=== PATIENT | male | born 1950 | race Caucasian/White ===

== ENCOUNTER 2024-02-21 18:11 | Inpatient (IN) | payer MEDICARE, SELFPAY ==
[2024-02-21] VITALS (49 sets, daily range): BP systolic 92–186; BP diastolic 52–105
--- NOTE | 2024-02-21 14:48 | EDRN ---
1449 20mg etomidate given
1449 100mg succ given after etomidate
23 @ teeth, 8 0 tube
Good color change
Portable chest xray at bedside for post intubation xray
[2024-02-21] MEDS: SUBLIMAZE 60 MCG IV ×2 (14:53→15:07)
[2024-02-21 14:55] LABS: Glucose - Point of Care 130 mg/dl (70-99)
--- NOTE | 2024-02-21 14:58 | ED.GENMED ---
History of Present Illness
<Topher Gary DO - Last Filed: 02/21/24 14:58>
General
Chief Complaint: Unresponsive
Time Seen by Provider: 02/21/24 14:35
<Roger Ramsey PA-C - Last Filed: 02/21/24 18:13>
History of Present Illness
History of Present Illness:
74-year-old male presents to the emergency department via EMS for evaluation of altered mental status. Reportedly was agitated overnight last night and did not go to bed until approximately 6 AM today, did not wake up and thus was evaluated by
nursing facility staff and noted to be unresponsive. On arrival patient is a GCS of 5 with only minimal flexion response to tactile stimuli
Review of Systems
<Roger Ramsey PA-C - Last Filed: 02/21/24 18:13>
Review of Systems
Allergies reviewed?: Yes
Unable to obtain full review of systems at this time due to: intubated
Phy Exam
<Roger Ramsey PA-C - Last Filed: 02/21/24 18:13>
Physical Exam
Physical Exam:
GEN: Frail and malnourished, obtunded
HEENT: Pupils 3 mm and minimally reactive bilaterally ,oral mucosa dry, no scleral icterus
Cardiac: Regular rate and rhythm
Lung: Tachypneic with upper airway secretions, diminished bibasilar breath sounds
Abdomen: Flat, no rigidity
MSK: No gross deformity or injuries
Skin: Good color, no pallor or jaundice, no rashes
Neuro: Obtunded, GCS 5 (E1 V1 M3)
Course
<Topher Gary DO - Last Filed: 02/21/24 14:58>
Orders/Labs/Results
Orders:
Orders
02/21/24 14:29
Etomidate [Amidate] 40 mg .ROUTE .STK-MED ONE
Succinylcholine Chloride [Anectine] 200 mg .ROUTE .STK-MED ONE
02/21/24 14:32
Electrocardiogram (*1) Urgent
Reason for Study: Other
Other Reason for Exam: unresponsive
02/21/24 14:33
EKG- Treatment ONCE
02/21/24 14:39
Propofol 1,000,000 Mcg/100 ml [Diprivan] 1,000,000 mcg in 100 ml .ROUTE .STK-MED
02/21/24 14:45
Fentanyl Citrate/Pf [Sublimaze] 100 mcg .ROUTE .STK-MED ONE
02/21/24 14:46
CT Head W/o Iv Contrast Urgent
Comment:
Reason For Exam: unresponsive
CR Chest Portable - 1 View Urgent
Comment:
Reason For Exam: unresponsive intubation
Reason Study Needs to be Portable: Patient Unstable
02/21/24 14:51
Ammonia Urgent
Complete Blood Count/With Diff Urgent
Comprehensive Metabolic Panel Urgent
PTT Urgent
Prothrombin Time Urgent
Triglycerides Urgent
Comment: ADD ON
Fentanyl Citrate/Pf [Sublimaze] 60 mcg IV NOW STA
02/21/24 14:54
Etomidate [Amidate 20 mg] 20 mg IV NOW STA
Succinylcholine Chloride [Anectine] 100 mg IV NOW STA
02/21/24 15:04
Fentanyl Citrate/Pf [Sublimaze] 100 mcg .ROUTE .STK-MED ONE
Fentanyl Citrate/Pf [Sublimaze] 60 mcg IV NOW STA
02/21/24 15:09
Propofol [Diprivan] 20 ml .ROUTE .STK-MED
02/21/24 15:15
Propofol 1,000,000 Mcg/100 ml [Diprivan] 1,000,000 mcg in 100 ml IV PER PROTOCOL
Indication:: Light Sedation
Begin Infusion:: Now
Goal:: RASS 0 to -2
Maximum dose in mcg/kg/min:: 50
Initial Dose in mcg/kg/min:: 10
Titration Instructions:: Titrate by 5-10 mcg/kg/min every 5 minutes until RASS 0 to -2 achieved.
Taper Instructions:: If RASS is at or below goal for 4 consecutive hours decrease infusion by
Taper Instructions:: 5-10 mcg/kg/min every 2 hours to off.
Over-sedation Instructions:: If CPOT 0-2 (at goal) AND RASS -3 to -5 (below goal) decrease sedative by
Over-sedation Instructions:: 50% first. If pain score remains at goal and RASS remains below goal in
Over-sedation Instructions:: 1 hour, decrease opioid infusion by 50%.
Notify provider:: immediately if patient exhibits signs/symptoms of propofol-related
Notify provider:: infusion syndrome.
Additional Instructions:: Patient MUST be mechanically ventilated and MUST recieve analgesia
Propofol [Diprivan] 50 mg IV NOW STA
02/21/24 15:16
ASA Classification Routine
02/21/24 15:21
Lactulose [Duphalac/Chronulac] 20 grams TUBE NOW STA
02/21/24 15:24
0.9% Sodium Chloride 1000 ml [Nss] 1,000 ml IV BOLUS
02/21/24 16:44
Arterial Blood Gas Urgent
02/21/24 16:56
Lactulose Enema 300 ml RECTAL NOW STA
02/21/24 17:18
Admit/Transfer Patient As Directed
Co-Sign Provider:
Level of Care: Inpatient admission
Assign to:: ICU
Physician / Group: Hospitalist
Diagnosis: Hepatic Encephelopathy
Reason for Hospitalization: Hepatic Encephelopathy
Expected length of stay greater than two midnights?: Yes
ELOS- Estimated Length of Stay in days: 3
I certify the patient meets the requirements for IP care: Yes
02/21/24 17:19
PRN Pain Medication Management As Directed
May give lesser potent ordered pain med per pt: Yes
preference::
Protocol:: Medication orders for pain may be administered in a
manner that supports deferring to patient preference
when the pt is:
- Requesting an ordered lesser potent pain medication.
Least to most potent pain medications are defined
as: acetaminophen < NSAID < tramadol < opioids
(morphine, oxycodone, hydromorphone).
- Requesting a lesser dose of the same medication IF
ORDERED.
- Requesting a less intrusive route of administration
if both routes are prescribed by the provider (PO <
IV).
02/21/24 17:57
Code Status As Directed
Resuscitation Status: Full Code
02/24/24 06:00
Triglycerides Q3D
Comment: every 72 hours while patient is on propofol
02/27/24 06:00
Triglycerides Q3D
Comment: every 72 hours while patient is on propofol
03/01/24 06:00
Triglycerides Q3D
Comment: every 72 hours while patient is on propofol
Abnormal Lab Results
02/21/24 02/21/24 02/21/24
14:51 14:54 16:44
WBC 4.6 L 10^3/uL
(4.8-10.8)
RBC 3.39 L 10^6/uL
(4.70-6.10)
Hgb 11.8 L g/dL
(13.0-18.0)
Hct 33.3 L %
(39.0-52.0)
MCV 98.2 H fL
(80.0-94.0)
MCH 34.8 H pg
(27.0-31.0)
RDW 19.3 H %
(11.5-14.5)
Plt Count 106 L 10^3/uL
(130-400)
Absolute Lymphs (auto) 0.5 L 10^3/uL
(1.2-3.4)
Neutrophils % 80.7 H %
(42.2-75.2)
Lymphocytes % 10.3 L %
(20.5-51.1)
PT 17.9 H Sec
(11.4-14.6)
pO2 187 H mmHg
(83-108)
ABG O2 Sat (Measured) 99.6 H %
(94-98)
Glucose 123 H mg/dl
(70-99)
Total Bilirubin 3.3 H mg/dl
(0.2-1.3)
Ammonia 128 H umol/L
(9-30)
Albumin 3.1 L g/dl
(3.5-5.0)
POC Glucose 130 H mg/dl
(70-99)
02/21/24 14:51
02/21/24 14:51
Vital Signs
Initial and Last Documented VS:
Initial Vital Signs
Temp Pulse Resp BP Pulse Ox
97.6 F 58 14 143/70 100
02/21/24 14:34 02/21/24 14:34 02/21/24 14:34 02/21/24 14:34 02/21/24 14:34
Last Documented Vital Signs
Temp Pulse Resp BP Pulse Ox
97.5 F 56 15 123/61 100
02/21/24 17:22 02/21/24 17:30 02/21/24 17:30 02/21/24 17:30 02/21/24 17:22
<Roger Ramsey PA-C - Last Filed: 02/21/24 18:13>
Orders/Labs/Results
Orders:
Orders
02/21/24 14:29
Etomidate [Amidate] 40 mg .ROUTE .STK-MED ONE
Succinylcholine Chloride [Anectine] 200 mg .ROUTE .STK-MED ONE
02/21/24 14:32
Electrocardiogram (*1) Urgent
Reason for Study: Other
Other Reason for Exam: unresponsive
02/21/24 14:33
EKG- Treatment ONCE
02/21/24 14:39
Propofol 1,000,000 Mcg/100 ml [Diprivan] 1,000,000 mcg in 100 ml .ROUTE .STK-MED
02/21/24 14:45
Fentanyl Citrate/Pf [Sublimaze] 100 mcg .ROUTE .STK-MED ONE
02/21/24 14:46
CT Head W/o Iv Contrast Urgent
Comment:
Reason For Exam: unresponsive
CR Chest Portable - 1 View Urgent
Comment:
Reason For Exam: unresponsive intubation
Reason Study Needs to be Portable: Patient Unstable
02/21/24 14:51
Ammonia Urgent
Complete Blood Count/With Diff Urgent
Comprehensive Metabolic Panel Urgent
PTT Urgent
Prothrombin Time Urgent
Triglycerides Urgent
Comment: ADD ON
Fentanyl Citrate/Pf [Sublimaze] 60 mcg IV NOW STA
02/21/24 14:54
Etomidate [Amidate 20 mg] 20 mg IV NOW STA
Succinylcholine Chloride [Anectine] 100 mg IV NOW STA
02/21/24 15:04
Fentanyl Citrate/Pf [Sublimaze] 100 mcg .ROUTE .STK-MED ONE
Fentanyl Citrate/Pf [Sublimaze] 60 mcg IV NOW STA
02/21/24 15:09
Propofol [Diprivan] 20 ml .ROUTE .STK-MED
02/21/24 15:15
Propofol 1,000,000 Mcg/100 ml [Diprivan] 1,000,000 mcg in 100 ml IV PER PROTOCOL
Indication:: Light Sedation
Begin Infusion:: Now
Goal:: RASS 0 to -2
Maximum dose in mcg/kg/min:: 50
Initial Dose in mcg/kg/min:: 10
Titration Instructions:: Titrate by 5-10 mcg/kg/min every 5 minutes until RASS 0 to -2 achieved.
Taper Instructions:: If RASS is at or below goal for 4 consecutive hours decrease infusion by
Taper Instructions:: 5-10 mcg/kg/min every 2 hours to off.
Over-sedation Instructions:: If CPOT 0-2 (at goal) AND RASS -3 to -5 (below goal) decrease sedative by
Over-sedation Instructions:: 50% first. If pain score remains at goal and RASS remains below goal in
Over-sedation Instructions:: 1 hour, decrease opioid infusion by 50%.
Notify provider:: immediately if patient exhibits signs/symptoms of propofol-related
Notify provider:: infusion syndrome.
Additional Instructions:: Patient MUST be mechanically ventilated and MUST recieve analgesia
Propofol [Diprivan] 50 mg IV NOW STA
02/21/24 15:16
ASA Classification Routine
02/21/24 15:21
Lactulose [Duphalac/Chronulac] 20 grams TUBE NOW STA
02/21/24 15:24
0.9% Sodium Chloride 1000 ml [Nss] 1,000 ml IV BOLUS
02/21/24 16:44
Arterial Blood Gas Urgent
02/21/24 16:56
Lactulose Enema 300 ml RECTAL NOW STA
02/21/24 17:18
Admit/Transfer Patient As Directed
Co-Sign Provider:
Level of Care: Inpatient admission
Assign to:: ICU
Physician / Group: Hospitalist
Diagnosis: Hepatic Encephelopathy
Reason for Hospitalization: Hepatic Encephelopathy
Expected length of stay greater than two midnights?: Yes
ELOS- Estimated Length of Stay in days: 3
I certify the patient meets the requirements for IP care: Yes
02/21/24 17:19
PRN Pain Medication Management As Directed
May give lesser potent ordered pain med per pt: Yes
preference::
Protocol:: Medication orders for pain may be administered in a
manner that supports deferring to patient preference
when the pt is:
- Requesting an ordered lesser potent pain medication.
Least to most potent pain medications are defined
as: acetaminophen < NSAID < tramadol < opioids
(morphine, oxycodone, hydromorphone).
- Requesting a lesser dose of the same medication IF
ORDERED.
- Requesting a less intrusive route of administration
if both routes are prescribed by the provider (PO <
IV).
02/21/24 17:57
Code Status As Directed
Resuscitation Status: Full Code
02/24/24 06:00
Triglycerides Q3D
Comment: every 72 hours while patient is on propofol
02/27/24 06:00
Triglycerides Q3D
Comment: every 72 hours while patient is on propofol
03/01/24 06:00
Triglycerides Q3D
Comment: every 72 hours while patient is on propofol
Abnormal Lab Results
02/21/24 02/21/24 02/21/24
14:51 14:54 16:44
WBC 4.6 L 10^3/uL
(4.8-10.8)
RBC 3.39 L 10^6/uL
(4.70-6.10)
Hgb 11.8 L g/dL
(13.0-18.0)
Hct 33.3 L %
(39.0-52.0)
MCV 98.2 H fL
(80.0-94.0)
MCH 34.8 H pg
(27.0-31.0)
RDW 19.3 H %
(11.5-14.5)
Plt Count 106 L 10^3/uL
(130-400)
Absolute Lymphs (auto) 0.5 L 10^3/uL
(1.2-3.4)
Neutrophils % 80.7 H %
(42.2-75.2)
Lymphocytes % 10.3 L %
(20.5-51.1)
PT 17.9 H Sec
(11.4-14.6)
pO2 187 H mmHg
(83-108)
ABG O2 Sat (Measured) 99.6 H %
(94-98)
Glucose 123 H mg/dl
(70-99)
Total Bilirubin 3.3 H mg/dl
(0.2-1.3)
Ammonia 128 H umol/L
(9-30)
Albumin 3.1 L g/dl
(3.5-5.0)
POC Glucose 130 H mg/dl
(70-99)
02/21/24 14:51
02/21/24 14:51
Vital Signs
Initial and Last Documented VS:
Initial Vital Signs
Temp Pulse Resp BP Pulse Ox
97.6 F 58 14 143/70 100
02/21/24 14:34 02/21/24 14:34 02/21/24 14:34 02/21/24 14:34 02/21/24 14:34
Last Documented Vital Signs
Temp Pulse Resp BP Pulse Ox
97.5 F 56 15 123/61 100
02/21/24 17:22 02/21/24 17:30 02/21/24 17:30 02/21/24 17:30 02/21/24 17:22
Procedures
<Roger Ramsey PA-C - Last Filed: 02/21/24 18:13>
Intubations
Procedure completed by: Roger Ramsey PA-C
Method of Intubation: glidescope
Tube size (cm): 8.0
Placement confirmed by: auscutation, CXR and capnography
Breath sounds after intubation: equal
Intubation complications: no complications
<Roger Ramsey PA-C - Last Filed: 02/21/24 18:13>
MDM/Problems Addressed
MDM/Problems Addressed:
On arrival the patient was noted to be obtunded with a GCS of 5 and was intubated promptly, given etomidate and succinylcholine for RSI and intubated on first pass with no difficulty. After securing the tube he was sent urgently for head CT due to
the acute altered mental status, did require sedation after intubation including fentanyl boluses and propofol drip. CT of the head was unremarkable. Workup reveals marked hyperammonemia which is the source of his altered mental status.
Unfortunately we were unsuccessful multiple attempts to pass an orogastric tube thus lactulose was administered rectally. Will be admitted to the ICU for further management
<Roger Ramsey PA-C - Last Filed: 02/21/24 18:13>
Comment
Comment:
EKG independently interpreted by me shows sinus bradycardia at a rate of 58 with significant motion artifact
*Critical Care Note
Total Time (30-74mins, 75-104mins- exclusive of procedures): 55 minutes
comment:
Critical care time: 55-minute
Critical care time was exclusive of: Separately billable procedures, treating other patients, and teaching time
Critical care was necessary to treat or prevent imminent or life-threatening deterioration of the following conditions: Acute encephalopathy/respiratory insufficiency
Critical care time spent personally by me on the following activities:
[x] Review of old charts
[x] Obtaining history from patient or surrogate
[x] Ordering and review of the laboratory studies
[x] Ordering and review of radiographic studies
[x] Ordering and performing treatments and interventions
[x] Patient patient's response to treatment
[x] Development of treatment plan with patient or surrogate
ED Attending Note
<Topher Gary DO - Last Filed: 02/21/24 14:58>
ED Attending Note
Patient seen and examined by attending physician: Yes
I performed the substantive portion of visit, reviewed & personally made and approve the management plan that is documented in note by myself or TIFFANY.: Yes
ED Attending Note:
I evaluated patient at bedside. I was present for the intubation. The patient arrived minimally responsive and does not follow any commands.
-
Portions of this chart may have been created with voice recognition software.� Occasional wrong word or��sound alike� substitutions may have occurred due to the inherent limitations of voice recognition software.
Discharge Plan
Departure
Patient Disposition: Admit
Date of Disposition: 02/21/24
Time of Disposition: 15:34
Admit to: ICU
Presentation/result/management discussed w/ accepting MD/DO: Hospitalist
Discharge Problem:
Acute hepatic encephalopathy
Prescriptions:
No Action
acetaminophen [Tylenol] 325 mg Tablet
650 mg PO Q6HPRN PRN (Reason: mild pain)
cyanocobalamin (vitamin B-12) 100 mcg Tablet
100 mcg PO HS
lidocaine 4 % Adhesive Patch,Medicated
1 patch TOPICAL DAILY
thiamine HCl (vitamin B1) 100 mg Tablet
100 mg PO DAILY
Theragen Tablet
1 tab PO DAILY
guaifenesin 200 mg Tablet
600 mg PO [id number] PRN (Reason: cough)
propranolol 10 mg Tablet
10 mg PO HS
magnesium hydroxide [Milk of Magnesia] 400 mg/5 mL Suspension
2,400 mg PO DAILYPRN PRN (Reason: if no bm by 3rd day)
ascorbic acid (vitamin C) [Vitamin C] 250 mg Tablet
250 mg PO DAILY
bisacodyl [Dulcolax (bisacodyl)] 10 mg Suppository
10 mg TN DAILYPRN PRN (Reason: if no bm aftr mom)
pantoprazole [Protonix] 40 mg Tablet,Delayed Release (Dr/Ec)
40 mg PO HS
Fleet Enema 19-7 gram/118 mL Enema
118 ml TN DAILYPRN PRN (Reason: if no bm aftr dulolcax)
furosemide [Lasix] 20 mg Tablet
20 mg PO DAILY
propranolol 20 mg Tablet
20 mg PO DAILY
lactulose 10 gram/15 mL Solution
20 g PO TID
menthol-zinc oxide [Moisture Barrier Ointment] 0.44-20.6 % Ointment
1 applic TOPICAL TIDPRN PRN (Reason: palak areas)
zinc oxide 13 % Cream
1 applic TOPICAL TID
Trelegy Ellipta 100-62.5-25 mcg Blister With Device
1 inh INHALATION R DAILY
Referrals:
Carlos Castro MD [Family Provider] -
Discharge Date and Time
Print Language: LUX[place]
[2024-02-21 15:01] LABS: % Basophils 0.7 % (0-2); % Eosinophils 3.7 % (0-6); % Immature Granulocytes 0.2 % (0-0.5); % Lymphocytes 10.3 % (20.5-51.1); % Monocytes 4.4 % (1.7-9.3); % Neutrophils 80.7 % (42.2-75.2); Absolute Eosinophils 0.2 10^3/uL (0-0.7); Absolute Lymphocytes 0.5 10^3/uL (1.2-3.4); Absolute Monocytes 0.2 10^3/uL (0.1-0.6); Absolute Neutrophils 3.7 10^3/uL (1.4-6.5); Hematocrit 33.3 % (39.0-52.0); Hemoglobin 11.8 g/dL (13.0-18.0); Mean Corp Hgb Conc. 35.4 g/dL (33.0-37.0); Mean Corpuscular Hgb 34.8 pg (27.0-31.0); Mean Corpuscular Volume 98.2 fL (80.0-94.0); Mean Platelet Volume 9.4 fL (7.4-10.4); Nucleated Red Blood Cells % 0 % (-); Platelet Count 106 10^3/uL (130-400); Red Blood Cell Count 3.39 10^6/uL (4.70-6.10); Red Cell Dist. Width 19.3 % (11.5-14.5); White Blood Cell Count 4.6 10^3/uL (4.8-10.8)
[2024-02-21] MEDS: NSS 1000 IV ×2 (15:05→20:21)
[2024-02-21] MEDS: DIPRIVAN 100 IV (15:07)
[2024-02-21 15:13] LABS: INR 1.42; PT 17.9 Sec (11.4-14.6)
--- NOTE | 2024-02-21 15:13 | EDRN ---
50mg propofol given by Quintin Ramsey PA-C.
[2024-02-21 15:16] LABS: Ammonia 128 umol/L (9-30)
[2024-02-21 15:17] LABS: ALT (SGPT) 38 U/L (0-50); AST (SGOT) 48 U/L (17-59); Albumin 3.1 g/dl (3.5-5.0); Alkaline Phosphatase 106 U/L (38-126); Blood Urea Nitrogen 20 mg/dl (9-20); Calcium 8.6 mg/dl (8.4-10.2); Carbon Dioxide 29 mmol/L (22-30); Chloride 104 mmol/L (98-107); Glucose 123 mg/dl (70-99); Potassium 4.9 mmol/L (3.5-5.1); Sodium 138 mmol/L (135-145); Total Bilirubin 3.3 mg/dl (0.2-1.3); Total Protein 6.8 g/dl (6.3-8.2); eGFR > 60.00
--- NOTE | 2024-02-21 15:17 | EDRN ---
Vent Settings: TV-500, Rate-14, FiO2-40%, PEEP-5
--- NOTE | 2024-02-21 15:54 | EDRN ---
this CROWN ATTACHER attempted to place NG or OG tube to administer ordered meds to be given via tube. Unsuccessful x3 attempts, NG tube was repeatedly curling and coming back out of the pts mouth. this CROWN ATTACHER obtained assistance from ER DELMAR Masters During NG or
OG tube placement attempts pt was moving his extremities and coughing. ER DELMAR Forman administered 50mg Propofol IVP at this time (1530) for additional sedation. ER DELMAR Masters then attempted to place NG or OG tube while using glidescope assistance but
was unsuccessful x3 attempts. An additional CROWN ATTACHER also called to the beside and attempted to place ordered NG or OG tube but was also unsuccessful x3 attempts.
HERBERT Masters was notified of above
--- NOTE | 2024-02-21 16:42 | EDRN ---
this HOT HEAD MACHINE OPERATOR called [facility] staff development coordinator inquiring about the Isolation precaution wristband the pt arrived wearing. The [place] staff development coordinator stated that the pt came to [facility] with that wristband on 'from the other hospital.' [facility]
[place] staff development coordinator stated they did NOT have the pt on ANY isolation precautions at their facility.
Due to multiple ER staff members failed attempts to place either an NG or OG tube in this pt, ER DELMAR Masters informed this HOT HEAD MACHINE OPERATOR that the medication will be changed to rectal administration route.
[2024-02-21 16:51] LABS: Triglycerides 45 mg/dl (10-149)
[2024-02-21 16:59] LABS: B.E. 2.2 mmol/L; HCO3 26.5 mmol/L (21-28); O2 Saturation % 99.6 % (94-98); PCO2 39 mmHg (35-48); PO2 187 mmHg (83-108); pH 7.44 (7.35-7.45)
[2024-02-21] MEDS: LACTULOSE ENEMA 300 ML RECTAL ×2 (17:48→22:30)
[2024-02-21 18:33] LABS: Amphetamines Negative (Negative); Barbiturates Negative (Negative); Benzodiazepines Negative (Negative); Buprenorphine Negative (Negative); Cocaine Negative (Negative); Marijuana Negative (Negative); Methadone Negative (Negative); Methamphetamines Negative (Negative); Opiates Negative (Negative); Phencyclidine Negative (Negative); Tricyclic Antidepressants Negative (Negative)
--- NOTE | 2024-02-21 18:46 | HPS.HSE ---
Addendum entered and electronically signed by Rocío Pagan MD 02/21/24 19:41:
I personally performed a history and physical exam of the patient and discussed management with the resident. I reviewed the resident's note and agree with the documented findings and plan of care HPI/CC.
GENERAL: cachectic, chronically ill appearing male, in no apparent distress
HEENT: NC/AT--intubated, sunken temples and muscle wasting
HEART: regular rate and rhythm, +S1, +S2
LUNGS : rhonchi RLL
ABDOM: soft, nontender, nondistended, + bowel sounds--scaphoid abdomen, no ascites
EXT: no cyanosis, clubbing, or edema
NEUROLOGIC: obtunded
: uncircumcised penis--Tamayo catheter being placed
change in mental status/obtunded--likely hepatic encephalopathy given cirrhosis and ammonia of 128-- no signs of hypoxia, hypercapnia, acidosis or sepsis, head CT neg for infarct--admit to ICU--consult driver manager--could not get NGT in in
ED--consult GI--for now, lactulose enemas--trend ammonia--cont rocephin for SBP coverage--check TSH--tamayo for critical care I/Os
VDRF--likely intubated due to mental status and inability to protect airway--vent setting per pulm--wean as able
pancytopenia--likely due to cirrhosis--follow--unknown baseline but likely chronic--on thiamine and B12 supplements
cirrhosis--no ascites--unknown cause--on propranolol and lasix--could have varices--no signs of active bleeding--change oral to IV meds as able
Possible pneumonia--could be due to aspiration--ok for rocephin/doxy for now---CXR cannot rule out left basilar pneumonia.
Essential hypertension--Lopressor with parameters
COPD--Hold Trelegy Ellipta, start DuoNebs through vent--apprec pulm/driver manager
code status--Full Code
DVT proph --SCDs
Total Critical Care Time 60 minutes. I was immediately available to the patient and staff. I personally examined, reviewed labs, diagnostic images/reports, interpretations, treatment plans, discussed patient care with other providers and family
or caregivers (if patient is unable to make decisions), entered orders as appropriate and documented the medical record.
Original Note:
Family Physician
-
Family Physician: Carlos Castro
Chief Complaint
-
Altered mental status
History of Present Illness
History is limited secondary to patient obtundation. Patient arrived from [facility]. Reportedly the patient was agitated overnight last night and did not go to bed until approximately 6 AM this morning. The patient was
allowed to sleep, did not receive his morning medications, or morning meals, and was thus evaluated by nursing staff in the early afternoon. The patient was noted to be unresponsive. Upon arrival to the emergency department, the patient's [place]
Coma Scale was 5 with only minimal flexion response to tactile stimuli. Laboratory studies in the emergency department revealed pancytopenia, elevated PT, total bilirubin of 3.3, mild transaminitis, and a ammonia level of 128.
Medical History
Past Medical History
Past Medical History: Reports Other
Additional Past Medical History:
Cirrhosis, portal hypertension, esophageal varices, GI hemorrhage, metabolic encephalopathy, aphasia, chronic thrombocytopenia, essential hypertension, COPD, chronic anemia, idiopathic pulmonary fibrosis, pulmonary hypertension
Past Surgical History: Reports Other
Additional Past Surgical History:
Unable to obtain secondary to patient intubation.
Social History
Unable to obtain full social history at this time due to: Patient Intubation
Family History
Family History: Unable to Obtain
Allergies / Home Medications
Allergies reflects when Allergies were last updated in [employer].
Home Medications with original date entered in [employer] [facility]
Allergy/Medication List:
Medication allergies obtained from snf list include: Ciprofloxacin, penicillin, Zofran, coconut oil.
Review of Systems
-
Unable to obtain full review of systems at this time due to: Patient Intubation
Physical Exam
Vital Signs
Vital Signs
Temp Pulse Resp BP Pulse Ox
97.5 F 60 13 143/96 100
02/21/24 17:22 02/21/24 18:00 02/21/24 17:45 02/21/24 18:00 02/21/24 17:45
Physical Exam
General: Other (Obtunded, intubated.)
HEENT: NormoCephalic, Anicteric and Other (Fresh blood in the naris.)
Respiratory: Other (Patient on intubation; mild rhonchi in the right lower lobe, otherwise clear to auscultation bilaterally.)
Cardiac: S1/S2 and Regular Rhythm
GI: Other (Scaphoid abdomen; otherwise soft, nondistended)
Musculoskeletal: No Clubbing, No Cyanosis and No Edema
Skin: Dry
Laboratory Results
-
02/21/24 14:51
02/21/24 14:51
Laboratory Results
PT 17.9 Sec (11.4-14.6) H 02/21/24 14:51
INR 1.42 02/21/24 14:51
APTT 34.0 Sec (23.4-35.0) 02/21/24 14:51
pH 7.44 (7.35-7.45) 02/21/24 16:44
pCO2 39 mmHg (35-48) 02/21/24 16:44
pO2 187 mmHg (83-108) H 02/21/24 16:44
HCO3 26.5 mmol/L (21-28) 02/21/24 16:44
Total Bilirubin 3.3 mg/dl (0.2-1.3) H 02/21/24 14:51
AST 48 U/L (17-59) 02/21/24 14:51
ALT 38 U/L (0-50) 02/21/24 14:51
Alkaline Phosphatase 106 U/L (38-126) 02/21/24 14:51
Data Reviewed
-
CT Scan: Report Reviewed by me
Lab Data: Labs Reviewed by me
Old Records: Reviewed (assisted records.)
Impression/Plan
-
IMPRESSION:
Metabolic encephalopathy, pancytopenia, possible pneumonia
PLAN:
1. Metabolic encephalopathy
-Ammonia level 128, GCS 5 on arrival.
-Trend ammonia level
-ABG normal
-Patient admitted to the intensive care unit.
-Rectal lactulose, IV Lasix
-CT Head; no acute abnormality
-OGT Tube Placement failed; Dobbhoff tube to be placed tomorrow.
2. Pancytopenia
-WBC 4.6, hemoglobin 11.8, platelets 106.
-Likely chronic. Trend CBC.
3. Possible pneumonia
-CXR cannot rule out left basilar pneumonia.
-Mild rhonchi in the right lower lobe on clinical exam.
-Start Vanco, Flagyl, Azactam
4. Essential hypertension
-Lopressor
5. COPD
-Hold Trelegy Ellipta, start DuoNebs through vent
Full Code/SCDs
--- NOTE | 2024-02-21 19:00 | PTCARENOTE ---
Rec'd patient from ED around 1830. Patient intubated and sedated. Propofol @ 15. Pupils pinpoint. +Corneal and gag reflexes. NSR with first degree avb on tele, rate in the 60's. RT at bedside. #8 ETT @ 25 cm. A/C 500/14/5/40%. Air leak present. TV
averaging 300's. VP [employer] and anesthesia notified.
[2024-02-21] MEDS: SUBLIMAZE 50 MCG IV ×2 (19:05→20:57)
--- NOTE | 2024-02-21 19:07 | PTCARENOTE ---
Rn Flow- Called to Emmy who is patient's SO for admission questions.
[2024-02-21] MEDS: DUONEB 3 ML INH (19:15)
--- NOTE | 2024-02-21 20:00 | PTCARENOTE ---
assumed care pt intubated with cuff leak CATALYST PLANT SUPERVISOR RT @ bedside BOARD RUNNER made aware, not following commands +cough weak gag, B/L wrist restraints, prop, sinus with first degree, +pulses B/L scds, AC 14/500/5/40 coarse rhonchi, blood tinged from subglottic port
thick white orally, SpO2 100%, BSx4 malave loose DHT placed after multiple attempts at placing [place] sump 65cm L nare, 16 temp sensing tamayo elvira output, wounds per worklist prophylactic foams on heel and elbows, 20 LAC, 20 LFA, fent NS, otherwise
refer to documentation .
[2024-02-21] MEDS: ROCEPHIN 1000 MG IV (20:34)
[2024-02-21] MEDS: STERILE WATER FOR INJECTION 10 ML IV (20:34)
[2024-02-21] MEDS: VIBRAMYCIN 260 MG IV (20:36)
[2024-02-21] MEDS: VERSED 2 MG IV (21:11)
--- NOTE | 2024-02-21 21:13 | RESPNOTE ---
pt reintubated due to air leak with an 8.0 ETT at 24 at the lip
--- NOTE | 2024-02-21 21:17 | W.PN.ANESINT ---
Anesthesia Intubation Note
- Intubation Note
Intubation Note:
Diagnosis: Resp Failure, cough leak, primary team requested ETT exchange
Blade: 4
Tube Size: 8.0 HILO
Depth: 24CM
Side Taped: MID
Drugs Used: 25 mg Rocuronium, Fentanyl, versed (see MAR for dosing)
Grade View: 1
EtCO2 Present: yes
Atraumatic: yes
Attempts: 1
Insertion Start and Stop Time: 20:50 to 21:06
SaO2 Pre: 100
SaO2 Post: 100
Glidescope Used: yes
Other Airway Adjustments:
Pre-Oxygenated: yes
Portable Chest X-Ray: per team
RSI:
Suctioned:
Bilateral Breath Sounds Confirmed:
Vent Settings:
Settings per ___Attending Physician
--- NOTE | 2024-02-21 22:00 | PTCARENOTE ---
pt reintubated, levo started, prop fent gtts titrated per worklist, pt getting better volumes on vent
[2024-02-21 22:16] LABS: B.E. 0.8 mmol/L; HCO3 25.3 mmol/L (21-28); PCO2 39 mmHg (35-48); PO2 185 mmHg (83-108); pH 7.42 (7.35-7.45)
--- NOTE | 2024-02-21 22:44 | W.PN.UPDATE ---
Update Note
Progress Note Update
02/21/24
2100 Concern for ETT leaking vs balloon integrity, patient not receiving full tidal volumes and air/cough can be heard by the tube. Position was checked by chest xray, appeared tube was situated at the orifice of the right mainstem bronchus, tube
needed repositioning. ETT/airway was exchanged by anesthesiologist Dr. Kasper. Sedation administered by RN, versed 2mg and fentanyl bolus 50mcg, propofol gtt increased, levophed gtt added for hypotension. Procedure tolerated, no complications, and
ETT exchanged.
[2024-02-21 23:27] LABS: TSH Reflex To Free T4 1.45 uIU/ml (0.47-4.68)
[2024-02-22] VITALS (70 sets, daily range): BP systolic 62–132; BP diastolic 47–80; BMI 18.8
--- NOTE | 2024-02-22 00:27 | PTCARENOTE ---
systems reviewed, lactulose enema dc'd now down DHT, RT notified for air leak cuff inflated leak resolved, otherwise refer to documentation
[2024-02-22] MEDS: DIPRIVAN 100 IV (00:59)
[2024-02-22 04:09] LABS: B.E. 0 mmol/L; HCO3 23.6 mmol/L (21-28); O2 Saturation % 99.5 % (94-98); PCO2 34 mmHg (35-48); PO2 134 mmHg (83-108); pH 7.45 (7.35-7.45)
[2024-02-22 04:12] LABS: O2 Therapy VENT
[2024-02-22] MEDS: TYLENOL 650 MG TUBE (04:53)
[2024-02-22 05:30] LABS: % Basophils 0.7 % (0-2); % Eosinophils 1.3 % (0-6); % Immature Granulocytes 0.5 % (0-0.5); % Lymphocytes 9.5 % (20.5-51.1); % Monocytes 6.3 % (1.7-9.3); % Neutrophils 81.7 % (42.2-75.2); Absolute Eosinophils 0.1 10^3/uL (0-0.7); Absolute Lymphocytes 0.5 10^3/uL (1.2-3.4); Absolute Monocytes 0.4 10^3/uL (0.1-0.6); Absolute Neutrophils 4.6 10^3/uL (1.4-6.5); Hematocrit 33.3 % (39.0-52.0); Hemoglobin 11.5 g/dL (13.0-18.0); Mean Corp Hgb Conc. 34.5 g/dL (33.0-37.0); Mean Corpuscular Hgb 34.8 pg (27.0-31.0); Mean Corpuscular Volume 100.9 fL (80.0-94.0); Mean Platelet Volume 9.9 fL (7.4-10.4); Nucleated Red Blood Cells % 0 % (-); Platelet Count 72 10^3/uL (130-400); Red Cell Dist. Width 19.6 % (11.5-14.5); White Blood Cell Count 5.6 10^3/uL (4.8-10.8)
[2024-02-22 05:32] LABS: Ammonia 117 umol/L (9-30)
[2024-02-22] MEDS: NSS 1000 IV ×3 (05:55→23:09)
--- NOTE | 2024-02-22 05:58 | PTCARENOTE ---
systems reviewed, pt temp 101 tylenol given, labs and ABG sent, gtts titrated per worklist, BP in 60's, OPERATOR PREFINISH made aware levo started and 1000ml bolus NS, otherwise refer to documentation
[2024-02-22] MEDS: SUBLIMAZE 100 IV (06:59)
[2024-02-22] MEDS: DUONEB 3 ML INH ×4 (07:16→19:22)
--- NOTE | 2024-02-22 07:39 | CON.GI ---
Addendum entered and electronically signed by Osmar Cortez DO 02/22/24 14:55:
I saw and examined the patient.
The TRAVEL CLERK's note was reviewed and I agree with the note.
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
to HE given history of cirrhosis and elevated ammonia level of 128. In previous discussions with family, apparently over the past few months have noticed worsening confusion and change in mental status where he was reportedly admitted to [facility] (no records of this) and again was previously residing at facility. Otherwise, no reported changes in medications or obvious GI bleeding or other fevers/chills prior to his arrival at his [place]. He has reportedly maintained abstinence
from EtOH. In the ED, he was found to be febrile with T Max 100.7 and labs notable for hbg 11.8, platelet 106 with drop to 72,000, INR 1.42, albumin 2.1, bili 2.3, AST 45, ALT 32, alk phos 84, and ammonia 117. Currently he remains intubated with
DHT in place receiving lactulose q 6 hours. Unclear etiology of profound HE, however infectious etiology remains highest on differential given his fever and possible PNA seen on CXR. Agree with empiric IV antibiotics along with a full infectious
work-up. No other offending medications as a possible culprit. No appreciable ascites on most recent US and unable to perform Dopplers to assess vasculature and/or rule out shunting given his previously reported HE. CT CAP grossly limited as without
IV or oral contrast but without any acute intra-abdominal process or significant ascites. Unable to assess vasculature, however doubt PVT and would not be responsible for his profound HE. Ultimately, should have dedicated repeat imaging with CT with
IV contrast versus MRI once patient is able to tolerate this to r/o other possible shunting and/or PVT once clinically stable. Otherwise, no other concern for GI bleed and yellow-brown stools via FMS. Favor holding diuretics for now pending
infectious w/u especially while on pressors along with holding his previous NSBB (propranolol) as not to precipitate HRS. Would continue to trend daily MELD 3.0 labs while inpatient and close monitoring of renal function q 12 hrs. Rest of care as
outlined below.
GI team will continue to follow while inpatient. Please call with any questions or concerns.
Original Note:
Consultation
-
Date/Time Consultation Requested: 02/21/24 1820
Date/Time Consultation Performed: 02/22/24 0730
Requesting Provider: Michael Snyder DO
Performing Provider: YANCY Anthony, Osmar Cortez DO
Reason for Consultation: hepatic encephalopathy
Medical History
Chief Complaint / HPI
Chief Complaint: change in mental status
History of Present Illness:
Pt is a 74yo with hx COPD cirrhosis-- Etiology ? ETOH per family but quit in 2011. He was diagnosed around the time he quit ETOH in 2011 and has had several variceal GI bleeds with banding in past. Per significant other pt was not compliant with
follow up over the years. Over last 6 months he has had fatigue and some change in mental status then was admitted with fever and hepatic encephalopathy about a month ago to [facility] then transferred to [facility]. He
did have another hospital admission and recently admitted to [facility] about 1 week ago. He now presents to for change in mental status with ammonia of 128 with low grade fever 100.7 with possible PNA and hypotension
requiring BP support. He was intubated after admission. On admission pt with hbg 11.8, platelet 106 with drop to 72,000, INR 1.42, albumin 2.1, bili 2.3, AST 45, ALT 32, alk phos 84, and ammonia 117.
At this time pt sedated unable to give history. Per significant other some recent dysphagia and hx GERD. Per family he may have had recent swallowing evaluation. No nausea/vomiting, abdominal pain, distention with no prior hx ascites or
paracentesis in past. No diarrhea, constipation that they were aware of. Last GI bleed several years ago with EGD. Unsure about colonoscopy. No prior hepatology evaluation.
Past Medical History
Past Medical History: COPD, HTN and Other (cirrhosis with prior EV bleeding with prior banding, aphasia, thrombocytopenia, anemia, pulm fibrosis, pulm HTN )
Social History
Tobacco: Former Smoker (quit 1 year ago)
Alcohol: Former (quit 2011 )
Drug: None
Personal: Partner
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
Family History
Family History: Other (per significant other-- pt was from [place] unsure any liver disease in family )
Allergies / Home Medications
Allergy/AdvReac Type Severity Reaction Status Date / Time
coconut oil Allergy Unknown Verified 02/21/24 14:32
ondansetron [From Zofran] Allergy Unknown Verified 02/21/24 14:32
Penicillins Allergy Unknown Verified 02/21/24 19:34
�Medication �Instructions �Recorded
acetaminophen 325 mg tablet 650 mg PO Q6HPRN PRN mild pain 02/21/24
(Tylenol)
ascorbic acid (vitamin C) 250 mg 250 mg PO DAILY 02/21/24
tablet (Vitamin C)
bisacodyl 10 mg rectal suppository 10 mg [place] DAILYPRN PRN if no bm 02/21/24
(Dulcolax (bisacodyl)) aftr mom
cyanocobalamin (vitamin B-12) 100 100 mcg PO HS 02/21/24
mcg tablet
fluticasone fur. 100 mcg-umeclid 1 inh inhalation R DAILY 02/21/24
62.5 mcg-vilant 25 mcg
inhalat.powder (Trelegy Ellipta)
furosemide 20 mg tablet (Lasix) 20 mg PO DAILY 02/21/24
guaifenesin 200 mg tablet 600 mg PO [id number] PRN cough 02/21/24
lactulose 10 gram/15 mL oral 20 g PO TID 02/21/24
solution
lidocaine 4 % topical patch 1 patch topical DAILY right 02/21/24
shoulder
magnesium hydroxide 400 mg/5 mL 2,400 mg PO DAILYPRN PRN if no bm 02/21/24
oral suspension (Milk of Magnesia) by 3rd day
menthol 0.44 %-zinc oxide 20.6 % 1 applic topical TIDPRN PRN palak 02/21/24
topical ointment (Moisture Barrier areas
Ointment)
pantoprazole 40 mg tablet,delayed 40 mg PO HS 02/21/24
release (Protonix)
propranolol 10 mg tablet 10 mg PO HS 02/21/24
propranolol 20 mg tablet 20 mg PO DAILY 02/21/24
sodium phosphates 19 gram-7 118 ml [place] DAILYPRN PRN if no bm 02/21/24
gram/118 mL enema (Fleet Enema) aftr dulolcax
therapeutic multivitamin 1 tab PO DAILY 02/21/24
thiamine HCl (vitamin B1) 100 mg 100 mg PO DAILY 02/21/24
tablet
zinc oxide 13 % topical cream 1 applic topical TID sacrum 02/21/24
Review of Systems
-
Unable to obtain full review of systems at this time due to: Patient Intubation and Patient Non Verbal
History Source: Family and Other (staff)
Constitutional: Reports Fever (low grade ) and Fatigue
EENT: Reports No Symptoms
Respiratory: Reports Trouble Breathing (hx COPD)
Cardiac: Reports No Symptoms
Abdomen/GI: Reports Other (hx GI bleed in past no recent bleeding per family )
: Reports No Symptoms
Musculoskeletal: Reports No Symptoms
Skin: Reports No Symptoms
Neurological: Reports Weakness and Other (change in mental status on admission)
Endocrine: Reports No Symptoms
Hematologic/Lymphatic: Reports No Symptoms
Vital Signs
Temp Pulse Resp BP Pulse Ox
100.7 F H 65 14 96/67 100
02/22/24 03:30 02/22/24 07:18 02/22/24 07:18 02/22/24 06:15 02/22/24 07:18
Physical Exam
Exam
General: Other (ill appearing currently intubated and sedated )
HEENT: Normocephalic and Other (minimal jaundice )
Respiratory: Rhonchi
Cardiac: Regular Rhythm
GI: Soft, Non Tender and Non Distended
Rectal: Other (brown stool in rectal tube )
Musculoskeletal: No Clubbing and No Cyanosis
Skin: Warm and Dry
Neuro: Sedated
Psych: Calm
Results
WBC 5.6 10^3/uL (4.8-10.8) 02/22/24 05:08
Hgb 11.5 g/dL (13.0-18.0) L 02/22/24 05:08
Hct 33.3 % (39.0-52.0) L 02/22/24 05:08
MCV 100.9 fL (80.0-94.0) H 02/22/24 05:08
Plt Count 72 10^3/uL (130-400) L D 02/22/24 05:08
Absolute Neuts (auto) 4.6 10^3/uL (1.4-6.5) 02/22/24 05:08
PT 17.9 Sec (11.4-14.6) H 02/21/24 14:51
INR 1.42 02/21/24 14:51
APTT 34.0 Sec (23.4-35.0) 02/21/24 14:51
Sodium Cancelled 02/22/24 05:08
Potassium Cancelled 02/22/24 05:08
Chloride Cancelled 02/22/24 05:08
Carbon Dioxide Cancelled 02/22/24 05:08
BUN Cancelled 02/22/24 05:08
Creatinine Cancelled 02/22/24 05:08
Calcium Cancelled 02/22/24 05:08
Total Bilirubin Cancelled 02/22/24 05:08
AST Cancelled 02/22/24 05:08
ALT Cancelled 02/22/24 05:08
Alkaline Phosphatase Cancelled 02/22/24 05:08
Diagnostic Image Results:
02/20 CXR Suspect chronic interstitial lung disease. Cannot rule out superimposed left basilar pneumonia
02/20 HCT No acute intracranial abnormality noted.
Prior GI Procedures:
EGD: with prior GI bleeding
Colonoscopy: ? in past
Assessment / Plan
-
Pt is a 74yo with hx COPD cirrhosis-- Etiology ? ETOH per family but quit in 2011. He was diagnosed around the time he quit ETOH in 2011 and has had several variceal GI bleeds with banding in past. Per significant other pt was not compliant with
follow up over the years. Over last 6 months he has had fatigue and some change in mental status then was admitted with fever and hepatic encephalopathy about a month ago to [facility] then transferred to [facility]. He
did have another hospital admission and recently admitted to [facility] about 1 week ago. He now presents to for change in mental status with ammonia of 128 with low grade fever 100.7 with possible PNA and hypotension
requiring BP support. He was intubated after admission. On admission pt with hbg 11.8, platelet 106 with drop to 72,000, INR 1.42, albumin 2.1, bili 2.3, AST 45, ALT 32, alk phos 84, and ammonia 117.
-change in mental status with concern for hepatic encephalopathy with elevated ammonia level-- first admit to but recent admit to [facility] with similar symptoms
-low grade fever
-resp insufficiency s/p intubation
-hypotension requiring pressors on admission
-possible PNA
-hx dysphagia with recent speech eval per family
-cirrhosis - ? ETOH related but quit in 2011 with decompensation
-hx EV with bleeding several years ago with banding
-thrombocytopenia
-anemia
-hypoalbuminemia
-COPD/pulm HTN
PLAN:
Etiology of mental status change likely related to hepatic encephalopathy with hx cirrhosis
Etiology of HE -- related to infection (? PNA, will add blood cx and urine cx), no signs of aggressive GI bleeding stools brown hbg stable, electrolytes stable with normal creat, ? medication compliance has only been at current [facility] less than 1 week
vs other
check US abdomen with doppler to confirm if any ascites and ability to tap, eval for mass, PVT
t/c eventual cross section imaging if not completed at [facility] when stable
cont antibiotics
change lactulose to Q 6 h via DHT and enema stopped
remains on Lasix 20mg daily
add Pepcid daily
cont Propranolol with Hx EV
eventual repeat EGD can be Outpatient unless signs of GI bleeding or drop in hbg
add AFP
MELD 3.0 16
trend labs
will need eventual formal liver serology work up but will obtain prior records from [facility] to see what has been completed
I update significant other
t/c eventual hepatology eval pending course
speech consult when extubated
will follow
-
-
Thank you for consultation and allowing me to participate in the patient's care. Please call the brand sales consultant GI physician during the after hours with any questions or concerns.
[2024-02-22] MEDS: DUPHALAC/CHRONULAC 20 GRAMS TUBE (07:41)
[2024-02-22] MEDS: LIDOCAINE 4% PATCH 1 PATCH TOPICAL (07:43)
[2024-02-22] MEDS: VIBRAMYCIN 260 MG IV (07:43)
[2024-02-22 08:09] LABS: ALT (SGPT) 32 U/L (0-50); AST (SGOT) 45 U/L (17-59); Albumin 2.1 g/dl (3.5-5.0); Alkaline Phosphatase 84 U/L (38-126); Blood Urea Nitrogen 25 mg/dl (9-20); Calcium 7.6 mg/dl (8.4-10.2); Carbon Dioxide 25 mmol/L (22-30); Chloride 110 mmol/L (98-107); Estimated Creatinine Clearance 45 ml/min; Glucose 97 mg/dl (70-99); Magnesium 1.6 mg/dl (1.6-2.3); Phosphorus 3.4 mg/dl (2.5-4.5); Potassium 4.2 mmol/L (3.5-5.1); Sodium 139 mmol/L (135-145); Total Bilirubin 2.3 mg/dl (0.2-1.3); Total Protein 5.1 g/dl (6.3-8.2); Triglycerides 61 mg/dl (10-149); eGFR > 60.00
[2024-02-22 09:12] LABS: Urine Albumin Trace (Neg - Trace); Urine Bilirubin 1+ (Negative); Urine Character Clear (Clear); Urine Color Yellow; Urine Glucose Negative (Negative); Urine Ketone Trace (Negative); Urine Leukocyte 1+ (Negative); Urine Nitrite Positive (Negative); Urine Occult Blood 3+ (Negative); Urine Urobilinogen 2+ (Neg - 1+)
[2024-02-22 09:24] LABS: APTT 40.5 Sec (23.4-35.0); Fibrinogen 234 MG/DL (199-459); Lactic Acid 2.6 mmol/L (0.7-2.0)
--- NOTE | 2024-02-22 09:30 | PTCARENOTE ---
Rec'd care of patient at 0700. Patient unresponsive on ventilator. Fentanyl and Propofol drips on for sedation. Propofol drip turned off and Fentanyl titrated down to 25 mcg/hr for SAT. +Gag/corneal reflexes. Pupils unequal. Left pupil sluggish,
+2mm. Right pupil fixed and pinpoint. Hospitalist at bedside. Head CT ordered. Chest/abdomen/pelvis CT added by Queen Producer. NSR with first degree avb on tele monitor. Levophed infusing through peripheral INT for MAP >65. Patient weeping
serosanguineous drainage from lab draw and iv sites. Order for PICC obtained. Intubated with #8 ett @ 25 cm. A/C 599/14/5/30%. Pulse ox 100%. Lung sounds diminished throughout. +BS. DHT in left nare. Lactulose dose increased by GI. Incontinent of
liquid stool- FMS in place. Enrique in place for critical I/O. Output 10-15 cc/hr. Blood cultures, lactic and UA sent.
--- NOTE | 2024-02-22 10:25 | PTCARENOTE ---
US tech at bedside to perform abdominal ultrasound.
--- NOTE | 2024-02-22 10:34 | PTCARENOTE ---
Chest CT results indicating endotracheal tube is at the level of the slime directed toward the right mainstem bronchus- Cloth Winding Supervisor and RT notified.
--- NOTE | 2024-02-22 10:53 | CON.INTV ---
Consultation
Consultation Request
Date/Time Consultation Requested: 02/21/2024 4:00 PM
Date/Time Consultation Performed: 8:00 Am 02/22/2024
Requesting Provider: Dr. Roger Ramsey
Performing Provider: Dr. Farhad Fraire
Reason for Consultation: Altered Mental Status
Medical History
-
Chief Complaint: Altered Mental Status
History of Present Illness:
Patient is a 74 year old male, full code, who is presenting from [facility]. he presented to the emergency room because he was noted to be unresponsive yesterday and brought to the emergency room. [place] coma scale is a 5 on
admission. he had a chest xray which showed a possible pneumonia and interstitial lung disease. Head CT scan on admission showed no acute intracranial abnormality. On admission, labs showed pancytopenia, elevated PT, total bilirubin 3.3, mild
transaminitis, ammonia level 128, ABG normal.
Today patient is intubated. He is currently on ventilator, IV fluids, norepinephrine drip. he has a Dobbhoff tube, Enrique catheter, and fecal management system.
Past Medical History
Past Medical History: COPD, HTN and Other (Cirrhosis, portal hypertension, esophageal varices, pulmonary fibrosis, pulmonary hypertension, chronic anemia)
Past Surgical History: None
Social History
Tobacco: Other (unable to obtain due to intubation)
Alcohol: Other (unable to obtain due to intubation)
Drug: Other (unable to obtain due to intubation)
Personal: Other (unable to obtain due to intubation)
Living: Other (unable to obtain due to intubation)
Employment: Other (unable to obtain due to intubation)
Family History
Family History: Unable to Obtain
Allergies / Home Medications
Allergies
Allergy/AdvReac Type Severity Reaction Status Date / Time
coconut oil Allergy Unknown Verified 02/21/24 14:32
ondansetron [From Zofran] Allergy Unknown Verified 02/21/24 14:32
Penicillins Allergy Unknown Verified 02/21/24 19:34
Home Medications
�Medication �Instructions �Recorded �Confirmed �Last Taken �Type
acetaminophen 325 mg tablet 650 mg PO Q6HPRN PRN mild pain 02/21/24 02/21/24 Unknown History
(Tylenol)
ascorbic acid (vitamin C) 250 mg 250 mg PO DAILY Supplement 02/21/24 02/21/24 02/20/24 History
tablet (Vitamin C)
bisacodyl 10 mg rectal suppository 10 mg [place] DAILYPRN PRN if no bm 02/21/24 02/21/24 Unknown History
(Dulcolax (bisacodyl)) aftr mom
cyanocobalamin (vitamin B-12) 100 100 mcg PO HS Supplement 02/21/24 02/21/24 02/20/24 History
mcg tablet
fluticasone fur. 100 mcg-umeclid 1 inh inhalation R DAILY 02/21/24 02/21/24 02/20/24 History
62.5 mcg-vilant 25 mcg Lung/Breathing Issues
inhalat.powder (Trelegy Ellipta)
furosemide 20 mg tablet (Lasix) 20 mg PO DAILY Fluid 02/21/24 02/21/24 02/20/24 History
Retention/Swelling
guaifenesin 200 mg tablet 600 mg PO [id number] PRN cough 02/21/24 02/21/24 Unknown History
lactulose 10 gram/15 mL oral 20 g PO TID Liver Issues 02/21/24 02/21/24 02/20/24 History
solution
lidocaine 4 % topical patch 1 patch topical DAILY right 02/21/24 02/21/24 02/20/24 History
shoulder
magnesium hydroxide 400 mg/5 mL 2,400 mg PO DAILYPRN PRN if no bm 02/21/24 02/21/24 Unknown History
oral suspension (Milk of Magnesia) by 3rd day
menthol 0.44 %-zinc oxide 20.6 % 1 applic topical TIDPRN PRN palak 02/21/24 02/21/24 Unknown History
topical ointment (Moisture Barrier areas
Ointment)
pantoprazole 40 mg tablet,delayed 40 mg PO HS Gastrointestinal Issue 02/21/24 02/21/24 02/20/24 History
release (Protonix)
propranolol 10 mg tablet 10 mg PO HS Liver Issues 02/21/24 02/21/24 02/20/24 History
propranolol 20 mg tablet 20 mg PO DAILY Liver Issues 02/21/24 02/21/24 02/20/24 History
sodium phosphates 19 gram-7 118 ml [place] DAILYPRN PRN if no bm 02/21/24 02/21/24 Unknown History
gram/118 mL enema (Fleet Enema) aftr dulolcax
therapeutic multivitamin 1 tab PO DAILY Supplement 02/21/24 02/21/24 02/20/24 History
thiamine HCl (vitamin B1) 100 mg 100 mg PO DAILY Supplement 02/21/24 02/21/24 02/20/24 History
tablet
zinc oxide 13 % topical cream 1 applic topical TID sacrum 02/21/24 02/21/24 02/20/24 History
Review of Systems
-
Unable to Obtain full review of systems at this time due to: Patient Intubation
Vitals / Labs / Diagnostic Testing
Vital Signs
Temp Pulse Resp BP Pulse Ox
99.2 F 60 14 115/65 100
02/22/24 07:48 02/22/24 10:00 02/22/24 10:00 02/22/24 10:00 02/22/24 10:00
Lab Data
02/22/24 05:08
02/22/24 07:37
Laboratory Results
02/21/24 02/21/24 02/21/24
14:51 16:25 16:44
PT 17.9 H
INR 1.42
APTT 34.0
pH Cancelled 7.44
pCO2 Cancelled 39
pO2 Cancelled 187 H
HCO3 Cancelled 26.5
O2 Delivery Level Cancelled
02/21/24 02/22/2424
22:01 03:56 08:59
PT
INR
APTT 40.5 H
pH 7.42 7.45
pCO2 39 34 L
pO2 185 H 134 H
HCO3 25.3 23.6
O2 Delivery Level Vent
Diagnostic Testing:
Physical Exam
-
Cardiovascular: Murmur (over the left upper sternal border )
Respiratory: Other (decreased breath sounds bilaterally )
GI: Soft
Assessment
-
Acute metabolic encephalopathy:
- Repeat CT scan of the head today shows no intracranial abnormalities
- Continue to trend ammonia level
- continue lactulose
- Start on rifaximin
Possible right sided pneumonia
Interstitial lung disease:
- CT scan of the chest shows possible right pneumonia? interstitial lung disease / pulmonary fibrosis
- Continue on antibiotics
- Sputum culture
- Blood culture
- monitor O2 sat
- Monitor temperature
COPD:
- Murmur heard over the left upper sternal border
- Decreased breath sounds heard bilaterally
- 0.5 mg budesonide bid
- Maintain oxygen level between 88-92%
- Trelegy held
Acute Hypoxemic respiratory failure due to acute metabolic encephalopathy:
- attempt to wean off ventilator pending patients condition
- spontaneous breathing/ reawaking trials every morning
Distributive shock secondary to medication use?:
- Wean off pressors
- stress ulcer prophylaxis
- Lactic acidosis is 2.6
- Blood pressure is 98/50
DVT:
- Currently on SCD's
- heparin subq
Data Reviewed
-
Medical Tests (Nuc Med, Echo etc): Image personally visualized and interpreted and Discussed with Physician
Labs: Labs reviewed by me and Discussed with Physician
[2024-02-22 10:55] LABS: Urine Mucus Moderate; Urine Urothelial Cell 0-2 /LPF (FEW)
[2024-02-22 10:57] LABS: Urine Bacteria Moderate (Negative); Urine Red Blood Cell 26-30 /HPF (0-2); Urine White Cell 16-20 /HPF (0-5)
--- NOTE | 2024-02-22 11:13 | W.PN.HOSP.TC ---
Addendum entered and electronically signed by Rocío Pagan MD 02/22/24 12:48:
I saw and evaluated the patient independently. I reviewed the resident�s note and agree with findings and plan as documented by Dr. Snyder.
GENERAL: cachectic, chronically ill appearing male, in no apparent distress
HEENT: NC/AT--intubated, sunken temples and muscle wasting--right pupil pinpoint (different size than left)
HEART: regular rate and rhythm, +S1, +S2
LUNGS : rhonchi RLL resolved
ABDOM: soft, nontender, nondistended, + bowel sounds--scaphoid abdomen, no ascites
EXT: no cyanosis, clubbing, or edema
NEUROLOGIC: obtunded
: uncircumcised penis--Tamayo catheter
bleeding from IV sites, lungs (through ET suction tube)
change in mental status/obtunded--likely hepatic encephalopathy given cirrhosis and ammonia of 128-- no signs of hypoxia, hypercapnia, acidosis or sepsis, head CT neg for infarct x 2 (did 2nd one for change in pupil size and neg for bleed)--dobhoff
finally placed--apprec GI/policy services representative---trend ammonia, lactulose now via tube rather than enema--cont rocephin for SBP coverage-- TSH OK--tamayo for critical care I/Os--spoke with policy services representative, neuro consult, possible need for EEG
shock--unclear if septic or other--cannot rule out DIC (coags elevated, D-dimer elevated, fibrinogen WNL)--on rocephin and pressors, wean as able--consult ID if need to broaden abx with fever--also did CT chest/ab/pelvis without signs of infection
although studies limited
VDRF--likely intubated due to mental status and inability to protect airway--vent setting per pulm--wean as able
pancytopenia--likely due to cirrhosis--follow--unknown baseline but likely chronic, although WBC improved today--on thiamine and B12 supplements
cirrhosis--no ascites--unknown cause--on propranolol and lasix, hold both--could have varices---change oral to IV meds as able
Possible pneumonia--could be due to aspiration--ok for rocephin/doxy for now---CXR cannot rule out left basilar pneumonia.
Essential hypertension--Lopressor with parameters
COPD--Hold Trelegy Ellipta, start DuoNebs through vent--apprec pulm/policy services representative
code status--Full Code
DVT proph --SCDs
Total Critical Care Time 38 minutes. I was immediately available to the patient and staff. I personally examined, reviewed labs, diagnostic images/reports, interpretations, treatment plans, discussed patient care with other providers and family
or caregivers (if patient is unable to make decisions), entered orders as appropriate and documented the medical record.
Original Note:
Today's Communication/Plan
-
1. Metabolic encephalopathy
-Ammonia level 128 on admission 117 now.
- Trending down, although we expect greater drop in ammonia level now that Lactulose administration has transition from rectal enema to p.o.
- Trend daily ammonia level
-GCS 5 on arrival. No improvement in responsiveness today.
-ABG normal in ED.
-Concerning the patient has been hypotensive requiring pressors, scaphoid abdomen, Lasix held.
-Dobbhoff tube in place.
-Continue prophylactic Rocephin for spontaneous bacterial peritonitis coverage
-Tamayo catheter in place; critical care I/O's
2. Ventilator dependent respiratory failure
-ETT in place; confirmed via chest x-ray
-Vent setting per pulmonary recs; wean as tolerated
3. Pancytopenia
-WBC 4.6, hemoglobin 11.8, platelets 106 on admission.
Assessment / Plan
Assessment / Plan
1. Metabolic encephalopathy
-Ammonia level 128 on arrival; 117 this morning. Downtrending, however, expect a greater drop in ammonia level now that rectal enema administration of lactulose has been transitioned to p.o.\\
-Continue to trend ammonia levels daily
-GCS 5 on arrival; no improvement in responsiveness this morning.
-ABG normal in ED
-Given the patient has been hypotensive, requiring pressors, scaphoid abdomen on examination, hold Lasix.
-CT Head (ED); no acute abnormality. Repeat CT head this morning due to abnormal pupillary exam and evidence of bleeding: No acute intracranial abnormality.
-Dobbhoff tube in place.
-Continue Rocephin for spontaneous bacterial peritonitis.
-Tamayo in place; critical care I/Os
2. Ventilator dependent respiratory failure
-Vent settings per pulmonary recs; Wean as tolerated
3. Pancytopenia
-WBC 4.6, hemoglobin 11.8, platelets 106 on arrival; likely chronic secondary to cirrhosis.
-WBC up to 5.6 this morning, in the setting of the patient's chronic pancytopenia and temperature of 100.7 this morning, consider infectious process.
-Platelets dropped to 72 this morning. Physical exam indicative of bleeding from IV sites, ecchymoses diffusely. Ordered fibrinogen, D-dimer, PT, PTT, INR.
-PT elevated 20.4, PTT elevated 40.5, D-dimer elevated 1.9. Fibrinogen normal 234 INR normal 1.69.
-1 dose of vitamin K given.
-Patient on thiamine and B12 supplementation at home.
-PICC line ordered
4. Cirrhosis
-No evidence of ascites on examination; currently on propranolol, Lasix held temporarily.
-Possible varices, no signs of active bleeding. Patient being followed by GI
5. Possible pneumonia
-Rocephin/doxycycline started yesterday.
-CXR yesterday could not rule out left basilar pneumonia.
-Pulmonary examination this morning did not reveal any wheezing rales or rhonchi
6. Essential hypertension
-Lopressor with holding parameters
7. COPD
-DuoNebs through vent
Full code/SCDs
Anticipated Discharge: > 48 hours
Subjective/Interval History
-
Date of Service: February 22, 2024
Patient seen and examined in ICU bed. No change in responsiveness overnight. ETT and Dobbhoff tube placed last night. Per nursing, patient bleeds from all IV sites and now has bruising on various locations of his skin. Patient has continued to
require pressors in the interim. In addition nursing notes that the patient's urine output has been meager, approximately 10 to 15 mL/h. Patient has also had temperature of 100.7 this morning, 100.3 last night.
Objective Data
-
Labs:
Laboratory Results
02/22/24 02/22/24 02/22/24
03:56 05:08 07:37
WBC 5.6
Hgb 11.5 L
Hct 33.3 L
Plt Count 72 L D
APTT
HCO3 23.6
Sodium Cancelled 139
Potassium Cancelled 4.2
Chloride Cancelled 110 H
Carbon Dioxide Cancelled 25
BUN Cancelled 25 H
Creatinine Cancelled 1.1
Glucose Cancelled 97
Calcium Cancelled 7.6 L
Total Bilirubin Cancelled 2.3 H
AST Cancelled 45
ALT Cancelled 32
Alkaline Phosphatase Cancelled 84
02/22/24
08:59
WBC
Hgb
Hct
Plt Count
APTT 40.5 H
HCO3
Sodium
Potassium
Chloride
Carbon Dioxide
BUN
Creatinine
Glucose
Calcium
Total Bilirubin
AST
ALT
Alkaline Phosphatase
Vital Signs:
Vital Signs
Temp Pulse Resp BP Pulse Ox
99.2 F 60 14 115/65 100
02/22/24 07:48 02/22/24 10:00 02/22/24 10:00 02/22/24 10:00 02/22/24 10:00
I&O
02/21/24 02/22/24 02/23/24
06:59 06:59 06:59
Intake Total 1205.1 / 1308.4 674.1 / 674.1
Output Total 340 / 350 75 / 75
Balance 865.1 / 958.4 599.1 / 599.1
Review of Systems
-
Unable to obtain full review of systems at this time due to: Patient Intubation
Physical Exam
-
General: Intubated
HEENT: Other (mildly worsened scleral icterus, pinpoint pupils bilaterally; left larger than right)
Respiratory: Other (no wheezing, rales, rhonchi)
Cardiac: Regular Rhythm
GI: Soft and Other (scaphoid abdomen, nondistended)
Musculoskeletal: No Edema and Other (all four extremities are cool to touch)
Skin: Other (various ecchymoses diffusely; bleeding at IV sites )
Neuro: Other (GCS 3-5)
Data Reviewed
-
CT Scan: Report Reviewed by me
Labs: Labs Reviewed by me
[2024-02-22] MEDS: FLOVENT 110 MCG INHALER 2 PUFF INH ×2 (11:20→19:22)
--- NOTE | 2024-02-22 11:28 | CM ---
CM following re: discharger planning.
Discussed in rounds, reviewed, pt's chart, met with pt, spoke to pt's friend Emmy and daughter Danna.
Pt is a 74 year old male admitted with primary dx of change in mental status/obtunded--likely hepatic encephalopathy. per Rounds meeting, pt intubated yesterday due to mental status and inability to protect airway, continue supportive care.
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 Per friend Emmy, pt lived alone in an apartment, described him being confused, has
4 children, 2 of them are involved in pt's care and pt's friend stated that pt's daughter should be a primary contact:
- Daughter Danna Hernandez [phone]; lives in [place]
- Daughter Denice Meléndez [phone]; lives in [place]
CM called admissions department and contact information updated.
CM spoke to pt's daughter Danna and she stated she prefers to be a primary contact and p's another daughter Denice as a secondary. Per Danna two of her other siblings are not involved in pt's life. Per daughter Danna a plan will be for the
pt to return back to [facility] for a short term and a custodial care.
CM spoke to [facility] liaison [place] and she stated that pt is confused, has Dementia, requires mod to max assistance of 2 people with transferring. Per [place], pt is not a custodial care, was at [facility] just a few days, no bed hold and pt will be accepted
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
D/C plan: return back to [facility] for a short term and transition to a LTC.
CM will follow with discharge plan updates as hospitalization progresses
[2024-02-22 11:34] LABS: INR 1.69; PT 20.4 Sec (11.4-14.6)
[2024-02-22] MEDS: MAGNESIUM SULFATE 100 IV (11:58)
--- NOTE | 2024-02-22 12:09 | CON.NEURO ---
Consultation
Order
Date of Consultation: 02/22/24
Requesting Provider: Farhad Fraire MD
Reason for Consult: Unresponsive off sedation, cirrhosis with possible HE,? EEG
Neurology Consultation Note.
HPI: This is a 74-year-old man who presented to [facility] on 02-21-2024 with
ER VS: 143/70-186/85, 58�42, 36.4�38.2 C, 100%
PDMP:none
Labs: Platelets�72, normal WBCs, lactic acid�2.6, normal sodium, creatinine�1.1, ammonia 128�117, hemoglobin�normal TSH, magnesium�1.6, UA tox�negative, UA�positive for urine nitrates, leukocyte esterase, WBCs, RBCs, bacteria.
CT head wo contrast(02/22/2024) no acute infarcts, mild to moderate focal soft tissue density in the left anterior ethmoid sinuses, compatible with inflammatory sinus disease.
MAR: Midazolam 2 mg given at 21: 11 on 02/21/2024, fentanyl 50 mcg given at 20: 57 on 02/21/2024, diprivan given at 00:57 on 02-22-2024
PMH: Hepatic cirrhosis, COPD, hypertension, history of GI bleed, chronic anemia, medullary nephrocalcinosis
PSH:unknown
SH:resident at [facility]
FH:unknown
All: Zofran, penicillin
ROS:unable due to encephalopathy
General:RR>vent , intubated
Cardio: Regular rate and rhythm. Extremities are without cyanosis or edema.
Neuro:
Mental Status: comatose
Cranial Nerves: Orthophoric primary gaze, pupils are 2.5 mm, nonreactive. Positive corneals, neg oculocephalics. No nystagmus. V
Motor: increased muscle tone in LEs
Reflexes: neg clonus BL
Sensory: unable to assess
Coordination: No dysmetria or tremor.
Gait: deferred
Assessment and Plan:
I. Multifactorial encephalopathy (metabolic (hyperammonemia, toxic, infectious)
II. Interstitial pulmonary fibrosis.
III. Pancytopenia.
-Aspiration precautions.
-Avoid cerebral hypoperfusion, MOLDING FITTER suppressants and anticholinergic medications.
-Please check TFTs, CK
-Start thiamine
-Avoid medications, known to lower seizure threshold.
-Brain MRI wo tali if no clinical improvement;
-Will contact patient's family to obtain functional and cognitive baseline
-DVT prophylaxis.
I personally reviewed all radiology and labs along with past medical records pertinent to current medical problems. Total time spent in patient care is 60 minutes.
Thank you for allowing us to participate in the care of this patient. We will continue to follow. Please do not hesitate to contact us with any questions or concerns.
Subjective/Objective
Subjective Data
Date of Service: February 22, 2024
Objective Data
Vital Signs
Temp Pulse Resp BP Pulse Ox
37.3 C 60 14 115/65 100
02/22/24 07:48 02/22/24 10:00 02/22/24 10:00 02/22/24 10:00 02/22/24 10:00
Lab Results
02/22/24 05:08
02/22/24 07:37
PT 20.4 Sec (11.4-14.6) H 02/22/24 08:59
INR 1.69 02/22/24 08:59
APTT 40.5 Sec (23.4-35.0) H 02/22/24 08:59
Sodium 139 mmol/L (135-145) 02/22/24 07:37
Potassium 4.2 mmol/L (3.5-5.1) 02/22/24 07:37
BUN 25 mg/dl (9-20) H 02/22/24 07:37
Glucose 97 mg/dl (70-99) 02/22/24 07:37
Calcium 7.6 mg/dl (8.4-10.2) L 02/22/24 07:37
Phosphorus 3.4 mg/dl (2.5-4.5) 02/22/24 07:37
Ur Buprenorphine Negative (Negative) 02/21/24 18:14
Patient Allergies
coconut oil Allergy (Verified 02/21/24 14:32)
Unknown
ondansetron [From Zofran] Allergy (Verified 02/21/24 14:32)
Unknown
Penicillins Allergy (Verified 02/21/24 19:34)
Unknown
Medications
-
Active Medications
Generic Name Dose Route Start Last Admin
Trade Name Freq PRN Reason Stop Dose Admin
Acetaminophen 650 mg 02/22/24 03:28 02/22/24 04:53
Acetaminophen 325 Mg Tablet TUBE 03/21/24 03:27 650 mg
Q4HPRN PRN Administration
fever>100.3
Albuterol/Ipratropium 3 ml 02/21/24 20:00 02/22/24 11:12
Ipratropium 0.5/Albuterol 3 Mg (3 Ml Ampul) INH 3 ml
R QID WALLY Administration
Protocol
Bisacodyl 10 mg 02/21/24 18:22
Bisacodyl 10 Mg Rectal Suppository RECTAL 03/20/24 18:21
[id number] PRN
constipation
Ceftriaxone Sodium 1,000 mg 02/21/24 20:00 02/21/24 20:34
Ceftriaxone 1000 Mg / 10 Ml Vial IV 1,000 mg
Q24H WALLY Administration
Famotidine 20 mg 02/22/24 20:00
Famotidine 20 Mg Tablet TUBE 03/21/24 19:59
BID WALLY
Fentanyl Citrate 50 mcg 02/21/24 19:04 02/21/24 20:57
Fentanyl (50 Mcg/Ml) 100 Mcg/2 Ml Ampul IV 03/06/24 19:03 50 mcg
[id number] PRN Administration
see protocol
Protocol
Fluticasone Propionate 2 puff 02/22/24 12:00 02/22/24 11:20
Fluticasone 110mcg Inhaler INH 03/21/24 11:59 2 puff
R BID WALLY Administration
Furosemide 20 mg 02/22/24 08:00 02/22/24 10:08
Furosemide 20 Mg (10 Mg/Ml) 2 Ml Vial IV 03/21/24 07:59 Not Given
DAILY WALLY
Heparin Sodium 5,000 units 02/22/24 16:00
Heparin 5,000 Units/Ml 1 Ml Vial SC 03/21/24 15:59
Q8 WALLY
Sodium Chloride 1,000 mls @ 70 mls/hr 02/21/24 18:22 02/22/24 07:00
Nss IV 1,000 mls
.[id number] WALLY Administration
Fentanyl Citrate 1,000 mcg in 100 mls @ 0 mls/hr 02/21/24 19:15 02/22/24 06:59
Sublimaze IV 100 mls
PER PROTOCOL WALLY Administration
Protocol
Per Protocol
Propofol 1,000,000 mcg in 100 mls @ 0 mls/hr 02/21/24 19:15 02/22/24 00:59
Diprivan IV 100 mls
PER PROTOCOL WALLY Administration
Protocol
Per Protocol
Norepinephrine Bitartrate 4 mg in 250 mls @ 0 mls/hr 02/21/24 21:00
Levophed IV
PER PROTOCOL WALLY
Protocol
Per Protocol
Lactulose 10 grams 02/22/24 14:00
Lactulose Solution (20 Grams/30 Ml) 30 Ml Cup TUBE 03/21/24 13:59
Q6H WALLY
Lidocaine 1 patch 02/22/24 08:00 02/22/24 07:43
Lidocaine 4% Topical Patch TOPICAL 03/21/24 07:59 1 patch
DAILY WALLY Administration
Protocol
Metoprolol Tartrate 5 mg 02/21/24 20:27
Metoprolol 5 Mg/5 Ml Vial IV 03/20/24 20:23
Q4HPRN PRN
HR>110 and/or SBP>140
Midazolam HCl 2 mg 02/21/24 20:49 02/21/24 21:11
Midazolam (Preservative Free) 1 Mg/Ml 2 Ml Vial IV 03/20/24 20:48 2 mg
Q2HPRN PRN Administration
vent synchrony/anxiety
Pantoprazole Sodium 40 mg 02/23/24 08:00
Pantoprazole Sodium 40 Mg/10 Ml Vial IV 03/22/24 07:59
DAILY WALLY
Patch Removal 0 patch 02/22/24 20:00
Remove Lidocaine Patch REMOVE 03/21/24 19:59
DAILY@2000 WALLY
Rifaximin 550 mg 02/22/24 20:00
Rifaximin 550 Mg Tablet TUBE
BID WALLY
Sodium Chloride 0 flush 02/21/24 19:00
Sodium Chloride 0.9% (Flush) Syringe IV 03/20/24 18:59
PER PROTOCOL WALLY
Sodium Chloride 10 ml 02/23/24 08:00
Sodium Chloride 0.9% (Preservative Free) 10 Ml Vial IV 03/22/24 07:59
DAILY WALLY
Sterile Water 10 ml 02/21/24 20:00 02/21/24 20:34
Sterile Water For Injection 10 Ml Vial IV 03/20/24 19:59 10 ml
Q24H WALLY Administration
Zinc Oxide 0 applic 02/21/24 19:37
Zinc Oxide 20% (Ointment) 30 Gram Tube TOPICAL 03/20/24 19:36
TIDPRN PRN
moisture barrier to palak areas
Home Medications
�Medication �Instructions �Recorded
acetaminophen 325 mg tablet 650 mg PO Q6HPRN PRN mild pain 02/21/24
(Tylenol)
ascorbic acid (vitamin C) 250 mg 250 mg PO DAILY Supplement 02/21/24
tablet (Vitamin C)
bisacodyl 10 mg rectal suppository 10 mg [place] DAILYPRN PRN if no bm 02/21/24
(Dulcolax (bisacodyl)) aftr mom
cyanocobalamin (vitamin B-12) 100 100 mcg PO HS Supplement 02/21/24
mcg tablet
fluticasone fur. 100 mcg-umeclid 1 inh inhalation R DAILY 02/21/24
62.5 mcg-vilant 25 mcg Lung/Breathing Issues
inhalat.powder (Trelegy Ellipta)
furosemide 20 mg tablet (Lasix) 20 mg PO DAILY Fluid 02/21/24
Retention/Swelling
guaifenesin 200 mg tablet 600 mg PO [id number] PRN cough 02/21/24
lactulose 10 gram/15 mL oral 20 g PO TID Liver Issues 02/21/24
solution
lidocaine 4 % topical patch 1 patch topical DAILY right 02/21/24
shoulder
magnesium hydroxide 400 mg/5 mL 2,400 mg PO DAILYPRN PRN if no bm 02/21/24
oral suspension (Milk of Magnesia) by 3rd day
menthol 0.44 %-zinc oxide 20.6 % 1 applic topical TIDPRN PRN palak 02/21/24
topical ointment (Moisture Barrier areas
Ointment)
pantoprazole 40 mg tablet,delayed 40 mg PO HS Gastrointestinal Issue 02/21/24
release (Protonix)
propranolol 10 mg tablet 10 mg PO HS Liver Issues 02/21/24
propranolol 20 mg tablet 20 mg PO DAILY Liver Issues 02/21/24
sodium phosphates 19 gram-7 118 ml [place] DAILYPRN PRN if no bm 02/21/24
gram/118 mL enema (Fleet Enema) aftr dulolcax
therapeutic multivitamin 1 tab PO DAILY Supplement 02/21/24
thiamine HCl (vitamin B1) 100 mg 100 mg PO DAILY Supplement 02/21/24
tablet
zinc oxide 13 % topical cream 1 applic topical TID sacrum 02/21/24
Vital Signs and Labs
-
Vital Signs and Labs:
Vital Signs
Temp Pulse Resp BP Pulse Ox
36.4 C 62 14 111/61 100
02/22/24 12:48 02/22/24 13:30 02/22/24 13:30 02/22/24 13:30 02/22/24 13:30
Lab Results
02/22/24 05:08
02/22/24 07:37
PT 20.4 Sec (11.4-14.6) H 02/22/24 08:59
INR 1.69 02/22/24 08:59
APTT 40.5 Sec (23.4-35.0) H 02/22/24 08:59
Sodium 139 mmol/L (135-145) 02/22/24 07:37
Potassium 4.2 mmol/L (3.5-5.1) 02/22/24 07:37
BUN 25 mg/dl (9-20) H 02/22/24 07:37
Glucose 97 mg/dl (70-99) 02/22/24 07:37
Calcium 7.6 mg/dl (8.4-10.2) L 02/22/24 07:37
Phosphorus 3.4 mg/dl (2.5-4.5) 02/22/24 07:37
Ur Buprenorphine Negative (Negative) 02/21/24 18:14
Medications
-
Medications:
Generic Name Dose Route Start Last Admin
Trade Name Freq PRN Reason Stop Dose Admin
Acetaminophen 650 mg 02/22/24 03:28 02/22/24 04:53
Acetaminophen 325 Mg Tablet TUBE 03/21/24 03:27 650 mg
Q4HPRN PRN Administration
fever>100.3
Albuterol/Ipratropium 3 ml 02/21/24 20:00 02/22/24 11:12
Ipratropium 0.5/Albuterol 3 Mg (3 Ml Ampul) INH 3 ml
R QID WALLY Administration
Protocol
Bisacodyl 10 mg 02/21/24 18:22
Bisacodyl 10 Mg Rectal Suppository RECTAL 03/20/24 18:21
[id number] PRN
constipation
Ceftriaxone Sodium 1,000 mg 02/21/24 20:00 02/21/24 20:34
Ceftriaxone 1000 Mg / 10 Ml Vial IV 1,000 mg
Q24H WALLY Administration
Famotidine 20 mg 02/22/24 20:00
Famotidine 20 Mg Tablet TUBE 03/21/24 19:59
BID WALLY
Fentanyl Citrate 50 mcg 02/21/24 19:04 02/21/24 20:57
Fentanyl (50 Mcg/Ml) 100 Mcg/2 Ml Ampul IV 03/06/24 19:03 50 mcg
[id number] PRN Administration
see protocol
Protocol
Fluticasone Propionate 2 puff 02/22/24 12:00 02/22/24 11:20
Fluticasone 110mcg Inhaler INH 03/21/24 11:59 2 puff
R BID WALLY Administration
Furosemide 20 mg 02/22/24 08:00 02/22/24 10:08
Furosemide 20 Mg (10 Mg/Ml) 2 Ml Vial IV 03/21/24 07:59 Not Given
DAILY WALLY
Heparin Sodium 5,000 units 02/22/24 16:00
Heparin 5,000 Units/Ml 1 Ml Vial SC 03/21/24 15:59
Q8 WALLY
Sodium Chloride 1,000 mls @ 70 mls/hr 02/21/24 18:22 02/22/24 07:00
Nss IV 1,000 mls
[id number] WALLY Administration
Fentanyl Citrate 1,000 mcg in 100 mls @ 0 mls/hr 02/21/24 19:15 02/22/24 06:59
Sublimaze IV 100 mls
PER PROTOCOL WALLY Administration
Protocol
Per Protocol
Propofol 1,000,000 mcg in 100 mls @ 0 mls/hr 02/21/24 19:15 02/22/24 00:59
Diprivan IV 100 mls
PER PROTOCOL WALLY Administration
Protocol
Per Protocol
Norepinephrine Bitartrate 4 mg in 250 mls @ 0 mls/hr 02/21/24 21:00
Levophed IV
PER PROTOCOL WALLY
Protocol
Per Protocol
Lactulose 10 grams 02/22/24 14:00 02/22/24 13:31
Lactulose Solution (20 Grams/30 Ml) 30 Ml Cup TUBE 03/21/24 13:59 10 grams
Q6H WALLY Administration
Lidocaine 1 patch 02/22/24 08:00 02/22/24 07:43
Lidocaine 4% Topical Patch TOPICAL 03/21/24 07:59 1 patch
DAILY WALLY Administration
Protocol
Metoprolol Tartrate 5 mg 02/21/24 20:27
Metoprolol 5 Mg/5 Ml Vial IV 03/20/24 20:23
Q4HPRN PRN
HR>110 and/or SBP>140
Midazolam HCl 2 mg 02/21/24 20:49 02/21/24 21:11
Midazolam (Preservative Free) 1 Mg/Ml 2 Ml Vial IV 03/20/24 20:48 2 mg
Q2HPRN PRN Administration
vent synchrony/anxiety
Pantoprazole Sodium 40 mg 02/23/24 08:00
Pantoprazole Sodium 40 Mg/10 Ml Vial IV 03/22/24 07:59
DAILY WALLY
Patch Removal 0 patch 02/22/24 20:00
Remove Lidocaine Patch REMOVE 03/21/24 19:59
DAILY@2000 WALLY
Rifaximin 550 mg 02/22/24 20:00
Rifaximin 550 Mg Tablet TUBE
BID WALLY
Sodium Chloride 0 flush 02/21/24 19:00
Sodium Chloride 0.9% (Flush) Syringe IV 03/20/24 18:59
PER PROTOCOL WALLY
Sodium Chloride 10 ml 02/23/24 08:00
Sodium Chloride 0.9% (Preservative Free) 10 Ml Vial IV 03/22/24 07:59
DAILY WALLY
Sterile Water 10 ml 02/21/24 20:00 02/21/24 20:34
Sterile Water For Injection 10 Ml Vial IV 03/20/24 19:59 10 ml
Q24H WALLY Administration
Zinc Oxide 0 applic 02/21/24 19:37
Zinc Oxide 20% (Ointment) 30 Gram Tube TOPICAL 03/20/24 19:36
TIDPRN PRN
moisture barrier to palak areas
Home Medications
-
Home Medications
acetaminophen 325 mg tablet (Tylenol) 650 mg PO Q6HPRN PRN mild pain 02/21/24
ascorbic acid (vitamin C) 250 mg tablet (Vitamin C) 250 mg PO DAILY Supplement 02/21/24
bisacodyl 10 mg rectal suppository (Dulcolax (bisacodyl)) 10 mg [place] DAILYPRN PRN if no bm aftr mom 02/21/24
cyanocobalamin (vitamin B-12) 100 mcg tablet 100 mcg PO HS Supplement 02/21/24
fluticasone fur. 100 mcg-umeclid 62.5 mcg-vilant 25 mcg inhalat.powder (Trelegy Ellipta) 1 inh inhalation R DAILY Lung/Breathing Issues 02/21/24
furosemide 20 mg tablet (Lasix) 20 mg PO DAILY Fluid Retention/Swelling 02/21/24
guaifenesin 200 mg tablet 600 mg PO [id number] PRN cough 02/21/24
lactulose 10 gram/15 mL oral solution 20 g PO TID Liver Issues 02/21/24
lidocaine 4 % topical patch 1 patch topical DAILY right shoulder 02/21/24
magnesium hydroxide 400 mg/5 mL oral suspension (Milk of Magnesia) 2,400 mg PO DAILYPRN PRN if no bm by 3rd day 02/21/24
menthol 0.44 %-zinc oxide 20.6 % topical ointment (Moisture Barrier Ointment) 1 applic topical TIDPRN PRN palak areas 02/21/24
pantoprazole 40 mg tablet,delayed release (Protonix) 40 mg PO HS Gastrointestinal Issue 02/21/24
propranolol 10 mg tablet 10 mg PO HS Liver Issues 02/21/24
propranolol 20 mg tablet 20 mg PO DAILY Liver Issues 02/21/24
sodium phosphates 19 gram-7 gram/118 mL enema (Fleet Enema) 118 ml [place] DAILYPRN PRN if no bm aftr dulolcax 02/21/24
therapeutic multivitamin 1 tab PO DAILY Supplement 02/21/24
thiamine HCl (vitamin B1) 100 mg tablet 100 mg PO DAILY Supplement 02/21/24
zinc oxide 13 % topical cream 1 applic topical TID sacrum 02/21/24
--- NOTE | 2024-02-22 12:35 | PTCARENOTE ---
Addendum entered by Eileen Gong RN 02/22/24 13:13:
VAT confirmed PICC line is good to use.
Original Note:
PICC placed. Awaiting CXR confirmation.
--- NOTE | 2024-02-22 12:45 | PTCARENOTE ---
Minor changes in assessment. Patient remains unresponsive. Pupils unchanged. Does not withdrawal to pain. +Corneal reflexes. Weak gag. NSR with first degree avb on tele. +1 anasarca. Weeping from b/l UE. ETT pulled back to 23 cm @ the teeth by RT.
Vent settings unchanged. Lung sounds diminished throughout. Enrique draining 15-20 cc's/hr. Fentanyl and Levophed drips off. Afebrile. Vitals stable.
--- NOTE | 2024-02-22 13:19 | PTCARENOTE ---
Neurologist at bedside.
[2024-02-22] MEDS: DUPHALAC/CHRONULAC 10 GRAMS TUBE ×2 (13:31→19:28)
[2024-02-22 14:03] LABS: Lactic Acid 1.8 mmol/L (0.7-2.0)
--- NOTE | 2024-02-22 15:40 | CON.ID ---
Consultation
-
Date/Time Consultation Requested: 02/22/2024 1254
Date/Time Consultation Performed: 02/22/2024 1528
Requesting Provider: Lillian
Performing Provider: Kuldip
Reason for Consultation: Encephalopathy
Chief Complaint / Past History
History of Present Illness
Ravin Hernandez is a 74-year-old man with a significant past medical history of cirrhosis, COPD and hypertension being evaluated regarding acute encephalopathy. History is obtained from chart review alone as the patient is currently sedated and
intubated. The patient presents to [facility] on 02/20 from [facility]. According to reviewed notes the patient had been agitated the night before and did not go to bed until early in the morning. When the patient
was allowed to sleep through the morning he was noted to be unresponsive around lunchtime/early afternoon, responding only to tactile stimuli. EMS was called and the patient was transported emergently to [facility].
Here, workup revealed an elevated bilirubin, mild transaminitis and a markedly elevated ammonia level. Hospital course thus far is significant for intubation for respiratory protection. Infectious Diseases is asked to comment upon potential
further workup of etiology encephalopathy.
The patient was found to have episodes of fever overnight to 100.7 degrees, but is now afebrile. He has been noted to have a normal white count, but does have a significant left shift. Cultures are currently pending.
Little additional history is available at this time. Patient remains intubated.
Past History
Additional Past Medical History:
Cirrhosis
Portal hypertension
Esophageal varices
Hx GI bleed
Encephalopathy
Chronic thrombocytopenia
HTN
COPD
Chronic anemia
IPF
Pulmonary hypertension
Additional Past Surgical History:
Unknown
Allergy History:
coconut oil Allergy (Verified 02/21/24 14:32)
Unknown
ondansetron [From Zofran] Allergy (Verified 02/21/24 14:32)
Unknown
Penicillins Allergy (Verified 02/21/24 19:34)
Unknown
Medications Reviewed: Yes
Current Antibiotics:
Ceftriaxone 1 g IV every 24 hours
Rifaximin
Social History
Tobacco: Other (Unknown)
Alcohol: Former
Drug: Other (Unknown)
Personal: Other
Living: Senior Care
Employment: Not Employed
Family History
Family History: Unable to Obtain
Review of Systems
Vital Signs
Temp Pulse Resp BP Pulse Ox
97.6 F 89 18 120/61 97
02/22/24 12:48 02/22/24 15:40 02/22/24 15:40 02/22/24 15:00 02/22/24 15:40
Physical Exam
Physical Exam
Constitutional: Acutely Ill, Chronically Ill and Non-toxic
Eyes: No Conjunctival Hemorrhage and Sclera Anicteric
Pharynx: Other (ET tube in place.)
Cardiovascular: Regular Rate and S1/S2; Negative S3/S4
Pulmonary: Clear; Negative Wheezes or Rales
Gastrointestinal: Soft, Non Distended, Normal Bowel Sounds, No Rebound and No Guarding
Genito-Urinary: Enrique and Clear Urine; Negative Turbid Urine or Hematuria
Extremities: Edema; Negative Cyanosis or Erythema
Skin: Warm and Dry; Negative Rash or Jaundice
Neurological: Other (Unresponsive on vent.)
.
Lab / Diagnostic Study Results
02/22/24 05:08
02/22/24 07:37
Abs Immat Gran (auto) 0.0 10^3/uL (0-0.05) 02/22/24 05:08
Absolute Neuts (auto) 4.6 10^3/uL (1.4-6.5) 02/22/24 05:08
Absolute Lymphs (auto) 0.5 10^3/uL (1.2-3.4) L 02/22/24 05:08
Absolute Monos (auto) 0.4 10^3/uL (0.1-0.6) 02/22/24 05:08
Absolute Basos (auto) 0.0 10^3/uL (0-0.2) 02/22/24 05:08
Immature Gran % 0.5 % (0-0.5) 02/22/24 05:08
Neutrophils % 81.7 % (42.2-75.2) H 02/22/24 05:08
Lymphocytes % 9.5 % (20.5-51.1) L 02/22/24 05:08
Monocytes % 6.3 % (1.7-9.3) 02/22/24 05:08
Eosinophils % 1.3 % (0-6) 02/22/24 05:08
Basophils % 0.7 % (0-2) 02/22/24 05:08
PT 20.4 Sec (11.4-14.6) H 02/22/24 08:59
INR 1.69 02/22/24 08:59
Lactic Acid 1.8 mmol/L (0.7-2.0) 02/22/24 13:43
Ur Squamous Epith Cells 3-5 /LPF (Few) 02/22/24 09:00
Microbiology Results
Micro:
02/22/24 09:00 Urine Culture - Pending
Urine
02/22/24 08:59 Blood Culture - Pending
Blood/Venous
Imaging:
02/22/2024 CT chest/abdomen/pelvis without contrast: ET tube at the level of the slime. Changes of moderate to severe interstitial fibrosis with basilar significant honeycombing. No significant pleural fluid noted. Liver is cirrhotic. There is
diffuse subcutaneous edema/anasarca. Small to moderate amount of free fluid within the pelvis. No evidence of free intraperitoneal air. Please see full dictation for additional detail.
Assessment / Plan
Obtundation/encephalopathy
VDRF
Normal white count with left shift
Elevated bilirubin
Elevated ammonia level
Bacteriuria;? UTI
Cirrhosis
Portal hypertension
Esophageal varices
Hx GI bleed
Encephalopathy
Chronic thrombocytopenia
HTN
COPD
Chronic anemia
IPF
Pulmonary hypertension
Recommendations:
Continue with empiric ceftriaxone for the present.
Continue with rifaximin
Await pending cultures (blood)
Monitor white count and temperature curve.
Follow ammonia level. Trend bilirubin
[2024-02-22] MEDS: SUBLIMAZE 50 MCG IV (15:41)
[2024-02-22] MEDS: HEPARIN 5000 UNITS SC (15:54)
[2024-02-22] MEDS: VERSED 2 MG IV ×2 (16:33→19:17)
--- NOTE | 2024-02-22 17:00 | PTCARENOTE ---
Patient dyssynchronous, stacking breaths on vent. Fentanyl bolus administered at 1541. At 1600- HR 100's (ST), BP 70-80's/50's. Patient continuing to stack breaths. HR fluctuating between 70-100. BP labile. Discussed with Plate Printer. 2mg Versed
administered at 1633. Patient synchronous with ventilator following administration. Vitals stable.
[2024-02-22 17:33] LABS: AFP Male/Tumor Marker 0.952 ng/ml
[2024-02-22] MEDS: NOVOLOG FLEXPEN-MODERATE RESISTANCE SC (18:23)
[2024-02-22 18:32] LABS: Glucose - Point of Care 80 mg/dl (70-99)
[2024-02-22] MEDS: STERILE WATER FOR INJECTION 10 ML IV (19:28)
[2024-02-22] MEDS: PEPCID 20 MG TUBE (19:28)
[2024-02-22] MEDS: ROCEPHIN 1000 MG IV (19:28)
[2024-02-22] MEDS: XIFAXAN 550 MG TUBE (19:28)
[2024-02-22] MEDS: TYLENOL ORAL SOLUTION 650 MG PO (19:29)
--- NOTE | 2024-02-22 20:00 | PTCARENOTE ---
Pt received start of shift, HR SR on telemetry. Bedside handoff with previous shift RN. Vent settings AC as follows: TV 500, RR 14, PEEP 5, 30% FiO2. L Pupil +1 with sluggish response, R pupil pinpoint non reactive. Corneal reflexes present b/l.
RASS -5. GCS 3. NSS infusing at 70mL/hr into R PICC. Breath sounds clear and present b/l, diminished L side. In-line suction produced scant malave/light pink sputum. ET tube @ 23cm at center of mouth. Dobhoff in R nare @ 65cm. Enrique catheter draining
clear, elvira urine. Pt with trace to +1 generalized edema - weeping. FMS in place, draining yellowish liquid stool. Pt noted to be occasionally asynchronous with vent - PRN versed administered (see MAR). Pt temp 100.6, tylenol oral solution
administered through NG tube - see MAR.
[2024-02-23] VITALS (34 sets, daily range): BP systolic 89–136; BP diastolic 59–93; BMI 19.9
--- NOTE | 2024-02-23 00:15 | PTCARENOTE ---
Pt pupils b/l +1, sluggish. Normothermic. No further changed in assessment. RASS -5. GCS 3. Pt continuing to tolerate vent settings, SpO2 100%.
[2024-02-23] MEDS: NOVOLOG FLEXPEN-MODERATE RESISTANCE SC ×4 (01:17→17:38)
[2024-02-23] MEDS: DUPHALAC/CHRONULAC 10 GRAMS TUBE ×3 (01:19→13:49)
[2024-02-23] MEDS: HEPARIN 5000 UNITS SC (01:22)
[2024-02-23 01:27] LABS: Glucose - Point of Care 87 mg/dl (70-99)
[2024-02-23 04:03] LABS: B.E. -1.9 mmol/L; HCO3 21.7 mmol/L (21-28); O2 Saturation % 99.2 % (94-98); PCO2 32 mmHg (35-48); PO2 139 mmHg (83-108); pH 7.44 (7.35-7.45)
[2024-02-23 04:29] LABS: Hematocrit 27.9 % (39.0-52.0); Hemoglobin 9.8 g/dL (13.0-18.0); Mean Corp Hgb Conc. 35.1 g/dL (33.0-37.0); Mean Corpuscular Hgb 34.3 pg (27.0-31.0); Mean Corpuscular Volume 97.6 fL (80.0-94.0); Mean Platelet Volume 10.4 fL (7.4-10.4); Platelet Count 53 10^3/uL (130-400); Red Blood Cell Count 2.86 10^6/uL (4.70-6.10); Red Cell Dist. Width 19.3 % (11.5-14.5); White Blood Cell Count 3.7 10^3/uL (4.8-10.8)
[2024-02-23 04:37] LABS: INR 1.94; PT 22.6 Sec (11.4-14.6)
[2024-02-23 04:41] LABS: Ammonia 88 umol/L (9-30)
[2024-02-23 04:48] LABS: ALT (SGPT) 50 U/L (0-50); AST (SGOT) 97 U/L (17-59); Albumin 2.1 g/dl (3.5-5.0); Alkaline Phosphatase 97 U/L (38-126); Blood Urea Nitrogen 25 mg/dl (9-20); Calcium 7.7 mg/dl (8.4-10.2); Carbon Dioxide 24 mmol/L (22-30); Chloride 111 mmol/L (98-107); Direct Bilirubin 0.9 mg/dl (0.0-0.4); Estimated Creatinine Clearance 56 ml/min; GGTP 29 U/L (15-73); Glucose 95 mg/dl (70-99); LDH 388 U/L (120-246); Magnesium 1.9 mg/dl (1.6-2.3); Phosphorus 3.1 mg/dl (2.5-4.5); Potassium 3.9 mmol/L (3.5-5.1); Sodium 139 mmol/L (135-145); Total Bilirubin 2.2 mg/dl (0.2-1.3); Total Protein 5.2 g/dl (6.3-8.2); eGFR > 60.00
[2024-02-23] MEDS: VERSED 2 MG IV ×2 (05:29→19:54)
[2024-02-23] MEDS: TYLENOL ORAL SOLUTION 650 MG PO ×2 (06:02→16:17)
[2024-02-23 06:12] LABS: Glucose - Point of Care 98 mg/dl (70-99)
--- NOTE | 2024-02-23 07:44 | W.PN.HOSP.TC ---
Today's Communication/Plan
-
.
Assessment / Plan
Assessment / Plan
1. Metabolic encephalopathy
-Ammonia level 128 on arrival; 88 this morning. Continues to downtrend.
-Rifaximin added to Lactulose by tube yesterday.
-Continue to trend ammonia levels daily
-GCS 5 on arrival; no improvement in responsiveness this morning.
-Given the patient has been hypotensive, requiring pressors, scaphoid abdomen on examination, hold Lasix.
-CT Head (ED); no acute abnormality.
-Repeat CT head (02/21)due to abnormal pupillary exam and evidence of bleeding: No acute intracranial abnormality.
-Dobbhoff tube in place.
-Continue Rocephin for spontaneous bacterial peritonitis ppx.
-Enrique in place; critical care I/Os
- Appreciate Neuro
-Brain MRI w/o gadolinium if no clinical improvement
-Plan for CT w/ IV contrast as patient becomes responsive
-Consider hepatology evaluation pending course
2. Ventilator dependent respiratory failure
-Vent settings per pulmonary recs; Wean as tolerated
-Speech and Swallow when extubated
3. Pancytopenia
-WBC 4.6, hemoglobin 11.8, platelets 106 on arrival; likely chronic secondary to cirrhosis.
-WBC up to 5.6 this morning, in the setting of the patient's chronic pancytopenia and temperature of 100.7 this morning, consider infectious process.
-Appreciate ID; continue Rocephin, Rifaximin, await blood cultures
-Platelets dropped to 72 this morning. Physical exam indicative of bleeding from IV sites, ecchymoses diffusely. Ordered fibrinogen, D-dimer, PT, PTT, INR.
-PT elevated 20.4, PTT elevated 40.5, D-dimer elevated 1.9. Fibrinogen normal 234 INR normal 1.69.
-1 dose of vitamin K given.
-Patient on thiamine and B12 supplementation at home.
-PICC line
-Hemocult
4. Cirrhosis
-No evidence of ascites on examination; currently on propranolol, Lasix held temporarily.
-Possible varices, no signs of active bleeding. Patient being followed by GI
5. Possible pneumonia
-Rocephin/doxycycline started yesterday.
-CXR yesterday could not rule out left basilar pneumonia.
-Pulmonary examination this morning did not reveal any wheezing rales or rhonchi
6. Essential hypertension
-Lopressor with holding parameters
7. COPD
-DuoNebs through vent
Full code/SCDs
Anticipated Discharge: > 48 hours
Subjective/Interval History
-
Date of Service: February 23, 2024
Patient seen and examined while in ICU bed. Patient remains and is unresponsive. Patient has been off of IV sedation. However he remains intubated. Per nursing, IV sites to lose, however bleeding issues improved since yesterday. Per nursing,
patient has not required pressors. Per nursing, Enrique output continues to be around 20 mL/h, draining clear orange. Patient now on tube feeds. Patient now on tube feeds.
Objective Data
-
Labs:
Laboratory Results
02/23/24 02/23/24
03:57 04:16
WBC 3.7 L
Hgb 9.8 L
Hct 27.9 L
Plt Count 53 L D
PT 22.6 H
INR 1.94
HCO3 21.7
Sodium 139
Potassium 3.9
Chloride 111 H
Carbon Dioxide 24
BUN 25 H
Creatinine 0.9
Glucose 95
Calcium 7.7 L
Total Bilirubin 2.2 H
AST 97 H
ALT 50
Alkaline Phosphatase 97
Vital Signs:
Vital Signs
Temp Pulse Resp BP Pulse Ox
100.9 F H 95 14 117/75 100
02/23/24 07:39 02/23/24 06:30 02/23/24 06:30 02/23/24 06:30 02/23/24 06:30
I&O
02/22/24 02/23/24 02/24/24
06:59 06:59 06:59
Intake Total 1205.1 / 1308.4 2003.
Output Total 340 / 350 548 / 548
Balance 865.1 / 958.4 1456.1 / 1456.1
Review of Systems
-
Unable to obtain full review of systems at this time due to: Patient Intubation
Physical Exam
-
HEENT: Normocephalic, Atraumatic and Other (mild scleral icterus)
Respiratory: Clear to Auscultation and Other (on vent; chronically hyperinflated lungs)
Cardiac: Regular Rhythm
GI: Soft, Nondistended and Other (scaphoid abdomen)
Musculoskeletal: No Clubbing, No Cyanosis and No Edema
Skin: Dry
Neuro: Other (intubated, remains obtunded)
Psych: Calm
Data Reviewed
-
Diagnostic Radiology: Report Reviewed by me
CT Scan: Report Reviewed by me
Labs: Labs Reviewed by me
[2024-02-23] MEDS: DUONEB 3 ML INH ×4 (07:48→20:05)
[2024-02-23] MEDS: FLOVENT 110 MCG INHALER 2 PUFF INH (07:48)
[2024-02-23] MEDS: LIDOCAINE 4% PATCH 1 PATCH TOPICAL (08:20)
[2024-02-23] MEDS: NSS (PRESERVATIVE FREE) 10 ML IV (08:21)
[2024-02-23] MEDS: PEPCID 20 MG TUBE ×2 (08:21→20:35)
[2024-02-23] MEDS: XIFAXAN 550 MG TUBE ×2 (08:21→20:35)
[2024-02-23] MEDS: PROTONIX IV 40 MG IV (08:21)
[2024-02-23 08:55] LABS: APTT 54.5 Sec (23.4-35.0); Fibrinogen 260 MG/DL (199-459)
--- NOTE | 2024-02-23 08:58 | PTCARENOTE ---
report received, assessments per work list. +gag, cough and corneal. slight withdraw to noxious stimuli.. ett to vent lungs with diminished coarse breath sounds. ett suctions for scant amount malave sputum. monitor nsr-sinus tach with pvc's. dobhoff
placement verified. abdomen soft. tamayo draining orange elvira urine. fecal management system irrigated, draining brown yellow stool. ID at bedside. updated.
[2024-02-23] MEDS: HEPARIN SC (09:30)
--- NOTE | 2024-02-23 09:41 | W.PN.NEURO.1 ---
Today's Communication / Plan
-
.
Subjective/Objective
Subjective Data
Date of Service: February 23, 2024
Neurology Follow up Note.
24-hour events: Febrile up to 38.3, transiently hypotensive down to 87/60.
Labs: Pl 53, ammonia-88.
MAR: Midazolam 2 mg administered at 5:29 AM today and 19:17 yesterday.
PMH: Hepatic cirrhosis, COPD, hypertension, history of GI bleed, chronic anemia, medullary nephrocalcinosis
PSH:unknown
SH:resident at [facility]
FH:unknown
All: Zofran, penicillin
ROS:unable due to encephalopathy
General:RR>vent , intubated
Cardio: Regular rate and rhythm. Extremities are without cyanosis or edema.
Neuro:
Mental Status: comatose
Cranial Nerves: Orthophoric primary gaze, pupils are 2.5 mm, nonreactive. Positive corneals, neg oculocephalics. No nystagmus. V
Motor: increased muscle tone in LEs
Reflexes: neg clonus BL
Sensory: unable to assess
Coordination: No dysmetria or tremor.
Gait: deferred
Assessment and Plan:
I. Multifactorial encephalopathy (metabolic (hyperammonemia, toxic, infectious), stable.
II. Interstitial pulmonary fibrosis.
III. Pancytopenia.
-Aspiration precautions.
-Avoid cerebral hypoperfusion, [employer] REVIEWER suppressants and anticholinergic medications.
-Start thiamine
-Left a message for Amy Mary Hydeie with request to return my call
-Brain MRI wo tali if no clinical improvement
-DVT prophylaxis.
I personally reviewed all radiology and labs along with past medical records pertinent to current medical problems. Total time spent in patient care is 35 minutes.
Thank you for allowing us to participate in the care of this patient. We will continue to follow. Please do not hesitate to contact us with any questions or concerns.
Objective Data
Vital Signs
Temp Pulse Resp BP Pulse Ox
38.3 C H 93 15 117/75 100
02/23/24 07:39 02/23/24 07:54 02/23/24 07:54 02/23/24 06:30 02/23/24 07:55
Lab Results
02/23/24 04:16
02/23/24 04:16
PT 22.6 Sec (11.4-14.6) H 02/23/24 04:16
INR 1.94 02/23/24 04:16
APTT 54.5 Sec (23.4-35.0) H 02/23/24 04:16
Sodium 139 mmol/L (135-145) 02/23/24 04:16
Potassium 3.9 mmol/L (3.5-5.1) 02/23/24 04:16
BUN 25 mg/dl (9-20) H 02/23/24 04:16
Glucose 95 mg/dl (70-99) 02/23/24 04:16
Calcium 7.7 mg/dl (8.4-10.2) L 02/23/24 04:16
Phosphorus 3.1 mg/dl (2.5-4.5) 02/23/24 04:16
Ur Buprenorphine Negative (Negative) 02/21/24 18:14
Patient Allergies
coconut oil Allergy (Verified 02/21/24 14:32)
Unknown
ondansetron [From Zofran] Allergy (Verified 02/21/24 14:32)
Unknown
Penicillins Allergy (Verified 02/21/24 19:34)
Unknown
Vital Signs and Labs
-
Vital Signs and Labs:
Vital Signs
Temp Pulse Resp BP Pulse Ox
38.3 C H 93 15 117/75 100
02/23/24 07:39 02/23/24 07:54 02/23/24 07:54 02/23/24 06:30 02/23/24 07:55
Lab Results
02/23/24 04:16
02/23/24 04:16
PT 22.6 Sec (11.4-14.6) H 02/23/24 04:16
INR 1.94 02/23/24 04:16
APTT 54.5 Sec (23.4-35.0) H 02/23/24 04:16
Sodium 139 mmol/L (135-145) 02/23/24 04:16
Potassium 3.9 mmol/L (3.5-5.1) 02/23/24 04:16
BUN 25 mg/dl (9-20) H 02/23/24 04:16
Glucose 95 mg/dl (70-99) 02/23/24 04:16
Calcium 7.7 mg/dl (8.4-10.2) L 02/23/24 04:16
Phosphorus 3.1 mg/dl (2.5-4.5) 02/23/24 04:16
Ur Buprenorphine Negative (Negative) 02/21/24 18:14
Medications
-
Medications:
Generic Name Dose Route Start Last Admin
Trade Name Freq PRN Reason Stop Dose Admin
Acetaminophen 650 mg 02/22/24 19:16 02/23/24 06:02
Acetaminophen (Oral Solution) 650 Mg/20.3 Ml Cup PO 03/21/24 19:15 650 mg
Q4HPRN PRN Administration
temp > 100.4 or mild pain
Albuterol/Ipratropium 3 ml 02/21/24 20:00 02/23/24 07:48
Ipratropium 0.5/Albuterol 3 Mg (3 Ml Ampul) INH 3 ml
R QID WALLY Administration
Protocol
Bisacodyl 10 mg 02/21/24 18:22
Bisacodyl 10 Mg Rectal Suppository RECTAL 03/20/24 18:21
[id number] PRN
constipation
Ceftriaxone Sodium 1,000 mg 02/21/24 20:00 02/22/24 19:28
Ceftriaxone 1000 Mg / 10 Ml Vial IV 1,000 mg
Q24H WALLY Administration
Dextrose 12.5 grams 02/22/24 15:00
Dextrose 50% (0.5 Grams/Ml) 50 Ml Syringe IV 03/21/24 14:59
[id number] PRN
hypoglycemia
Protocol
Famotidine 20 mg 02/22/24 20:00 02/23/24 08:21
Famotidine 20 Mg Tablet TUBE 03/21/24 19:59 20 mg
BID WALLY Administration
Fentanyl Citrate 50 mcg 02/21/24 19:04 02/22/24 15:41
Fentanyl (50 Mcg/Ml) 100 Mcg/2 Ml Ampul IV 03/06/24 19:03 50 mcg
[id number] PRN Administration
see protocol
Protocol
Fluticasone Propionate 2 puff 02/22/24 12:00 02/23/24 07:48
Fluticasone 110mcg Inhaler INH 03/21/24 11:59 2 puff
R BID WALLY Administration
Furosemide 20 mg 02/22/24 08:00 02/22/24 10:08
Furosemide 20 Mg (10 Mg/Ml) 2 Ml Vial IV 03/21/24 07:59 Not Given
DAILY WALLY
Glucagon 1 mg 02/22/24 15:00
Glucagon 1 Mg Vial IM 03/21/24 14:59
PRN PRN
hypoglycemia - no IV access
Protocol
Heparin Sodium 5,000 units 02/22/24 16:00 02/23/24 09:30
Heparin 5,000 Units/Ml 1 Ml Vial SC 03/21/24 15:59 Not Given
Q8 WALLY
Sodium Chloride 1,000 mls @ 70 mls/hr 02/22/24 23:00 02/22/24 23:09
Nss IV 1,000 mls
.[id number] WALLY Administration
Insulin Aspart 0 units 02/22/24 18:00 02/23/24 06:41
Insulin Aspart Moderate Resistance 300 Units/3 Ml Pen.Injctr SC 03/21/24 17:59 Not Given
Q6 WALLY
Protocol
Lactulose 10 grams 02/22/24 14:00 02/23/24 08:21
Lactulose Solution (20 Grams/30 Ml) 30 Ml Cup TUBE 03/21/24 13:59 10 grams
Q6H WALLY Administration
Lidocaine 1 patch 02/22/24 08:00 02/23/24 08:20
Lidocaine 4% Topical Patch TOPICAL 03/21/24 07:59 1 patch
DAILY WALLY Administration
Protocol
Metoprolol Tartrate 5 mg 02/21/24 20:27
Metoprolol 5 Mg/5 Ml Vial IV 03/20/24 20:23
Q4HPRN PRN
HR>110 and/or SBP>140
Midazolam HCl 2 mg 02/21/24 20:49 02/23/24 05:29
Midazolam (Preservative Free) 1 Mg/Ml 2 Ml Vial IV 03/20/24 20:48 2 mg
Q2HPRN PRN Administration
vent synchrony/anxiety
Pantoprazole Sodium 40 mg 02/23/24 08:00 02/23/24 08:21
Pantoprazole Sodium 40 Mg/10 Ml Vial IV 03/22/24 07:59 40 mg
DAILY WALLY Administration
Patch Removal 0 patch 02/22/24 20:00 02/22/24 21:19
Remove Lidocaine Patch REMOVE 03/21/24 19:59 1 patch
DAILY@2000 WALLY Administration
Rifaximin 550 mg 02/22/24 20:00 02/23/24 08:21
Rifaximin 550 Mg Tablet TUBE 550 mg
BID WALLY Administration
Sodium Chloride 0 flush 02/21/24 19:00
Sodium Chloride 0.9% (Flush) Syringe IV 03/20/24 18:59
PER PROTOCOL WALLY
Sodium Chloride 10 ml 02/23/24 08:00 02/23/24 08:21
Sodium Chloride 0.9% (Preservative Free) 10 Ml Vial IV 03/22/24 07:59 10 ml
DAILY WALLY Administration
Sterile Water 10 ml 02/21/24 20:00 02/22/24 19:28
Sterile Water For Injection 10 Ml Vial IV 03/20/24 19:59 10 ml
Q24H WALLY Administration
Zinc Oxide 0 applic 02/21/24 19:37
Zinc Oxide 20% (Ointment) 30 Gram Tube TOPICAL 03/20/24 19:36
TIDPRN PRN
moisture barrier to palak areas
Home Medications
-
Home Medications
acetaminophen 325 mg tablet (Tylenol) 650 mg PO Q6HPRN PRN mild pain 02/21/24
ascorbic acid (vitamin C) 250 mg tablet (Vitamin C) 250 mg PO DAILY Supplement 02/21/24
bisacodyl 10 mg rectal suppository (Dulcolax (bisacodyl)) 10 mg ME DAILYPRN PRN if no bm aftr mom 02/21/24
cyanocobalamin (vitamin B-12) 100 mcg tablet 100 mcg PO HS Supplement 02/21/24
fluticasone fur. 100 mcg-umeclid 62.5 mcg-vilant 25 mcg inhalat.powder (Trelegy Ellipta) 1 inh inhalation R DAILY Lung/Breathing Issues 02/21/24
furosemide 20 mg tablet (Lasix) 20 mg PO DAILY Fluid Retention/Swelling 02/21/24
guaifenesin 200 mg tablet 600 mg PO [id number] PRN cough 02/21/24
lactulose 10 gram/15 mL oral solution 20 g PO TID Liver Issues 02/21/24
lidocaine 4 % topical patch 1 patch topical DAILY right shoulder 02/21/24
magnesium hydroxide 400 mg/5 mL oral suspension (Milk of Magnesia) 2,400 mg PO DAILYPRN PRN if no bm by 3rd day 02/21/24
menthol 0.44 %-zinc oxide 20.6 % topical ointment (Moisture Barrier Ointment) 1 applic topical TIDPRN PRN palak areas 02/21/24
pantoprazole 40 mg tablet,delayed release (Protonix) 40 mg PO HS Gastrointestinal Issue 02/21/24
propranolol 10 mg tablet 10 mg PO HS Liver Issues 02/21/24
propranolol 20 mg tablet 20 mg PO DAILY Liver Issues 02/21/24
sodium phosphates 19 gram-7 gram/118 mL enema (Fleet Enema) 118 ml ME DAILYPRN PRN if no bm aftr dulolcax 02/21/24
therapeutic multivitamin 1 tab PO DAILY Supplement 02/21/24
thiamine HCl (vitamin B1) 100 mg tablet 100 mg PO DAILY Supplement 02/21/24
zinc oxide 13 % topical cream 1 applic topical TID sacrum 02/21/24
[2024-02-23 10:02] LABS: Glycohemoglobin (HgbA1c) 3.9 % (4.0-5.6)
--- NOTE | 2024-02-23 10:37 | W.PN.ID1 ---
Date of Service
Date of Service: February 23, 2024
Today's Communication
Continue ceftriaxone for today. Follow pending cultures.
Assessment / Plan
Obtundation/encephalopathy
VDRF
Fever
Normal white count with left shift
Elevated bilirubin
Elevated ammonia level
Bacteriuria;? UTI
Cirrhosis
Portal hypertension
Esophageal varices
Hx GI bleed
Encephalopathy
Chronic thrombocytopenia
HTN
COPD
Chronic anemia
IPF
Pulmonary hypertension
Recommendations:
Continue with empiric ceftriaxone for the present.
Continue with rifaximin
Await pending cultures (blood /urine)
Monitor white count and temperature curve.
Follow ammonia level. Trend bilirubin
����������������������������������������������������������
Chief Complaint
-: Other (Encephalopathy; fever)
Subjective / Review of Systems
Patient seen and examined. Remains on vent at this time. Fevers noted overnight although different sites (oral, core) were recorded making trends somewhat more difficult to interpret..
Vital Signs / Physical Exam
Vital Signs
Vital Signs
Temp Pulse Resp BP Pulse Ox
100.9 F H 90 15 122/73 100
02/23/24 07:39 02/23/24 09:30 02/23/24 09:30 02/23/24 09:30 02/23/24 09:30
Physical Exam
Constitutional: Acutely Ill, Chronically Ill and Non-toxic
Eyes: No Conjunctival Hemorrhage and Sclera Anicteric
Cardiovascular: S1/S2; Negative S3/S4
Pulmonary: Other (ET tube to vent.)
Gastrointestinal: Soft, Non Distended, Normal Bowel Sounds, No Rebound, No Guarding and Other (FMS in place with liquid stool (patient receiving lactulose enemas))
Genito-Urinary: Enrique and Clear Urine
Skin: Warm and Dry
Neurological: Other (Sedated)
Objective Data
Lab Data
Lab Results
02/23/24 04:16
PT 22.6 Sec (11.4-14.6) H 02/23/24 04:16
INR 1.94 02/23/24 04:16
APTT 54.5 Sec (23.4-35.0) H 02/23/24 04:16
Estimated Creat Clear 56 ml/min 02/23/24 04:16
Lactic Acid 1.8 mmol/L (0.7-2.0) 02/22/24 13:43
Total Bilirubin 2.2 mg/dl (0.2-1.3) H 02/23/24 04:16
GGT 29 U/L (15-73) 02/23/24 04:16
AST 97 U/L (17-59) H 02/23/24 04:16
ALT 50 U/L (0-50) 02/23/24 04:16
Alkaline Phosphatase 97 U/L (38-126) 02/23/24 04:16
Most recent labs reviewed.
Micro Results:
02/22/24 08:59 Blood Culture - Preliminary
Blood/Venous No Growth in 24 hours- Final report to follow
02/23/24 08:52 MRSA Screen - Pending
Nose
02/23/24 08:52 Respiratory Culture - Pending
Endotracheal Gram Stain - Pending
02/22/24 09:00 Urine Culture - Pending
Urine
Imaging:
02/22/2024 CT chest/abdomen/pelvis without contrast: ET tube at the level of the slime. Changes of moderate to severe interstitial fibrosis with basilar significant honeycombing. No significant pleural fluid noted. Liver is cirrhotic. There is
diffuse subcutaneous edema/anasarca. Small to moderate amount of free fluid within the pelvis. No evidence of free intraperitoneal air. Please see full dictation for additional detail.
Care Review
Plan reviewed with: Physician (Critical Care)
--- NOTE | 2024-02-23 10:49 | W.PN.INTV ---
Today's Communication / Plan
Recommendations
- continue to trend cbc, cmp, lactate
- follow up on urine culture results
- Monitor patients BP/ temp/ 02 status ventilator settings
Assessment
-
Acute Hypoxemic respiratory failure on mechanical ventilation:
- attempt to wean off ventilator pending patients condition
- Patient is currently off sedation
- Maintain sp02 between 88-95%
- Aspiration precautions
- Continue Duonebs and flovent
- spontaneous breathing/ reawaking trials every morning
Distributive shock due to UTI related sepsis:
- Positive urinalysis on admission
- Maintain MAP >65
- Patient is weaned off Levophed as blood pressure is stable today at 122/73
- Continue empiric ceftriaxone
- monitor blood pressure and if stable, start metoprolol tonight
- Pending urine cultures
- stress ulcer prophylaxes with pepcid and ppi
- Lactate levels normal at 1.8
- Blood cultures negative
- Infectious Disease following
Acute metabolic encephalopathy due to possible chronic alcohol use
Decompensated cirrhosis:
- Continue to trend ammonia level, today elevated at 88
- continue lactulose
- continue on rifaximin
- GGT- normal, ALT- normal, ALP- normal, AST- 97
Thrombocytopenia:
- 53 today
- consider restarting Heparin after rechecking platelets, hemoglobin in afternoon
Acute on chronic macrocytic anemia:
- Hemoglobin is 9.8
- MCV is 97.6
- most likely due to alcohol use
- Continue to trend and if <7 then transfuse
COPD
Pulmonary fibrosis:
- Murmur heard over the left upper sternal border
- Decreased breath sounds heard bilaterally
- 0.5 mg budesonide bid discontinued
- Maintain oxygen level between 88-92%
- Trelegy held
Hyperbilirubinemia:
- total is 2.2
- Consult outpatient GI
Monitor blood glucose levels on tube feeds
DVT:
- Currently on SCD's
- heparin subq pending blood results
Subjective Dataa
Subjective Data
Date of Service:
Date of Service: February 23, 2024
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
Subjective:
Patient is intubated and not responsive so could not get a history from patient.
Overnight, patient had few episodes of low grade fever averaging around 100.5. Infectious disease was consulted.
Ventilator setting are rate- 14, Tidal volume- 500, PEEP- 5, 30%- FiO2.
Patient is on Jevity 20 ml/hour.
Currently on Normal saline drip, and Levophed on standby, heparin d/c'd due to decreased platelet count.
Review of Systems
General: Unobtainable - Pat Unresp
Objective Data
Data Reviewed
Vital Signs / I&O / Oxygen:
Vital Signs
Temp Pulse Resp BP Pulse Ox
100.9 F H 86 14 105/68 100
02/23/24 07:39 02/23/24 10:30 02/23/24 10:30 02/23/24 10:00 02/23/24 10:30
Intake and Output
02/22/24 02/23/24 02/24/24
06:59 06:59 06:59
Intake Total 1205.1 / 1308.4 2003. / 2073.1 475 / 475
Output Total 340 / 350 548 / 548 55 / 55
Balance 865.1 / 958.4 1456.1 / 1526.1 420 / 420
SaO2 [A/C] 98
SaO2 100
Physical Exam
General: Fever (low grade fever)
Cardiovascular: Murmur (over the right upper sternal border )
Respiratory: Other (Decreased breath sounds bilaterally lower lobes)
GI: Soft
Neurology: Unresponsive
Labs/Micro/Reports
Lab Data
02/23/24 04:16
Laboratory Results
02/22/24 02/23/24 02/23/24
08:59 03:57 04:16
PT 20.4 H 22.6 H
INR 1.69 1.94
APTT 54.5 H
pH 7.44
pCO2 32 L
pO2 139 H
HCO3 21.7
O2 Delivery Level 30%, peep: 5
Microbiology
02/22/24 08:59 Blood/Venous Blood Culture - Preliminary
No Growth in 24 hours- Final report to follow
--- NOTE | 2024-02-23 11:48 | CM ---
CM spoke with liaison at facility and requested additional medical information at physician request. Information to be faxed to CM and will place on chart. Patient was Short term at facility but they will agree to accept when medically appropriate
if bed available. CM will continue to follow for discharge planning needs.
Plan; return to SNF when medically appropriate.
--- NOTE | 2024-02-23 12:05 | PTCARENOTE ---
patient reassessed. ETT retracted to 22 cm by RT per orders. cxr pending. patient opens eyes to stimulation. does not move extremities. as morning progressed, increased bloody secretions with clots orally suctioned. annealing furnace operator aware. orders noted.
decreased urine output, tamayo continues.
[2024-02-23 12:13] LABS: Glucose - Point of Care 113 mg/dl (70-99)
--- NOTE | 2024-02-23 12:51 | W.PN.GI.CBS2 ---
Addendum entered and electronically signed by Enoc Zaman MD 02/23/24 14:56:
I saw and examined the patient.
The CARDIAC CARE UNIT NURSE or PA's note was reviewed and I agree with the note.
Comment: Some movement to stimuli per nursing. Remains intubated
ABD soft
REC:
Increase lactulose from 15ml to 30ml q6 hrs since mental status minimally improving
Cont Xifaxan BID
Cont rx infection per ID
Await records from [facility]
Original Note:
Today's Communication / Plan
-
Etiology of mental status change likely related to hepatic encephalopathy with hx cirrhosis
Etiology of HE -- related to infection as still persistent low grade fever work up pending- ID following , no signs of aggressive GI bleeding stools brown hbg stable, electrolytes stable with normal creat, ? medication compliance has only been at
current SNF less than 1 week vs other
limited US and CT as noted
t/c eventual cross section imaging if not completed at [facility] when stable
cont antibiotics per ID
cont Xifaxan BID and lactulose to Q 6 h via DHT for another day as minimal output and ammonia remains elevated
awaiting records
remains on Lasix 20mg daily t.c eventually adding Aldactone
cont Pepcid daily
cont Propranolol with Hx EV
eventual repeat EGD can be Outpatient unless signs of GI bleeding or drop in hbg
add AFP
MELD 3.0 16 02/21 repeat today 18
trend labs
will need eventual formal liver serology work up but will obtain prior records from [facility] to see what has been completed
I update significant other 02/21
t/c eventual hepatology eval pending course
speech consult when extubated
will follow
Assessment / Plan
-
Pt is a 74yo with hx COPD cirrhosis-- Etiology ? ETOH per family but quit in 2011. He was diagnosed around the time he quit ETOH in 2011 and has had several variceal GI bleeds with banding in past. Per significant other pt was not compliant with
follow up over the years. Over last 6 months he has had fatigue and some change in mental status then was admitted with fever and hepatic encephalopathy about a month ago to [facility] then transferred to [facility]. He
did have another hospital admission and recently admitted to [facility] about 1 week ago. He now presents to for change in mental status with ammonia of 128 with low grade fever 100.7 with possible PNA and hypotension
requiring BP support. He was intubated after admission. On admission pt with hbg 11.8, platelet 106 with drop to 72,000, INR 1.42, albumin 2.1, bili 2.3, AST 45, ALT 32, alk phos 84, and ammonia 117.
02/22/24 Limited US abdomen Examination is technically difficult with very poor acoustic windows. Limited examination.
Sludge throughout most of the gallbladder. The gallbladder is distended. The bladder wall appears mildly thickened, nonspecific.
Common bile duct is unable to be visualized. The liver is not adequately visualized.
Splenomegaly. Tortuous dilated veins adjacent to the splenic hilum.
The pancreas is unable to be visualized. The right kidney is unable to be visualized.
Simple cyst in the central upper to mid left kidney.
Of note, the patient does have an estimated GFR of greater than 60. If the patient can cooperate for CT examination, a contrast-enhanced CT of the abdomen and pelvis could be considered to assess for portal vein thrombosis.
02/22/24 CT Chest/abd/pel Wo Iv Cont
IMPRESSION: Endotracheal tube tip is low, at the level the slime, directed toward the right mainstem bronchus.
Changes of moderate to severe interstitial fibrosis with basilar significant honeycombing. No significant pleural fluid bilaterally.
Cirrhotic liver.
Diffuse subcutaneous edema/anasarca. Small to moderate amount of free fluid within the pelvis.
No evidence of free intraperitoneal air.
Mild compression deformities of the T8 and T11 vertebral bodies, age uncertain.
Evaluation of the abdomen and pelvis somewhat limited by lack of GI luminal contrast and the lack of IV contrast.
-change in mental status with concern for hepatic encephalopathy with elevated ammonia level-- first admit to but recent admit to [facility] with similar symptoms
-low grade fever- persistent
-resp insufficiency s/p intubation
-hypotension requiring pressors on admission
-possible PNA
-hx dysphagia with recent speech eval per family
-cirrhosis - ? ETOH related but quit in 2011 with decompensation
-hx EV with bleeding several years ago with banding
-thrombocytopenia
-anemia
-hypoalbuminemia
-COPD/pulm HTN
PLAN:
Etiology of mental status change likely related to hepatic encephalopathy with hx cirrhosis
Etiology of HE -- related to infection as still persistent low grade fever work up pending- ID following , no signs of aggressive GI bleeding stools brown hbg stable, electrolytes stable with normal creat, ? medication compliance has only been at
current SNF less than 1 week vs other
limited US and CT as noted
t/c eventual cross section imaging if not completed at [facility] when stable
cont antibiotics per ID
cont Xifaxan BID and lactulose to Q 6 h via DHT for another day as minimal output and ammonia remains elevated
awaiting records
remains on Lasix 20mg daily t.c eventually adding Aldactone
cont Pepcid daily
cont Propranolol with Hx EV
eventual repeat EGD can be Outpatient unless signs of GI bleeding or drop in hbg
add AFP
MELD 3.0 16 02/21 repeat today 18
trend labs
will need eventual formal liver serology work up but will obtain prior records from [facility] to see what has been completed
I update significant other 02/21
t/c eventual hepatology eval pending course
speech consult when extubated
will follow
Subjective
Subjective
Date of Service: February 23, 2024
diarrhea in rectal tube only 60ml recorded for stool overnight, on tube feeds still with fever
Objective
Data Reviewed
Laboratory Data:
Laboratory Results
02/23/24 04:16
Laboratory Results
PT 22.6 Sec (11.4-14.6) H 02/23/24 04:16
INR 1.94 02/23/24 04:16
APTT 54.5 Sec (23.4-35.0) H 02/23/24 04:16
Phosphorus 3.1 mg/dl (2.5-4.5) 02/23/24 04:16
Magnesium 1.9 mg/dl (1.6-2.3) 02/23/24 04:16
Total Bilirubin 2.2 mg/dl (0.2-1.3) H 02/23/24 04:16
AST 97 U/L (17-59) H 02/23/24 04:16
ALT 50 U/L (0-50) 02/23/24 04:16
Alkaline Phosphatase 97 U/L (38-126) 02/23/24 04:16
Vital Signs and I&O:
Vital Signs
Temp Pulse Resp BP Pulse Ox
99.5 F 92 13 124/73 100
02/23/24 12:00 02/23/24 12:00 02/23/24 12:00 02/23/24 12:00 02/23/24 12:00
I&O
02/22/24 02/23/24 02/24/24
06:59 06:59 06:59
Intake Total 1205.1 / 1308.4 2003. / 2073.1 695 / 695
Output Total 340 / 350 548 / 548 80 / 80
Balance 865.1 / 958.4 1456.1 / 1526.1 615 / 615
Physical Exam
Physical Exam
HEENT: Anicteric
Cardiology: Normal Sinus Rhythm
Pulmonary: Clear and Other (remains vented )
GI: Soft, Non Distended and Non Tender
Neuro: Other (intubated remains obtunded )
[2024-02-23 14:14] LABS: Hematocrit 28.3 % (39.0-52.0); Hemoglobin 9.9 g/dL (13.0-18.0); Mean Corpuscular Hgb 34.6 pg (27.0-31.0); Mean Platelet Volume 11.3 fL (7.4-10.4); Platelet Count 59 10^3/uL (130-400); Red Blood Cell Count 2.86 10^6/uL (4.70-6.10); Red Cell Dist. Width 19.3 % (11.5-14.5); White Blood Cell Count 4.8 10^3/uL (4.8-10.8)
--- NOTE | 2024-02-23 16:00 | PTCARENOTE ---
Addendum entered by Hawa Vargas RN 02/23/24 16:24:
tolerated cpap/ps wean for thirty minutes. heart rate up to 130's. more restless on wean. placed back on AC. tylenol given for temp 101. moves arms and legs, does not make eye contact of follow commands
Original Note:
patient reassessed, localizing to discomfort, arms and legs no longer flaccid. all are rigid. opens eyes to stimulation. placed on SBT
[2024-02-23] MEDS: SUBLIMAZE 50 MCG IV ×2 (17:39→22:58)
--- NOTE | 2024-02-23 17:43 | PTCARENOTE ---
patient increasingly more restless.does not follow commands or make eye contact. increased nonverbal pain cues. medicated with fentanyl per prn order.
[2024-02-23 17:46] LABS: Glucose - Point of Care 143 mg/dl (70-99)
--- NOTE | 2024-02-23 18:08 | W.PN.UPDATE ---
Update Note
Progress Note Update
Seen and examined by me independently in collaboration with the medical accounting clerk.
Lab data and imaging data reviewed.
Addendum as below :
Patient remains unresponsive. Came off IV sedation. Remains intubated. Currently working diagnosis hepatic encephalopathy of unclear etiology. Continue with lactulose and rifaximin.GI following- dose of lactulose increased. If no improvement in
mental status will consider further imaging of brain. Neurology following as well.
Ongoing fevers with ? UTI -cw Ceftriaxone- ID following.
Wean vent per pulmonary.
DW ID
Await old records from [facility].
Total time spent on today's encounter was 52 minutes which included time spent in counseling the patient/family regarding diagnosis and treatment plan as listed above, goals of care, and symptom management. Case was discussed with nursing staff,
specialists, and care coordinators/case management. All labs and imaging personally reviewed by me. Remainder the time spent in detailed review of previous records, lab data, imaging, and other medical provider documentation.
--- NOTE | 2024-02-23 20:00 | PTCARENOTE ---
Pt received start of shift, HR SR w/ PACs and PVCs on telemetry. Bedside handoff with previous shift RN. Vent settings AC as follows: TV 500, RR 14, PEEP 5, 30% FiO2. L Pupil +2 with sluggish response, R pupil +1 non reactive. Corneal reflexes
present b/l. GCS 7. In-line suction produced small to moderate blood-tinged sputum. ET tube @ 22cm at L of mouth. Dobhoff in L nare @ 65cm. Enrique catheter draining clear, elvira urine. Pt with +2 upper extremity edema, +1 lower extremity edema. FMS
in place. Pt noted to be occasionally asynchronous with vent, kicking legs in the bed and shifting body position frequently - PRN versed administered (see MAR).
[2024-02-23] MEDS: FLOVENT 110 MCG INHALER 4 PUFF INH (20:05)
[2024-02-23] MEDS: STERILE WATER FOR INJECTION 10 ML IV (20:35)
[2024-02-23] MEDS: DUPHALAC/CHRONULAC 20 GRAMS TUBE (20:36)
[2024-02-23] MEDS: ROCEPHIN 1000 MG IV (20:36)
[2024-02-23] MEDS: INDERAL 10 MG PO (21:32)
[2024-02-24] VITALS (28 sets, daily range): BP systolic 85–142; BP diastolic 49–75; BMI 20.1
[2024-02-24] MEDS: SUBLIMAZE 50 MCG IV ×6 (00:32→21:34)
--- NOTE | 2024-02-24 00:40 | PTCARENOTE ---
Pt moving head side to side frequently attempting to remove tube. PRN fentanyl bolus administered - see MAR.
[2024-02-24 00:57] LABS: Glucose - Point of Care 154 mg/dl (70-99)
[2024-02-24] MEDS: NOVOLOG FLEXPEN-MODERATE RESISTANCE 1 UNITS SC (01:01)
[2024-02-24] MEDS: DUPHALAC/CHRONULAC 20 GRAMS TUBE ×4 (01:05→20:29)
[2024-02-24] MEDS: VERSED 2 MG IV ×6 (02:22→23:56)
--- NOTE | 2024-02-24 02:30 | PTCARENOTE ---
Pt restless in bed, moving torso and head mostly. Sllight movement from arms and legs. Asynchronous with vent - PRN Versed administered
[2024-02-24 04:32] LABS: INR 1.83; PT 21.3 Sec (11.4-14.6)
[2024-02-24 04:35] LABS: Ammonia 75 umol/L (9-30)
[2024-02-24 04:39] LABS: ALT (SGPT) 57 U/L (0-50); AST (SGOT) 87 U/L (17-59); Albumin 1.9 g/dl (3.5-5.0); Alkaline Phosphatase 116 U/L (38-126); Blood Urea Nitrogen 22 mg/dl (9-20); Calcium 7.6 mg/dl (8.4-10.2); Carbon Dioxide 24 mmol/L (22-30); Chloride 110 mmol/L (98-107); Estimated Creatinine Clearance 75 ml/min; Glucose 137 mg/dl (70-99); Potassium 3.6 mmol/L (3.5-5.1); Sodium 136 mmol/L (135-145); Total Bilirubin 1.8 mg/dl (0.2-1.3); Triglycerides 38 mg/dl (10-149); eGFR > 60.00
[2024-02-24] MEDS: KCL ELIXIR 20 MEQ TUBE (06:07)
[2024-02-24] MEDS: NOVOLOG FLEXPEN-MODERATE RESISTANCE SC ×4 (06:49→23:58)
[2024-02-24 06:51] LABS: Glucose - Point of Care 128 mg/dl (70-99)
[2024-02-24] MEDS: LIDOCAINE 4% PATCH 1 PATCH TOPICAL (07:29)
[2024-02-24] MEDS: PEPCID 20 MG TUBE ×2 (07:30→20:29)
[2024-02-24] MEDS: INDERAL 20 MG PO (07:30)
[2024-02-24] MEDS: XIFAXAN 550 MG TUBE ×2 (07:30→20:29)
[2024-02-24] MEDS: PROTONIX IV 40 MG IV (07:31)
[2024-02-24] MEDS: NSS (PRESERVATIVE FREE) 10 ML IV (07:31)
[2024-02-24] MEDS: DUONEB 3 ML INH ×4 (07:58→19:59)
--- NOTE | 2024-02-24 07:58 | W.PN.GI.CBS2 ---
Today's Communication / Plan
-
Please see assessment and plan for details.
Assessment / Plan
-
1. Cirrhosis: Possibly secondary to previous alcohol, decompensated in the past with variceal bleeding status post banding, now hepatic encephalopathy likely worsened with underlying infection/fever/pneumonia. Ultrasound without ascites to tap,
doubt SBP. His mental status and activity have improved overall, ammonia level has decreased. At this point we will continue supportive care, increased lactulose dose, rifaximin, diuretics on hold.
Subjective
Subjective
Date of Service: February 24, 2024
No new events, still with fevers yesterday afternoon, more movement on the vent, not as flaccid as yesterday per nursing. Still with multiple bowel movements.
Objective
Data Reviewed
Laboratory Data:
Laboratory Results
02/23/24 13:44
02/24/24 04:10
Laboratory Results
PT 21.3 Sec (11.4-14.6) H 02/24/24 04:10
INR 1.83 02/24/24 04:10
APTT 54.5 Sec (23.4-35.0) H 02/23/24 04:16
Phosphorus 3.1 mg/dl (2.5-4.5) 02/23/24 04:16
Magnesium 2.0 mg/dl (1.6-2.3) 02/24/24 04:10
Total Bilirubin 1.8 mg/dl (0.2-1.3) H 02/24/24 04:10
AST 87 U/L (17-59) H 02/24/24 04:10
ALT 57 U/L (0-50) H 02/24/24 04:10
Alkaline Phosphatase 116 U/L (38-126) 02/24/24 04:10
Vital Signs and I&O:
Vital Signs
Temp Pulse Resp BP Pulse Ox
99.1 F 87 14 142/72 99
02/24/24 03:22 02/24/24 07:30 02/24/24 04:30 02/24/24 07:30 02/24/24 04:30
I&O
02/23/24 02/24/24 02/25/24
06:59 06:59 06:59
Intake Total 2003. / 2073.1 1885 / 1885
Output Total 548 / 548 1464 / 1464
Balance 1456.1 / 1526.1 421 / 421
Physical Exam
Physical Exam
General: NAD, some spontaneous movement though does not respond to stimulus
Abdomen: normal bowel sounds, soft, no obvious tenderness, no masses or bruits, no obvious ascites
[2024-02-24] MEDS: FLOVENT 110 MCG INHALER 4 PUFF INH ×2 (07:59→20:00)
--- NOTE | 2024-02-24 08:10 | PTCARENOTE ---
Addendum entered by Hawa Vargas RN 02/24/24 10:53:
more agitated, flailing arms near face. mitts applied for safety. increased secretions from ETT, thick malave sputum. blood culture sent. ID updated re:secretions
Original Note:
report received, assessments per work list. patient moving arms and legs. jerking head side to side. does not follow any commands. dh placement verified, monitor nsr. ett suctions for large amount malave sputum. brown oral secretions. abdomen soft,
hyperactive bowel sounds. fecal management system in place, slight leakage. irrigated, balloon checked. stool thick pale malave liquid. tamayo draining orange urine. sclera jaundiced. hospitalist at bedside. updated
--- NOTE | 2024-02-24 08:12 | W.PN.INTV ---
Today's Communication / Plan
Recommendations
Continue mechanical ventilation
Repeat CT abdomen/pelvis today and follow-up results
Continue lactulose and trend ammonia level
MRI brain when feasible
Neurology recs appreciated
Continues to be having low-grade fevers - may need to broaden antibiotics further
ID consulted and recs appreciated
Avoid INSULATOR CUTTER AND FORMER depressing medications; use prn fentanyl +/- Versed as needed
Start thiamine
Goal BG 140�180
Guarded prognosis
Continue ICU level care for this critically ill patient
Assessment
-
74-year-old male with a past medical history of cirrhosis with esophageal varices, pulmonary fibrosis, anemia and reported history of COPD who presented from altered mental status. Intubated in the ER for airway protection. Labs concerning for
transaminitis with elevated ammonia level. He was admitted to the ICU for further care where he continues to be managed. Intensive services following for additional management/recommendations.
Impression:
Acute respiratory failure with hypoxia on mechanical ventilation
Shock: Distributive likely septic in the setting of UTI - shock state now resolved
Complicated UTI with UA positive for nitrites, +1 leukocyte esterase and 16�20 urine WBC
Decompensated cirrhosis with hepatic encephalopathy (?Alcoholic cirrhosis etiology)
History of alcohol abuse (per family, quit in 2011)
Former tobacco use (quit 1 year ago)
Reported history of COPD
Pulmonary fibrosis/UIP
Anemia
Thrombocytopenia
Lactic acidosis - resolved
Transaminitis with hyperbilirubinemia
Hyperammonemia � improving
Hypoalbuminemia
Anasarca
Plan:
- Continue with mechanical ventilation keep off sedation if possible; use prn fentanyl +/- versed only if needed for ventilator asynchrony or agitation
- Goal RASS 0 to -2
- Titrate FiO2 + PEEP to maintain SpO2 >90-94%
- Maintain plateau pressure <30
- Aspiration precautions
- Adjust vent settings as needed based on blood gas
- Suctioning as needed from oropharynx as well as subglottic
- Follow-up sputum Cx (collected 02/23/2024) --> growing GNR + Mica albicans
- Sputum CX repeated today -->follow up results
- Currently on ceftriaxone s/p doxycycline x 2 doses (02/20 + 02/21); CT chest from 02/22/2024 did not show any evidence of pneumonia, hence doxgee was DC'd
- Follow-up blood culture + urine culture (collected 02/21)
- ID now consulted - recs appreciated
- he continues be febrile --> repeating CT abd/pelvis today --> follow up results --> may need to broaden ABx further
- He takes Trelegy at home, hence continue with DuoNebs QID + flovent BID while intubated
- Not currently wheezing and on minimal oxygen requirements hence no need for systemic steroids at this time
- Maintain MAP>65
- Now that he is on tube feeds and tolerating, IVF stopped
- Now that he is off pressors, resume propanolol with holding parameters
- Neurology consulted on 02/21 as he remains unresponsive despite improving ammonia level and being weaned off sedation; would favor checking EEG +/- MRI brain
- Continue thiamine
- MRI brain when feasible
- CT head on morning of 02/22/2024 did not show any acute intracranial abnormalities
- Continue neurochecks
- Continue with lactulose and continue trending serum ammonia level
-Titrate lactulose to 3�4 loose/formed bowel movements per day
- Trend LFTs and check/trend D. bili, GGT and LDH
- Continue rifaximin 550mg BID
- Continue to monitor CBC and transfuse as needed to keep Hb >7, platelets >20k
- PT/INR elevated but this is expected in cirrhotics --> no need to Tx with Vitamin K at this point as he is not bleeding, Hb is stable and unclear evidence of Vitamin K in cirrhotics anyway
- Continue tube feeds and raise towards goal as tolerated; A1C: 3.9; maintain euglycemia with goal BG 140-180mg/dL
- Stress ulcer ppx: Pepcid and PPI (home med)
- DVT ppx: Resume chemical ppx with LMWH
- Guarded prognosis
Patient is critically ill and requires ICU level of care given his shock state and respiratory failure requiring mechanical ventilation.
Critical care statement: A total of 41 minutes of critical care time was provided for this patient today. This includes management of unstable vital signs, evaluation of the patient at bedside, reviewing the patient's pertinent medical records
including radiographs, microbiology, laboratory evaluations, and discussion with primary team, consultants, pharmacy, nutrition, physical therapy, case management, charge nurse, critical care nursing, and respiratory therapy.
Subjective Dataa
Subjective Data
Date of Service:
Date of Service: February 24, 2024
Chief Complaint: Tamper Operator Follow Up
Subjective:
Patient seen and evaluated today at bedside. He is moving much more today but still not following commands. Heart rate 74, BP 93/55, SpO2 99% on AC/CMV at 14/500/30%/5, with PIP: 32 cmH2O, VTe 497 mL and breathing at 25 breaths/min. End-tidal
CO2: 22.
Review of Systems
General: Unobtainable - Pat Unresp
Objective Data
Data Reviewed
Vital Signs / I&O / Oxygen:
Vital Signs
Temp Pulse Resp BP Pulse Ox
100.5 F H 83 22 131/64 98
02/24/24 08:06 02/24/24 08:00 02/24/24 08:00 02/24/24 08:00 02/24/24 08:06
Intake and Output
02/23/24 02/24/24 02/25/24
06:59 06:59 06:59
Intake Total 2003. / 2073.1 1885 / 1885
Output Total 548 / 548 1464 / 1464
Balance 1456.1 / 1526.1 421 / 421
SaO2 [CPAP/PSV] 100
SaO2 [A/C] 100
SaO2 98
Physical Exam
General: Respiratory Distress (negative), Fever (low grade fever), Chills (negative) and Sweats (negative)
HEENT: Normocephalic, Other (Scleral icterus bilateral) and Other (ETT in place)
Cardiovascular: S1-S2, Murmur (negative) and Peripheral Edema (negative)
Respiratory: Wheeze (negative), Crackles (bibasilar), Rhonchi (negative), Stridor (negative) and ET Tube (Mechanical breath sounds heard bilaterally)
GI: Soft, Non Distended, Non Tender and Normal Bowel Sounds
Neurology: Tremors (negative), Unresponsive and Other (Pupils 1 mm on the right eye, 2 mm on the left eye - brisk; intact corneal reflex, intact gag)
Skin: Warm and Dry
Labs/Micro/Reports
Lab Data
02/23/24 13:44
02/24/24 04:10
Laboratory Results
02/24/24
04:10
PT 21.3 H
INR 1.83
Microbiology
02/22/24 08:59 Blood/Venous Blood Culture - Preliminary
No Growth in 48 hours- Final report to follow
02/24/24 08:34 Nasal Swab Influenza Types A & B (MARY) - Final
Negative for Influenza A & B, NAAT
Negative results must be combined with clinical observations
and patient history.
Nucleic Acid Amplification test (NAAT)performed on the
[employer], a [employer] platform.
02/23/24 08:52 Endotracheal Gram Stain - Preliminary
02/22/24 09:00 Urine Urine Culture - Final
NO GROWTH
--- NOTE | 2024-02-24 08:22 | W.PN.HOSP.TC ---
Today's Communication/Plan
-
Check COVID and influenza swab
CT of the abdomen pelvis with p.o. and IV contrast
Assessment / Plan
Assessment / Plan
1. Acute metabolic encephalopathy
-Suspected hepatic encephalopathy. Improving ammonia but still high. Continue with lactulose and rifaximin.
-Neurology input noted. Continue with hepatic encephalopathy treatment and if no improvement. Consider MRI of the brain.
-Ongoing evaluation for toxic encephalopathy-evaluating ongoing fevers for source of infection.
2. Ventilator dependent respiratory failure
-Vent settings per pulmonary recs; Wean as tolerated
-Speech and Swallow when extubated
3. Pancytopenia
-WBC 4.6, hemoglobin 11.8, platelets 106 on arrival; likely chronic secondary to cirrhosis.
-WBC up to 5.6 this morning, in the setting of the patient's chronic pancytopenia and temperature of 100.7 this morning, consider infectious process.
-Appreciate ID; continue Rocephin, Rifaximin, await blood cultures
-Platelets dropped to 72 this morning. Physical exam indicative of bleeding from IV sites, ecchymoses diffusely. Ordered fibrinogen, D-dimer, PT, PTT, INR.
-PT elevated 20.4, PTT elevated 40.5, D-dimer elevated 1.9. Fibrinogen normal 234 INR normal 1.69.
-1 dose of vitamin K given.
-Patient on thiamine and B12 supplementation at home.
-PICC line
-Hemocult
4. Cirrhosis
-No evidence of ascites on examination; currently on propranolol, Lasix held temporarily.
-Possible varices, no signs of active bleeding. Patient being followed by GI
5. Febrile illness-unclear source
-Bacteriuria? UTI but urine culture with growth is negative
-Currently on Rocephin for coverage. ID following.
-Chest imaging including chest x-ray and CT chest shows interstitial lung disease but no obvious focal consolidation to suggest pneumonia.
-In view of ongoing fevers we will check a CT of the abdomen pelvis for intra-abdominal source of infection.
-Check COVID and influenza swab
6. Essential hypertension
-Lopressor with holding parameters
7. COPD
-DuoNebs through vent
Full code/SCDs
Discussed with MAINTENANCE ANALYST
Total time spent on today's encounter was 52 minutes which included time spent in counseling the patient/family regarding diagnosis and treatment plan as listed above, goals of care, and symptom management. Case was discussed with nursing staff,
specialists, and care coordinators/case management. All labs and imaging personally reviewed by me. Remainder the time spent in detailed review of previous records, lab data, imaging, and other medical provider documentation.
Anticipated Discharge: > 48 hours
Subjective/Interval History
-
Date of Service: February 24, 2024
Patient currently unresponsive. Eyes are open slightly to painful stimuli but does not follow commands not track eyes.
Constantly moving in the bed.
Needed as needed doses of IV medication for agitation last night.
Remains intubated but not on IV sedation.
Objective Data
-
Labs:
Laboratory Results
02/24/24
04:10
PT 21.3 H
INR 1.83
Sodium 136
Potassium 3.6
Chloride 110 H
Carbon Dioxide 24
BUN 22 H
Creatinine 0.7
Glucose 137 H
Calcium 7.6 L
Total Bilirubin 1.8 H
AST 87 H
ALT 57 H
Alkaline Phosphatase 116
Vital Signs:
Vital Signs
Temp Pulse Resp BP Pulse Ox
100.5 F H 83 22 131/64 98
02/24/24 08:06 02/24/24 08:00 02/24/24 08:00 02/24/24 08:00 02/24/24 08:06
I&O
02/23/24 02/24/24 02/25/24
06:59 06:59 06:59
Intake Total 2073.1 188 / 188
Output Total 548 / 548 1464 / 1464
Balance 1456.1 / 1526.1 421 / 421
Review of Systems
-
Unable to obtain full review of systems at this time due to: Patient Intubation
Physical Exam
-
Respiratory: Non Labored Respirations and Other (On 30% FiO2 on vent); Negative Accessory Resp Muscle Use
Cardiac: Regular Rhythm and S1/S2
GI: Soft, Normal Bowel Sounds and Other (Scaphoid)
Musculoskeletal: Negative No Edema
Neuro: Negative Awake or Alert
Psych: Negative Calm
Data Reviewed
-
Labs: Labs Reviewed by me
--- NOTE | 2024-02-24 08:46 | W.PN.NEURO.1 ---
Today's Communication / Plan
-
-Aspiration precautions.
-Avoid cerebral hypoperfusion, ORTHODONTIC ASSISTANT suppressants and anticholinergic medications.
-Start thiamine
-Brain MRI wo tali if no clinical improvement and if ammonia levels are normal
-DVT prophylaxis.
Will follow as needed
Neuro Assessment/Plan
Assessment
Assessment and Plan:
I. Multifactorial encephalopathy (metabolic (hyperammonemia, toxic, infectious)
Subjective/Objective
Subjective Data
Date of Service: February 24, 2024
Objective Data
Vital Signs
Temp Pulse Resp BP Pulse Ox
38.1 C H 83 22 131/64 98
02/24/24 08:06 02/24/24 08:00 02/24/24 08:00 02/24/24 08:00 02/24/24 08:06
Lab Results
02/23/24 13:44
02/24/24 04:10
PT 21.3 Sec (11.4-14.6) H 02/24/24 04:10
INR 1.83 02/24/24 04:10
APTT 54.5 Sec (23.4-35.0) H 02/23/24 04:16
Sodium 136 mmol/L (135-145) 02/24/24 04:10
Potassium 3.6 mmol/L (3.5-5.1) 02/24/24 04:10
BUN 22 mg/dl (9-20) H 02/24/24 04:10
Glucose 137 mg/dl (70-99) H 02/24/24 04:10
Calcium 7.6 mg/dl (8.4-10.2) L 02/24/24 04:10
Phosphorus 3.1 mg/dl (2.5-4.5) 02/23/24 04:16
Ur Buprenorphine Negative (Negative) 02/21/24 18:14
Patient Allergies
coconut oil Allergy (Verified 02/21/24 14:32)
Unknown
ondansetron [From Zofran] Allergy (Verified 02/21/24 14:32)
Unknown
Penicillins Allergy (Verified 02/21/24 19:34)
Unknown
Data Reviewed
-
CT Head: Report Reviewed
Labs: Report Reviewed
Reviewed with: Physician
Old Records: Summarized
Past History
Past History
ED Past Medical History: COPD, HTN and Other (Hepatic encephalopathy due to hyperammonemia February 2024, GI bleed, chronic anemia, medullary nephrocalcinosis)
Social History
Living: assisted living
Family History
Family History: Other and Unable to obtain
Medications
-
Medications:
Generic Name Dose Route Start Last Admin
Trade Name Freq PRN Reason Stop Dose Admin
Acetaminophen 650 mg 02/22/24 19:16 02/23/24 16:17
Acetaminophen (Oral Solution) 650 Mg/20.3 Ml Cup PO 03/21/24 19:15 650 mg
Q4HPRN PRN Administration
temp > 100.4 or mild pain
Albuterol/Ipratropium 3 ml 02/21/24 20:00 02/24/24 07:58
Ipratropium 0.5/Albuterol 3 Mg (3 Ml Ampul) INH 3 ml
R QID WALLY Administration
Protocol
Bisacodyl 10 mg 02/21/24 18:22
Bisacodyl 10 Mg Rectal Suppository RECTAL 03/20/24 18:21
[id number] PRN
constipation
Ceftriaxone Sodium 1,000 mg 02/21/24 20:00 02/23/24 20:36
Ceftriaxone 1000 Mg / 10 Ml Vial IV 1,000 mg
Q24H WALLY Administration
Dextrose 12.5 grams 02/22/24 15:00
Dextrose 50% (0.5 Grams/Ml) 50 Ml Syringe IV 03/21/24 14:59
[id number] PRN
hypoglycemia
Protocol
Famotidine 20 mg 02/22/24 20:00 02/24/24 07:30
Famotidine 20 Mg Tablet TUBE 03/21/24 19:59 20 mg
BID WALLY Administration
Fentanyl Citrate 50 mcg 02/21/24 19:04 02/24/24 04:51
Fentanyl (50 Mcg/Ml) 100 Mcg/2 Ml Ampul IV 03/06/24 19:03 50 mcg
[id number] PRN Administration
see protocol
Protocol
Fluticasone Propionate 4 puff 02/23/24 20:00 02/24/24 07:59
Fluticasone 110mcg Inhaler INH 03/22/24 19:59 4 puff
R BID WALLY Administration
Protocol
Furosemide 20 mg 02/22/24 08:00 02/22/24 10:08
Furosemide 20 Mg (10 Mg/Ml) 2 Ml Vial IV 03/21/24 07:59 Not Given
DAILY WALLY
Glucagon 1 mg 02/22/24 15:00
Glucagon 1 Mg Vial IM 03/21/24 14:59
PRN PRN
hypoglycemia - no IV access
Protocol
Heparin Sodium 5,000 units 02/22/24 16:00 02/23/24 09:30
Heparin 5,000 Units/Ml 1 Ml Vial SC 03/21/24 15:59 Not Given
Q8 WALLY
Insulin Aspart 0 units 02/22/24 18:00 02/24/24 06:49
Insulin Aspart Moderate Resistance 300 Units/3 Ml Pen.Injctr SC 03/21/24 17:59 Not Given
Q6 WALLY
Protocol
Lactulose 20 grams 02/23/24 20:00 02/24/24 07:30
Lactulose Solution (20 Grams/30 Ml) 30 Ml Cup TUBE 03/21/24 19:59 20 grams
Q6H WALLY Administration
Lidocaine 1 patch 02/22/24 08:00 02/24/24 07:29
Lidocaine 4% Topical Patch TOPICAL 03/21/24 07:59 1 patch
DAILY WALLY Administration
Protocol
Metoprolol Tartrate 5 mg 02/21/24 20:27
Metoprolol 5 Mg/5 Ml Vial IV 03/20/24 20:23
Q4HPRN PRN
HR>110 and/or SBP>140
Midazolam HCl 2 mg 02/21/24 20:49 02/24/24 02:22
Midazolam (Preservative Free) 1 Mg/Ml 2 Ml Vial IV 03/20/24 20:48 2 mg
Q2HPRN PRN Administration
vent synchrony/anxiety
Pantoprazole Sodium 40 mg 02/23/24 08:00 02/24/24 07:31
Pantoprazole Sodium 40 Mg/10 Ml Vial IV 03/22/24 07:59 40 mg
DAILY WALLY Administration
Patch Removal 0 patch 02/22/24 20:00 02/23/24 20:36
Remove Lidocaine Patch REMOVE 03/21/24 19:59 1 patch
DAILY@2000 WALLY Administration
Propranolol HCl 10 mg 02/23/24 22:00 02/23/24 21:32
Propranolol 10 Mg Regular Release Tablet PO 03/22/24 21:59 10 mg
HS WALLY Administration
Propranolol HCl 20 mg 02/24/24 08:00 02/24/24 07:30
Propranolol 20 Mg Regular Release Tablet PO 03/23/24 07:59 20 mg
DAILY WALLY Administration
Rifaximin 550 mg 02/22/24 20:00 02/24/24 07:30
Rifaximin 550 Mg Tablet TUBE 550 mg
BID WALLY Administration
Sodium Chloride 0 flush 02/21/24 19:00
Sodium Chloride 0.9% (Flush) Syringe IV 03/20/24 18:59
PER PROTOCOL WALLY
Sodium Chloride 10 ml 02/23/24 08:00 02/24/24 07:31
Sodium Chloride 0.9% (Preservative Free) 10 Ml Vial IV 03/22/24 07:59 10 ml
DAILY WALLY Administration
Sterile Water 10 ml 02/21/24 20:00 02/23/24 20:35
Sterile Water For Injection 10 Ml Vial IV 03/20/24 19:59 10 ml
Q24H WALLY Administration
Zinc Oxide 0 applic 02/21/24 19:37
Zinc Oxide 20% (Ointment) 30 Gram Tube TOPICAL 03/20/24 19:36
TIDPRN PRN
moisture barrier to palak areas
[2024-02-24 09:05] LABS: COVID-19 Antigen Negative (Negative)
--- NOTE | 2024-02-24 09:05 | W.PN.ID1 ---
Date of Service
Date of Service: February 24, 2024
Today's Communication
will follow ct a/p
Continue with empiric ceftriaxone for the present.
Continue with rifaximin
Assessment / Plan
Obtundation/encephalopathy
VDRF
Fever
Normal white count with left shift
Elevated bilirubin
Elevated ammonia level
Anasarca
Cirrhosis
Portal hypertension
Esophageal varices
Hx GI bleed
Encephalopathy
Chronic thrombocytopenia
HTN
COPD
Chronic anemia
IPF
Pulmonary hypertension
Recommendations:
Will follow CT a/p with IV and oral contrast
Noncontrast ct 02/21 without obvious ascites for tap; reactive mediastinal lymph nodes
covid and influenza swabs negative
sputum culture; gram stain - moderate yeast, if ginette then this is normal yue, will follow for culture
blood cultures - second set to complete workup
urine culture finalized no growth
Continue with empiric ceftriaxone for the present.
Continue with rifaximin
Monitor white count and temperature curve.
Follow ammonia level.
����������������������������������������������������������
Chief Complaint
-: Other (Encephalopathy; fever)
Subjective / Review of Systems
fever curve may be improving, with core Ts fever defined as over 101.0
BP stable
large amount of malave sputum
liquid stool
few skin tears on the arms - recent without evidence of infection, no wounds
Vital Signs / Physical Exam
Vital Signs
Vital Signs
Temp Pulse Resp BP Pulse Ox
100.5 F H 83 22 131/64 98
02/24/24 08:06 02/24/24 08:00 02/24/24 08:00 02/24/24 08:00 02/24/24 08:06
Physical Exam
Constitutional: No Acute Distress
Cardiovascular: Regular Rate and S1/S2; Negative Murmur or Rub
Pulmonary: Clear and Symmetric; Negative Wheezes or Rales
Gastrointestinal: Soft, Non Tender, Non Distended and Normal Bowel Sounds
Skin: Warm and Dry; Negative Rash or Jaundice
Objective Data
Lab Data
Lab Results
02/23/24 13:44
02/24/24 04:10
PT 21.3 Sec (11.4-14.6) H 02/24/24 04:10
INR 1.83 02/24/24 04:10
APTT 54.5 Sec (23.4-35.0) H 02/23/24 04:16
Estimated Creat Clear 75 ml/min 02/24/24 04:10
Lactic Acid 1.8 mmol/L (0.7-2.0) 02/22/24 13:43
Total Bilirubin 1.8 mg/dl (0.2-1.3) H 02/24/24 04:10
GGT 29 U/L (15-73) 02/23/24 04:16
AST 87 U/L (17-59) H 02/24/24 04:10
ALT 57 U/L (0-50) H 02/24/24 04:10
Alkaline Phosphatase 116 U/L (38-126) 02/24/24 04:10
Most recent labs reviewed.
Micro Results:
02/24/24 08:34 Influenza Types A & B (MARY) - Final
Nasal Swab Negative for Influenza A & B, NAAT
Negative results must be combined with clinical observations
and patient history.
Nucleic Acid Amplification test (NAAT)performed on the
[employer] platform.
02/23/24 08:52 Respiratory Culture - Pending
Endotracheal Gram Stain - Preliminary
02/22/24 09:00 Urine Culture - Final
Urine NO GROWTH
02/22/24 08:59 Blood Culture - Preliminary
Blood/Venous No Growth in 24 hours- Final report to follow
02/23/24 08:52 MRSA Screen - Pending
Nose
Imaging:
02/22/2024 CT chest/abdomen/pelvis without contrast: ET tube at the level of the slime. Changes of moderate to severe interstitial fibrosis with basilar significant honeycombing. No significant pleural fluid noted. Liver is cirrhotic. There is
diffuse subcutaneous edema/anasarca. Small to moderate amount of free fluid within the pelvis. No evidence of free intraperitoneal air. Please see full dictation for additional detail.
Care Review
Plan reviewed with: Nurse
[2024-02-24] MEDS: OMNIPAQUE 50 ML PO (09:48)
[2024-02-24 11:13] LABS: Hematocrit 26.7 % (39.0-52.0); Hemoglobin 9.4 g/dL (13.0-18.0); Mean Corp Hgb Conc. 35.2 g/dL (33.0-37.0); Mean Corpuscular Hgb 34.4 pg (27.0-31.0); Mean Corpuscular Volume 97.8 fL (80.0-94.0); Mean Platelet Volume 10.6 fL (7.4-10.4); Platelet Count 64 10^3/uL (130-400); Red Blood Cell Count 2.73 10^6/uL (4.70-6.10); Red Cell Dist. Width 19.4 % (11.5-14.5); White Blood Cell Count 6.8 10^3/uL (4.8-10.8)
[2024-02-24 12:00] LABS: Glucose - Point of Care 124 mg/dl (70-99)
--- NOTE | 2024-02-24 13:41 | PTCARENOTE ---
patient agitated, premedicated with versed prior to transport to CT scan. slightly restless during scan. moderate amount clear fluid from mouth noted when scan completed.returned to unit, suctioned for large amount of malave secretions. FMS draining
large amount stool. complete care given. increased nonverbal pain cues, medicated with fentanyl per prn order. tube feeds resumed. mitts continue for patient safety
--- NOTE | 2024-02-24 16:04 | PTCARENOTE ---
Addendum entered by Hawa Vargas RN 02/24/24 17:21:
patient increasingly more agitated, required administration versed with effect. placed back on AC. department head and hospitalist aware of CT findings. orders received
Original Note:
patient reassessed. placed on SBT by RT. remains intermittently restless. medicated with fentanyl per prn order. mitts maintained for patient safety
[2024-02-24] MEDS: LOVENOX 40 MG SC (16:43)
[2024-02-24 17:38] LABS: Glucose - Point of Care 119 mg/dl (70-99)
--- NOTE | 2024-02-24 19:30 | PTCARENOTE ---
assumed care of pt. assessment as documented. pt moving all extremities and thrashing in bed but does not follow commands. PRN versed administered. SR on monitor. #8 ETT, 22 at lip. AC 14/500/5/30%. DHT L nare @ 65cm, TF infusing at goal. FMS
drainage with leakage at insertion site. tamayo draining elvira urine. RUE PICC flushed. care ongoing.
[2024-02-24] MEDS: INDERAL 10 MG PO (20:29)
[2024-02-24] MEDS: STERILE WATER FOR INJECTION 10 ML IV (20:29)
[2024-02-24] MEDS: ROCEPHIN 1000 MG IV (20:29)
[2024-02-25] VITALS (27 sets, daily range): BP systolic 89–126; BP diastolic 44–79; BMI 20.8
[2024-02-25 00:05] LABS: Glucose - Point of Care 120 mg/dl (70-99)
--- NOTE | 2024-02-25 00:21 | PTCARENOTE ---
assessment unchanged. FMS leaking around site, irrigated and cleaned. care ongoing
[2024-02-25] MEDS: DUPHALAC/CHRONULAC 20 GRAMS TUBE ×4 (01:52→19:12)
[2024-02-25] MEDS: VERSED 2 MG IV ×7 (01:58→22:40)
[2024-02-25] MEDS: SUBLIMAZE 50 MCG IV ×7 (03:24→23:46)
--- NOTE | 2024-02-25 03:31 | PTCARENOTE ---
AM labs sent. pt extremely restless/thrashing but nonpurposeful overnight. multiple PRNs given. otherwise assessment unchanged.
[2024-02-25 03:35] LABS: Hematocrit 23.5 % (39.0-52.0); Hemoglobin 8.2 g/dL (13.0-18.0); Mean Corp Hgb Conc. 34.9 g/dL (33.0-37.0); Mean Corpuscular Hgb 34.2 pg (27.0-31.0); Mean Corpuscular Volume 97.9 fL (80.0-94.0); Mean Platelet Volume 10.6 fL (7.4-10.4); Platelet Count 47 10^3/uL (130-400); Red Cell Dist. Width 19.2 % (11.5-14.5); White Blood Cell Count 4.9 10^3/uL (4.8-10.8)
[2024-02-25 03:39] LABS: Ammonia 33 umol/L (9-30)
[2024-02-25 03:52] LABS: ALT (SGPT) 44 U/L (0-50); AST (SGOT) 53 U/L (17-59); Albumin 1.7 g/dl (3.5-5.0); Alkaline Phosphatase 128 U/L (38-126); Blood Urea Nitrogen 17 mg/dl (9-20); Calcium 7.5 mg/dl (8.4-10.2); Carbon Dioxide 25 mmol/L (22-30); Chloride 109 mmol/L (98-107); Estimated Creatinine Clearance 89 ml/min; Glucose 120 mg/dl (70-99); Phosphorus 2.3 mg/dl (2.5-4.5); Potassium 3.6 mmol/L (3.5-5.1); Sodium 135 mmol/L (135-145); Total Bilirubin 1.4 mg/dl (0.2-1.3); Total Protein 4.6 g/dl (6.3-8.2); eGFR > 60.00
[2024-02-25 04:09] LABS: Procalcitonin 0.47 ng/ml (0.0-0.25)
[2024-02-25 05:07] LABS: B.E. -0.9 mmol/L; HCO3 23.2 mmol/L (21-28); PCO2 35 mmHg (35-48); PO2 146 mmHg (83-108); pH 7.43 (7.35-7.45)
[2024-02-25] MEDS: POTASSIUM PHOSPHATE 259.0909 MEQ IV (05:58)
[2024-02-25] MEDS: NOVOLOG FLEXPEN-MODERATE RESISTANCE SC ×4 (06:11→23:12)
[2024-02-25] MEDS: PROTONIX IV 40 MG IV (07:35)
[2024-02-25] MEDS: NSS (PRESERVATIVE FREE) 10 ML IV (07:36)
[2024-02-25] MEDS: PEPCID 20 MG TUBE ×2 (07:39→19:12)
[2024-02-25] MEDS: XIFAXAN 550 MG TUBE ×2 (07:39→19:12)
[2024-02-25] MEDS: LIDOCAINE 4% PATCH 1 PATCH TOPICAL (07:40)
[2024-02-25] MEDS: INDERAL PO ×2 (07:43→21:04)
[2024-02-25 07:45] LABS: Glucose - Point of Care 113 mg/dl (70-99)
[2024-02-25] MEDS: FLOVENT 110 MCG INHALER 4 PUFF INH ×2 (07:57→19:02)
[2024-02-25] MEDS: DUONEB 3 ML INH ×4 (07:57→19:02)
--- NOTE | 2024-02-25 08:15 | W.PN.GI.CBS2 ---
Today's Communication / Plan
-
See assessment and plan for details.
Assessment / Plan
-
1. Cirrhosis: Possibly secondary to previous alcohol, decompensated in the past with ascites, variceal bleeding status post banding, now hepatic encephalopathy likely worsened with underlying infection/fever/pneumonia. Ultrasound without ascites
to tap, doubt SBP. His mental status and activity have improved overall, ammonia level has decreased. At this point we will continue supportive care, increased lactulose dose, rifaximin, diuretics and propranolol on hold. Doubt portal vein
thrombosis noted on CT scan is acute given essentially normal LFTs or related to malignancy as AFP is normal, would hold on anticoagulation.
Subjective
Subjective
Date of Service: February 25, 2024
Patient overall improving, some more purposeful movements, though still not answering commands. Fever curve is trending down. CT scan results noted, probable mild portal vein thrombosis as well as bilateral pneumonia.
Objective
Data Reviewed
Laboratory Data:
Laboratory Results
02/25/24 03:15
02/25/24 03:15
Laboratory Results
PT 21.3 Sec (11.4-14.6) H 02/24/24 04:10
INR 1.83 02/24/24 04:10
APTT 54.5 Sec (23.4-35.0) H 02/23/24 04:16
Phosphorus 2.3 mg/dl (2.5-4.5) L 02/25/24 03:15
Magnesium 2.0 mg/dl (1.6-2.3) 02/25/24 03:15
Total Bilirubin 1.4 mg/dl (0.2-1.3) H 02/25/24 03:15
AST 53 U/L (17-59) 02/25/24 03:15
ALT 44 U/L (0-50) 02/25/24 03:15
Alkaline Phosphatase 128 U/L (38-126) H 02/25/24 03:15
Vital Signs and I&O:
Vital Signs
Temp Pulse Resp BP Pulse Ox
98.0 F 61 14 97/50 100
02/25/24 07:00 02/25/24 08:12 02/25/24 08:12 02/25/24 07:00 02/25/24 08:12
I&O
02/24/24 02/25/24 02/26/24
06:59 06:59 06:59
Intake Total 1885 / 1950 2745 / 2745
Output Total 1464 / 1464 1989
Balance 421 / 486 755 / 755
Physical Exam
Physical Exam
General: NAD, intubated on vent
Abdomen: normal bowel sounds, soft, no obvious tenderness, no masses or bruits, no obvious ascites
--- NOTE | 2024-02-25 08:20 | W.PN.INTV ---
Today's Communication / Plan
Recommendations
Continue mechanical ventilation
Continue lactulose and trend ammonia level
MRI brain tomorrow if serum ammonia levels remains <40 and he remains encephalopathic
Neurology recs appreciated
Abx as per ID consulted
Avoid HYDRO PLANT SITE MANAGER depressing medications; use prn fentanyl +/- Versed as needed --> start scheduled Seroquel to try to reduce dependency on narcotics
Continue thiamine
Goal BG 140�180
Guarded prognosis
Continue ICU level care for this critically ill patient
Assessment
-
74-year-old male with a past medical history of cirrhosis with esophageal varices, pulmonary fibrosis, anemia and reported history of COPD who presented from altered mental status. Intubated in the ER for airway protection. Labs concerning for
transaminitis with elevated ammonia level. He was admitted to the ICU for further care where he continues to be managed. Intensive services following for additional management/recommendations.
Impression:
Acute respiratory failure with hypoxia on mechanical ventilation
Shock: Distributive likely septic in the setting of UTI - shock state now resolved
Complicated UTI with UA positive for nitrites, +1 leukocyte esterase and 16�20 urine WBC
Decompensated cirrhosis with hepatic encephalopathy (?Alcoholic cirrhosis etiology)
History of alcohol abuse (per family, quit in 2011)
Former tobacco use (quit 1 year ago)
Reported history of COPD
Pulmonary fibrosis/UIP
Anemia
Thrombocytopenia
Lactic acidosis - resolved
Transaminitis with hyperbilirubinemia - improving
Hyperammonemia � improving
Hypoalbuminemia
Anasarca
Plan:
- Continue with mechanical ventilation keep off sedation drips if possible; use prn fentanyl +/- versed only if needed for ventilator asynchrony or agitation
- Start scheduled Seroquel in an attempt to limit use of ativan
- Goal RASS 0 to -2
- Titrate FiO2 + PEEP to maintain SpO2 >90-94%
- Maintain plateau pressure <30
- Aspiration precautions
- Adjust vent settings as needed based on blood gas
- Suctioning as needed from oropharynx as well as subglottic
- Follow-up sputum Cx (collected 02/23/2024) --> grew pansensitive E. coli + Mica albicans
- Sputum Cx repeated on 02/24/2024 growing GNR --> follow up species and sensitivities
- Currently on ceftriaxone s/p doxycycline x 2 doses (02/20 + 02/21); CT chest from 02/22/2024 did not show any evidence of pneumonia, hence doxy was DC'd
- Follow-up blood culture + urine culture (collected 02/21)
- ID now consulted - recs appreciated
- CT abdomen/pelvis showed possible bibasilar pneumonia with mild portal vein thrombosis and progressing mild abdominal pelvic ascites with fluid overload --> continue with ABx per ID
- As per GI, hold off on anticoagulation for now for possible PVT especially with downtrending platelet count given his LFTs and normal and AFP is normal hence doubtful that this is related to malignancy
- Would obtain abdominal ultrasound with Doppler in 24-48 hours to further assess for portal vein thrombosis and if present to assess for propagation
- He takes Trelegy at home, hence continue with DuoNebs QID + flovent BID while intubated
- Not currently wheezing and on minimal oxygen requirements hence no need for systemic steroids at this time
- Maintain MAP>65
- Now that he is on tube feeds and tolerating, IVF stopped
- Now that he is off pressors, continue propanolol with holding parameters
- Neurology consulted on 02/21 as he remains unresponsive despite improving ammonia level and being weaned off sedation; would favor checking EEG +/- MRI brain
- Continue thiamine
- MRI brain if ammonia levels are normal >24 hours with no improvement in mentation
- CT head on morning of 02/22/2024 did not show any acute intracranial abnormalities
- Continue neurochecks
- Continue with lactulose and continue trending serum ammonia level
- Titrate lactulose to 3�4 loose/formed bowel movements per day
- Trend LFTs and trend D. bili and LDH
- Continue rifaximin 550mg BID
- Continue to monitor CBC and transfuse as needed to keep Hb >7, platelets >20k
- PT/INR elevated but this is expected in cirrhotics --> no need to Tx with Vitamin K at this point as he is not bleeding, Hb is stable and unclear evidence of Vitamin K in cirrhotics anyway
- Continue tube feeds and raise towards goal as tolerated; A1C: 3.9; maintain euglycemia with goal BG 140-180mg/dL
- Stress ulcer ppx: Pepcid and PPI (home med)
- DVT ppx: LMWH
- Guarded prognosis
Patient is critically ill and requires ICU level of care given his respiratory failure requiring mechanical ventilation.
Critical care statement: A total of 38 minutes of critical care time was provided for this patient today. This includes management of unstable vital signs, evaluation of the patient at bedside, reviewing the patient's pertinent medical records
including radiographs, microbiology, laboratory evaluations, and discussion with primary team, consultants, pharmacy, nutrition, physical therapy, case management, charge nurse, critical care nursing, and respiratory therapy.
Subjective Dataa
Subjective Data
Date of Service:
Date of Service: February 25, 2024
Chief Complaint: Enrichment Specialist Follow Up
Subjective:
Patient seen and evaluated today at bedside. Still not following commands and occasionally awakens and becomes agitated, shaking his head and body at times. Currently intubated on AC/CMV at 14/500/30%/5, with PIP: 11 cmH2O, VTe 552 mL and
breathing at 21 breaths/min. Heart rate 68, BP 105/58, saturating 100% and end-tidal CO2 26.
Review of Systems
General: Unobtainable - Pat Unresp
Objective Data
Data Reviewed
Vital Signs / I&O / Oxygen:
Vital Signs
Temp Pulse Resp BP Pulse Ox
98.0 F 61 14 97/50 100
02/25/24 07:00 02/25/24 08:12 02/25/24 08:12 02/25/24 07:00 02/25/24 08:32
Intake and Output
02/24/24 02/25/24 02/26/24
06:59 06:59 06:59
Intake Total 1885 / 1949 2745 / 2810 195 / 195
Output Total 1464 / 1464 1989 105 / 105
Balance 421 / 486 755 / 790 90 / 90
SaO2 [CPAP/PSV] 100
SaO2 [A/C] 100
SaO2 100
Physical Exam
General: Respiratory Distress (negative), Chills (negative) and Sweats (negative)
HEENT: Normocephalic, Other (Scleral icterus bilateral) and Other (ETT in place)
Cardiovascular: S1-S2, Murmur (negative) and Peripheral Edema (negative)
Respiratory: Wheeze (negative), Crackles (bibasilar), Rhonchi (Bilaterally), Stridor (negative) and ET Tube (Mechanical breath sounds heard bilaterally)
GI: Soft, Non Distended, Non Tender and Normal Bowel Sounds
Neurology: Tremors (negative), Other (Pupils 1 mm bilaterally - brisk; intact corneal reflex, intact gag) and Other (Not following commands; occasionally agitated)
Skin: Warm and Dry
Labs/Micro/Reports
Lab Data
02/25/24 03:15
02/25/24 03:15
Laboratory Results
02/25/24
04:40
pH 7.43
pCO2 35
pO2 146 H
HCO3 23.2
O2 Delivery Level 30%, peep: 5
Microbiology
02/24/24 11:17 Sputum Respiratory Culture - Preliminary
Gram negative bacilli
02/24/24 11:17 Sputum Gram Stain - Preliminary
02/22/24 08:59 Blood/Venous Blood Culture - Preliminary
No Growth in 72 hours- Final report to follow
02/23/24 08:52 Endotracheal Respiratory Culture - Final
Escherichia coli
Mica albicans
02/23/24 08:52 Endotracheal Gram Stain - Final
02/23/24 08:52 Nose MRSA Screen - Final
No Methicillin Resistant Staphylococcus aureus isolated.
02/24/24 08:34 Nasal Swab Influenza Types A & B (MARY) - Final
Negative for Influenza A & B, NAAT
Negative results must be combined with clinical observations
and patient history.
Nucleic Acid Amplification test (NAAT)performed on the
[employer] platform.
02/22/24 09:00 Urine Urine Culture - Final
NO GROWTH
--- NOTE | 2024-02-25 08:42 | W.PN.ID1 ---
Date of Service
Date of Service: February 25, 2024
Today's Communication
nursing reporting notably increased purulent sputum production 02/22 pm and 02/23 - sent for repeat culture - gram stain also suggests E coli
note 02/22 culture: moderate E coli - pansensitive, c albicans - contaminant, no need for treatment
- consistent with aspiration pneumonia
blood cultures two sets total - no growth to date
procalcitonin mildly elevated - does not change assessment
Start cefazolin, stop ceftriaxone
Assessment / Plan
Aspiration Pneumonia due to E coli
Obtundation/encephalopathy
VDRF
Fever
Normal white count with left shift
Elevated bilirubin
Elevated ammonia level
Anasarca
Cirrhosis
Portal hypertension
Esophageal varices
Hx GI bleed
Encephalopathy
Chronic thrombocytopenia
HTN
COPD
Chronic anemia
IPF
Pulmonary hypertension
Recommendations:
nursing reporting notably increased purulent sputum production 02/22 pm and 02/23 - sent for repeat culture - gram stain also suggests E coli
note 02/22 culture: moderate E coli - pansensitive, c albicans - contaminant, no need for treatment
- consistent with aspiration pneumonia
blood cultures two sets total - no growth to date
procalcitonin mildly elevated - does not change assessment
Start cefazolin, stop ceftriaxone
Continue with rifaximin
Monitor white count and temperature curve.
����������������������������������������������������������
Chief Complaint
-: Pneumonia (due to E coli) and Other (Encephalopathy; fever)
Subjective / Review of Systems
fever resolved
mildly hypotensive
moving all extremities, not responsive
Vital Signs / Physical Exam
Vital Signs
Vital Signs
Temp Pulse Resp BP Pulse Ox
98.0 F 61 14 97/50 100
02/25/24 07:00 02/25/24 08:12 02/25/24 08:12 02/25/24 07:00 02/25/24 08:32
Physical Exam
Constitutional: No Acute Distress and Chronically Ill
Cardiovascular: Regular Rate and S1/S2; Negative Murmur or Rub
Pulmonary: Clear and Symmetric; Negative Wheezes or Rales
Gastrointestinal: Soft, Non Tender, Non Distended and Normal Bowel Sounds
Skin: Warm and Dry; Negative Rash or Jaundice
Neurological: Negative Awake
Objective Data
Lab Data
Lab Results
02/25/24 03:15
02/25/24 03:15
PT 21.3 Sec (11.4-14.6) H 02/24/24 04:10
INR 1.83 02/24/24 04:10
APTT 54.5 Sec (23.4-35.0) H 02/23/24 04:16
Estimated Creat Clear 89 ml/min 02/25/24 03:15
Lactic Acid 1.8 mmol/L (0.7-2.0) 02/22/24 13:43
Total Bilirubin 1.4 mg/dl (0.2-1.3) H 02/25/24 03:15
GGT 29 U/L (15-73) 02/23/24 04:16
AST 53 U/L (17-59) 02/25/24 03:15
ALT 44 U/L (0-50) 02/25/24 03:15
Alkaline Phosphatase 128 U/L (38-126) H 02/25/24 03:15
Most recent labs reviewed.
Chest X-Ray: Image Reviewed (my read, possible basilar infiltrates, radiology read pending)
CT Scan: Image Reviewed and Report Reviewed (suggestion of bibasilar pneumonia)
Micro Results:
02/23/24 08:52 Respiratory Culture - Final
Endotracheal Escherichia coli
Mica albicans
Gram Stain - Final
02/23/24 08:52 MRSA Screen - Final
Nose No Methicillin Resistant Staphylococcus aureus isolated.
02/24/24 11:17 Respiratory Culture - Pending
Sputum Gram Stain - Preliminary
02/24/24 09:40 Blood Culture - Pending
Blood/Venous
02/22/24 08:59 Blood Culture - Preliminary
Blood/Venous No Growth in 48 hours- Final report to follow
02/24/24 08:34 Influenza Types A & B (MARY) - Final
Nasal Swab Negative for Influenza A & B, NAAT
Negative results must be combined with clinical observations
and patient history.
Nucleic Acid Amplification test (NAAT)performed on the
[employer] platform.
02/22/24 09:00 Urine Culture - Final
Urine NO GROWTH
Imaging:
02/22/2024 CT chest/abdomen/pelvis without contrast: ET tube at the level of the slime. Changes of moderate to severe interstitial fibrosis with basilar significant honeycombing. No significant pleural fluid noted. Liver is cirrhotic. There is
diffuse subcutaneous edema/anasarca. Small to moderate amount of free fluid within the pelvis. No evidence of free intraperitoneal air. Please see full dictation for additional detail.
--- NOTE | 2024-02-25 10:12 | W.PN.HOSP.TC ---
Today's Communication/Plan
-
Continue with ceftriaxone.
Minimize sedative use. Consider lactulose and rifaximin.
Await neurological recommendations on EEG and MRI brain.
Assessment / Plan
Assessment / Plan
Acute metabolic encephalopathy
-Suspected hepatic encephalopathy. Improving ammonia ,down to t 33. Continue with lactulose and rifaximin.
-Neurology input noted. With not much improvement despite driving down NH3 to 33 will obtain MRI brain and also dw neuro re: EEG.
-Ongoing evaluation for toxic encephalopathy-evaluating ongoing fevers for source of infection.
Ventilator dependent respiratory failure
-Vent settings per pulmonary recs; Wean as tolerated
- Stable FIO2
-Speech and Swallow when extubated
Pancytopenia
-WBC 4.6, hemoglobin 11.8, platelets 106 on arrival; likely chronic secondary to cirrhosis.
-Patient on thiamine and B12 supplementation at home.
-PICC line
-Hemocult NEG
- Follow counts ; aim HH>7.0 ,Plt>20
Cirrhosis
-No evidence of ascites on examination; currently on propranolol, Lasix held temporarily.
-Possible varices, no signs of active bleeding. Patient being followed by GI
PVT -unclear if acute or chronic. Discussed with GI-not an ideal candidate for anticoagulation with thrombocytopenia and varices. Hold on anticoagulation.
Febrile illness-unclear source ?pneumonia
-Bacteriuria? UTI but urine culture with growth is negative
-Currently on Rocephin for coverage. ID following.
-Chest imaging including chest x-ray and CT chest shows interstitial lung disease but no obvious focal consolidation to suggest pneumonia.
- CT A/P 02/23 show mild central PVT but doubt the cause as blood cultures have been sterile.Images also picks up moderate airspace dz in LL and lingula along with moderate IPF. With elevated Procal will tx as possible infectious airspace dz. Ecoli
and ginette in sputum . currently on Ceftriaxone-continue. Doubt ginette is pathogenic in this scenario -pt is not immune suppressed and no pulmonary nodules . BCX no fungemia.
- Neg COVID and influenza swab
Essential hypertension
-Lopressor with holding parameters
COPD
-DuoNebs through vent
Full code/SCDs
Discussed with [employer] [employer] [facility]
DW neuro
Total time spent on today's encounter was 52 minutes which included time spent in counseling the patient/family regarding diagnosis and treatment plan as listed above, goals of care, and symptom management. Case was discussed with nursing staff,
specialists, and care coordinators/case management. All labs and imaging personally reviewed by me. Remainder the time spent in detailed review of previous records, lab data, imaging, and other medical provider documentation.
Anticipated Discharge: > 48 hours
Subjective/Interval History
-
Date of Service: February 25, 2024
Remains intubated. Not on continuous sedation but requiring as needed for breakthrough agitation.
Does not open eyes to commands. Does not open eyes to painful stimuli but does not track or follow commands.
With painful stimuli he does a bit of thrashing around and settles down.
Objective Data
-
Labs:
Laboratory Results
02/25/24 02/25/24
03:15 04:40
WBC 4.9
Hgb 8.2 L
Hct 23.5 L
Plt Count 47 L D
HCO3 23.2
Sodium 135
Potassium 3.6
Chloride 109 H
Carbon Dioxide 25
BUN 17
Creatinine 0.6 L
Glucose 120 H
Calcium 7.5 L
Total Bilirubin 1.4 H
AST 53
ALT 44
Alkaline Phosphatase 128 H
Vital Signs:
Vital Signs
Temp Pulse Resp BP Pulse Ox
98.0 F 61 14 97/50 100
02/25/24 07:00 02/25/24 08:12 02/25/24 08:12 02/25/24 07:00 02/25/24 08:32
I&O
02/24/24 02/25/24 02/26/24
06:59 06:59 06:59
Intake Total 1884 2745 / 2810
Output Total 1464 / 1461989 105 / 105
Balance 421 / 486 755 / 790
Review of Systems
-
Unable to obtain full review of systems at this time due to: Patient Intubation
Physical Exam
-
General: No Apparent Distress (when not stimulated)
Respiratory: Non Labored Respirations and Other (on vent 30%); Negative Accessory Resp Muscle Use
Cardiac: Regular Rhythm and S1/S2; Negative Tachycardic
GI: Soft, Nondistended and Normal Bowel Sounds
Neuro: Negative Awake or Alert
Psych: Calm (currently)
Data Reviewed
-
CT Scan: Report Reviewed by me (of A/P)
Labs: Labs Reviewed by me
[2024-02-25] MEDS: SEROQUEL 25 MG TUBE ×2 (10:18→19:12)
--- NOTE | 2024-02-25 10:28 | W.PN.NEURO.1 ---
Today's Communication / Plan
-
Will not expect improvement of mentation until greater than 24 hours after normalization of ammonia level
Continue aggressive remediation of hyperammonemia
Continue thiamine
Check MRI brain if ammonia levels are normal greater than 24 hours and if no improvement in mentation
Neuro Assessment/Plan
Assessment
Multifactorial encephalopathy (metabolic (hyperammonemia, toxic, infectious)
Plan
Will not expect improvement of mentation until greater than 24 hours after normalization of ammonia level
Continue aggressive remediation of hyperammonemia
Continue thiamine
Check MRI brain if ammonia levels are normal greater than 24 hours and if no improvement in mentation
Will follow as needed
Subjective/Objective
Subjective Data
Date of Service: February 25, 2024
Objective Data
Vital Signs
Temp Pulse Resp BP Pulse Ox
36.7 C 61 14 97/50 100
02/25/24 07:00 02/25/24 08:12 02/25/24 08:12 02/25/24 07:00 02/25/24 08:32
Lab Results
02/25/24 03:15
02/25/24 03:15
PT 21.3 Sec (11.4-14.6) H 02/24/24 04:10
INR 1.83 02/24/24 04:10
APTT 54.5 Sec (23.4-35.0) H 02/23/24 04:16
Sodium 135 mmol/L (135-145) 02/25/24 03:15
Potassium 3.6 mmol/L (3.5-5.1) 02/25/24 03:15
BUN 17 mg/dl (9-20) 02/25/24 03:15
Glucose 120 mg/dl (70-99) H 02/25/24 03:15
Calcium 7.5 mg/dl (8.4-10.2) L 02/25/24 03:15
Phosphorus 2.3 mg/dl (2.5-4.5) L 02/25/24 03:15
Ur Buprenorphine Negative (Negative) 02/21/24 18:14
Patient Allergies
coconut oil Allergy (Verified 02/21/24 14:32)
Unknown
ondansetron [From Zofran] Allergy (Verified 02/21/24 14:32)
Unknown
Penicillins Allergy (Verified 02/25/24 08:50)
Unknown
Past History
Past History
ED Past Medical History: COPD, HTN and Other (Hepatic encephalopathy due to hyperammonemia February 2024, GI bleed, chronic anemia, medullary nephrocalcinosis)
Social History
Living: assisted living
Family History
Family History: Other and Unable to obtain
Medications
-
Medications:
Generic Name Dose Route Start Last Admin
Trade Name Freq PRN Reason Stop Dose Admin
Acetaminophen 650 mg 02/22/24 19:16 02/23/24 16:17
Acetaminophen (Oral Solution) 650 Mg/20.3 Ml Cup PO 03/21/24 19:15 650 mg
Q4HPRN PRN Administration
temp > 100.4 or mild pain
Albuterol/Ipratropium 3 ml 02/21/24 20:00 02/25/24 07:57
Ipratropium 0.5/Albuterol 3 Mg (3 Ml Ampul) INH 3 ml
R QID WALLY Administration
Protocol
Bisacodyl 10 mg 02/21/24 18:22
Bisacodyl 10 Mg Rectal Suppository RECTAL 03/20/24 18:21
[id number] PRN
constipation
Dextrose 12.5 grams 02/22/24 15:00
Dextrose 50% (0.5 Grams/Ml) 50 Ml Syringe IV 03/21/24 14:59
[id number] PRN
hypoglycemia
Protocol
Enoxaparin Sodium 40 mg 02/24/24 18:00 02/24/24 16:43
Enoxaparin Sodium 40 Mg/0.4 Ml Syringe SC 03/23/24 17:59 40 mg
QPM WALLY Administration
Famotidine 20 mg 02/22/24 20:00 02/25/24 07:39
Famotidine 20 Mg Tablet TUBE 03/21/24 19:59 20 mg
BID WALLY Administration
Fentanyl Citrate 50 mcg 02/21/24 19:04 02/25/24 06:05
Fentanyl (50 Mcg/Ml) 100 Mcg/2 Ml Ampul IV 03/06/24 19:03 50 mcg
[id number] PRN Administration
see protocol
Protocol
Fluticasone Propionate 4 puff 02/23/24 20:00 02/25/24 07:57
Fluticasone 110mcg Inhaler INH 03/22/24 19:59 4 puff
R BID WALLY Administration
Protocol
Furosemide 20 mg 02/22/24 08:00 02/22/24 10:08
Furosemide 20 Mg (10 Mg/Ml) 2 Ml Vial IV 03/21/24 07:59 Not Given
DAILY WALLY
Glucagon 1 mg 02/22/24 15:00
Glucagon 1 Mg Vial IM 03/21/24 14:59
PRN PRN
hypoglycemia - no IV access
Protocol
Cefazolin Sodium 2 grams in 10 mls @ 120 mls/hr 02/25/24 18:00
Ancef IV
Q8H WALLY
Insulin Aspart 0 units 02/22/24 18:00 02/25/24 06:11
Insulin Aspart Moderate Resistance 300 Units/3 Ml Pen.Injctr SC 03/21/24 17:59 Not Given
Q6 WALLY
Protocol
Lactulose 20 grams 02/23/24 20:00 02/25/24 07:40
Lactulose Solution (20 Grams/30 Ml) 30 Ml Cup TUBE 03/21/24 19:59 20 grams
Q6H WALLY Administration
Lidocaine 1 patch 02/22/24 08:00 02/25/24 07:40
Lidocaine 4% Topical Patch TOPICAL 03/21/24 07:59 1 patch
DAILY WALLY Administration
Protocol
Metoprolol Tartrate 5 mg 02/21/24 20:27
Metoprolol 5 Mg/5 Ml Vial IV 03/20/24 20:23
Q4HPRN PRN
HR>110 and/or SBP>140
Midazolam HCl 2 mg 02/21/24 20:49 02/25/24 07:38
Midazolam (Preservative Free) 1 Mg/Ml 2 Ml Vial IV 03/20/24 20:48 2 mg
Q2HPRN PRN Administration
vent synchrony/anxiety
Pantoprazole Sodium 40 mg 02/23/24 08:00 02/25/24 07:35
Pantoprazole Sodium 40 Mg/10 Ml Vial IV 03/22/24 07:59 40 mg
DAILY WALLY Administration
Patch Removal 0 patch 02/22/24 20:00 02/24/24 20:30
Remove Lidocaine Patch REMOVE 03/21/24 19:59 1 patch
DAILY@2000 WALLY Administration
Propranolol HCl 10 mg 02/23/24 22:00 02/24/24 20:29
Propranolol 10 Mg Regular Release Tablet PO 03/22/24 21:59 10 mg
HS WALLY Administration
Propranolol HCl 20 mg 02/24/24 08:00 02/25/24 07:43
Propranolol 20 Mg Regular Release Tablet PO 03/23/24 07:59 Not Given
DAILY WALLY
Quetiapine Fumarate 25 mg 02/25/24 20:00
Quetiapine 25 Mg Tablet TUBE 03/24/24 19:59
BID WALLY
Rifaximin 550 mg 02/22/24 20:00 02/25/24 07:39
Rifaximin 550 Mg Tablet TUBE 550 mg
BID WALLY Administration
Sodium Chloride 0 flush 02/21/24 19:00
Sodium Chloride 0.9% (Flush) Syringe IV 03/20/24 18:59
PER PROTOCOL WALLY
Sodium Chloride 10 ml 02/23/24 08:00 02/25/24 07:36
Sodium Chloride 0.9% (Preservative Free) 10 Ml Vial IV 03/22/24 07:59 10 ml
DAILY WALLY Administration
Zinc Oxide 0 applic 02/21/24 19:37
Zinc Oxide 20% (Ointment) 30 Gram Tube TOPICAL 03/20/24 19:36
TIDPRN PRN
moisture barrier to palak areas
[2024-02-25 11:59] LABS: Glucose - Point of Care 143 mg/dl (70-99)
--- NOTE | 2024-02-25 12:49 | PTCARENOTE ---
pt agitated, restless in bed. Pulling at tubes and alarming vent. PRN administered. See MAR.
[2024-02-25] MEDS: TYLENOL ORAL SOLUTION 650 MG PO (13:42)
--- NOTE | 2024-02-25 14:04 | PTCARENOTE ---
pt grimicing, restless in bed and attempting to pull tubes, sliding around in bed. PRN administered. palak care provided. suction completed
[2024-02-25] MEDS: ANCEF 10 IV (17:15)
[2024-02-25 17:21] LABS: Glucose - Point of Care 130 mg/dl (70-99)
--- NOTE | 2024-02-25 20:20 | PTCARENOTE ---
Received pt from previous RN. Pt is AAOx0, moves all of his extremities, does not follow commands, uncooperative/restless/confused, L pupil 2 nonreactive R pupil 1 nonreactive. B/l wrist restraints in place (see order and worklist). NSR on the
monitor. ETT #8 22 @ lip AC 14/500/30%/5, lungs rhonchi/diminished. FMS in place. Left nare dobhoff in place @ [address] SCDs in place. PRN Versed given (see MAR). Safe environment maintained.
--- NOTE | 2024-02-25 23:11 | PTCARENOTE ---
CHG bath provided. Enrique care provided. Systems reviewed, no new changes in assessment. Safe environment maintained.
[2024-02-25 23:22] LABS: Glucose - Point of Care 148 mg/dl (70-99)
[2024-02-26] VITALS (33 sets, daily range): BP systolic 82–124; BP diastolic 49–69; BMI 20.7
[2024-02-26] MEDS: SUBLIMAZE 50 MCG IV ×2 (01:42→04:11)
[2024-02-26] MEDS: DUPHALAC/CHRONULAC 20 GRAMS TUBE ×4 (01:43→21:09)
[2024-02-26] MEDS: ANCEF 10 IV (01:43)
[2024-02-26] MEDS: VERSED 2 MG IV ×2 (02:54→05:50)
[2024-02-26 04:16] LABS: Venous Blood Gas B.E. 0 mmol/L (-4 to +4); Venous Blood Gas HCO3 25.4 mmol/L (22-27); Venous Blood Gas O2 Sat % 99.7 %; Venous Blood Gas pCO2 44 mmHg (35-48); Venous Blood Gas pH 7.37 (7.32-7.43); Venous Blood Gas pO2 114 mmHg (30-50)
[2024-02-26 04:31] LABS: % Basophils 0.4 % (0-2); % Eosinophils 4.6 % (0-6); % Immature Granulocytes 0.7 % (0-0.5); % Lymphocytes 18.1 % (20.5-51.1); % Monocytes 10.3 % (1.7-9.3); % Neutrophils 65.9 % (42.2-75.2); Absolute Eosinophils 0.1 10^3/uL (0-0.7); Absolute Lymphocytes 0.5 10^3/uL (1.2-3.4); Absolute Monocytes 0.3 10^3/uL (0.1-0.6); Absolute Neutrophils 1.9 10^3/uL (1.4-6.5); Hematocrit 22.1 % (39.0-52.0); Hemoglobin 7.9 g/dL (13.0-18.0); Mean Corp Hgb Conc. 35.7 g/dL (33.0-37.0); Mean Corpuscular Hgb 34.6 pg (27.0-31.0); Mean Corpuscular Volume 96.9 fL (80.0-94.0); Mean Platelet Volume 11.4 fL (7.4-10.4); Nucleated Red Blood Cells % 0 % (-); Platelet Count 33 10^3/uL (130-400); Red Blood Cell Count 2.28 10^6/uL (4.70-6.10); Red Cell Dist. Width 18.3 % (11.5-14.5); White Blood Cell Count 2.8 10^3/uL (4.8-10.8)
[2024-02-26 04:32] LABS: Ammonia 15 umol/L (9-30)
--- NOTE | 2024-02-26 04:35 | PTCARENOTE ---
Systems reviewed, no new changes in assessment. PRN medications given (see MAR). AM labs drawn.
[2024-02-26 04:40] LABS: INR 1.52; PT 18.6 Sec (11.4-14.6)
[2024-02-26 04:45] LABS: ALT (SGPT) 40 U/L (0-50); AST (SGOT) 45 U/L (17-59); Albumin 1.9 g/dl (3.5-5.0); Alkaline Phosphatase 161 U/L (38-126); Blood Urea Nitrogen 14 mg/dl (9-20); Calcium 7.4 mg/dl (8.4-10.2); Carbon Dioxide 24 mmol/L (22-30); Chloride 109 mmol/L (98-107); Direct Bilirubin 0.7 mg/dl (0.0-0.4); Estimated Creatinine Clearance 92 ml/min; Glucose 107 mg/dl (70-99); Potassium 3.7 mmol/L (3.5-5.1); Sodium 137 mmol/L (135-145); Total Bilirubin 1.4 mg/dl (0.2-1.3); Total Protein 4.7 g/dl (6.3-8.2); eGFR > 60.00
[2024-02-26 05:15] LABS: Glucose - Point of Care 100 mg/dl (70-99)
[2024-02-26] MEDS: NOVOLOG FLEXPEN-MODERATE RESISTANCE SC ×4 (05:16→23:24)
[2024-02-26] MEDS: FLOVENT 110 MCG INHALER 4 PUFF INH (07:16)
[2024-02-26] MEDS: DUONEB 3 ML INH ×4 (07:16→20:06)
--- NOTE | 2024-02-26 07:40 | W.PN.INTV ---
Today's Communication / Plan
Recommendations
Spontaneous breathing trial
Follow ABG
Hope to extubate
Antibiotics
Lactulose
Neurology follow-up
Assessment
-
74-year-old male with a past medical history of cirrhosis with esophageal varices, pulmonary fibrosis, anemia and reported history of COPD who presented from altered mental status. Intubated in the ER for airway protection. Labs concerning for
transaminitis with elevated ammonia level. He was admitted to the ICU for further care where he continues to be managed. Intensive services following for additional management/recommendations.
Impression:
Acute respiratory failure with hypoxia on mechanical ventilation
Extubated 02/26/2024
Shock: Distributive likely septic in the setting of UTI - shock state now resolved
Complicated UTI with UA positive for nitrites, +1 leukocyte esterase and 16�20 urine WBC
Decompensated cirrhosis with hepatic encephalopathy (?Alcoholic cirrhosis etiology)
History of alcohol abuse (per family, quit in 2011)
Former tobacco use (quit 1 year ago)
Reported history of COPD
Pulmonary fibrosis/UIP
Anemia
Thrombocytopenia
Lactic acidosis - resolved
Transaminitis with hyperbilirubinemia - improving
Hyperammonemia � improving
Hypoalbuminemia
Anasarca
Plan:
Remains critically ill on a ventilator sedated
Ventilator settings reviewed
Airway pressures reviewed-adequate
Attempt spontaneous breathing trial
Follow ABG
Hope to extubate
Aspiration precautions
VAP prevention protocol
Takes Trelegy at home-if extubated and cannot take inhalers then try DuoNebs and Pulmicort
Check cultures
Sputum culture-02/24/2024 Enterobacter cloacae
Influenza negative
Blood cultures negative
Previous sputum culture 02/23/2024-E. coli
Infectious disease following-correspondence reviewed
Antibiotics per infectious disease-cefazolin changed to ertapenem
CT abdomen/pelvis showed possible bibasilar pneumonia with mild portal vein thrombosis and progressing mild abdominal pelvic ascites with fluid overload
As per GI, hold off on anticoagulation for now for possible PVT especially with downtrending platelet count given his LFTs and normal and AFP is normal hence doubtful that this is related to malignancy
- Would obtain abdominal ultrasound with Doppler in 24-48 hours to further assess for portal vein thrombosis and if present to assess for propagation
GI following-correspondence reviewed
Lactulose titrated to 3 times daily
Trend LFTs
Follow hemoglobin and platelet count
Transfuse as needed
Follow coagulopathy
Neurology following-correspondence reviewed
Mental status improving
Consideration towards MRI
DVT prophylaxis--on Lovenox
GI prophylaxis-on pantoprazole and Pepcid
Nutrition per GI
Bedside range of motion
Critical care statement: A total of 45 minutes of critical care time was provided for this patient today. This includes management of unstable vital signs, evaluation of the patient at bedside, reviewing the patient's pertinent medical records
including radiographs, microbiology, laboratory evaluations, and discussion with primary team, consultants, pharmacy, nutrition, physical therapy, case management, charge nurse, critical care nursing, and respiratory therapy.
Subjective Dataa
Subjective Data
Date of Service:
Date of Service: February 26, 2024
Chief Complaint: Frog Catcher Follow Up and Pulmonary Follow Up
Subjective:
Sedated on the ventilator, intermittently agitated, no increased secretions
Review of Systems
General: Unobtainable - Sedation
Objective Data
Data Reviewed
Vital Signs / I&O / Oxygen:
Vital Signs
Temp Pulse Resp BP Pulse Ox
97.7 F 82 14 100/60 100
02/26/24 03:26 02/26/24 07:18 02/26/24 07:18 02/26/24 06:00 02/26/24 07:37
Intake and Output
02/25/24 02/26/24 02/27/24
06:59 06:59 06:59
Intake Total 2745 / 2810 1060 / 1060
Output Total 1989 1570 / 1570
Balance 755 / 790 -510 / -510
SaO2 [CPAP/PSV] 100
SaO2 [A/C] 100
SaO2 100
Physical Exam
General: Respiratory Distress (negative), Chills (negative) and Sweats (negative)
HEENT: Normocephalic, Other (Scleral icterus bilateral) and Other (ETT in place)
Cardiovascular: Regular Rhythm, Murmur (negative) and Peripheral Edema (negative)
Respiratory: Wheeze (negative), Crackles (bibasilar), Rhonchi (Bilaterally), Stridor (negative) and ET Tube (Mechanical breath sounds heard bilaterally)
GI: Soft, Non Distended, Non Tender and Normal Bowel Sounds
Neurology: Alert, No Motor Deficits, Tremors (negative), Other (Pupils 1 mm bilaterally - brisk; intact corneal reflex, intact gag) and Other (Not following commands; occasionally agitated)
Skin: Warm, Dry, Good Color, Cyanosis (n) and Rash (n)
Labs/Micro/Reports
Lab Data
02/26/24 04:08
02/26/24 04:08
Laboratory Results
02/26/24
04:08
PT 18.6 H
INR 1.52
Microbiology
02/24/24 11:17 Sputum Respiratory Culture - Preliminary
Gram negative bacilli
02/24/24 11:17 Sputum Gram Stain - Preliminary
02/24/24 09:40 Blood/Venous Blood Culture - Preliminary
No Growth in 24 hours- Final report to follow
02/22/24 08:59 Blood/Venous Blood Culture - Preliminary
No Growth in 72 hours- Final report to follow
02/23/24 08:52 Endotracheal Respiratory Culture - Final
Escherichia coli
Mica albicans
02/23/24 08:52 Endotracheal Gram Stain - Final
02/23/24 08:52 Nose MRSA Screen - Final
No Methicillin Resistant Staphylococcus aureus isolated.
02/24/24 08:34 Nasal Swab Influenza Types A & B (MARY) - Final
Negative for Influenza A & B, NAAT
Negative results must be combined with clinical observations
and patient history.
Nucleic Acid Amplification test (NAAT)performed on the
[employer] platform.
02/22/24 09:00 Urine Urine Culture - Final
NO GROWTH
--- NOTE | 2024-02-26 08:00 | PTCARENOTE ---
Received pt from previous RN. Pt is AAOx0, moves all of his extremities, opens eyes to voice, restless in the bed, B/l pupils 2 mm nonreactive. B/l wrist restraints in place (see order and worklist). NSR on the monitor. ETT #8 22 @ lip AC
14/500/30%/5, lungs with coarse scatt rhonchi. FMS in place, flushed and patent. Left nare dobhoff in place @ 65 cm. Pt remains NPO since MN for abd US, tube feeding off at this time. Tamayo in place for critical I+O, tamayo care provided. SCDs in
place. Orders reviewed. Safe environment maintained.
[2024-02-26] MEDS: INDERAL 20 MG PO (08:28)
[2024-02-26] MEDS: PEPCID 20 MG TUBE ×2 (08:28→19:14)
[2024-02-26] MEDS: LIDOCAINE 4% PATCH 1 PATCH TOPICAL (08:30)
[2024-02-26] MEDS: XIFAXAN 550 MG TUBE ×2 (08:31→19:14)
[2024-02-26] MEDS: PROTONIX IV 40 MG IV (08:31)
[2024-02-26] MEDS: SEROQUEL 25 MG TUBE ×2 (08:31→19:14)
[2024-02-26] MEDS: NSS (PRESERVATIVE FREE) 10 ML IV (08:32)
--- NOTE | 2024-02-26 08:46 | W.PN.GI.CBS2 ---
Addendum entered and electronically signed by Christina Pope MD 02/26/24 13:30:
I saw and examined the patient.
The CHEMISTRY FACULTY MEMBER or PA's note was reviewed and I agree with the note.
Comment: Patient currently extubated. Continued altered mental status.
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 MELD - 14. (Thrombocytopenia, anemia, hypoalbuminemia)
Admitted with hepatic encephalopathy, possibly infectious trigger, no evidence of SBP.
Currently on antibiotics for possible pneumonia.
Currently on lactulose 20 g 3 times a day and Xifaxan 550 mg twice a day for management of hepatic encephalopathy.
Continue to monitor I/O and electrolytes, replete as needed.
CT scan with minimal ascites, diuretic on hold but question of possible portal vein thrombus. Agree with abdominal Doppler to evaluate.
History of esophageal varices status post banding, currently on propranolol.
He will need outpatient hepatology follow-up after this hospitalization. Patient known to GI at [facility].
Currently getting Dobbhoff feeds but once mental status improves, speech evaluation followed by oral feeds.
Will follow
Original Note:
Today's Communication / Plan
-
Etiology of mental status change likely related to hepatic encephalopathy with hx cirrhosis
Etiology of HE -- related to infection with multiple bacteria on sputum cx ID following , no signs of aggressive GI bleeding stools brown hbg stable, electrolytes stable with normal creat, ? medication compliance has only been at current [facility] less
than 1 week vs other
cont antibiotics per ID
cont Xifaxan BID and lactulose will titrate to TID with now normal ammonia level
awaiting records reviewed with nursing staff to try to obtain again
remains on Lasix 20mg daily t.c eventually adding Aldactone
cont Pepcid BID
cont Propranolol with Hx EV
eventual repeat EGD can be Outpatient unless signs of GI bleeding -- some drop in hbg 11.8 on admission now 7.9 but stools remain brown
AFP 0.962
MELD 3.0 16 12/19 today 14
trend labs
will need eventual formal liver serology work up but will obtain prior records from [facility] to see what has been completed
t/c eventual hepatology eval pending course
speech consult when extubated
per Dr. Davidson review doubt portal vein thrombosis noted on CT scan is acute given essentially normal LFTs or related to malignancy as AFP is normal, would hold on anticoagulation.
will follow
Assessment / Plan
-
Pt is a 74yo with hx COPD cirrhosis-- Etiology ? ETOH per family but quit in 2011. He was diagnosed around the time he quit ETOH in 2011 and has had several variceal GI bleeds with banding in past. Per significant other pt was not compliant with
follow up over the years. Over last 6 months he has had fatigue and some change in mental status then was admitted with fever and hepatic encephalopathy about a month ago to [facility] then transferred to [facility]. He
did have another hospital admission and recently admitted to [facility] about 1 week ago. He now presents to for change in mental status with ammonia of 128 with low grade fever 100.7 with possible PNA and hypotension
requiring BP support. He was intubated after admission. On admission pt with hbg 11.8, platelet 106 with drop to 72,000, INR 1.42, albumin 2.1, bili 2.3, AST 45, ALT 32, alk phos 84, and ammonia 117.
02/22/24 Limited US abdomen Examination is technically difficult with very poor acoustic windows. Limited examination.
Sludge throughout most of the gallbladder. The gallbladder is distended. The bladder wall appears mildly thickened, nonspecific.
Common bile duct is unable to be visualized. The liver is not adequately visualized.
Splenomegaly. Tortuous dilated veins adjacent to the splenic hilum.
The pancreas is unable to be visualized. The right kidney is unable to be visualized.
Simple cyst in the central upper to mid left kidney.
Of note, the patient does have an estimated GFR of greater than 60. If the patient can cooperate for CT examination, a contrast-enhanced CT of the abdomen and pelvis could be considered to assess for portal vein thrombosis.
02/22/24 CT Chest/abd/pel Wo Iv Cont
IMPRESSION: Endotracheal tube tip is low, at the level the slime, directed toward the right mainstem bronchus.
Changes of moderate to severe interstitial fibrosis with basilar significant honeycombing. No significant pleural fluid bilaterally.
Cirrhotic liver.
Diffuse subcutaneous edema/anasarca. Small to moderate amount of free fluid within the pelvis.
No evidence of free intraperitoneal air.
Mild compression deformities of the T8 and T11 vertebral bodies, age uncertain.
Evaluation of the abdomen and pelvis somewhat limited by lack of GI luminal contrast and the lack of IV contrast.
02/2124- CT a/P IV and oral-IMPRESSION: Findings suggesting bibasilar pneumonia. New Moderate pulmonary fibrosis. Stable Findings consistent with cirrhosis. StableMild portal vein thrombosis. Difficult to compare considering the prior study was
without IV contrast. This was communicated to Dr. Bray via tiger text all on 02/24/2024 Too small to characterize hypodense splenic lesion likely small cyst or hemangioma. Stable Mild splenomegaly. Stable Gallbladder distention. Stable. May be
benign gallbladder hydrops. Too small to characterize hypodense right renal lesion likely a benign cyst. Stable Mild abdominopelvic ascites. Progressed Findings suggesting volume overload or third spacing. Progressed Enrique catheter in bladder.
Rectal catheter
-change in mental status with concern for hepatic encephalopathy with elevated ammonia level-- first admit to but recent admit to [facility] with similar symptoms
-low grade fever- improved with + resp cx 02/22 Ecoli/ginette, 02/23 Entereobacter colacea with concern for aspiration PNA
-resp insufficiency s/p intubation
-hypotension requiring pressors on admission now off
-hx dysphagia with recent speech eval per family
-cirrhosis - ? ETOH related but quit in 2011 with decompensation
-hx EV with bleeding several years ago with banding
-PVT per CT
-thrombocytopenia
-anemia
-hypoalbuminemia
-COPD/pulm HTN
PLAN:
Etiology of mental status change likely related to hepatic encephalopathy with hx cirrhosis
Etiology of HE -- related to infection with multiple bacteria on sputum cx ID following , no signs of aggressive GI bleeding stools brown hbg stable, electrolytes stable with normal creat, ? medication compliance has only been at current [facility] less
than 1 week vs other
cont antibiotics per ID
cont Xifaxan BID and lactulose will titrate to TID with now normal ammonia level
awaiting records reviewed with nursing staff to try to obtain again
remains on Lasix 20mg daily t.c eventually adding Aldactone
cont Pepcid BID
cont Propranolol with Hx EV
eventual repeat EGD can be Outpatient unless signs of GI bleeding -- some drop in hbg 11.8 on admission now 7.9 but stools remain brown
AFP 0.962
MELD 3.0 16 02/21 today 14
trend labs
will need eventual formal liver serology work up but will obtain prior records from [facility] to see what has been completed
t/c eventual hepatology eval pending course
speech consult when extubated
per Dr. Davidson review doubt portal vein thrombosis noted on CT scan is acute given essentially normal LFTs or related to malignancy as AFP is normal, would hold on anticoagulation.
will follow
Subjective
Subjective
Date of Service: February 26, 2024
pt opening eyes but limited commands, + loose stools in rectal bag
Objective
Data Reviewed
Laboratory Data:
Laboratory Results
02/26/24 04:08
02/26/24 04:08
Laboratory Results
PT 18.6 Sec (11.4-14.6) H 02/26/24 04:08
INR 1.52 02/26/24 04:08
APTT 54.5 Sec (23.4-35.0) H 02/23/24 04:16
Phosphorus 2.3 mg/dl (2.5-4.5) L 02/25/24 03:15
Magnesium 2.0 mg/dl (1.6-2.3) 02/25/24 03:15
Total Bilirubin 1.4 mg/dl (0.2-1.3) H 02/26/24 04:08
AST 45 U/L (17-59) 02/26/24 04:08
ALT 40 U/L (0-50) 02/26/24 04:08
Alkaline Phosphatase 161 U/L (38-126) H 02/26/24 04:08
Vital Signs and I&O:
Vital Signs
Temp Pulse Resp BP Pulse Ox
97.4 F 75 12 114/65 100
02/26/24 07:55 02/26/24 08:44 02/26/24 08:44 02/26/24 08:28 02/26/24 08:44
I&O
02/25/24 02/26/24 02/27/24
06:59 06:59 06:59
Intake Total 2745 / 2810 1060 / 1060
Output Total 1989 1570 / 1600 60 / 60
Balance 755 / 790 -510 / -540 -60 / -60
Physical Exam
Physical Exam
HEENT: Anicteric and Moist mucous membranes
Cardiology: Normal Sinus Rhythm
Pulmonary: Clear
GI: Soft, Distended (minimal ) and Non Tender
Rectal: Brown (in rectal bag )
Neuro: Other (opens eyes some limited ability to follow command, GALVEZ)
[2024-02-26 08:53] LABS: B.E. -0.5 mmol/L; HCO3 24.2 mmol/L (21-28); PCO2 39 mmHg (35-48); PO2 149 mmHg (83-108)
--- NOTE | 2024-02-26 09:09 | W.PN.HOSP.TC ---
Today's Communication/Plan
-
Ongoing extubation trial
Continue with antibiotics
Follow mentation now that ammonia is normalized. If remains with significant change in mentation we will get neuro imaging.
Assessment / Plan
Assessment / Plan
Acute metabolic encephalopathy
-Suspected hepatic encephalopathy. Improving ammonia ,down to 15. Continue with lactulose and rifaximin- decrease frequency of lactulose..
-Neurology input noted-recommends MRI of the brain if no improvement after hepatic encephalopathy treatments. Today he seems better than yesterday. Will continue with extubation trials and if he remains with his mental status change then consider
MRI of the brain.
-Ongoing evaluation for toxic encephalopathy-evaluating ongoing fevers for source of infection-fevers have resolved.
Ventilator dependent respiratory failure
-Vent settings per pulmonary recs; Wean as tolerated
- Stable FIO2
-Weaning trial ongoing today.
-Speech and Swallow when extubated
Pancytopenia
-Counts are lower than admission likely chronic secondary to cirrhosis.
-Patient on thiamine and B12 supplementation at home.
- Hemocult NEG
- Follow counts ; aim HH>7.0 ,Plt>20
Cirrhosis
-No evidence of ascites on examination; currently on propranolol, Lasix held temporarily.
-Possible varices, no signs of active bleeding. Patient being followed by GI
-INR 1.5
PVT -unclear if acute or chronic. Discussed with GI-not an ideal candidate for anticoagulation with thrombocytopenia and varices. Hold on anticoagulation.
Febrile illness-unclear source ?pneumonia
-Bacteriuria? UTI but urine culture with growth is negative
-Currently on Ancef for aspiration pneumonia coverage.. ID following.
-Chest imaging including chest x-ray and CT chest shows interstitial lung disease but no obvious focal consolidation to suggest pneumonia.
- CT A/P 02/23 show mild central PVT but doubt the cause as blood cultures have been sterile.Images also picks up moderate airspace dz in LL and lingula along with moderate IPF. With elevated Procal will tx as possible infectious airspace dz
/pneumonia possibly aspiration. Ecoli and ginette in sputum . currently on Ceftriaxone-continue. Doubt ginette is pathogenic in this scenario -pt is not immune suppressed and no pulmonary nodules . BCX no fungemia.
- Neg COVID and influenza swab
-Patient afebrile. Blood pressure stable.
Essential hypertension
-Lopressor with holding parameters
COPD
-DuoNebs through vent
-No reactive airways noted today.
Nutrition-continue the tube feeds
Discussed with customer acquisition specialist
Discussed with PATCHER
Full code/SCDs
Total time spent on today's encounter was 52 minutes which included time spent in counseling the patient/family regarding diagnosis and treatment plan as listed above, goals of care, and symptom management. Case was discussed with nursing staff,
specialists, and care coordinators/case management. All labs and imaging personally reviewed by me. Remainder the time spent in detailed review of previous records, lab data, imaging, and other medical provider documentation.
Anticipated Discharge: > 48 hours
Subjective/Interval History
-
Date of Service: February 26, 2024
Patient had a response to some of the vocal commands. Opens his eyes. Seems to track with his eyes. Still tries to move around quite a bit in his bed. On a weaning trial.
Objective Data
-
Labs:
Laboratory Results
02/26/24 02/26/24
04:08 08:41
WBC 2.8 L
Hgb 7.9 L
Hct 22.1 L
Plt Count 33 L D
PT 18.6 H
INR 1.52
HCO3 24.2
Sodium 137
Potassium 3.7
Chloride 109 H
Carbon Dioxide 24
BUN 14
Creatinine 0.5 L
Glucose 107 H
Calcium 7.4 L
Total Bilirubin 1.4 H
AST 45
ALT 40
Alkaline Phosphatase 161 H
Vital Signs:
Vital Signs
Temp Pulse Resp BP Pulse Ox
97.4 F 75 12 114/65 100
02/26/24 07:55 02/26/24 08:44 02/26/24 08:44 02/26/24 08:28 02/26/24 08:44
I&O
02/25/24 02/26/24 02/27/24
06:59 06:59 06:59
Intake Total 2745 / 2810 1060 / 1060
Output Total 1989 1570 / 1600 60 / 60
Balance 755 / 790 -510 / -540 -60 / -60
Review of Systems
-
Unable to obtain full review of systems at this time due to: Patient Intubation
Physical Exam
-
General: Negative No Apparent Distress
Respiratory: Clear to Auscultation (Anterior)
Cardiac: Regular Rhythm and S1/S2; Negative Tachycardic
GI: Soft and Normal Bowel Sounds
Neuro: Awake and Alert (more than yesterday); Negative No Motor Deficits (moving all 4 limbs not following commands)
Psych: Calm
Data Reviewed
-
Labs: Labs Reviewed by me
--- NOTE | 2024-02-26 09:28 | W.PN.ID1 ---
Date of Service
Date of Service: February 26, 2024
Today's Communication
Continue antibiotics. Change cefazolin to ertapenem given new culture data.
Assessment / Plan
Aspiration Pneumonia
-Cultures now also with Enterobacter cloacae, in addition to prior recovered E. coli.
Obtundation/encephalopathy
VDRF
Fever
Normal white count with left shift
Elevated bilirubin
Elevated ammonia level
Anasarca
Cirrhosis
Portal hypertension
Esophageal varices
Hx GI bleed
Encephalopathy
Chronic thrombocytopenia
HTN
COPD
Chronic anemia
IPF
Pulmonary hypertension
Recommendations:
Transition cefazolin to ertapenem.
Monitor white count temperature curve.
Continue with supportive measures.
Continue with rifaximin
Patient remains critically ill, vent dependent in intensive care unit.
����������������������������������������������������������
Chief Complaint
-: Pneumonia (due to E coli) and Other (Encephalopathy; fever)
Subjective / Review of Systems
Patient seen and examined. Remains on vent at this time.
Afebrile overnight.
Vital Signs / Physical Exam
Vital Signs
Vital Signs
Temp Pulse Resp BP Pulse Ox
97.4 F 75 12 114/65 100
02/26/24 07:55 02/26/24 09:20 02/26/24 09:20 02/26/24 08:28 02/26/24 09:20
Physical Exam
Constitutional: No Acute Distress, Acutely Ill and Chronically Ill
Head: Other (ET tube in place.)
Cardiovascular: Regular Rate and S1/S2
Pulmonary: Clear and Symmetric; Negative Wheezes or Rales
Gastrointestinal: Soft, Non Tender, Non Distended, Normal Bowel Sounds and Other (FMS in place.)
Genito-Urinary: Enrique and Clear Urine
Skin: Warm and Dry; Negative Rash or Jaundice
Psychological: Agitated
Objective Data
Lab Data
Lab Results
02/26/24 04:08
02/26/24 04:08
PT 18.6 Sec (11.4-14.6) H 02/26/24 04:08
INR 1.52 02/26/24 04:08
APTT 54.5 Sec (23.4-35.0) H 02/23/24 04:16
Estimated Creat Clear 92 ml/min 02/26/24 04:08
Lactic Acid 1.8 mmol/L (0.7-2.0) 02/22/24 13:43
Total Bilirubin 1.4 mg/dl (0.2-1.3) H 02/26/24 04:08
GGT 29 U/L (15-73) 02/23/24 04:16
AST 45 U/L (17-59) 02/26/24 04:08
ALT 40 U/L (0-50) 02/26/24 04:08
Alkaline Phosphatase 161 U/L (38-126) H 02/26/24 04:08
Most recent labs reviewed.
Chest X-Ray: Image Reviewed and Report Reviewed
Micro Results:
02/22/24 08:59 Blood Culture - Preliminary
Blood/Venous No Growth in 4 days- Final report to follow
02/24/24 11:17 Respiratory Culture - Final
Sputum Enterobacter cloacae
Gram Stain - Final
02/24/24 09:40 Blood Culture - Preliminary
Blood/Venous No Growth in 24 hours- Final report to follow
02/23/24 08:52 Respiratory Culture - Final
Endotracheal Escherichia coli
Mica albicans
Gram Stain - Final
02/23/24 08:52 MRSA Screen - Final
Nose No Methicillin Resistant Staphylococcus aureus isolated.
02/24/24 08:34 Influenza Types A & B (MARY) - Final
Nasal Swab Negative for Influenza A & B, NAAT
Negative results must be combined with clinical observations
and patient history.
Nucleic Acid Amplification test (NAAT)performed on the
[employer] platform.
02/22/24 09:00 Urine Culture - Final
Urine NO GROWTH
Respiratory Culture Final 02/24/2024
Few Enterobacter cloacae
Few Usual Respiratory Annamarie
Organism 1 Enterobacter cloacae
1. Enterobacter cloacae
M.I.C. RX
--------- ---
Amoxicillin/Potas. Clavulanate >16/8 R
Ampicillin >16 R
Ampicillin/Sulbactam >16/8 R
Aztreonam 8 I
Cefazolin >16 R
Cefepime <=2 S
Ceftazidime >16 R
Ceftriaxone >2 R
Ertapenem <=0.5 S
Ciprofloxacin <=0.25 S
Gentamicin <=2 S
Meropenem <=1 S
Piperacillin/Tazobactam 32 I
Tetracycline <=4 S
Tobramycin <=2 S
Trimethoprim/Sulfamethoxazole <=2/38 S
.

.
Respiratory Culture Final
02/23/24
Moderate Escherichia coli
Moderate Presumptive Mica albicans
Few Usual Respiratory Annamarie
Organism 1 Escherichia coli
1. Escherichia coli
M.I.C. RX
--------- ---
Amoxicillin/Potas. Clavulanate <=8/4 S
Ampicillin <=8 S
Ampicillin/Sulbactam <=4/2 S
Aztreonam <=4 S
Cefazolin <=2 S
Ertapenem <=0.5 S
Ciprofloxacin <=0.25 S
Gentamicin <=2 S
Meropenem <=1 S
Piperacillin/Tazobactam <=8 S
Tetracycline <=4 S
Tobramycin <=2 S
Trimethoprim/Sulfamethoxazole <=2/38 S
Imaging:
02/26/2024 CXR (portable): Bilateral interstitial prominence is again seen, most likely chronic and stable. Low lung volumes are noted.
02/22/2024 CT chest/abdomen/pelvis without contrast: ET tube at the level of the slime. Changes of moderate to severe interstitial fibrosis with basilar significant honeycombing. No significant pleural fluid noted. Liver is cirrhotic. There is
diffuse subcutaneous edema/anasarca. Small to moderate amount of free fluid within the pelvis. No evidence of free intraperitoneal air. Please see full dictation for additional detail.
Care Review
Plan reviewed with: Physician (Critical Care)
[2024-02-26] MEDS: INVANZ 60 MG IV (10:18)
--- NOTE | 2024-02-26 10:52 | W.PN.INTV ---
Documented by User: Duran Johnson MD, Resident 02/26/24 11:34
Today's Communication / Plan
Recommendations
- follow up with GI and infectious disease
Assessment
-
Acute Hypoxemic respiratory failure (resolved) currently extubated off CPAP :
- Patient was extubated today, tolerating well, currently on 2L nasal cannula
- Patient is hemodynamically stable and able to initiate spontaneous breaths
- VBG does not show any hypoxia, or hypercapnia
- Maintain sp02 between 88-95%
- Aspiration precautions
- Speech consult once extubated
- Continue Duonebs as needed
Bilateral interstitial prominence, Possible Bibasilar Pneumonia:
- Evidenced on chest xray on 02/26/24
- Sputum culture shows pansensitive E.coli and Mica Albicans
- ID upgraded antibiotic from cefazolin to ertapenem today, continue
- Elevated procalcitonin
- Monitor temperature and white count
- Blood cultures negative
- Negative covid/influenza swab
Acute metabolic encephalopathy due to possible chronic alcohol use
Decompensated cirrhosis:
- Neurology recommending MRI of the brain if no improvement in mental status, however patient is able to understand and follow some basic verbal commands
- Ammonia level normalized today at 15
- titrate lactulose to TID
- continue on rifaximin
- Continue on propranolol with history of esophageal varices
- Continue on Lasix to help third spacing
- Thiamine?
- GI is following
Pancytopenia
Acute on chronic macrocytic anemia:
- WBC- 2.8, hgb- 7.9, platelet count- 33
- Likely due to chronic alcohol usage
- Monitor the H&H, transfuse if hgb less than 7 and platelets less than 20k
Distributive shock due to UTI related sepsis (resolved):
COPD
Pulmonary fibrosis:
- Murmur heard over the left upper sternal border
- Decreased breath sounds heard bilaterally
- 0.5 mg budesonide bid discontinued
- Maintain oxygen level between 88-92%
- Trelegy held
Hyperbilirubinemia:
- total is 1.4 and trending down
- Consult outpatient GI
Essential Hypertension:
-Lopressor as needed with holding parameters
Monitor blood glucose levels on tube feeds
Discontinue Enrique's
DVT:
- Currently on SCD's, platelet count too low for lovenox/heparin
Subjective Dataa
Subjective Data
Date of Service:
Date of Service: February 26, 2024
Chief Complaint: Pharmacist Follow Up
Subjective:
Patient had no acute overnight events.
No acute medical problems.
Patient is on Jevity.
CPAP settings are 5 PEEP, Tidal volume- 545, Fi02- 30%. Has FMS tube at 900 ml. Has Enrique's which output is 10 ml/hr.
Review of Systems
General: Unobtainable - Pat Unresp
Objective Data
Data Reviewed
Vital Signs / I&O / Oxygen:
Vital Signs
Temp Pulse Resp BP Pulse Ox
97.4 F 80 27 123/67 100
02/26/24 07:55 02/26/24 10:00 02/26/24 10:00 02/26/24 10:00 02/26/24 10:10
Intake and Output
02/25/24 02/26/24 02/27/24
06:59 06:59 06:59
Intake Total 2745 / 2810 1060 / 1060 60 / 60
Output Total 1989 1570 / 1600 90 / 90
Balance 755 / 790 -510 / -540 -30 / -30
SaO2 [CPAP/PSV] 100
SaO2 [A/C] 100
SaO2 100
Nasal Cannula flow liters per 3
minute
Physical Exam
General: Respiratory Distress (negative), Chills (negative) and Sweats (negative)
HEENT: Normocephalic, Other (Scleral icterus bilateral) and Other (ETT in place)
Cardiovascular: S1-S2, Murmur (negative) and Peripheral Edema (negative)
Respiratory: Wheeze (negative), Crackles (bibasilar), Rhonchi (Bilaterally) and ET Tube (Mechanical breath sounds heard bilaterally)
GI: Soft, Non Distended, Non Tender and Normal Bowel Sounds
Neurology: Tremors (negative) and Other (occasionally agitated)
Skin: Warm and Dry
Labs/Micro/Reports
Lab Data
02/26/24 04:08
02/26/24 04:08
Laboratory Results
02/26/24 02/26/24
04:08 08:41
PT 18.6 H
INR 1.52
pH 7.40
pCO2 39
pO2 149 H
HCO3 24.2
O2 Delivery Level
Microbiology
02/24/24 09:40 Blood/Venous Blood Culture - Preliminary
No Growth in 48 hours- Final report to follow
02/22/24 08:59 Blood/Venous Blood Culture - Preliminary
No Growth in 4 days- Final report to follow
02/24/24 11:17 Sputum Respiratory Culture - Final
Enterobacter cloacae
02/24/24 11:17 Sputum Gram Stain - Final
02/23/24 08:52 Endotracheal Respiratory Culture - Final
Escherichia coli
Mica albicans
02/23/24 08:52 Endotracheal Gram Stain - Final
02/23/24 08:52 Nose MRSA Screen - Final
No Methicillin Resistant Staphylococcus aureus isolated.
02/24/24 08:34 Nasal Swab Influenza Types A & B (MARY) - Final
Negative for Influenza A & B, NAAT
Negative results must be combined with clinical observations
and patient history.
Nucleic Acid Amplification test (NAAT)performed on the
[employer] platform.
02/22/24 09:00 Urine Urine Culture - Final
NO GROWTH

Documented by User: Rashard Johnson MD 02/26/24 14:12
Today's Communication / Plan
Recommendations
- follow up with GI and infectious disease
I reviewed this patients case independently and in conjunction with the resident. I personally examined the patient. Patient's complex medical history, laboratory evaluations, events over the last 24 hours, radiographs, microbiological data were
all personally reviewed.
Agree with documented assessment and plan
Critical care statement: A total of 45 minutes of critical care time was provided for this patient today. This includes management of unstable vital signs, evaluation of the patient at bedside, reviewing the patient's pertinent medical records
including radiographs, microbiology, laboratory evaluations, and discussion with primary team, consultants, pharmacy, charge nurse, critical care nursing, and respiratory therapy.
Rashard Johnson MD, [facility], [facility]
--- NOTE | 2024-02-26 11:33 | PTCARENOTE ---
Grand rounds completed at 09:30 with Metal Temperer and care team, plan of care discussed, orders rec'd. Pt extubated to 4L NC at 10:05. Enrique cath removed and #30 condom cath placed at 11:05, pt DTV at 17:05. Pt remains confused and restless, moaning
and with occ productive cough of thick malave sputum, VSS remain stable, 02 weaned to 2L.
[2024-02-26 12:40] LABS: Glucose - Point of Care 100 mg/dl (70-99)
--- NOTE | 2024-02-26 12:44 | PTCARENOTE ---
Tube feeds restarted at 12:45 per orders. Rate change to 50 ml/hr per wood planer noted.
--- NOTE | 2024-02-26 13:50 | VATNOTE ---
During routine assessment biopatch noted to be saturated with serosanguinous fluid. Dressing changed at this time. During dressing change pt became agitated and grabbed for PICC line, PICC line came out 2 cm. PICC line thoroughly cleansed with
chlorhexadine and PICC line re-secured per hospital protocol but with ECL of 2 cm. (+) blood return from both lumens at this time. PICC line not currently in use but pt recently extubated per PCN. Will re-evaluate need tomorrow.
--- NOTE | 2024-02-26 15:20 | CM ---
CM following re: discharge planning.
Discussed in Rounds, reviewed pt's chart, met with pt and spoke to pt's daughter Danna to update on pt's progress.
Pt extubated today to 3L NC, continue supportive care.
D/C plan: return back to [facility] for a short term and transition to a LTC.
CM will follow with discharge plan updates as hospitalization progresses
--- NOTE | 2024-02-26 16:45 | PTCARENOTE ---
Pt reassessed. Vitals remain stable, room air sat 96%. Mitts in place for safety as pt frequently reaches for DHT and attempts to bite mitts off. Pt remains AOx0- arousable to voice, opens eyes, but not following commands. No void since tamayo
removal this am, bladder scanned per protocol for 152 mls. FMS with 750 mls brown liquid stool this shift. Safe environment maintained.
[2024-02-26 17:39] LABS: Glucose - Point of Care 98 mg/dl (70-99)
--- NOTE | 2024-02-26 17:40 | PTCARENOTE ---
Pt turned and repositioned, linen changed, palak care and oral care provided. Pt now able to state first and last name, smiled and stuck out tongue on command. Safe environment maintained.
--- NOTE | 2024-02-26 19:59 | PTCARENOTE ---
Received pt from previous RN. Pt is AAOx1 (self), garbled speech, pupils nonreactive left 2 and right 1, uncooperative/restless. NSR on the monitor. On RA O2 sat 96%, lungs rhonchi/diminished/coarse. Left nare dobhoff in place, Jevity @ 50 ml/hr w/
25 ml water flush. FMS in place. Pt incont of urine, c/c in place. Restraints in place (see order and worklist). Bed alarm in place. SCDs in place. Mouth care provided. Safe environment maintained.
[2024-02-26] MEDS: PULMICORT 0.5 MG INH (20:06)
[2024-02-26] MEDS: INDERAL PO (21:13)
--- NOTE | 2024-02-26 23:02 | PTCARENOTE ---
Pt with no urine output, bladder scanned for 260ml. FMS exchanged, due to flush and irrigation ports leaking. CHG bath provided. Systems reviewed, no new changes in assessment.
[2024-02-26 23:33] LABS: Glucose - Point of Care 143 mg/dl (70-99)
[2024-02-27] VITALS (25 sets, daily range): BP systolic 96–127; BP diastolic 52–85; BMI 20.2
[2024-02-27 04:34] LABS: Hematocrit 20.5 % (39.0-52.0); Hemoglobin 7.3 g/dL (13.0-18.0); Mean Corp Hgb Conc. 35.6 g/dL (33.0-37.0); Mean Corpuscular Hgb 34.6 pg (27.0-31.0); Mean Corpuscular Volume 97.2 fL (80.0-94.0); Mean Platelet Volume 11.3 fL (7.4-10.4); Platelet Count 38 10^3/uL (130-400); Red Blood Cell Count 2.11 10^6/uL (4.70-6.10); Red Cell Dist. Width 18.4 % (11.5-14.5); White Blood Cell Count 3.2 10^3/uL (4.8-10.8)
--- NOTE | 2024-02-27 04:38 | PTCARENOTE ---
Systems reviewed. Pt with no urine output, bladder scanned for 447, straight cath for 400. AM labs drawn. Restraints in place. Safe environment maintained.
[2024-02-27 05:00] LABS: Blood Urea Nitrogen 17 mg/dl (9-20); Calcium 7.7 mg/dl (8.4-10.2); Carbon Dioxide 27 mmol/L (22-30); Chloride 112 mmol/L (98-107); Estimated Creatinine Clearance 89 ml/min; Glucose 120 mg/dl (70-99); Potassium 4.1 mmol/L (3.5-5.1); Sodium 139 mmol/L (135-145); Triglycerides 52 mg/dl (10-149); eGFR > 60.00
[2024-02-27 05:05] LABS: Glucose - Point of Care 120 mg/dl (70-99)
[2024-02-27] MEDS: NOVOLOG FLEXPEN-MODERATE RESISTANCE SC ×4 (05:09→23:33)
--- NOTE | 2024-02-27 07:42 | W.PN.INTV ---
Today's Communication / Plan
Recommendations
Tolerated extubation
Wean FiO2
Aspiration precautions
Antibiotics
Follow hemoglobin
Transfuse as needed
Transfer to IMU-call pulmonary if respiratory issues arise
Assessment
-
74-year-old male with a past medical history of cirrhosis with esophageal varices, pulmonary fibrosis, anemia and reported history of COPD who presented from altered mental status. Intubated in the ER for airway protection. Labs concerning for
transaminitis with elevated ammonia level. He was admitted to the ICU for further care where he continues to be managed. Intensive services following for additional management/recommendations.
Impression:
Acute respiratory failure with hypoxia on mechanical ventilation
Extubated 02/26/2024
Shock: Distributive likely septic in the setting of UTI - shock state now resolved
Complicated UTI with UA positive for nitrites, +1 leukocyte esterase and 16�20 urine WBC
Decompensated cirrhosis with hepatic encephalopathy (?Alcoholic cirrhosis etiology)
History of alcohol abuse (per family, quit in 2011)
Former tobacco use (quit 1 year ago)
Reported history of COPD
Pulmonary fibrosis/UIP
Anemia
Thrombocytopenia
Lactic acidosis - resolved
Transaminitis with hyperbilirubinemia - improving
Hyperammonemia � improving
Hypoalbuminemia
Anasarca
Plan:
Respiratory status improved
Tolerated extubation
Aspiration precautions
BiPAP if needed
Takes Trelegy at home
DuoNebs 4 times daily
Budesonide nebulizers as well
Cultures reviewed
Sputum culture-02/24/2024 Enterobacter cloacae
Influenza negative
Blood cultures negative
Previous sputum culture 02/23/2024-E. coli
Infectious disease following-correspondence reviewed
Antibiotics per infectious disease-cefazolin changed to ertapenem-D#2-initiated 02/26/2024
CT abdomen/pelvis showed possible bibasilar pneumonia with mild portal vein thrombosis and progressing mild abdominal pelvic ascites with fluid overload
As per GI, hold off on anticoagulation for now for possible PVT especially with downtrending platelet count given his LFTs and normal and AFP is normal hence doubtful that this is related to malignancy
- Would obtain abdominal ultrasound with Doppler in 24-48 hours to further assess for portal vein thrombosis and if present to assess for propagation
GI following-correspondence reviewed
Lactulose titrated to 3 times daily
Trend LFTs
Follow hemoglobin and platelet count
Transfuse as needed
Follow coagulopathy
Neurology following-correspondence reviewed
Mental status improving
Consideration towards MRI
DVT prophylaxis--on Lovenox
GI prophylaxis-on pantoprazole and Pepcid
Nutrition per GI
Bedside range of motion
Tolerated extubation, if not requiring pressors then transfer to IMU-call pulmonary if respiratory issues arise
Critical care statement: A total of 38 minutes of critical care time was provided for this patient today. This includes management of unstable vital signs, evaluation of the patient at bedside, reviewing the patient's pertinent medical records
including radiographs, microbiology, laboratory evaluations, and discussion with primary team, consultants, pharmacy, nutrition, physical therapy, case management, charge nurse, critical care nursing, and respiratory therapy.
Subjective Dataa
Subjective Data
Date of Service:
Date of Service: February 27, 2024
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
Subjective:
Tolerated extubation, agitated, no respiratory distress, review of systems unreliable
Review of Systems
General: Other (Per HPI)
Objective Data
Data Reviewed
Vital Signs / I&O / Oxygen:
Vital Signs
Temp Pulse Resp BP Pulse Ox
97.6 F 65 16 104/56 96
02/27/24 03:21 02/27/24 06:00 02/27/24 06:00 02/27/24 06:00 02/27/24 06:00
Intake and Output
02/26/24 02/27/24 02/28/24
06:59 06:59 06:59
Intake Total 1060 / 1060 1615 / 1615
Output Total 1570 / 1600 1765 / 1765
Balance -510 / -540 -150 / -150
SaO2 [CPAP/PSV] 100
SaO2 [A/C] 100
SaO2 96
Nasal Cannula flow liters per 3
minute
Physical Exam
General: Respiratory Distress (negative), Chills (negative) and Sweats (negative)
HEENT: Normocephalic, Other (Scleral icterus bilateral) and Other (ETT in place)
Cardiovascular: Regular Rhythm, Murmur (negative) and Peripheral Edema (negative)
Respiratory: Wheeze (negative), Crackles (bibasilar), Rhonchi (Bilaterally), Non-Labored Respirations, Accessory Resp Muscle Use (n) and Stridor (n)
GI: Soft, Non Distended, Non Tender and Normal Bowel Sounds
Neurology: Awake, Alert, No Motor Deficits, Tremors (negative), Other (Pupils 1 mm bilaterally - brisk; intact corneal reflex, intact gag) and Other (Not following commands; occasionally agitated)
Skin: Warm, Good Color, Cyanosis (n), Jaundice (n) and Rash (n)
Labs/Micro/Reports
Lab Data
02/27/24 04:12
02/27/24 04:11
Laboratory Results
02/26/24
08:41
pH 7.40
pCO2 39
pO2 149 H
HCO3 24.2
O2 Delivery Level
Microbiology
02/24/24 09:40 Blood/Venous Blood Culture - Preliminary
No Growth in 48 hours- Final report to follow
02/22/24 08:59 Blood/Venous Blood Culture - Preliminary
No Growth in 4 days- Final report to follow
02/24/24 11:17 Sputum Respiratory Culture - Final
Enterobacter cloacae
02/24/24 11:17 Sputum Gram Stain - Final
02/23/24 08:52 Endotracheal Respiratory Culture - Final
Escherichia coli
Mica albicans
02/23/24 08:52 Endotracheal Gram Stain - Final
02/23/24 08:52 Nose MRSA Screen - Final
No Methicillin Resistant Staphylococcus aureus isolated.
02/24/24 08:34 Nasal Swab Influenza Types A & B (MARY) - Final
Negative for Influenza A & B, NAAT
Negative results must be combined with clinical observations
and patient history.
Nucleic Acid Amplification test (NAAT)performed on the
[employer] platform.
--- NOTE | 2024-02-27 07:59 | W.PN.ID1 ---
Date of Service
Date of Service: February 27, 2024
Today's Communication
Continue ertapenem (d#2)
Assessment / Plan
Aspiration Pneumonia
-Cultures with Enterobacter cloacae, E. coli.
Obtundation/encephalopathy
Fever; improved
Elevated bilirubin
Elevated ammonia level
Anasarca
Anemia
Cirrhosis
Portal hypertension
Esophageal varices
Hx GI bleed
Encephalopathy
Chronic thrombocytopenia
HTN
COPD
Chronic anemia
IPF
Pulmonary hypertension
Recommendations:
Continue ertapenem.
Monitor white count temperature curve.
Continue with supportive measures.
Continue with rifaximin
����������������������������������������������������������
Chief Complaint
-: Pneumonia (due to E coli) and Other (Encephalopathy; fever)
Subjective / Review of Systems
Patient seen and examined. No significant changes overnight.
Review of Systems: No Fever
Vital Signs / Physical Exam
Vital Signs
Vital Signs
Temp Pulse Resp BP Pulse Ox
97.6 F 65 16 104/56 96
02/27/24 03:21 02/27/24 06:00 02/27/24 06:00 02/27/24 06:00 02/27/24 06:00
Physical Exam
Constitutional: No Acute Distress, Acutely Ill and Chronically Ill
Head: Other (Nasal Dobbhoff in place.)
Cardiovascular: Regular Rate and S1/S2
Pulmonary: Clear, Coarse and Non Labored; Negative Wheezes or Rales
Gastrointestinal: Soft, Non Tender, Non Distended, Normal Bowel Sounds and Other (FMS in place.)
Skin: Warm and Dry; Negative Rash
Psychological: Confused and Agitated
Objective Data
Lab Data
Lab Results
02/27/24 04:12
02/27/24 04:11
PT 18.6 Sec (11.4-14.6) H 02/26/24 04:08
INR 1.52 02/26/24 04:08
APTT 54.5 Sec (23.4-35.0) H 02/23/24 04:16
Estimated Creat Clear 89 ml/min 02/27/24 04:11
Lactic Acid 1.8 mmol/L (0.7-2.0) 02/22/24 13:43
Total Bilirubin 1.4 mg/dl (0.2-1.3) H 02/26/24 04:08
GGT 29 U/L (15-73) 02/23/24 04:16
AST 45 U/L (17-59) 02/26/24 04:08
ALT 40 U/L (0-50) 02/26/24 04:08
Alkaline Phosphatase 161 U/L (38-126) H 02/26/24 04:08
Most recent labs reviewed.
Micro Results:
02/24/24 09:40 Blood Culture - Preliminary
Blood/Venous No Growth in 48 hours- Final report to follow
02/22/24 08:59 Blood Culture - Preliminary
Blood/Venous No Growth in 4 days- Final report to follow
02/24/24 11:17 Respiratory Culture - Final
Sputum Enterobacter cloacae
Gram Stain - Final
02/23/24 08:52 Respiratory Culture - Final
Endotracheal Escherichia coli
Mica albicans
Gram Stain - Final
02/23/24 08:52 MRSA Screen - Final
Nose No Methicillin Resistant Staphylococcus aureus isolated.
02/24/24 08:34 Influenza Types A & B (MARY) - Final
Nasal Swab Negative for Influenza A & B, NAAT
Negative results must be combined with clinical observations
and patient history.
Nucleic Acid Amplification test (NAAT)performed on the
[employer] platform.
02/22/24 09:00 Urine Culture - Final
Urine NO GROWTH
Respiratory Culture Final 02/24/2024
Few Enterobacter cloacae
Few Usual Respiratory Annamarie
Organism 1 Enterobacter cloacae
1. Enterobacter cloacae
M.I.C. RX
--------- ---
Amoxicillin/Potas. Clavulanate >16/8 R
Ampicillin >16 R
Ampicillin/Sulbactam >16/8 R
Aztreonam 8 I
Cefazolin >16 R
Cefepime <=2 S
Ceftazidime >16 R
Ceftriaxone >2 R
Ertapenem <=0.5 S
Ciprofloxacin <=0.25 S
Gentamicin <=2 S
Meropenem <=1 S
Piperacillin/Tazobactam 32 I
Tetracycline <=4 S
Tobramycin <=2 S
Trimethoprim/Sulfamethoxazole <=2/38 S
.

.
Respiratory Culture Final
02/23/24
Moderate Escherichia coli
Moderate Presumptive Mica albicans
Few Usual Respiratory Annamarie
Organism 1 Escherichia coli
1. Escherichia coli
M.I.C. RX
--------- ---
Amoxicillin/Potas. Clavulanate <=8/4 S
Ampicillin <=8 S
Ampicillin/Sulbactam <=4/2 S
Aztreonam <=4 S
Cefazolin <=2 S
Ertapenem <=0.5 S
Ciprofloxacin <=0.25 S
Gentamicin <=2 S
Meropenem <=1 S
Piperacillin/Tazobactam <=8 S
Tetracycline <=4 S
Tobramycin <=2 S
Trimethoprim/Sulfamethoxazole <=2/38 S
Imaging:
02/26/2024 CXR (portable): Bilateral interstitial prominence is again seen, most likely chronic and stable. Low lung volumes are noted.
02/22/2024 CT chest/abdomen/pelvis without contrast: ET tube at the level of the slime. Changes of moderate to severe interstitial fibrosis with basilar significant honeycombing. No significant pleural fluid noted. Liver is cirrhotic. There is
diffuse subcutaneous edema/anasarca. Small to moderate amount of free fluid within the pelvis. No evidence of free intraperitoneal air. Please see full dictation for additional detail.
[2024-02-27] MEDS: PULMICORT 0.5 MG INH ×2 (08:12→19:29)
[2024-02-27] MEDS: DUONEB 3 ML INH ×4 (08:12→19:30)
--- NOTE | 2024-02-27 09:00 | PTCARENOTE ---
pt awake and restless, NSR on monitor , on room air with sats of 96% , tolerating tube feeds
[2024-02-27] MEDS: DUPHALAC/CHRONULAC 20 GRAMS TUBE ×3 (09:53→21:45)
[2024-02-27] MEDS: LIDOCAINE 4% PATCH 1 PATCH TOPICAL (09:53)
[2024-02-27] MEDS: XIFAXAN 550 MG TUBE ×2 (09:54→19:25)
[2024-02-27] MEDS: NSS (PRESERVATIVE FREE) 10 ML IV (09:56)
[2024-02-27] MEDS: INDERAL PO ×2 (09:56→21:45)
[2024-02-27] MEDS: PROTONIX IV 40 MG IV (09:56)
[2024-02-27] MEDS: PEPCID 20 MG TUBE ×2 (09:56→19:25)
[2024-02-27] MEDS: INVANZ 60 MG IV (10:10)
[2024-02-27] MEDS: SEROQUEL TUBE (10:17)
--- NOTE | 2024-02-27 11:48 | W.PN.INTV ---
Today's Communication / Plan
Recommendations
- follow up with Gi
Assessment
-
Acute Hypoxemic respiratory failure (resolved) currently extubated off CPAP :
- Patient was extubated , tolerating well, currently on room air
- Patient is hemodynamically stable and able to initiate spontaneous breaths
- VBG does not show any hypoxia, or hypercapnia
- Maintain sp02 between 88-95%
- Aspiration precautions
- Speech consult once extubated
- Continue Duonebs as needed
Bilateral interstitial prominence, Possible Bibasilar Pneumonia:
- Evidenced on chest xray on 02/26/24
- Sputum culture shows pansensitive E.coli and Mica Albicans
- continue ertapenem today day 2
- Monitor temperature and white count
- Blood cultures negative
- Negative covid/influenza swab
Acute metabolic encephalopathy due to possible chronic alcohol use
Decompensated cirrhosis:
- Neurology recommending MRI of the brain if no improvement in mental status, however patient is able to understand and follow some basic verbal commands
- titrate lactulose to TID
- continue on rifaximin
- Continue on propranolol with history of esophageal varices
- Continue on Lasix to help third spacing
- GI is following
Pancytopenia
Acute on chronic macrocytic anemia:
- WBC- 3.2, hgb- 7.3, platelet count- 38
- Likely due to chronic alcohol usage
- Monitor the H&H, transfuse if hgb less than 7 and platelets less than 20k
Distributive shock due to UTI related sepsis (resolved):
COPD
Pulmonary fibrosis:
- Murmur heard over the left upper sternal border
- Decreased breath sounds heard bilaterally
- 0.5 mg budesonide bid discontinued
- Maintain oxygen level between 88-92%
- Trelegy held
Hyperbilirubinemia:
- total is 1.4 and trending down
- Consult outpatient GI
Essential Hypertension:
-Lopressor as needed with holding parameters
Monitor blood glucose levels on tube feeds
Discontinue Enrique's
DVT:
- Currently on SCD's, platelet count too low for lovenox/heparin
Subjective Dataa
Subjective Data
Date of Service:
Date of Service: February 27, 2024
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
Subjective:
No acute overnight events.
Patient is lethargic and I am not able to elicit if he has any acute medical complaints.
Patient is on tube feeds and FMS.
Review of Systems
General: Other (Patient is lethargic and unable to provide history)
Objective Data
Data Reviewed
Vital Signs / I&O / Oxygen:
Vital Signs
Temp Pulse Resp BP Pulse Ox
97.6 F 70 15 109/54 94
02/27/24 11:15 02/27/24 11:24 02/27/24 11:24 02/27/24 11:00 02/27/24 11:24
Intake and Output
02/26/24 02/27/24 02/28/24
06:59 06:59 06:59
Intake Total 1060 / 1060 1615 / 1690 425 / 425
Output Total 1570 / 1600 1765 / 1765
Balance -510 / -540 -150 / -75 425 / 425
SaO2 [CPAP/PSV] 100
SaO2 [A/C] 100
SaO2 94
Nasal Cannula flow liters per 3
minute
Physical Exam
General: Respiratory Distress (negative), Chills (negative) and Sweats (negative)
HEENT: Normocephalic, Other (Scleral icterus bilateral) and Other (ETT in place)
Cardiovascular: Regular Rhythm, Murmur (negative) and Peripheral Edema (negative)
Respiratory: Clear and Non-Labored Respirations
GI: Soft, Non Distended and Normal Bowel Sounds
Neurology: Awake, Alert, No Motor Deficits, Tremors (negative), Other (Pupils 1 mm bilaterally - brisk; intact corneal reflex, intact gag) and Other (Not following commands; occasionally agitated)
Skin: Warm, Good Color, Cyanosis (n), Jaundice (n) and Rash (n)
Labs/Micro/Reports
Lab Data
02/27/24 04:11
Microbiology
02/24/24 09:40 Blood/Venous Blood Culture - Preliminary
No Growth in 72 hours- Final report to follow
02/22/24 08:59 Blood/Venous Blood Culture - Final
No Growth - Final Report
02/24/24 11:17 Sputum Respiratory Culture - Final
Enterobacter cloacae
02/24/24 11:17 Sputum Gram Stain - Final
02/23/24 08:52 Endotracheal Respiratory Culture - Final
Escherichia coli
Mica albicans
02/23/24 08:52 Endotracheal Gram Stain - Final
02/23/24 08:52 Nose MRSA Screen - Final
No Methicillin Resistant Staphylococcus aureus isolated.
02/24/24 08:34 Nasal Swab Influenza Types A & B (MARY) - Final
Negative for Influenza A & B, NAAT
Negative results must be combined with clinical observations
and patient history.
Nucleic Acid Amplification test (NAAT)performed on the
[employer] platform.
--- NOTE | 2024-02-27 12:00 | PTCARENOTE ---
more alert and follows commands on occasions, otherwise assessments remain unchanged , pt is now IMU level of care , pt for repeat HH at 1800
--- NOTE | 2024-02-27 12:54 | W.PN.HOSP.TC ---
Today's Communication/Plan
-
Tx to IMU
Assessment / Plan
Assessment / Plan
Acute metabolic encephalopathy
-Suspected hepatic encephalopathy. Improving ammonia ,down to 15. Continue with lactulose and rifaximin- decrease frequency of lactulose..
- Improved and able to communicate some needs and follow some commands.
- Ongoing evaluation for toxic encephalopathy-evaluating ongoing fevers for source of infection-fevers have resolved.
Ventilator dependent respiratory failure
-s/p extubation 02/25
- On RA
Pancytopenia
-Counts are lower than admission likely chronic secondary to cirrhosis.
-Patient on thiamine and B12 supplementation at home.
- Hemocult NEG
- Follow counts ; aim HH>7.0 ,Plt>20
Cirrhosis
-No evidence of ascites on examination; currently on propranolol, Lasix held temporarily.
-Possible varices, no signs of active bleeding. Patient being followed by GI
-INR 1.5
PVT -unclear if acute or chronic. Discussed with GI-not an ideal candidate for anticoagulation with thrombocytopenia and varices. Hold on anticoagulation.
Febrile illness-unclear source ?pneumonia
-Bacteriuria? UTI but urine culture with growth is negative
-Currently on Ancef for aspiration pneumonia coverage.. ID following.
-Chest imaging including chest x-ray and CT chest shows interstitial lung disease but no obvious focal consolidation to suggest pneumonia.
- CT A/P 02/23 show mild central PVT but doubt the cause as blood cultures have been sterile.Images also picks up moderate airspace dz in LL and lingula along with moderate IPF. With elevated Procal will tx as possible infectious airspace dz
/pneumonia possibly aspiration. Ecoli and ginette in sputum . currently on Ceftriaxone-continue. Doubt ginette is pathogenic in this scenario -pt is not immune suppressed and no pulmonary nodules . BCX no fungemia.
- Neg COVID and influenza swab
-Patient afebrile. Blood pressure stable.
- Sputum cx noted -cw Ertapenem
Essential hypertension
- under goal
COPD
-DuoNebs
-No reactive airways .
Nutrition-continue the tube feeds; follow speech eval
Discussed with under sheriff
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
Full code/SCDs
Tx to IMU
Anticipated Discharge: > 48 hours
Subjective/Interval History
-
Date of Service: February 27, 2024
Status postextubation yesterday
Patient is mostly alert. Asking for chocolate. Still kind of grogy but no respiratory distress ,tachypnea nor hypoxic.
NG in place. In restraints.
Oriented to person and his .
Hard to converse due to his current mental status.
Objective Data
-
Labs:
Laboratory Results
02/27/24 02/27/24 02/27/24
04:11 04:12 11:49
WBC 3.2 L
Hgb 7.3 L
Hct 20.5 L*
Plt Count 38 L
HCO3 Cancelled
Sodium 139
Potassium 4.1
Chloride 112 H
Carbon Dioxide 27
BUN 17
Creatinine 0.6 L
Glucose 120 H
Calcium 7.7 L
02/27/24
18:00
WBC
Hgb Pending
Hct
Plt Count
HCO3
Sodium
Potassium
Chloride
Carbon Dioxide
BUN
Creatinine
Glucose
Calcium
Vital Signs:
Vital Signs
Temp Pulse Resp BP Pulse Ox
97.6 F 70 15 109/54 94
02/27/24 11:15 02/27/24 11:24 02/27/24 11:24 02/27/24 11:00 02/27/24 11:24
I&O
02/26/24 02/27/24 02/28/24
06:59 06:59 06:59
Intake Total 1060 / 1060 1615 / 1690 425 / 425
Output Total 1570 / 1600 1765 / 1765
Balance -510 / -540 -150 / -75 425 / 425
Review of Systems
-
Unable to obtain full review of systems at this time due to: Other (due to his mental status)
Physical Exam
-
General: Comfortable
Respiratory: Rhonchi and Non Labored Respirations (some oral secretions gurgling); Negative Accessory Resp Muscle Use
Cardiac: Regular Rhythm and S1/S2; Negative Tachycardic
GI: Soft, Nondistended and Normal Bowel Sounds
Neuro: Awake, Alert and Oriented (self )
Psych: Calm and Confused; Negative Agitated
Data Reviewed
-
Labs: Labs Reviewed by me
[2024-02-27 13:13] LABS: Glucose - Point of Care 140 mg/dl (70-99)
--- NOTE | 2024-02-27 13:14 | PN.CDI ---
CDI
- -
CDI:
Physician Documentation Request
Admit Date: 02/21/24 18:11
Dear Doctor Asa,
Please review the following and provide your response in the progress notes.
Clinical Indicators:
- 02/25 Rn skin assessments indicate Stage 2 coccyx pressure injury
Physician documentation of the type and location of wounds is required for compliant documentation. Based on the above clinical findings and your assessment, please provide the following in your progress note:
1. Location of the ulcer/wound, including laterality.
2. Type (etiology) of ulcer/wound:
- Diabetic ulcer
- Arterial (ischemic) ulcer
- Traumatic wound
- Venous stasis ulcer
- Pressure (decubitus) ulcer
- Non-healing surgical wound
- Other
- Unable to determine
Use of terms such as suspected, likely, concern for, or probable (associated with a specific diagnosis that is being evaluated, monitored, or treated as if it exists) are acceptable and can be coded in the inpatient setting, when documented at the
time of discharge.
Thank you,
Justyn Reeves RN
CDI Specialist
Please use your independent medical judgment in providing your response.
*Source: National Pressure Ulcer Advisory Panel (NPUAP)
--- NOTE | 2024-02-27 14:50 | CM ---
CM following re: discharge planning.
Discussed in Rounds, reviewed pt's chart, met with pt.
Pt is on room air, continue supportive care.
PT and OT evaluations pending.
D/C plan: return back to [facility] for a short term and transition to a LTC.
CM will follow with discharge plan updates as hospitalization progresses
--- NOTE | 2024-02-27 15:24 | W.PN.GI.CBS2 ---
Today's Communication / Plan
-
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 MELD - 14. AFP -0.96 (Thrombocytopenia, anemia, hypoalbuminemia)
hepatic encephalopathy, possibly infectious trigger, no evidence of SBP.
Currently on antibiotics for possible pneumonia.
Continue lactulose 20 g 3 times a day and Xifaxan 550 mg twice a day for management of hepatic encephalopathy.
If significant diarrhea, could cut back on the lactulose to twice a day.
Continue to monitor I/O and electrolytes, replete as needed.
-Noted drop in hemoglobin without any evidence of overt bleeding. Will monitor H&H closely.
-CT scan with minimal ascites, diuretic on hold but question of possible portal vein thrombus.
Abdominal Doppler ultrasound inconclusive for portal vein thrombus-will be high risk for bleeding with anticoagulation given history of esophageal varices.
History of esophageal varices status post banding, continue PPI, currently on propranolol.
Will need repeat EGD as outpatient.
He will need outpatient hepatology follow-up after this hospitalization. Patient known to GI at [facility].
Currently getting Dobbhoff feeds but once mental status improves, speech evaluation followed by oral feeds.
Will follow
Assessment / Plan
-
Pt is a 74yo with hx COPD cirrhosis-- Etiology ? ETOH per family but quit in 2011. He was diagnosed around the time he quit ETOH in 2011 and has had several variceal GI bleeds with banding in past. Per significant other pt was not compliant with
follow up over the years. Over last 6 months he has had fatigue and some change in mental status then was admitted with fever and hepatic encephalopathy about a month ago to [facility] then transferred to [facility]. He
did have another hospital admission and recently admitted to [facility] about 1 week ago. He now presents to for change in mental status with ammonia of 128 with low grade fever 100.7 with possible PNA and hypotension
requiring BP support. He was intubated after admission. On admission pt with hbg 11.8, platelet 106 with drop to 72,000, INR 1.42, albumin 2.1, bili 2.3, AST 45, ALT 32, alk phos 84, and ammonia 117.
02/22/24 Limited US abdomen Examination is technically difficult with very poor acoustic windows. Limited examination.
Sludge throughout most of the gallbladder. The gallbladder is distended. The bladder wall appears mildly thickened, nonspecific.
Common bile duct is unable to be visualized. The liver is not adequately visualized.
Splenomegaly. Tortuous dilated veins adjacent to the splenic hilum.
The pancreas is unable to be visualized. The right kidney is unable to be visualized.
Simple cyst in the central upper to mid left kidney.
Of note, the patient does have an estimated GFR of greater than 60. If the patient can cooperate for CT examination, a contrast-enhanced CT of the abdomen and pelvis could be considered to assess for portal vein thrombosis.
02/22/24 CT Chest/abd/pel Wo Iv Cont
IMPRESSION: Endotracheal tube tip is low, at the level the slime, directed toward the right mainstem bronchus.
Changes of moderate to severe interstitial fibrosis with basilar significant honeycombing. No significant pleural fluid bilaterally.
Cirrhotic liver.
Diffuse subcutaneous edema/anasarca. Small to moderate amount of free fluid within the pelvis.
No evidence of free intraperitoneal air.
Mild compression deformities of the T8 and T11 vertebral bodies, age uncertain.
Evaluation of the abdomen and pelvis somewhat limited by lack of GI luminal contrast and the lack of IV contrast.
02/2124- CT a/P IV and oral-IMPRESSION: Findings suggesting bibasilar pneumonia. New Moderate pulmonary fibrosis. Stable Findings consistent with cirrhosis. StableMild portal vein thrombosis. Difficult to compare considering the prior study was
without IV contrast. This was communicated to Dr. Bray via tiger text all on 02/24/2024 Too small to characterize hypodense splenic lesion likely small cyst or hemangioma. Stable Mild splenomegaly. Stable Gallbladder distention. Stable. May be
benign gallbladder hydrops. Too small to characterize hypodense right renal lesion likely a benign cyst. Stable Mild abdominopelvic ascites. Progressed Findings suggesting volume overload or third spacing. Progressed Enrique catheter in bladder.
Rectal catheter
-change in mental status with concern for hepatic encephalopathy with elevated ammonia level-- first admit to but recent admit to [facility] with similar symptoms
-low grade fever- improved with + resp cx 02/22 Ecoli/ginette, 02/23 Entereobacter colacea with concern for aspiration PNA
-resp insufficiency s/p intubation
-hypotension requiring pressors on admission now off
-hx dysphagia with recent speech eval per family
-cirrhosis - ? ETOH related but quit in 2011 with decompensation
-hx EV with bleeding several years ago with banding
-PVT per CT
-thrombocytopenia
-anemia
-hypoalbuminemia
-COPD/pulm HTN
PLAN:
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 MELD - 14. AFP -0.96 (Thrombocytopenia, anemia, hypoalbuminemia)
hepatic encephalopathy, possibly infectious trigger, no evidence of SBP.
Currently on antibiotics for possible pneumonia.
Continue lactulose 20 g 3 times a day and Xifaxan 550 mg twice a day for management of hepatic encephalopathy.
If significant diarrhea, could cut back on the lactulose to twice a day.
Continue to monitor I/O and electrolytes, replete as needed.
-Noted drop in hemoglobin without any evidence of overt bleeding. Will monitor H&H closely.
-CT scan with minimal ascites, diuretic on hold but question of possible portal vein thrombus.
Abdominal Doppler ultrasound inconclusive for portal vein thrombus-will be high risk for bleeding with anticoagulation given history of esophageal varices.
History of esophageal varices status post banding, continue PPI, currently on propranolol.
Will need repeat EGD as outpatient.
He will need outpatient hepatology follow-up after this hospitalization. Patient known to GI at [facility].
Currently getting Dobbhoff feeds but once mental status improves, speech evaluation followed by oral feeds.
Will follow
Subjective
Subjective
Date of Service: February 27, 2024
Patient arousable but not alert. No abdominal pain, multiple loose stool without blood. No fevers or chills.
Objective
Data Reviewed
Laboratory Data:
Laboratory Results
02/27/24 04:11
Laboratory Results
PT 18.6 Sec (11.4-14.6) H 02/26/24 04:08
INR 1.52 02/26/24 04:08
APTT 54.5 Sec (23.4-35.0) H 02/23/24 04:16
Phosphorus 2.3 mg/dl (2.5-4.5) L 02/25/24 03:15
Magnesium 2.0 mg/dl (1.6-2.3) 02/25/24 03:15
Total Bilirubin 1.4 mg/dl (0.2-1.3) H 02/26/24 04:08
AST 45 U/L (17-59) 02/26/24 04:08
ALT 40 U/L (0-50) 02/26/24 04:08
Alkaline Phosphatase 161 U/L (38-126) H 02/26/24 04:08
Vital Signs and I&O:
Vital Signs
Temp Pulse Resp BP Pulse Ox
97.6 F 70 15 109/54 94
02/27/24 11:15 02/27/24 11:24 02/27/24 11:24 02/27/24 11:00 02/27/24 11:24
I&O
02/26/24 02/27/24 02/28/24
06:59 06:59 06:59
Intake Total 1060 / 1060 1615 / 1690 425 / 425
Output Total 1570 / 1600 1765 / 1765
Balance -510 / -540 -150 / -75 425 / 425
Physical Exam
Physical Exam
GI: Soft and Non Tender
[2024-02-27 17:53] LABS: Glucose - Point of Care 140 mg/dl (70-99)
[2024-02-27 18:10] LABS: Hemoglobin 8.1 g/dL (13.0-18.0)
[2024-02-27] MEDS: TYLENOL ORAL SOLUTION 650 MG TUBE (19:30)
--- NOTE | 2024-02-27 19:30 | PTCARENOTE ---
Patient received lying in bed with eyes closed, respirations non labored. Patient rouses easily to name called. His speech is wet and gurgly. He has a strong cough. Dobhoff left nare with Tube feeding infusing. Minimal residual. He is confused--he
thinks he is in [place] and it is [id number]. Reoriented as needed. He c/o R shoulder and generalized abdominal discomfort, more RUQ. Tylenol given for pain. Fecal management system in place, patent and draining loose brown yellow stool. Bilateral
pedal edema 2+, pedal pulses palpable. SCDs in place. Bilateral soft wrist restraints as well as bilateral mitts in place. Circulation and sensation checked every 2 hours with ROM. Restraints checked and retied. S1S2 regular with positive murmur. SR
with BBB on CM. BBS with faint crackles scattered t/o. Saturating 97% on RA. BUEs with marked scattered ecchymosis and border foam dressings CDI. Mouth is very dry, tongue is cracked. Oral care given with mouth moisturizer, ointment to lips, teeth
brushed. Repositioned every 2 hours. See assessment charted.
[2024-02-27 23:40] LABS: Glucose - Point of Care 131 mg/dl (70-99)
[2024-02-28] VITALS (19 sets, daily range): BP systolic 97–127; BP diastolic 57–68; PULSE 60–65; O2SAT 98; BMI 20.4
[2024-02-28] MEDS: TYLENOL ORAL SOLUTION 650 MG TUBE (01:20)
[2024-02-28] MEDS: ZINC OXIDE OINTMENT 1 APPLIC TOPICAL (01:23)
[2024-02-28 04:48] LABS: % Basophils 0.3 % (0-2); % Eosinophils 4.5 % (0-6); % Lymphocytes 19.2 % (20.5-51.1); % Monocytes 12.2 % (1.7-9.3); % Neutrophils 62.8 % (42.2-75.2); Absolute Eosinophils 0.1 10^3/uL (0-0.7); Absolute Lymphocytes 0.6 10^3/uL (1.2-3.4); Absolute Monocytes 0.4 10^3/uL (0.1-0.6); Hematocrit 21.6 % (39.0-52.0); Hemoglobin 7.6 g/dL (13.0-18.0); Mean Corp Hgb Conc. 35.2 g/dL (33.0-37.0); Mean Corpuscular Hgb 34.4 pg (27.0-31.0); Mean Corpuscular Volume 97.7 fL (80.0-94.0); Mean Platelet Volume 10.5 fL (7.4-10.4); Nucleated Red Blood Cells % 0 % (-); Platelet Count 46 10^3/uL (130-400); Red Blood Cell Count 2.21 10^6/uL (4.70-6.10); Red Cell Dist. Width 18.4 % (11.5-14.5); White Blood Cell Count 3.1 10^3/uL (4.8-10.8)
[2024-02-28 05:09] LABS: Blood Urea Nitrogen 16 mg/dl (9-20); Calcium 7.6 mg/dl (8.4-10.2); Carbon Dioxide 27 mmol/L (22-30); Chloride 111 mmol/L (98-107); Estimated Creatinine Clearance 89 ml/min; Glucose 134 mg/dl (70-99); Sodium 140 mmol/L (135-145); eGFR > 60.00
[2024-02-28] MEDS: NOVOLOG FLEXPEN-MODERATE RESISTANCE SC ×2 (05:35→12:26)
[2024-02-28 05:45] LABS: Glucose - Point of Care 139 mg/dl (70-99)
--- NOTE | 2024-02-28 07:15 | PTCARENOTE ---
Report given verbally to ROBLES Lang assuming care. Questions answered.
--- NOTE | 2024-02-28 07:48 | W.PN.ID1 ---
Date of Service
Date of Service: February 28, 2024
Today's Communication
Continue ertapenem.
Assessment / Plan
Aspiration Pneumonia
-Cultures with Enterobacter cloacae, E. coli.
Obtundation/encephalopathy
Fever; improved
Elevated bilirubin
Elevated ammonia level
Anasarca
Anemia
Cirrhosis
Portal hypertension
Esophageal varices
Hx GI bleed
Encephalopathy
Chronic thrombocytopenia
HTN
COPD
Chronic anemia
IPF
Pulmonary hypertension
Recommendations:
Continue ertapenem (d#3)
Monitor white count temperature curve.
Continue with supportive measures.
Continue with rifaximin
����������������������������������������������������������
Chief Complaint
-: Pneumonia (due to E coli) and Other (Encephalopathy; fever)
Subjective / Review of Systems
Review of Systems: No Fever and No Chills
Vital Signs / Physical Exam
Vital Signs
Vital Signs
Temp Pulse Resp BP Pulse Ox
97.9 F 67 14 121/62 97
02/28/24 04:00 02/28/24 06:00 02/28/24 06:00 02/28/24 06:00 02/28/24 05:00
Physical Exam
Constitutional: No Acute Distress, Acutely Ill and Chronically Ill
Head: Other (Nasal Dobbhoff in place.)
Cardiovascular: Regular Rate and S1/S2
Pulmonary: Clear, Coarse and Non Labored; Negative Wheezes or Rales
Gastrointestinal: Soft, Non Tender, Non Distended, Normal Bowel Sounds and Other (FMS in place.)
Genito-Urinary: Negative Enrique
Skin: Warm and Dry; Negative Rash
Psychological: Confused and Agitated
Objective Data
Lab Data
Lab Results
02/28/24 04:25
02/28/24 04:25
PT 18.6 Sec (11.4-14.6) H 02/26/24 04:08
INR 1.52 02/26/24 04:08
APTT 54.5 Sec (23.4-35.0) H 02/23/24 04:16
Estimated Creat Clear 89 ml/min 02/28/24 04:25
Lactic Acid 1.8 mmol/L (0.7-2.0) 02/22/24 13:43
Total Bilirubin 1.4 mg/dl (0.2-1.3) H 02/26/24 04:08
GGT 29 U/L (15-73) 02/23/24 04:16
AST 45 U/L (17-59) 02/26/24 04:08
ALT 40 U/L (0-50) 02/26/24 04:08
Alkaline Phosphatase 161 U/L (38-126) H 02/26/24 04:08
Most recent labs reviewed.
Micro Results:
02/24/24 09:40 Blood Culture - Preliminary
Blood/Venous No Growth in 72 hours- Final report to follow
02/22/24 08:59 Blood Culture - Final
Blood/Venous No Growth - Final Report
02/24/24 11:17 Respiratory Culture - Final
Sputum Enterobacter cloacae
Gram Stain - Final
02/23/24 08:52 Respiratory Culture - Final
Endotracheal Escherichia coli
Mcia albicans
Gram Stain - Final
02/23/24 08:52 MRSA Screen - Final
Nose No Methicillin Resistant Staphylococcus aureus isolated.
02/24/24 08:34 Influenza Types A & B (MARY) - Final
Nasal Swab Negative for Influenza A & B, NAAT
Negative results must be combined with clinical observations
and patient history.
Nucleic Acid Amplification test (NAAT)performed on the
[employer] platform.
02/22/24 09:00 Urine Culture - Final
Urine NO GROWTH
Respiratory Culture Final 02/24/2024
Few Enterobacter cloacae
Few Usual Respiratory Annamarie
Organism 1 Enterobacter cloacae
1. Enterobacter cloacae
M.I.C. RX
--------- ---
Amoxicillin/Potas. Clavulanate >16/8 R
Ampicillin >16 R
Ampicillin/Sulbactam >16/8 R
Aztreonam 8 I
Cefazolin >16 R
Cefepime <=2 S
Ceftazidime >16 R
Ceftriaxone >2 R
Ertapenem <=0.5 S
Ciprofloxacin <=0.25 S
Gentamicin <=2 S
Meropenem <=1 S
Piperacillin/Tazobactam 32 I
Tetracycline <=4 S
Tobramycin <=2 S
Trimethoprim/Sulfamethoxazole <=2/38 S
.

.
Respiratory Culture Final
02/23/24
Moderate Escherichia coli
Moderate Presumptive Mica albicans
Few Usual Respiratory Annamarie
Organism 1 Escherichia coli
1. Escherichia coli
M.I.C. RX
--------- ---
Amoxicillin/Potas. Clavulanate <=8/4 S
Ampicillin <=8 S
Ampicillin/Sulbactam <=4/2 S
Aztreonam <=4 S
Cefazolin <=2 S
Ertapenem <=0.5 S
Ciprofloxacin <=0.25 S
Gentamicin <=2 S
Meropenem <=1 S
Piperacillin/Tazobactam <=8 S
Tetracycline <=4 S
Tobramycin <=2 S
Trimethoprim/Sulfamethoxazole <=2/38 S
Imaging:
02/26/2024 CXR (portable): Bilateral interstitial prominence is again seen, most likely chronic and stable. Low lung volumes are noted.
02/22/2024 CT chest/abdomen/pelvis without contrast: ET tube at the level of the slime. Changes of moderate to severe interstitial fibrosis with basilar significant honeycombing. No significant pleural fluid noted. Liver is cirrhotic. There is
diffuse subcutaneous edema/anasarca. Small to moderate amount of free fluid within the pelvis. No evidence of free intraperitoneal air. Please see full dictation for additional detail.
[2024-02-28] MEDS: INDERAL 20 MG PO (07:50)
[2024-02-28] MEDS: LIDOCAINE 4% PATCH 1 PATCH TOPICAL (07:53)
[2024-02-28] MEDS: PROTONIX IV 40 MG IV (07:53)
[2024-02-28] MEDS: NSS (PRESERVATIVE FREE) 10 ML IV (07:53)
[2024-02-28] MEDS: DUPHALAC/CHRONULAC 20 GRAMS TUBE ×3 (07:53→20:03)
[2024-02-28] MEDS: XIFAXAN 550 MG TUBE ×2 (07:54→20:03)
[2024-02-28] MEDS: PEPCID 20 MG TUBE ×2 (07:54→20:03)
[2024-02-28] MEDS: PULMICORT 0.5 MG INH ×2 (08:04→19:48)
[2024-02-28] MEDS: INVANZ 60 MG IV (09:27)
--- NOTE | 2024-02-28 09:29 | W.PN.HOSP.TC ---
Addendum entered and electronically signed by Osvaldo Bray MD 02/28/24 14:34:
Stage 2 coccyx pressure injury -cw wound care and off loading
Original Note:
Today's Communication/Plan
-
see plan above
Assessment / Plan
Assessment / Plan
Acute metabolic encephalopathy
-Suspected hepatic encephalopathy. Improving ammonia ,down to 15. Continue with lactulose and rifaximin- decrease frequency of lactulose..
- Improved encephalopathy. Communicative and follows commands.
Ventilator dependent respiratory failure
-s/p extubation 02/25
- On RA
Pancytopenia
-Counts are lower than admission likely chronic secondary to cirrhosis.
-Patient on thiamine and B12 supplementation at home.
- Hemocult NEG
- Follow counts ; aim HH>7.0 ,Plt>20
Cirrhosis
-No evidence of ascites on examination; currently on propranolol, Lasix held temporarily.
-Possible varices, no signs of active bleeding. Patient being followed by GI
-INR 1.5
PVT -unclear if acute or chronic. Discussed with GI-not an ideal candidate for anticoagulation with thrombocytopenia and varices. Hold on anticoagulation.
Febrile illness-unclear source ?pneumonia
-Bacteriuria? UTI but urine culture with growth is negative
-Currently on Ancef for aspiration pneumonia coverage.. ID following.
-Chest imaging including chest x-ray and CT chest shows interstitial lung disease but no obvious focal consolidation to suggest pneumonia.
- CT A/P 02/23 show mild central PVT but doubt the cause as blood cultures have been sterile.Images also picks up moderate airspace dz in LL and lingula along with moderate IPF. With elevated Procal will tx as possible infectious airspace dz
/pneumonia possibly aspiration. Ecoli and ginette in sputum . currently on Ceftriaxone-continue. Doubt ginette is pathogenic in this scenario -pt is not immune suppressed and no pulmonary nodules . BCX no fungemia.
- Neg COVID and influenza swab
-Patient afebrile. Blood pressure stable.
- Sputum cx noted -now on ertapenem.
ID following
Essential hypertension
- under goal
COPD
-DuoNebs
-No reactive airways .
Nutrition-continue the tube feeds; follow speech eval. If cleared by speech we will start him on oral diet and remove the NG tube.
Right shoulder pain-obtain an x-ray
After speech eval discontinue restraints
Discussed with BINDING STITCHER
Transfer to telemetry
Anticipated Discharge: > 48 hours
Subjective/Interval History
-
Date of Service: February 28, 2024
Patient is much more alert. He is oriented to place, day, month but not the year..
His voice is stronger. No respiratory secretion evident. Seems to be in pain from the right shoulder but he couldnt tell me whether he had the shoulder issue before coming in or after. According to RN he might have had chronic right shoulder
issue.
Objective Data
-
Labs:
Laboratory Results
02/28/24
04:25
WBC 3.1 L
Hgb 7.6 L
Hct 21.6 L
Plt Count 46 L D
Sodium 140
Potassium 4.0
Chloride 111 H
Carbon Dioxide 27
BUN 16
Creatinine 0.5 L
Glucose 134 H
Calcium 7.6 L
Vital Signs:
Vital Signs
Temp Pulse Resp BP Pulse Ox
97.3 F 70 18 128/69 96
02/28/24 08:33 02/28/24 08:06 02/28/24 08:06 02/28/24 07:50 02/28/24 08:06
I&O
02/27/24 02/28/24 02/29/24
06:59 06:59 06:59
Intake Total 1615 / 1690 1999 / 1999
Output Total 1765 / 1765 1550 / 1550
Balance -150 / -75 450 / 450
Review of Systems
-
Respiratory: Denies Trouble Breathing
Cardiac: Denies Chest Pain
Abdomen/GI: Denies Abdominal Pain, Nausea or Vomiting
Neuro: Denies Headache
Physical Exam
-
General: Comfortable
Respiratory: Clear to Auscultation (Anteriorly) and Non Labored Respirations; Negative Accessory Resp Muscle Use
GI: Soft, Nontender and Nondistended
Musculoskeletal: Other (Pain in the right shoulder on movement. There is a lidocaine patch on the right shoulder area.)
Neuro: Awake, Alert, Oriented and Other (In restraints but no agitation)
Data Reviewed
-
Labs: Labs Reviewed by me
--- NOTE | 2024-02-28 10:40 | PTCARENOTE ---
pt awake and alert this morning , he is not as garbled with his speech today , he is unaware of recent events , he thinks he is in [place] , he was reoriented and is now aware of the date , he was given some ice chips and sips of water and
tolerated without problems , speech is consulted to eval for swallowing and plan as per Dr Bray is to DC Dobbhoff tube if able to eat , he is asking for urinal when he needs to void , NSR on monitor , BP adequate , on room air with sats of 98% , pt
is now transitioned to telemetry level of care , he tells me his shoulder pain is from an old dislocation , Dr Bray notified and pt to have a shoulder x-ray
--- NOTE | 2024-02-28 12:02 | PTOTSP ---
ST Acute Care Evaluation
Pt currently presents with clinical signs of suspected moderate pharyngeal dysphagia characterized by inadequate airway protection upon swallow initiation and/or upon regurgitation of material from the presence of the dobhoff tube. Pt is at an
increased risk for aspiration at this time due to his waxing and waning mental status and inconsistent command following.
Recommendations:
- STRICT NPO; no ARHP.
- All nutrition, hydration, and medications via dobhoff tube at this time.
- Aspiration precautions: HOB upright as often as possible; oral care at least QID - with moist swabs for xerostomia.
- CIRCULAR HEAD SAW OPERATOR to f/u re: re-assessment of pt's swallowing function to determine if pt is a candidate for re-initiation of an oral diet.
[2024-02-28 12:23] LABS: Glucose - Point of Care 106 mg/dl (70-99)
--- NOTE | 2024-02-28 14:25 | W.PN.GI.CBS2 ---
Today's Communication / Plan
-
C/w abx for aspiration pneumonia. Nutrition via DHT. Mental status slowly improving, repeat speech eval once mental status returns to baseline
Assessment / Plan
-
Pt is a 74yo with hx COPD cirrhosis-- Etiology ? ETOH per family but quit in 2011. He was diagnosed around the time he quit ETOH in 2011 and has had several variceal GI bleeds with banding in past. Per significant other pt was not compliant with
follow up over the years. Over last 6 months he has had fatigue and some change in mental status then was admitted with fever and hepatic encephalopathy about a month ago to [facility] then transferred to [facility]. He
did have another hospital admission and recently admitted to [facility] about 1 week ago. He now presents to for change in mental status with ammonia of 128 with low grade fever 100.7 with possible PNA and hypotension
requiring BP support. He was intubated after admission. On admission pt with hbg 11.8, platelet 106 with drop to 72,000, INR 1.42, albumin 2.1, bili 2.3, AST 45, ALT 32, alk phos 84, and ammonia 117.
-->02/22/24 Limited US abdomen Examination is technically difficult with very poor acoustic windows. Limited examination.
Sludge throughout most of the gallbladder. The gallbladder is distended. The bladder wall appears mildly thickened, nonspecific.
Common bile duct is unable to be visualized. The liver is not adequately visualized.
Splenomegaly. Tortuous dilated veins adjacent to the splenic hilum.
The pancreas is unable to be visualized. The right kidney is unable to be visualized.
Simple cyst in the central upper to mid left kidney.
Of note, the patient does have an estimated GFR of greater than 60. If the patient can cooperate for CT examination, a contrast-enhanced CT of the abdomen and pelvis could be considered to assess for portal vein thrombosis.
-->02/22/24 CT Chest/abd/pel Wo Iv Cont
IMPRESSION: Endotracheal tube tip is low, at the level the slime, directed toward the right mainstem bronchus.
Changes of moderate to severe interstitial fibrosis with basilar significant honeycombing. No significant pleural fluid bilaterally.
Cirrhotic liver.
Diffuse subcutaneous edema/anasarca. Small to moderate amount of free fluid within the pelvis.
No evidence of free intraperitoneal air.
Mild compression deformities of the T8 and T11 vertebral bodies, age uncertain.
Evaluation of the abdomen and pelvis somewhat limited by lack of GI luminal contrast and the lack of IV contrast.
-->02/2124- CT a/P IV and oral-IMPRESSION: Findings suggesting bibasilar pneumonia. New Moderate pulmonary fibrosis. Stable Findings consistent with cirrhosis. StableMild portal vein thrombosis. Difficult to compare considering the prior study was
without IV contrast. This was communicated to Dr. Bray via tiger text all on 02/24/2024 Too small to characterize hypodense splenic lesion likely small cyst or hemangioma. Stable Mild splenomegaly. Stable Gallbladder distention. Stable. May be
benign gallbladder hydrops. Too small to characterize hypodense right renal lesion likely a benign cyst. Stable Mild abdominopelvic ascites. Progressed Findings suggesting volume overload or third spacing. Progressed Enrique catheter in bladder.
Rectal catheter
-change in mental status with concern for hepatic encephalopathy with elevated ammonia level-- first admit to but recent admit to [facility] with similar symptoms
-low grade fever- improved with + resp cx 02/22 Ecoli/ginette, 02/23 Entereobacter colacea with concern for aspiration PNA, suspect etiology of current presentation/encephalopathy
-resp insufficiency s/p intubation
-hypotension requiring pressors on admission now off
-hx dysphagia with recent speech eval per family, repeat evaluation today noted to have severe oropharyngeal dysphagia, not cleared for diet, all nutrition via DHT however, concern that possibly his mental status was contributing.
-cirrhosis - ? ETOH related but quit in 2011 with decompensation
-hx EV with bleeding several years ago with banding
-PVT per CT
-thrombocytopenia
-anemia
-hypoalbuminemia
-COPD/pulm HTN
PLAN:
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 MELD - 14. AFP -0.96 (Thrombocytopenia, anemia, hypoalbuminemia)
hepatic encephalopathy, possibly infectious trigger, no evidence of SBP.
Currently on antibiotics for aspiration pneumonia.
Continue lactulose 20 g 3 times a day and Xifaxan 550 mg twice a day for management of hepatic encephalopathy.
If significant diarrhea, could cut back on the lactulose to twice a day.
Continue to monitor I/O and electrolytes, replete as needed.
-Noted drop in hemoglobin without any evidence of overt bleeding. He has a fecal management system, brown stool.
-CT scan with minimal ascites, diuretic on hold but question of possible portal vein thrombus.
-Abdominal Doppler ultrasound inconclusive for portal vein thrombus-will be high risk for bleeding with anticoagulation given history of esophageal varices.
History of esophageal varices status post banding, continue PPI, currently on propranolol.
Currently getting Dobbhoff feeds, not cleared for diet by speech due to aspiration risk. Imaging demonstrates diffuse subcutaneous edema as well as edema within the A/P c/w anasarca, small to moderate amount of free fluid within the pelvis. If he is
not cleared for diet when mental status returns to baseline, would be unable to place a PEG tube in presence of ascites.
Would recommend repeat speech eval once mental status returns to baseline (would ask family to to weigh in here).
He will need outpatient hepatology follow-up after this hospitalization. Patient known to GI at [facility]. Will need repeat EGD as outpatient.
Subjective
Subjective
Date of Service: February 28, 2024
Patient seen in follow-up at time of speech/swallow evaluation. Awake and alert, told me he was at [facility]. Respiratory cultures positive for enterobacter cloacae, e coli, currentnly on ertapenem, ID following. He was not cleared
for diet, noted to have moderate pharyngeal dysphagia and high aspiration risk, characterized by inadequate airway protection upon swallow initiation and/or upon regurgitation of material from the presence of the dobhoff tube.
Objective
Data Reviewed
Laboratory Data:
Laboratory Results
02/28/24 04:25
02/28/24 04:25
Laboratory Results
PT 18.6 Sec (11.4-14.6) H 02/26/24 04:08
INR 1.52 02/26/24 04:08
APTT 54.5 Sec (23.4-35.0) H 02/23/24 04:16
Phosphorus 2.3 mg/dl (2.5-4.5) L 02/25/24 03:15
Magnesium 2.0 mg/dl (1.6-2.3) 02/25/24 03:15
Total Bilirubin 1.4 mg/dl (0.2-1.3) H 02/26/24 04:08
AST 45 U/L (17-59) 02/26/24 04:08
ALT 40 U/L (0-50) 02/26/24 04:08
Alkaline Phosphatase 161 U/L (38-126) H 02/26/24 04:08
Vital Signs and I&O:
Vital Signs
Temp Pulse Resp BP Pulse Ox
97.9 F 60 17 116/59 98
02/28/24 10:28 02/28/24 13:00 02/28/24 13:00 02/28/24 12:00 02/28/24 10:28
I&O
02/27/24 02/28/24 02/29/24
06:59 06:59 06:59
Intake Total 1615 / 1690 1999 / 2074 450 / 450
Output Total 1765 / 1765 1550 / 1550 250 / 250
Balance -150 / -75 450 / 525 200 / 200
Physical Exam
Physical Exam
GI: Soft and Non Tender
--- NOTE | 2024-02-28 17:04 | PTCARENOTE ---
Rec'd pt at approx 1300. Pt alert and awake, confused conversation. Follows simple commands, GALVEZ. Monitor SR. ~1500 pt found in room with legs over siderails, DHT was pulled out. Mitts reapplied, new DHT inserted awaiting PCXR confirmation. Voided
elvira urine via urinal. FMS in place, pericare performed for leakage, linens changed. [facility].
--- NOTE | 2024-02-28 18:06 | PTCARENOTE ---
DHT with +placement, tube feeds restarted.
[2024-02-28] MEDS: INDERAL PO (19:59)
--- NOTE | 2024-02-28 20:00 | PTCARENOTE ---
rec`d pt at 1900 resting in bed. pt yelling out saying that he needs to go to the bank. pt reoriented. mitt restraints on pt as ordered. SR on monitor. HR in the 60s. afebrile. RA. left nare dobhoff with tube feed. jevity 1.5. asked pt if he needs
to use the urinal, pt denies. sacral foam in place. rt double luman picc in place. call garcia in reach, safe environment maintained.
[2024-02-29] VITALS (7 sets, daily range): BP systolic 104–129; BP diastolic 53–72; BMI 20.3
[2024-02-29] MEDS: TYLENOL ORAL SOLUTION 650 MG TUBE ×3 (03:02→18:46)
[2024-02-29 03:29] LABS: Hematocrit 25.9 % (39.0-52.0); Hemoglobin 8.7 g/dL (13.0-18.0); Mean Corp Hgb Conc. 33.6 g/dL (33.0-37.0); Mean Corpuscular Hgb 34.4 pg (27.0-31.0); Mean Corpuscular Volume 102.4 fL (80.0-94.0); Mean Platelet Volume 9.6 fL (7.4-10.4); Platelet Count 70 10^3/uL (130-400); Red Blood Cell Count 2.53 10^6/uL (4.70-6.10); Red Cell Dist. Width 18.9 % (11.5-14.5); White Blood Cell Count 4.2 10^3/uL (4.8-10.8)
[2024-02-29] MEDS: PULMICORT 0.5 MG INH ×2 (07:29→20:15)
--- NOTE | 2024-02-29 08:00 | W.PN.HOSP.TC ---
Today's Communication/Plan
-
Speech eval and if he passes started on oral diet.
Continue with current treatments.
Transfer to [facility]
Assessment / Plan
Assessment / Plan
Acute metabolic encephalopathy
- Suspected hepatic encephalopathy. Improving ammonia ,came down to 15. Continue with lactulose and rifaximin ..
- Improved encephalopathy. Communicative and follows commands.
Ventilator dependent respiratory failure
-s/p extubation 02/25
- On RA
Pancytopenia
- Counts are lower than admission likely chronic secondary to cirrhosis.
- Patient on thiamine and B12 supplementation at home.
- Hemocult NEG
- Follow counts ; aim HH>7.0 ,Plt>20
Cirrhosis
-No evidence of ascites ; currently on propranolol, Lasix held temporarily.
-Possible varices, no signs of active bleeding. Patient being followed by GI
PVT -unclear if acute or chronic. Discussed with GI-not an ideal candidate for anticoagulation with thrombocytopenia and varices. Hold on anticoagulation.
Febrile illness-unclear source ?pneumonia
- Chest imaging including chest x-ray and CT chest shows interstitial lung disease but no obvious focal consolidation to suggest pneumonia on initial scan.
- CT A/P 02/23 show mild central PVT but doubt the cause as blood cultures have been sterile.Images also picks up moderate airspace dz in LL and lingula along with moderate IPF. With elevated Procal, will tx as possible infectious airspace dz
/pneumonia possibly aspiration. Ecoli and ginette in sputum . Doubt ginette is pathogenic in this scenario -pt is not immune suppressed and no pulmonary nodules . BCX no fungemia.
- Neg COVID and influenza swab
- Patient afebrile. Blood pressure stable.
- Sputum cx noted -now on ertapenem.
ID following
Essential hypertension
- under goal
COPD
-DuoNebs
-No reactive airways .
Nutrition-continue the tube feeds; follow speech eval. If cleared by speech we will start him on oral diet and remove the NG tube.
Right shoulder pain-no evidence of fracture or dislocation. Postoperative changes within the glenoid/scapula noted. 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 Continue with symptomatic treatments.
Txt to med surg
Anticipated Discharge: 24 - 48 hours
Subjective/Interval History
-
Date of Service: February 29, 2024
Patient is mentating adequately. He is alert. He is oriented to self. Last night apparently he was confused. No agitation evident this morning.
Denies any shortness of breath or chest pain.
Denies any nausea vomiting or abdominal pain. He still with NG tube because he did not pass swallow eval yesterday.
Objective Data
-
Labs:
Laboratory Results
02/29/24
03:20
WBC 4.2 L
Hgb 8.7 L
Hct 25.9 L
Plt Count 70 L D
Vital Signs:
Vital Signs
Temp Pulse Resp BP Pulse Ox
98.4 F 59 18 115/72 100
02/29/24 05:13 02/29/24 07:32 02/29/24 07:32 02/29/24 04:00 02/29/24 07:32
I&O
02/28/24 02/29/24 03/01/24
06:59 06:59 06:59
Intake Total 1999 480 / 480
Output Total 1550 / 1550 1550 / 1550
Balance 450 / 525 -1070 / -1070
Review of Systems
-
Constitutional: Denies Fever or Chills
EENT: Denies Sore Throat
Respiratory: Denies Cough
Abdomen/GI: Denies Abdominal Pain
Neuro: Denies Dizzy
Physical Exam
-
General: No Apparent Distress
Respiratory: Clear to Auscultation (anteriolry) and Non Labored Respirations; Negative Accessory Resp Muscle Use
Cardiac: Regular Rhythm and S1/S2; Negative Tachycardic
GI: Soft and Nontender
Neuro: Awake, Alert and Oriented
Psych: Calm and Confused; Negative Agitated
Data Reviewed
-
Labs: Labs Reviewed by me
[2024-02-29] MEDS: LIDOCAINE 4% PATCH 1 PATCH TOPICAL (08:28)
[2024-02-29] MEDS: DUPHALAC/CHRONULAC 20 GRAMS TUBE ×3 (08:31→20:47)
[2024-02-29] MEDS: PEPCID 20 MG TUBE ×2 (08:32→20:49)
[2024-02-29] MEDS: INDERAL 20 MG PO (08:32)
[2024-02-29] MEDS: XIFAXAN 550 MG TUBE ×2 (08:33→20:49)
[2024-02-29] MEDS: NSS (PRESERVATIVE FREE) 10 ML IV (08:33)
[2024-02-29] MEDS: PROTONIX IV 40 MG IV (08:33)
[2024-02-29] MEDS: INVANZ 60 MG IV (09:49)
--- NOTE | 2024-02-29 10:05 | W.PN.ID1 ---
Date of Service
Date of Service: February 29, 2024
Today's Communication
Continue ertapenem.
Assessment / Plan
Aspiration Pneumonia
-Cultures with Enterobacter cloacae, E. coli.
Obtundation/encephalopathy
Fever; improved
Elevated bilirubin
Elevated ammonia level
Anasarca
Anemia
Cirrhosis
Portal hypertension
Esophageal varices
Hx GI bleed
Encephalopathy
Chronic thrombocytopenia
HTN
COPD
Chronic anemia
IPF
Pulmonary hypertension
Recommendations:
Continue ertapenem (d#4)
Monitor white count temperature curve.
Continue with supportive measures.
Continue with rifaximin
����������������������������������������������������������
Chief Complaint
-: Pneumonia (due to E coli) and Other (Encephalopathy; fever)
Subjective / Review of Systems
Patient seen and examined. No specific changes overnight.
Vital Signs / Physical Exam
Vital Signs
Vital Signs
Temp Pulse Resp BP Pulse Ox
97.7 F 81 18 106/67 100
02/29/24 08:00 02/29/24 08:32 02/29/24 08:00 02/29/24 08:32 02/29/24 07:32
Physical Exam
Constitutional: No Acute Distress, Acutely Ill and Chronically Ill
Head: Other (Nasal Dobbhoff in place.)
Cardiovascular: Regular Rate and S1/S2
Pulmonary: Clear, Coarse and Non Labored; Negative Wheezes or Rales
Gastrointestinal: Soft, Non Tender, Non Distended, Normal Bowel Sounds and Other (FMS in place.)
Genito-Urinary: Negative Enrique
Skin: Warm and Dry; Negative Rash
Neurological: Other (Resting comfortably.)
Objective Data
Lab Data
Lab Results
02/29/24 03:20
02/28/24 04:25
PT 18.6 Sec (11.4-14.6) H 02/26/24 04:08
INR 1.52 02/26/24 04:08
APTT 54.5 Sec (23.4-35.0) H 02/23/24 04:16
Estimated Creat Clear 89 ml/min 02/28/24 04:25
Lactic Acid 1.8 mmol/L (0.7-2.0) 02/22/24 13:43
Total Bilirubin 1.4 mg/dl (0.2-1.3) H 02/26/24 04:08
GGT 29 U/L (15-73) 02/23/24 04:16
AST 45 U/L (17-59) 02/26/24 04:08
ALT 40 U/L (0-50) 02/26/24 04:08
Alkaline Phosphatase 161 U/L (38-126) H 02/26/24 04:08
Most recent labs reviewed.
Micro Results:
02/24/24 09:40 Blood Culture - Final
Blood/Venous No Growth - Final Report
02/22/24 08:59 Blood Culture - Final
Blood/Venous No Growth - Final Report
02/24/24 11:17 Respiratory Culture - Final
Sputum Enterobacter cloacae
Gram Stain - Final
02/23/24 08:52 Respiratory Culture - Final
Endotracheal Escherichia coli
Mica albicans
Gram Stain - Final
02/23/24 08:52 MRSA Screen - Final
Nose No Methicillin Resistant Staphylococcus aureus isolated.
02/24/24 08:34 Influenza Types A & B (MARY) - Final
Nasal Swab Negative for Influenza A & B, NAAT
Negative results must be combined with clinical observations
and patient history.
Nucleic Acid Amplification test (NAAT)performed on the
[employer] platform.
02/22/24 09:00 Urine Culture - Final
Urine NO GROWTH
Respiratory Culture Final 02/24/2024
Few Enterobacter cloacae
Few Usual Respiratory Annamarie
Organism 1 Enterobacter cloacae
1. Enterobacter cloacae
M.I.C. RX
--------- ---
Amoxicillin/Potas. Clavulanate >16/8 R
Ampicillin >16 R
Ampicillin/Sulbactam >16/8 R
Aztreonam 8 I
Cefazolin >16 R
Cefepime <=2 S
Ceftazidime >16 R
Ceftriaxone >2 R
Ertapenem <=0.5 S
Ciprofloxacin <=0.25 S
Gentamicin <=2 S
Meropenem <=1 S
Piperacillin/Tazobactam 32 I
Tetracycline <=4 S
Tobramycin <=2 S
Trimethoprim/Sulfamethoxazole <=2/38 S
.

.
Respiratory Culture Final
02/23/24
Moderate Escherichia coli
Moderate Presumptive Mica albicans
Few Usual Respiratory Annamarie
Organism 1 Escherichia coli
1. Escherichia coli
M.I.C. RX
--------- ---
Amoxicillin/Potas. Clavulanate <=8/4 S
Ampicillin <=8 S
Ampicillin/Sulbactam <=4/2 S
Aztreonam <=4 S
Cefazolin <=2 S
Ertapenem <=0.5 S
Ciprofloxacin <=0.25 S
Gentamicin <=2 S
Meropenem <=1 S
Piperacillin/Tazobactam <=8 S
Tetracycline <=4 S
Tobramycin <=2 S
Trimethoprim/Sulfamethoxazole <=2/38 S
Imaging:
02/26/2024 CXR (portable): Bilateral interstitial prominence is again seen, most likely chronic and stable. Low lung volumes are noted.
02/22/2024 CT chest/abdomen/pelvis without contrast: ET tube at the level of the slime. Changes of moderate to severe interstitial fibrosis with basilar significant honeycombing. No significant pleural fluid noted. Liver is cirrhotic. There is
diffuse subcutaneous edema/anasarca. Small to moderate amount of free fluid within the pelvis. No evidence of free intraperitoneal air. Please see full dictation for additional detail.
--- NOTE | 2024-02-29 12:02 | PTOTSP ---
ST Follow-Up
Pt continues to present with clinical signs consistent with suspected moderately-severer oropharyngeal dysphagia characterized by reduced oral control with suspected premature posterior loss into pharynx as well as inadequate airway protection as
evidenced by coughing and throat clearing with ingestion of ice chips, thin liquids via open cup, and pureed solids via tsp (more so with DHT present, for which these symptoms were more delayed in timing of their presentation).
Recommendations:
- Continue NPO status, including meds at this time. Would advise against replacing DHT until after VFSS has been completed.
- ARHP - ice chips, sparingly, with RN supervision.
- Aspiration precautions: HOB upright as often as possible; oral care QID.
- Video fluoroscopic swallow study (VFSS) to gather more information about pt's swallow function.
- MANUAL LATHE MACHINIST team to provide additional recommendations following completion of VFSS.
--- NOTE | 2024-02-29 15:05 | W.PN.GI.CBS2 ---
Today's Communication / Plan
-
dobhoff if fails speech evaluation
Assessment / Plan
-
Pt is a 74yo with hx COPD cirrhosis-- Etiology ? ETOH per family but quit in 2011. He was diagnosed around the time he quit ETOH in 2011 and has had several variceal GI bleeds with banding in past. Per significant other pt was not compliant with
follow up over the years. Over last 6 months he has had fatigue and some change in mental status then was admitted with fever and hepatic encephalopathy about a month ago to [facility] then transferred to [facility]. He
did have another hospital admission and recently admitted to [facility] about 1 week ago. He now presents to for change in mental status with ammonia of 128 with low grade fever 100.7 with possible PNA and hypotension
requiring BP support. He was intubated after admission. On admission pt with hbg 11.8, platelet 106 with drop to 72,000, INR 1.42, albumin 2.1, bili 2.3, AST 45, ALT 32, alk phos 84, and ammonia 117.
-->02/22/24 Limited US abdomen Examination is technically difficult with very poor acoustic windows. Limited examination.
Sludge throughout most of the gallbladder. The gallbladder is distended. The bladder wall appears mildly thickened, nonspecific.
Common bile duct is unable to be visualized. The liver is not adequately visualized.
Splenomegaly. Tortuous dilated veins adjacent to the splenic hilum.
The pancreas is unable to be visualized. The right kidney is unable to be visualized.
Simple cyst in the central upper to mid left kidney.
Of note, the patient does have an estimated GFR of greater than 60. If the patient can cooperate for CT examination, a contrast-enhanced CT of the abdomen and pelvis could be considered to assess for portal vein thrombosis.
-->02/22/24 CT Chest/abd/pel Wo Iv Cont
IMPRESSION: Endotracheal tube tip is low, at the level the slime, directed toward the right mainstem bronchus.
Changes of moderate to severe interstitial fibrosis with basilar significant honeycombing. No significant pleural fluid bilaterally.
Cirrhotic liver.
Diffuse subcutaneous edema/anasarca. Small to moderate amount of free fluid within the pelvis.
No evidence of free intraperitoneal air.
Mild compression deformities of the T8 and T11 vertebral bodies, age uncertain.
Evaluation of the abdomen and pelvis somewhat limited by lack of GI luminal contrast and the lack of IV contrast.
-->02/2124- CT a/P IV and oral-IMPRESSION: Findings suggesting bibasilar pneumonia. New Moderate pulmonary fibrosis. Stable Findings consistent with cirrhosis. StableMild portal vein thrombosis. Difficult to compare considering the prior study was
without IV contrast. This was communicated to Dr. Bray via tiger text all on 02/24/2024 Too small to characterize hypodense splenic lesion likely small cyst or hemangioma. Stable Mild splenomegaly. Stable Gallbladder distention. Stable. May be
benign gallbladder hydrops. Too small to characterize hypodense right renal lesion likely a benign cyst. Stable Mild abdominopelvic ascites. Progressed Findings suggesting volume overload or third spacing. Progressed Enrique catheter in bladder.
Rectal catheter
-change in mental status with concern for hepatic encephalopathy with elevated ammonia level-- first admit to but recent admit to [facility] with similar symptoms
-low grade fever- improved with + resp cx 02/22 Ecoli/ginette, 02/23 Entereobacter colacea with concern for aspiration PNA, suspect etiology of current presentation/encephalopathy
-resp insufficiency s/p intubation
-hypotension requiring pressors on admission now off
-hx dysphagia with recent speech eval per family, repeat evaluation today noted to have severe oropharyngeal dysphagia, not cleared for diet, all nutrition via DHT however, concern that possibly his mental status was contributing.
-cirrhosis - ? ETOH related but quit in 2011 with decompensation
-hx EV with bleeding several years ago with banding
-PVT per CT
-thrombocytopenia
-anemia
-hypoalbuminemia
-COPD/pulm HTN
PLAN:
Continue lactulose 20 g 3 times a day and Xifaxan 550 mg twice a day for management of hepatic encephalopathy and titrate for 2-3 soft bms
-Noted drop in hemoglobin without any evidence of overt bleeding. He has a fecal management system, brown stool.
-Speech evaluation and if fails then dobhoff
History of esophageal varices status post banding, continue PPI, currently on propranolol.
He will need outpatient hepatology follow-up after this hospitalization. Patient known to GI at [facility]. Will need repeat EGD as outpatient.
Subjective
Subjective
Date of Service: February 29, 2024
Pt for swallowing evaluation today. no distress
Objective
Data Reviewed
Laboratory Data:
Laboratory Results
02/29/24 03:20
02/28/24 04:25
Laboratory Results
PT 18.6 Sec (11.4-14.6) H 02/26/24 04:08
INR 1.52 02/26/24 04:08
APTT 54.5 Sec (23.4-35.0) H 02/23/24 04:16
Phosphorus 2.3 mg/dl (2.5-4.5) L 02/25/24 03:15
Magnesium 2.0 mg/dl (1.6-2.3) 02/25/24 03:15
Total Bilirubin 1.4 mg/dl (0.2-1.3) H 02/26/24 04:08
AST 45 U/L (17-59) 02/26/24 04:08
ALT 40 U/L (0-50) 02/26/24 04:08
Alkaline Phosphatase 161 U/L (38-126) H 02/26/24 04:08
Vital Signs and I&O:
Vital Signs
Temp Pulse Resp BP Pulse Ox
97.7 F 81 18 106/67 95
02/29/24 08:00 02/29/24 08:32 02/29/24 08:00 02/29/24 08:32 02/29/24 12:20
I&O
12/25/24 12/26/24 12/27/24
06:59 06:59 06:59
Intake Total 1999 480 / 480
Output Total 1550 / 1550 1550 / 1550
Balance 450 / 525 -1070 / -1070
Physical Exam
Physical Exam
GI: Soft and Non Distended
--- NOTE | 2024-02-29 15:38 | PTOTSP ---
Video Swallow Study
Summary: Patient presents with moderate oral and moderate-severe pharyngeal dysphagia. Patient had aspiration of multiple consistencies with varying sensation and effectiveness of cough. Significant retention noted as thickness increased which
patient sensed but could not fully clear with multiple swallows. Risk for aspiration over time with oral diet is elevated.
Recommend:
1. NPO consider replacing temporary non-oral means
2. Medications: via non-oral means and/or if without this, essential medications crushed in puree
3. Oral care 3x daily
4. Therapeutic trials of PO with LIQUEFACTION SUPERVISOR. Instruct in chin tuck maneuver. Consider repeat video swallow study after period of dysphagia therapy.
--- NOTE | 2024-02-29 16:40 | CM ---
Patient seen at bedside, NG tube in place, plan for patient to go to SNF when medically appropriate, will need updated clinicals sent via all scripts when patient medically appropriate. CM will continue to follow for discharge planning needs.
Plan; SNF
--- NOTE | 2024-02-29 17:00 | PTCARENOTE ---
Per MD request- small bore feeding tube reinserted via the L nare at the 65 cm atiya. Placement auscultated. Will obtain abd xray for placement.
--- NOTE | 2024-02-29 17:50 | W.PN.UPDATE ---
Update Note
Progress Note Update
ok to use dobhoff tube.
--- NOTE | 2024-02-29 20:00 | PTCARENOTE ---
rec`d pt at 1900 resting in bed. pt confused at baseline, current confused conversations. mitts restraints on pt as ordered. afebrile. RA. left nare dobhoff with tube feed. jevity 1.5 at goal. asked pt if he needs to use the urinal, pt denies.
sacral foam in place. rt double luman picc in place. call garcia in reach, safe environment maintained.
--- NOTE | 2024-02-29 20:00 | PTCARENOTE ---
rec`d pt at 1900 AAOx3 resting in bed. pt has garbled speech and expressive aphasia at baseline due to his history. rt side of face completely numb at baseline as well. pt`s at bedside. SR on monitor, [id number]. afebrile. NS going at 100
through a rt FA 20. left hand 22 placed. maxed high flow, POX 98%. rhonchi, coarse, crackles throughout. PEG tube in place, leaking every so often. new 4x4 gauze placed. sacrum blanchable red, q2 turns. call garcia in reach. safe environment
maintained.
[2024-02-29] MEDS: INDERAL PO (20:49)
--- NOTE | 2024-02-29 22:38 | PTCARENOTE ---
spoke to pts Paulina on the phone. updated her that the pt is resting and satting 98%.
[2024-03-01 00:36] LABS: Glucose - Point of Care 133 mg/dl (70-99)
[2024-03-01] MEDS: TYLENOL ORAL SOLUTION 650 MG TUBE ×4 (01:27→23:21)
[2024-03-01 03:36] VITALS: BP 114/57
[2024-03-01 03:43] LABS: Hematocrit 22.9 % (39.0-52.0); Hemoglobin 7.8 g/dL (13.0-18.0); Mean Corp Hgb Conc. 34.1 g/dL (33.0-37.0); Mean Corpuscular Hgb 34.1 pg (27.0-31.0); Mean Platelet Volume 9.6 fL (7.4-10.4); Platelet Count 72 10^3/uL (130-400); Red Blood Cell Count 2.29 10^6/uL (4.70-6.10); Red Cell Dist. Width 18.6 % (11.5-14.5); White Blood Cell Count 3.5 10^3/uL (4.8-10.8)
[2024-03-01 03:57] LABS: Blood Urea Nitrogen 16 mg/dl (9-20); Calcium 7.8 mg/dl (8.4-10.2); Carbon Dioxide 30 mmol/L (22-30); Chloride 114 mmol/L (98-107); Estimated Creatinine Clearance 90 ml/min; Glucose 127 mg/dl (70-99); Potassium 4.1 mmol/L (3.5-5.1); Sodium 145 mmol/L (135-145); Triglycerides 61 mg/dl (10-149); eGFR > 60.00
[2024-03-01 06:25] LABS: Glucose - Point of Care 119 mg/dl (70-99)
[2024-03-01] MEDS: PULMICORT 0.5 MG INH ×2 (07:24→19:24)
[2024-03-01 07:26] VITALS: BP 97/62
[2024-03-01 08:02] VITALS: BP 100/63
[2024-03-01] MEDS: LIDOCAINE 4% PATCH 1 PATCH TOPICAL ×2 (08:03→10:29)
[2024-03-01] MEDS: DUPHALAC/CHRONULAC 20 GRAMS TUBE ×3 (08:03→21:26)
--- NOTE | 2024-03-01 08:03 | W.PN.HOSP.TC ---
Today's Communication/Plan
-
transfer to med/surg
cont tube feeds via Dobhoff
Assessment / Plan
Assessment / Plan
pt is a 74 year old male
Acute metabolic (hepatic) encephalopathy--ammonia on admission 128 now down to 15 on 02/26/24--s/p lactulose enemas--now on oral lactulose and rifaximin--follows commands but impulsive
Ventilator dependent respiratory failure--intubated for airway protection--extubated 02/26/24--now on room air
Pancytopenia--chronic likely from cirrhosis--counts now lower than admission although platelet count improving from 46K on 02/28/24 to 72K today--heme neg--cont thiamine and B12 supps--GOAL HGB >7 and PLT > 20K
Cirrhosis--unclear cause--no ascites--propranolol and lasix with parameters--apprec GI
Portal Venous Thrombosis -unclear if acute or chronic--not an ideal candidate for anticoagulation with thrombocytopenia and varices. Hold on anticoagulation.
shock (POA) likely due to sepsis--likely aspiration pneumonia as pt failed speech eval AND VSE--on Dobhoff for feeds--resp cultures positive for E. coli, Mica (doubt pathogenic) and Enterobacter--apprec ID--OFF pressors--blood cultures
negative--Neg COVID and influenza swab--on ertapenem
Essential hypertension--cont meds with parameters
COPD--DuoNebs
Nutrition-continue the tube feeds; follow speech eval--not cleared for oral intake
Right shoulder pain--no evidence of fracture or dislocation. Postoperative changes within the glenoid/scapula noted. Severe DJD of the glenohumeral joint with findings of chronic rotator cuff pathology noted. Continue with symptomatic treatments
right hip pain--likely trochanteric bursitis (point tender over the bursa)--try lidoderm patch over right hip
PT/OT/speech
DVT proph--SCDs
code status -- FULL CODE
Anticipated Discharge: > 48 hours
Subjective/Interval History
-
Date of Service: March 01, 2024
pt trying to take SCDs off--c/o being hungry and right hip pain
Objective Data
-
Labs:
Laboratory Results
03/01/24
03:20
WBC 3.5 L
Hgb 7.8 L
Hct 22.9 L
Plt Count 72 L
Sodium 145
Potassium 4.1
Chloride 114 H
Carbon Dioxide 30
BUN 16
Creatinine 0.6 L
Glucose 127 H
Calcium 7.8 L
Vital Signs:
max temp for 24 hours
02/29/24
23:15
Temp 97.7 F
Vital Signs
Temp Pulse Resp BP Pulse Ox
98 F 29 22 114/57 98
03/01/24 07:43 03/01/24 07:31 03/01/24 07:31 03/01/24 03:36 03/01/24 07:31
I&O
02/29/24 03/01/24 03/02/24
06:59 06:59 06:59
Intake Total 480 / 480 405 / 405
Output Total 1550 / 1550 1900 / 1900
Balance -1070 / -1070 -1495 / -1495
Review of Systems
-
All other systems: Reviewed and negative
Musculoskeletal: Reports Joint Pain (right hip)
Physical Exam
-
General: Appears Chronically Ill and Cachectic
HEENT: Normocephalic, Atraumatic and Other (Dobhoff tube in place)
Respiratory: Crackles (coarse )
Cardiac: Regular Rhythm and S1/S2; Negative Murmur
GI: Soft, Nontender, Nondistended and Normal Bowel Sounds
Musculoskeletal: No Clubbing, No Cyanosis, No Edema and Other (point tenderness over burse of right lateral hip)
Neuro: Awake and Alert
Psych: Calm
[2024-03-01] MEDS: INDERAL PO ×2 (08:04→21:31)
[2024-03-01] MEDS: PEPCID 20 MG TUBE ×2 (08:07→20:04)
[2024-03-01] MEDS: XIFAXAN 550 MG TUBE ×2 (08:07→20:04)
[2024-03-01] MEDS: PROTONIX IV 40 MG IV (08:07)
[2024-03-01] MEDS: NSS (PRESERVATIVE FREE) 10 ML IV (08:07)
[2024-03-01] MEDS: INVANZ 60 MG IV (10:30)
--- NOTE | 2024-03-01 10:36 | W.PN.ID1 ---
Date of Service
Date of Service: March 01, 2024
Today's Communication
Continue current course of ertapenem to completion. See below�
Assessment / Plan
Aspiration Pneumonia
-Cultures with Enterobacter cloacae, E. coli.
Obtundation/encephalopathy
Fever; improved
Elevated bilirubin
Elevated ammonia level
Anasarca
Anemia
Cirrhosis
Portal hypertension
Esophageal varices
Hx GI bleed
Encephalopathy
Chronic thrombocytopenia
HTN
COPD
Chronic anemia
IPF
Pulmonary hypertension
Recommendations:
Continue ertapenem (d#5) to complete a 7 day course total.
Continue with supportive measures.
Continue with rifaximin
Little more to offer at this point from a Infectious Disease standpoint.
Will see again at your request.
����������������������������������������������������������
Chief Complaint
-: Pneumonia (due to E coli) and Other (Encephalopathy; fever)
Subjective / Review of Systems
Patient seen and examined. Appears more awake today. Discussed with nursing; patient failed video swallowing study.
Review of Systems: No Fever
Vital Signs / Physical Exam
Vital Signs
Vital Signs
Temp Pulse Resp BP Pulse Ox
98 F 59 22 100/63 98
03/01/24 07:43 03/01/24 08:04 03/01/24 07:31 03/01/24 08:04 03/01/24 07:31
Physical Exam
Constitutional: No Acute Distress, Acutely Ill and Chronically Ill
Head: Other (Nasal Dobbhoff in place.)
Eyes: Sclera Anicteric
Cardiovascular: Regular Rate and S1/S2; Negative S3/S4
Pulmonary: Clear, Coarse and Non Labored; Negative Wheezes or Rales
Gastrointestinal: Soft, Non Tender, Non Distended, Normal Bowel Sounds and Other (FMS in place.)
Genito-Urinary: Negative Enrique
Skin: Warm and Dry; Negative Rash
Neurological: Other (Resting comfortably.)
Objective Data
Lab Data
Lab Results
03/01/24 03:20
03/01/24 03:20
PT 18.6 Sec (11.4-14.6) H 02/26/24 04:08
INR 1.52 02/26/24 04:08
APTT 54.5 Sec (23.4-35.0) H 02/23/24 04:16
Estimated Creat Clear 90 ml/min 03/01/24 03:20
Lactic Acid 1.8 mmol/L (0.7-2.0) 02/22/24 13:43
Total Bilirubin 1.4 mg/dl (0.2-1.3) H 02/26/24 04:08
GGT 29 U/L (15-73) 02/23/24 04:16
AST 45 U/L (17-59) 02/26/24 04:08
ALT 40 U/L (0-50) 02/26/24 04:08
Alkaline Phosphatase 161 U/L (38-126) H 02/26/24 04:08
Most recent labs reviewed.
Micro Results:
02/24/24 09:40 Blood Culture - Final
Blood/Venous No Growth - Final Report
02/22/24 08:59 Blood Culture - Final
Blood/Venous No Growth - Final Report
02/24/24 11:17 Respiratory Culture - Final
Sputum Enterobacter cloacae
Gram Stain - Final
02/23/24 08:52 Respiratory Culture - Final
Endotracheal Escherichia coli
Mica albicans
Gram Stain - Final
02/23/24 08:52 MRSA Screen - Final
Nose No Methicillin Resistant Staphylococcus aureus isolated.
02/24/24 08:34 Influenza Types A & B (MARY) - Final
Nasal Swab Negative for Influenza A & B, NAAT
Negative results must be combined with clinical observations
and patient history.
Nucleic Acid Amplification test (NAAT)performed on the
[employer] platform.
02/22/24 09:00 Urine Culture - Final
Urine NO GROWTH
Respiratory Culture Final 02/24/2024
Few Enterobacter cloacae
Few Usual Respiratory Annamarie
Organism 1 Enterobacter cloacae
1. Enterobacter cloacae
M.I.C. RX
--------- ---
Amoxicillin/Potas. Clavulanate >16/8 R
Ampicillin >16 R
Ampicillin/Sulbactam >16/8 R
Aztreonam 8 I
Cefazolin >16 R
Cefepime <=2 S
Ceftazidime >16 R
Ceftriaxone >2 R
Ertapenem <=0.5 S
Ciprofloxacin <=0.25 S
Gentamicin <=2 S
Meropenem <=1 S
Piperacillin/Tazobactam 32 I
Tetracycline <=4 S
Tobramycin <=2 S
Trimethoprim/Sulfamethoxazole <=2/38 S
.

.
Respiratory Culture Final
02/23/24
Moderate Escherichia coli
Moderate Presumptive Mica albicans
Few Usual Respiratory Annamarie
Organism 1 Escherichia coli
1. Escherichia coli
M.I.C. RX
--------- ---
Amoxicillin/Potas. Clavulanate <=8/4 S
Ampicillin <=8 S
Ampicillin/Sulbactam <=4/2 S
Aztreonam <=4 S
Cefazolin <=2 S
Ertapenem <=0.5 S
Ciprofloxacin <=0.25 S
Gentamicin <=2 S
Meropenem <=1 S
Piperacillin/Tazobactam <=8 S
Tetracycline <=4 S
Tobramycin <=2 S
Trimethoprim/Sulfamethoxazole <=2/38 S
Imaging:
02/26/2024 CXR (portable): Bilateral interstitial prominence is again seen, most likely chronic and stable. Low lung volumes are noted.
02/22/2024 CT chest/abdomen/pelvis without contrast: ET tube at the level of the slime. Changes of moderate to severe interstitial fibrosis with basilar significant honeycombing. No significant pleural fluid noted. Liver is cirrhotic. There is
diffuse subcutaneous edema/anasarca. Small to moderate amount of free fluid within the pelvis. No evidence of free intraperitoneal air. Please see full dictation for additional detail.
--- NOTE | 2024-03-01 16:12 | W.PN.GI.CBS2 ---
Today's Communication / Plan
-
As per plan. GI signing off.
Assessment / Plan
-
Pt is a 74yo with hx COPD cirrhosis-- Etiology ? ETOH per family but quit in 2011. He was diagnosed around the time he quit ETOH in 2011 and has had several variceal GI bleeds with banding in past. Per significant other pt was not compliant with
follow up over the years. Over last 6 months he has had fatigue and some change in mental status then was admitted with fever and hepatic encephalopathy about a month ago to [facility] [place] then transferred to [facility]. He
did have another hospital admission and recently admitted to [facility] about 1 week ago. He now presents to for change in mental status with ammonia of 128 with low grade fever 100.7 with possible PNA and hypotension
requiring BP support. He was intubated after admission. On admission pt with hbg 11.8, platelet 106 with drop to 72,000, INR 1.42, albumin 2.1, bili 2.3, AST 45, ALT 32, alk phos 84, and ammonia 117.
-->02/22/24 Limited US abdomen Examination is technically difficult with very poor acoustic windows. Limited examination.
Sludge throughout most of the gallbladder. The gallbladder is distended. The bladder wall appears mildly thickened, nonspecific.
Common bile duct is unable to be visualized. The liver is not adequately visualized.
Splenomegaly. Tortuous dilated veins adjacent to the splenic hilum.
The pancreas is unable to be visualized. The right kidney is unable to be visualized.
Simple cyst in the central upper to mid left kidney.
Of note, the patient does have an estimated GFR of greater than 60. If the patient can cooperate for CT examination, a contrast-enhanced CT of the abdomen and pelvis could be considered to assess for portal vein thrombosis.
-->02/22/24 CT Chest/abd/pel Wo Iv Cont
IMPRESSION: Endotracheal tube tip is low, at the level the slime, directed toward the right mainstem bronchus.
Changes of moderate to severe interstitial fibrosis with basilar significant honeycombing. No significant pleural fluid bilaterally.
Cirrhotic liver.
Diffuse subcutaneous edema/anasarca. Small to moderate amount of free fluid within the pelvis.
No evidence of free intraperitoneal air.
Mild compression deformities of the T8 and T11 vertebral bodies, age uncertain.
Evaluation of the abdomen and pelvis somewhat limited by lack of GI luminal contrast and the lack of IV contrast.
-->02/2024- CT a/P IV and oral-IMPRESSION: Findings suggesting bibasilar pneumonia. New Moderate pulmonary fibrosis. Stable Findings consistent with cirrhosis. StableMild portal vein thrombosis. Difficult to compare considering the prior study was
without IV contrast. This was communicated to Dr. Bray via tiger text all on 02/24/2024 Too small to characterize hypodense splenic lesion likely small cyst or hemangioma. Stable Mild splenomegaly. Stable Gallbladder distention. Stable. May be
benign gallbladder hydrops. Too small to characterize hypodense right renal lesion likely a benign cyst. Stable Mild abdominopelvic ascites. Progressed Findings suggesting volume overload or third spacing. Progressed Enrique catheter in bladder.
Rectal catheter
-change in mental status with concern for hepatic encephalopathy with elevated ammonia level-- first admit to but recent admit to [facility] with similar symptoms
-low grade fever- improved with + resp cx 02/22 Ecoli/ginette, 02/23 Entereobacter colacea with concern for aspiration PNA, suspect etiology of current presentation/encephalopathy
-resp insufficiency s/p intubation
-hypotension requiring pressors on admission now off
-hx dysphagia with recent speech eval per family, repeat evaluation today noted to have severe oropharyngeal dysphagia, not cleared for diet, all nutrition via DHT however, concern that possibly his mental status was contributing.
-cirrhosis - ? ETOH related but quit in 2011 with decompensation
-hx EV with bleeding several years ago with banding
-PVT per CT
-No ascites seen on ultrasound
-thrombocytopenia
-anemia
-hypoalbuminemia
-COPD/pulm HTN
PLAN:
-Continue lactulose 20 g 3 times a day and Xifaxan 550 mg twice a day for management of hepatic encephalopathy and titrate for 2-3 soft bms
-Noted drop in hemoglobin without any evidence of overt bleeding. He has a fecal management system, brown stool. Hemoglobin stable.
-Continue Dobbhoff. For medication and feeding.
-Recommend repeat MUSIC ADAPTER evaluation. Hopefully the patient will pass as he was eating prior to intubation.
-History of esophageal varices status post banding, continue PPI, currently on propranolol.
-He will need outpatient hepatology follow-up after this hospitalization. Patient known to GI at [facility]. Will need repeat EGD as outpatient.
-We will sign off at this juncture. Please call back if GI can be of further assistance.
Subjective
Subjective
Date of Service: March 01, 2024
Patient awake, alert and oriented x 3. D[address] in [address] as he did not pass his MUSIC ADAPTER eval.
Objective
Data Reviewed
Laboratory Data:
Laboratory Results
03/01/24 03:20
03/01/24 03:20
Laboratory Results
PT 18.6 Sec (11.4-14.6) H 02/26/24 04:08
INR 1.52 02/26/24 04:08
APTT 54.5 Sec (23.4-35.0) H 02/23/24 04:16
Phosphorus 2.3 mg/dl (2.5-4.5) L 02/25/24 03:15
Magnesium 2.0 mg/dl (1.6-2.3) 02/25/24 03:15
Total Bilirubin 1.4 mg/dl (0.2-1.3) H 02/26/24 04:08
AST 45 U/L (17-59) 02/26/24 04:08
ALT 40 U/L (0-50) 02/26/24 04:08
Alkaline Phosphatase 161 U/L (38-126) H 02/26/24 04:08
Vital Signs and I&O:
Vital Signs
Temp Pulse Resp BP Pulse Ox
98 F 59 26 100/63 97
03/01/24 11:21 03/01/24 08:04 03/01/24 08:02 03/01/24 08:04 03/01/24 12:06
I&O
02/29/24 03/01/24 03/02/24
06:59 06:59 06:59
Intake Total 480 / 480 405 / 405
Output Total 1550 / 1550 1900 / 1900 250 / 250
Balance -1070 / -1070 -1495 / -1495 -250 / -250
Physical Exam
Physical Exam
Cardiology: Normal Sinus Rhythm
Pulmonary: Clear (Anterior)
GI: Soft, Non Distended, Non Tender and Normal Bowel Sounds
Neuro: Non Focal and Other (Awake alert oriented x 3)
[2024-03-01 17:53] VITALS: BP 129/71
--- NOTE | 2024-03-01 20:00 | PTCARENOTE ---
Patient received lying in bed with eyes open, pulling off respiratory treatment mask and trying to pull off mitts. He is confused to time and place, oriented to self and needs, reoriented as needed. Emotional support and encouragement given as
needed. Offered urinal, currently denies urge to void. Fecal management system in place, patent draining yellow brown, liquid stool. Dobhoff left nare taped in place with Jevity 1.5 TF infusing at 50cc/hr with 25cc/hr water flush. He currently
denies pain when asked. BBS with fine crackles scattered t/o all lung morgan, bases diminished. Saturating 100% on RA. No longer on cardiac monitor technician, downgraded to medsurg. BLE with 1+pedal edema, palpable pulses. Bilateral hands and arms with
trace to 1+ edema. Bilateral mitt restraints in place, skin checked every 2 hours. Patient repositioned every 2 hours but he is restless and often repositions self on back. Labs and orders reviewed.
[2024-03-01 21:27] VITALS: BP 117/67
--- NOTE | 2024-03-02 02:00 | PTCARENOTE ---
Noted that tube feeding loose connection and dobhoff, leaking. Complete cares given, CHG cloth bath, complete linen change. Assisted with urinal, voided 375 elvira urine. Zinc oxide to perirectal area at site of fecal management system. Coccyx
dressing CDI. Active ROM to bilateral hands/fingers, bilateral mitt restraint site check. Repositioned as tolerated, patient wiggles in bed and turns off of side when able.
[2024-03-02] MEDS: TYLENOL ORAL SOLUTION 650 MG TUBE ×2 (05:05→23:48)
[2024-03-02 05:38] LABS: Hematocrit 26.1 % (39.0-52.0); Hemoglobin 8.8 g/dL (13.0-18.0); Mean Corp Hgb Conc. 33.7 g/dL (33.0-37.0); Mean Corpuscular Hgb 34.8 pg (27.0-31.0); Mean Corpuscular Volume 103.2 fL (80.0-94.0); Mean Platelet Volume 9.4 fL (7.4-10.4); Platelet Count 83 10^3/uL (130-400); Red Blood Cell Count 2.53 10^6/uL (4.70-6.10); Red Cell Dist. Width 18.9 % (11.5-14.5); White Blood Cell Count 3.2 10^3/uL (4.8-10.8)
[2024-03-02 05:49] LABS: Ammonia < 9 umol/L (9-30)
[2024-03-02 05:53] LABS: ALT (SGPT) 58 U/L (0-50); AST (SGOT) 88 U/L (17-59); Albumin 2.4 g/dl (3.5-5.0); Alkaline Phosphatase 268 U/L (38-126); Blood Urea Nitrogen 15 mg/dl (9-20); Calcium 8.2 mg/dl (8.4-10.2); Carbon Dioxide 31 mmol/L (22-30); Chloride 115 mmol/L (98-107); Estimated Creatinine Clearance 88 ml/min; Glucose 127 mg/dl (70-99); Magnesium 2.2 mg/dl (1.6-2.3); Sodium 148 mmol/L (135-145); Total Bilirubin 1.3 mg/dl (0.2-1.3); Total Protein 5.9 g/dl (6.3-8.2); eGFR > 60.00
[2024-03-02 05:59] LABS: Potassium 4.1 mmol/L (3.5-5.1)
[2024-03-02 06:00] VITALS: BMI 19.7
--- NOTE | 2024-03-02 07:20 | PTCARENOTE ---
Report given verbally to ROBLES Dorado, questions answered.
[2024-03-02] MEDS: PULMICORT 0.5 MG INH ×2 (07:38→20:11)
[2024-03-02 07:47] VITALS: BP 114/61
[2024-03-02] MEDS: NSS (PRESERVATIVE FREE) 10 ML IV (07:54)
[2024-03-02] MEDS: PROTONIX IV 40 MG IV (07:54)
[2024-03-02] MEDS: PEPCID 20 MG TUBE ×2 (07:54→21:40)
[2024-03-02] MEDS: XIFAXAN 550 MG TUBE ×2 (07:54→21:40)
[2024-03-02] MEDS: DUPHALAC/CHRONULAC 20 GRAMS TUBE ×2 (07:55→21:40)
[2024-03-02] MEDS: LIDOCAINE 4% PATCH 1 PATCH TOPICAL ×2 (07:55)
[2024-03-02] MEDS: INDERAL 20 MG PO (07:55)
--- NOTE | 2024-03-02 07:57 | W.PN.HOSP.TC ---
Today's Communication/Plan
-
need diet to be determined prior to d/c back to SNF
increase free water flushes
PT/OT/speech
decrease lactulose to BID
Assessment / Plan
Assessment / Plan
pt is a 74 year old male
Acute metabolic (hepatic) encephalopathy--ammonia on admission 128 now down to 15 on 02/26/24--s/p lactulose enemas--now on oral lactulose and rifaximin--follows commands but impulsive--given diarrhea, will cut back lactulose to BID
Ventilator dependent respiratory failure--intubated for airway protection--extubated 02/26/24--now on room air
Pancytopenia--chronic likely from cirrhosis--counts now lower than admission although platelet count improving from 46K on 02/28/24 to 72K today--heme neg--cont thiamine and B12 supps--GOAL HGB >7 and PLT > 20K
Cirrhosis--unclear cause--no ascites--propranolol and lasix with parameters--apprec GI
Portal Venous Thrombosis -unclear if acute or chronic--not an ideal candidate for anticoagulation with thrombocytopenia and varices. Hold on anticoagulation.
shock (POA) likely due to sepsis--likely aspiration pneumonia as pt failed speech eval AND VSE--on Dobhoff for feeds--resp cultures positive for E. coli, Mica (doubt pathogenic) and Enterobacter--apprec ID--OFF pressors--blood cultures
negative--Neg COVID and influenza swab--on ertapenem
hypernatremia--increase free water flushes through tube from 25 to 50 ml/hr
Essential hypertension--cont meds with parameters
COPD--DuoNebs
Nutrition-continue the tube feeds; follow speech eval--not cleared for oral intake
Right shoulder pain--no evidence of fracture or dislocation. Postoperative changes within the glenoid/scapula noted. Severe DJD of the glenohumeral joint with findings of chronic rotator cuff pathology noted. Continue with symptomatic treatments
right hip pain--likely trochanteric bursitis (point tender over the bursa)--try lidoderm patch over right hip--no further c/o
PT/OT/speech
DVT proph--SCDs
code status -- FULL CODE
Anticipated Discharge: > 48 hours
Subjective/Interval History
-
Date of Service: March 02, 2024
pt c/o he wants mitts off
Objective Data
-
Labs:
Laboratory Results
03/02/24
05:25
WBC 3.2 L
Hgb 8.8 L
Hct 26.1 L
Plt Count 83 L
Sodium 148 H
Potassium 4.1
Chloride 115 H
Carbon Dioxide 31 H
BUN 15
Creatinine 0.6 L
Glucose 127 H
Calcium 8.2 L
Total Bilirubin 1.3
AST 88 H
ALT 58 H
Alkaline Phosphatase 268 H
Vital Signs:
max temp for 24 hours
03/01/24
16:00
Temp 98.5 F
Vital Signs
Temp Pulse Resp BP Pulse Ox
97.7 F 61 22 114/61 100
03/02/24 07:50 03/02/24 07:50 03/02/24 07:50 03/02/24 07:47 03/02/24 07:48
I&O
03/01/24 03/02/24 03/03/24
06:59 06:59 06:59
Intake Total 405 / 405 935 / 935
Output Total 1900 / 1900 2225 / 2225
Balance -1495 / -1495 -1290 / -1290
Review of Systems
-
All other systems: Reviewed and negative
Physical Exam
-
General: Appears Chronically Ill and Cachectic
HEENT: Normocephalic, Atraumatic and Other (Dobhoff tube in place)
Respiratory: Clear to Auscultation; Negative Wheezes or Rhonchi
Cardiac: Regular Rhythm and S1/S2; Negative Murmur
GI: Soft, Nontender, Nondistended and Normal Bowel Sounds
Musculoskeletal: No Clubbing, No Cyanosis, No Edema and Other (mitts)
Neuro: Awake
Psych: Agitated
[2024-03-02] MEDS: INVANZ 60 MG IV (09:47)
[2024-03-02 15:55] VITALS: BP 106/57
[2024-03-02 15:56] VITALS: BP 106/57
[2024-03-02] MEDS: INDERAL PO (22:45)
--- NOTE | 2024-03-02 23:25 | PTCARENOTE ---
Patient transferred onto the unit from the ICU and was a pullover. Patient is oriented to self. Patient offered urinal. Patient has Dobhoff with Jevity 1.5 TF infusing at 50 cc/hr and a 50cc flush per hour. Call garcia within reach. Bilateral mitt
restraints remain intact. Patient complained of right hip pain and was administered Tylenol. Patient is on a bed alarm. Will continue with current plan.
[2024-03-02 23:43] VITALS: BP 119/55
--- NOTE | 2024-03-03 05:00 | PTCARENOTE ---
Pt removed b/l mitt restraints and was able to take out Dobbhoff. Pt restless, b/l mitts reapplied. Prema HAINES notified. Tube feed on hold. Will continue with current plan.
[2024-03-03 06:00] VITALS: BMI 20.1
[2024-03-03 06:17] LABS: ALT (SGPT) 67 U/L (0-50); AST (SGOT) 108 U/L (17-59); Albumin 2.2 g/dl (3.5-5.0); Alkaline Phosphatase 259 U/L (38-126); Blood Urea Nitrogen 14 mg/dl (9-20); Calcium 7.9 mg/dl (8.4-10.2); Carbon Dioxide 28 mmol/L (22-30); Chloride 114 mmol/L (98-107); Estimated Creatinine Clearance 87 ml/min; Glucose 73 mg/dl (70-99); Magnesium 2.2 mg/dl (1.6-2.3); Potassium 3.6 mmol/L (3.5-5.1); Sodium 146 mmol/L (135-145); Total Protein 5.4 g/dl (6.3-8.2); eGFR > 60.00
[2024-03-03 06:19] LABS: Hematocrit 22.1 % (39.0-52.0); Hemoglobin 7.6 g/dL (13.0-18.0); Mean Corp Hgb Conc. 34.4 g/dL (33.0-37.0); Mean Corpuscular Hgb 34.2 pg (27.0-31.0); Mean Corpuscular Volume 99.5 fL (80.0-94.0); Platelet Count 74 10^3/uL (130-400); Red Blood Cell Count 2.22 10^6/uL (4.70-6.10); Red Cell Dist. Width 18.6 % (11.5-14.5); White Blood Cell Count 3.3 10^3/uL (4.8-10.8)
[2024-03-03 07:00] VITALS: BP 120/59
[2024-03-03] MEDS: PULMICORT 0.5 MG INH ×2 (08:58→17:45)
[2024-03-03] MEDS: LIDOCAINE 4% PATCH 1 PATCH TOPICAL ×2 (10:16→10:18)
[2024-03-03] MEDS: NSS (PRESERVATIVE FREE) 10 ML IV (10:18)
[2024-03-03] MEDS: PROTONIX IV 40 MG IV (10:18)
[2024-03-03] MEDS: INVANZ 60 MG IV (11:12)
[2024-03-03] MEDS: MORPHINE SULFATE 1 MG IV ×2 (11:20→20:49)
--- NOTE | 2024-03-03 12:02 | W.PN.HOSP.TC ---
Today's Communication/Plan
-
VSE in AM
D5W IVF
Assessment / Plan
Assessment / Plan
pt is a 74 year old male
Acute metabolic (hepatic) encephalopathy--ammonia on admission 128 now down to 15 on 02/26/24--s/p lactulose enemas--now on oral lactulose and rifaximin--follows commands but impulsive--given diarrhea, will cut back lactulose to BID
Ventilator dependent respiratory failure--intubated for airway protection--extubated 02/26/24--now on room air
Pancytopenia--chronic likely from cirrhosis--counts now lower than admission although platelet count improving from 46K on 02/28/24 to 72K today--heme neg--cont thiamine and B12 supps--GOAL HGB >7 and PLT > 20K
Cirrhosis--unclear cause--no ascites--propranolol and lasix with parameters--apprec GI
Portal Venous Thrombosis -unclear if acute or chronic--not an ideal candidate for anticoagulation with thrombocytopenia and varices. Hold on anticoagulation.
shock (POA) likely due to sepsis--likely aspiration pneumonia as pt failed speech eval AND VSE--on Dobhoff for feeds--resp cultures positive for E. coli, Mica (doubt pathogenic) and Enterobacter--apprec ID--OFF pressors--blood cultures
negative--Neg COVID and influenza swab--on ertapenem
hypernatremia--increase free water flushes through tube from 25 to 50 ml/hr
Essential hypertension--cont meds with parameters
COPD--DuoNebs
Nutrition-continue the tube feeds; follow speech eval--not cleared for oral intake--pulled out Dobhoff--ongoing speech eval--will place VSE in AM
Right shoulder pain--no evidence of fracture or dislocation. Postoperative changes within the glenoid/scapula noted. Severe DJD of the glenohumeral joint with findings of chronic rotator cuff pathology noted. Continue with symptomatic treatments
right hip pain--likely trochanteric bursitis (point tender over the bursa)--try lidoderm patch over right hip--no further c/o
PT/OT/speech
DVT proph--SCDs
code status -- FULL CODE
Anticipated Discharge: > 48 hours
Subjective/Interval History
-
Date of Service: March 03, 2024
pt pulled out Dobhoff tube
Objective Data
-
Labs:
Laboratory Results
03/03/24
05:00
WBC 3.3 L
Hgb 7.6 L
Hct 22.1 L
Plt Count 74 L
Sodium 146 H
Potassium 3.6
Chloride 114 H
Carbon Dioxide 28
BUN 14
Creatinine 0.6 L
Glucose 73
Calcium 7.9 L
Total Bilirubin 1.0
AST 108 H
ALT 67 H
Alkaline Phosphatase 259 H
Vital Signs:
max temp for 24 hours
03/02/24
23:43
Temp 97.9 F
Vital Signs
Temp Pulse Resp BP Pulse Ox
97.0 F 65 16 120/59 96
03/03/24 07:00 03/03/24 09:04 03/03/24 09:04 03/03/24 07:00 03/03/24 09:04
I&O
03/02/24 03/03/24 03/04/24
06:59 06:59 06:59
Intake Total 935 / 1010 1495 / 1495
Output Total 2225 / 2225 775 / 775
Balance -1290 / -1215 720 / 720
Review of Systems
-
Unable to obtain full review of systems at this time due to: Dementia
Physical Exam
-
General: Appears Chronically Ill and Cachectic
HEENT: Normocephalic and Atraumatic
Respiratory: Clear to Auscultation; Negative Wheezes or Rhonchi
Cardiac: Regular Rhythm and S1/S2; Negative Murmur
GI: Soft, Nontender, Nondistended and Normal Bowel Sounds
Musculoskeletal: No Clubbing, No Cyanosis and No Edema
Neuro: Awake; Negative Alert
[2024-03-03] MEDS: PEPCID TUBE ×2 (12:14→20:54)
[2024-03-03] MEDS: XIFAXAN TUBE ×2 (12:14→20:54)
[2024-03-03] MEDS: INDERAL PO ×2 (12:14→20:54)
[2024-03-03] MEDS: DUPHALAC/CHRONULAC TUBE ×2 (12:14→20:54)
--- NOTE | 2024-03-03 12:28 | CM ---
Patient seen at bedside with daughter and . Potential d/c tomorrow
Discussed [facility] & has bed tomorrow. [facility] response in [facility] accepted re-assess tomorrow for bed availability.
Daughter will get back to block and case maker tomorrow weather [facility] or [facility] if a bed is available.
states will tour facilities.
Per [employer] patient insurance changing 03/06/24 - CM confirmed with will be [facility]
PLAN: SNF, pending bed availability
[2024-03-03] MEDS: D5W 1000 IV (13:19)
[2024-03-03 15:00] VITALS: BP 145/65
--- NOTE | 2024-03-03 15:28 | PTCARENOTE ---
Pt extremely restless, throwing both legs over side rail, stating he has to get up to move his bowels despite being instructed that he has a FMS. Dr. Pagan gave okay to remove FMS to see if this improves sensation of needing to go constantly.
[2024-03-03 23:19] VITALS: BP 122/57
[2024-03-04] MEDS: D5W 1000 IV (05:49)
[2024-03-04 06:00] VITALS: BMI 20.1
[2024-03-04 07:41] VITALS: BP 118/61
[2024-03-04] MEDS: PULMICORT 0.5 MG INH ×2 (08:18→19:53)
--- NOTE | 2024-03-04 09:24 | PTCARENOTE ---
Pt off unit for video swallo, meds to be given when pt is cleared for Po meds/intake.
--- NOTE | 2024-03-04 10:28 | PTOTSP ---
Video Swallow Study
Summary: Patient presents with mild-moderate oral and moderate-severe pharyngeal dysphagia. Patient aspirated all consistencies except puree with a varied sensory response. Effectiveness of cued cough improved compared to last study. Significant
retention with thicker consistencies (that patient sensed but could not fully clear with multiple swallows) unchanged. Chronic aspiration risk elevated. Cognitive changes are likely a barrier to safe swallowing strategy implementation at this time.
Recommendations:
1. NPO consider replacing temporary non-oral means
2. Medications: via non-oral means and/or if without this, essential medications crushed in puree
3. Oral care 3x daily
4. Dysphagia tx at the acute care level and after D/C for pharyngeal exercises and instruction in compensations. Determine if aspiration risk hydration protocol appropriate.
5. ENT consult to assess laryngeal function.
[2024-03-04] MEDS: LIDOCAINE 4% PATCH 1 PATCH TOPICAL ×2 (10:45→10:46)
[2024-03-04] MEDS: NSS (PRESERVATIVE FREE) 10 ML IV (10:46)
[2024-03-04] MEDS: PROTONIX IV 40 MG IV (10:46)
[2024-03-04 11:06] LABS: Hematocrit 25.6 % (39.0-52.0); Hemoglobin 9.2 g/dL (13.0-18.0); Mean Corp Hgb Conc. 35.9 g/dL (33.0-37.0); Mean Corpuscular Hgb 35.4 pg (27.0-31.0); Mean Corpuscular Volume 98.5 fL (80.0-94.0); Mean Platelet Volume 9.6 fL (7.4-10.4); Platelet Count 96 10^3/uL (130-400); White Blood Cell Count 3.1 10^3/uL (4.8-10.8)
[2024-03-04 11:26] LABS: Blood Urea Nitrogen 14 mg/dl (9-20); Carbon Dioxide 30 mmol/L (22-30); Chloride 108 mmol/L (98-107); Estimated Creatinine Clearance 89 ml/min; Glucose 91 mg/dl (70-99); Magnesium 1.9 mg/dl (1.6-2.3); Potassium 4.4 mmol/L (3.5-5.1); Sodium 140 mmol/L (135-145); eGFR > 60.00
[2024-03-04 15:28] VITALS: BP 99/55
--- NOTE | 2024-03-04 15:29 | CM ---
Patient contact with daughter's per facility to discuss goals of care as per facility. Facility stated that patient friend was deferring to patient daughters. CM will provide information to physician to review.
Plan; return to SNF
[2024-03-04] MEDS: DUPHALAC/CHRONULAC TUBE (15:35)
[2024-03-04] MEDS: INDERAL PO ×2 (15:35→20:28)
[2024-03-04] MEDS: PEPCID TUBE (15:36)
[2024-03-04] MEDS: XIFAXAN TUBE (15:36)
--- NOTE | 2024-03-04 17:01 | W.PN.UPDATE ---
Addendum entered and electronically signed by YANCY Myers 03/04/24 18:50:
Dobhoff in position as per Xray confirmation. Stylet removed. Ok to use Dobhoff for medications and for feeding. Discussed with RN. GI will sign off. Thank you.
Original Note:
Update Note
Progress Note Update
Asked to see patient for Dobhoff tube placement as he pulled his tube out last evening. Dobhoff tube placed in left nare on second attempt. Secured at 62 cm. O2 saturation at 97% on RA. STAT Imaging to be obtained to eval for placement prior to
removing stylet. Patient RN at bedside. Will follow up with imaging once resulted and removal of stylet.
--- NOTE | 2024-03-04 17:03 | W.PN.HOSP.TC ---
Addendum entered and electronically signed by Rocío Pagan MD 03/04/24 20:02:
I saw and evaluated the patient independently. I reviewed the resident�s note and agree with findings and plan as documented by Dr. Snyder.
GENERAL: cachectic frail male in no apparent distress
HEENT: NC/AT
HEART: regular rate and rhythm, +S1, +S2
LUNGS : clear to auscultation bilaterally
ABDOM: soft, nontender, nondistended, + bowel sounds
EXT: no cyanosis, clubbing, or edema
NEUROLOGIC: confused
pt has failed at least 2 VSE and speech evals and remains NPO--had Dobhoff for tube feeds and pt pulled out the tube--will need GOC discussion with pt daughter and POA to discuss hospice--lakshmi if cannot give lactulose or other oral meds, pt will
revert back to his encephalopathy--would not recommend PEG tube in this situation
Acute metabolic (hepatic) encephalopathy--ammonia on admission 128 now down to 15 on 02/26/24--s/p lactulose enemas--now on oral lactulose and rifaximin--follows commands but impulsive--given diarrhea, will cut back lactulose to BID
Ventilator dependent respiratory failure--intubated for airway protection--extubated 02/26/24--now on room air
Pancytopenia--chronic likely from cirrhosis--counts now lower than admission although platelet count improving from 46K on 02/28/24 to 72K today--heme neg--cont thiamine and B12 supps--GOAL HGB >7 and PLT > 20K
Cirrhosis--unclear cause--no ascites--propranolol and lasix with parameters--apprec GI
Portal Venous Thrombosis -unclear if acute or chronic--not an ideal candidate for anticoagulation with thrombocytopenia and varices. Hold on anticoagulation.
shock (POA) likely due to sepsis--likely aspiration pneumonia as pt failed speech eval AND VSE--on Dobhoff for feeds, pulled it out--resp cultures positive for E. coli, Mica (doubt pathogenic) and Enterobacter--apprec ID--OFF pressors--blood
cultures negative--Neg COVID and influenza swab--on ertapenem
hypernatremia--now on IVF since pulled out tube
Essential hypertension--cont meds with parameters
COPD--DuoNebs
Nutrition- follow speech eval--not cleared for oral intake--pulled out Dobhoff--ongoing speech eval-- VSE 03/04--failed again
Right shoulder pain--no evidence of fracture or dislocation. Postoperative changes within the glenoid/scapula noted. Severe DJD of the glenohumeral joint with findings of chronic rotator cuff pathology noted. Continue with symptomatic treatments
right hip pain--likely trochanteric bursitis (point tender over the bursa)--try lidoderm patch over right hip--no further c/o
PT/OT/speech
DVT proph--SCDs
code status -- FULL CODE
Original Note:
Today's Communication/Plan
-
.
Assessment / Plan
Assessment / Plan
1. Acute hepatic encephalopathy (resolved )
Ammonia on admission 128 now down to <9 on 03/02/24; s/p lactulose enemas; now on oral lactulose BID and rifaximin
2. Ventilator dependent respiratory failure
- Extubated on 02/26/2024. Patient is now on room air.
3. Pancytopenia
- Chronic likely from cirrhosis
- Counts improving this morning.
4. Cirrhosis
- Unclear cause; no ascites; abdomen nondistended
- Continue Propranolol and Lasix
5. Portal Venous Thrombosis
- unclear if acute or chronic
- not an ideal candidate for anticoagulation with thrombocytopenia and varices. Hold on anticoagulation.
6. Shock (POA) likely due to sepsis
- Likely silent aspiration pneumonia as pt failed speech eval AND VSE
- On Dobhoff for feeds; patient pulled out last night; repeat swallow eval reveals continued silent aspiration pattern; continue NPO; Dobhoff to be reinserted, appreciate GI
- Roebling Mitts as needed
- Resp cultures positive for E. coli, Mica (doubt pathogenic) and Enterobacter earlier in admission
- blood cultures negative
- Neg COVID and influenza swab
- Completed Ertapenam course
7. Hypernatremia--
-Free water flushes increased from 25 to 50 mL/h yesterday.
-Sodium 140 today.
8. Essential hypertension
- cont meds with parameters
9. COPD
- PRN DuoNebs
10. Right Shoulder Pain
- no evidence of fx/dislocation; severe DJD; continue symptomatic treatments
11. Right Hip Pain (likley trochanteric bursitis)
- Lidoderm Patch
Nutrition-continue the tube feeds; follow speech eval--not cleared for oral intake--pulled out Dobhoff--ongoing speech eval--will place VSE in AM
PT/OT/speech
DVT proph--SCDs
code status -- FULL CODE
Anticipated Discharge: 24 - 48 hours
Subjective/Interval History
-
Date of Service: March 04, 2024
Patient examined while in bed. Patient awake and alert, asking for help changing the TV channel. Per nursing, patient pulled out Dobhoff tube yesterday. History limited due to lack of cooperation/dementia.
Objective Data
-
Labs:
Laboratory Results
03/04/24
10:48
WBC 3.1 L
Hgb 9.2 L D
Hct 25.6 L
Plt Count 96 L D
Sodium 140
Potassium 4.4
Chloride 108 H
Carbon Dioxide 30
BUN 14
Creatinine 0.6 L
Glucose 91
Calcium 8.0 L
Vital Signs:
Vital Signs
Temp Pulse Resp BP Pulse Ox
97.9 F 60 18 99/55 97
03/04/24 15:28 03/04/24 15:28 03/04/24 15:28 03/04/24 15:28 03/04/24 15:28
I&O
03/03/24 03/04/24 03/05/24
06:59 06:59 06:59
Intake Total 1495 / 1495
Output Total 775 / 775 450 / 450
Balance 720 / 720 -450 / -450
Review of Systems
-
Unable to obtain full review of systems at this time due to: Dementia
Physical Exam
-
General: Appears Chronically Ill and Cachectic
HEENT: Normocephalic and Atraumatic
Respiratory: Clear to Auscultation
Cardiac: Regular Rhythm and S1/S2
GI: Soft and Nontender
Musculoskeletal: No Clubbing, No Cyanosis and No Edema
Neuro: Awake
Psych: Calm
Data Reviewed
-
Labs: Labs Reviewed by me
--- NOTE | 2024-03-04 18:07 | PTCARENOTE ---
Pt has been NPO, no PO meds given today. KELSIE JACOBSEN placed a dobhoff in pt's left nare, awaiting cxr to confirm placement. VAT RN to place midline.
[2024-03-04] MEDS: TYLENOL ORAL SOLUTION 650 MG TUBE (20:30)
[2024-03-04] MEDS: PEPCID 20 MG TUBE (20:31)
[2024-03-04] MEDS: XIFAXAN 550 MG TUBE (20:31)
[2024-03-04] MEDS: DUPHALAC/CHRONULAC 20 GRAMS TUBE (20:31)
[2024-03-04 23:28] VITALS: BP 108/50
[2024-03-05 05:33] VITALS: BMI 19.9
[2024-03-05 06:38] LABS: Hematocrit 22.6 % (39.0-52.0); Hemoglobin 7.8 g/dL (13.0-18.0); Mean Corp Hgb Conc. 34.5 g/dL (33.0-37.0); Mean Corpuscular Hgb 34.5 pg (27.0-31.0); Mean Platelet Volume 9.3 fL (7.4-10.4); Platelet Count 74 10^3/uL (130-400); Red Blood Cell Count 2.26 10^6/uL (4.70-6.10); Red Cell Dist. Width 18.7 % (11.5-14.5); White Blood Cell Count 2.5 10^3/uL (4.8-10.8)
[2024-03-05 07:08] LABS: ALT (SGPT) 59 U/L (0-50); AST (SGOT) 79 U/L (17-59); Albumin 2.1 g/dl (3.5-5.0); Alkaline Phosphatase 213 U/L (38-126); Blood Urea Nitrogen 13 mg/dl (9-20); Calcium 7.8 mg/dl (8.4-10.2); Carbon Dioxide 29 mmol/L (22-30); Chloride 104 mmol/L (98-107); Estimated Creatinine Clearance 75 ml/min; Glucose 114 mg/dl (70-99); Potassium 4.3 mmol/L (3.5-5.1); Sodium 136 mmol/L (135-145); Total Bilirubin 1.7 mg/dl (0.2-1.3); Total Protein 5.4 g/dl (6.3-8.2); eGFR > 60.00
[2024-03-05 07:25] VITALS: BP 95/48
[2024-03-05] MEDS: INDERAL PO ×2 (09:58→20:02)
[2024-03-05] MEDS: DUPHALAC/CHRONULAC TUBE (09:58)
[2024-03-05] MEDS: PROTONIX IV 40 MG IV (10:03)
[2024-03-05] MEDS: PEPCID 20 MG TUBE ×2 (10:03→20:01)
[2024-03-05] MEDS: XIFAXAN 550 MG TUBE ×2 (10:03→20:01)
[2024-03-05] MEDS: NSS (PRESERVATIVE FREE) 10 ML IV (10:04)
[2024-03-05] MEDS: LIDOCAINE 4% PATCH 1 PATCH TOPICAL ×2 (10:16→10:17)
[2024-03-05 15:00] VITALS: BP 143/70
[2024-03-05 15:21] VITALS: BP 104/71; PULSE 63; O2SAT 100
--- NOTE | 2024-03-05 16:49 | CM ---
Addendum entered by Mona Obrien 03/05/24 17:27:
Physician and CM called to patient daughter Danna and she indicated that she would review with her family options for patient diet and update provided to patient family by physician. Patient daughter to call back and review with physician after
family conversations.
Original Note:
Patient seen at bedside with physicians. Patient states that he is hungry and thirsty. CM will attempt to reach out to patient family and plan is for discharge to SNF (LTC patient) when medically appropriate and will need to send updated clinical
information when closer to discharge. CM will continue to follow for discharge planning needs.
Plan; return to SNF
[2024-03-05] MEDS: TYLENOL ORAL SOLUTION 650 MG TUBE (17:24)
--- NOTE | 2024-03-05 18:08 | W.PN.HOSP.TC ---
Addendum entered and electronically signed by Rocío Pagan MD 03/05/24 18:55:
I saw and evaluated the patient independently. I reviewed the resident�s note and agree with findings and plan as documented by Dr. Snyder.
GENERAL: cachectic frail male in no apparent distress
HEENT: NC/AT
HEART: regular rate and rhythm, +S1, +S2
LUNGS : clear to auscultation bilaterally
ABDOM: soft, nontender, nondistended, + bowel sounds
EXT: no cyanosis, clubbing, or edema
NEUROLOGIC: most clear today
pt has failed at least 2 VSE and speech evals and remains NPO--had Dobhoff for tube feeds and pt pulled out the tube--will need GOC discussion with pt daughter and POA to discuss hospice--lakshmi if cannot give lactulose or other oral meds, pt will
revert back to his encephalopathy--would not recommend PEG tube in this situation and Dobhoff is temporary only
Acute metabolic (hepatic) encephalopathy--ammonia on admission 128 now down to 15 on 02/26/24--s/p lactulose enemas--now on oral lactulose and rifaximin--follows commands but impulsive--given diarrhea, will cut back lactulose to BID
Ventilator dependent respiratory failure--intubated for airway protection--extubated 02/26/24--now on room air
Pancytopenia--chronic likely from cirrhosis--counts now lower than admission although platelet count improving from 46K on 02/28/24 to 72K today--heme neg--cont thiamine and B12 supps--GOAL HGB >7 and PLT > 20K
Cirrhosis--unclear cause--no ascites--propranolol and lasix with parameters--apprec GI
Portal Venous Thrombosis -unclear if acute or chronic--not an ideal candidate for anticoagulation with thrombocytopenia and varices. Hold on anticoagulation.
shock (POA) likely due to sepsis--likely aspiration pneumonia as pt failed speech eval AND VSE--on Dobhoff for feeds, pulled it out, replaced--resp cultures positive for E. coli, Mica (doubt pathogenic) and Enterobacter--apprec ID--OFF
pressors--blood cultures negative--Neg COVID and influenza swab--finished ertapenem and on Xifaxin
hypernatremia--now on IVF since pulled out tube
Essential hypertension--cont meds with parameters
COPD--DuoNebs
Nutrition- follow speech eval--not cleared for oral intake--pulled out Dobhoff--ongoing speech eval-- VSE 03/04--failed again
Right shoulder pain--no evidence of fracture or dislocation. Postoperative changes within the glenoid/scapula noted. Severe DJD of the glenohumeral joint with findings of chronic rotator cuff pathology noted. Continue with symptomatic treatments
right hip pain--likely trochanteric bursitis (point tender over the bursa)--try lidoderm patch over right hip--no further c/o
PT/OT/speech
DVT proph--SCDs
code status -- FULL CODE
Dr. Snyder accompanied by CM (Mona Obrien) had discussion with pt daughter re: GOC, hospice, etc--family to discuss and get back to us
Original Note:
Today's Communication/Plan
-
.
Assessment / Plan
Assessment / Plan
1. Acute hepatic encephalopathy (resolved )
Ammonia on admission 128 now down to <9 on 03/02/24; s/p lactulose enemas; now on oral lactulose BID and rifaximin
2. Ventilator dependent respiratory failure
- Extubated on 02/26/2024. Patient is now on room air.
3. Pancytopenia
- Chronic likely from cirrhosis
- Counts improving this morning.
4. Cirrhosis
- Unclear cause; no ascites; abdomen nondistended
- Continue Propranolol and Lasix
5. Portal Venous Thrombosis
- unclear if acute or chronic
- not an ideal candidate for anticoagulation with thrombocytopenia and varices. Hold on anticoagulation.
6. Shock (POA) likely due to sepsis
- Likely silent aspiration pneumonia as pt failed speech eval AND VSE multiple times
- On Dobhoff for feeds, remains in place; repeat swallow eval reveals continued silent aspiration pattern; continue NPO; Dobhoff tube reinserted yesterday, appreciate GI
- José Miguel Mitts as needed
- Resp cultures positive for E. coli, Mica (doubt pathogenic) and Enterobacter earlier in admission
- blood cultures negative
- Neg COVID and influenza swab
- Completed Ertapenam course
7. Hypernatremia (resolved)
8. Essential hypertension
- cont meds with parameters
9. COPD
- PRN DuoNebs
10. Right Shoulder Pain
- no evidence of fx/dislocation; severe DJD; continue symptomatic treatments
11. Right Hip Pain (likley trochanteric bursitis)
- Lidoderm Patch
Nutrition-continue the tube feeds; follow speech eval--not cleared for oral intake--Dobhoff replaced
Had goals of care discussion with the patient's daughter Danna. Explained that although this episode of hepatic encephalopathy has resolved, patient continues to fail VSE, has remained NPO. Discussed that patient cannot go back to NH with
Dobhoff. PEG is not recommended due to patient's varying mental status, and potential for ripping tube out. Discussed potential for sending back to NH on hospice so that patient can eat as he pleases knowing the risks of aspiration that this
entails. Discussed the risks and benefits of these options and our medical opinion. Patient will discuss with other family members and call back tomorrow.
PT/OT/speech
DVT proph--SCDs
code status -- FULL CODE
Anticipated Discharge: 24 - 48 hours
Subjective/Interval History
-
Date of Service: March 05, 2024
Patient seen and examined while resting comfortably in bed. Patient is more awake and more alert today. He states that he is hungry. Dobbhoff tube remains in place. History limited due to lack of cooperation/dementia.
Objective Data
-
Labs:
Laboratory Results
03/05/24
06:20
WBC 2.5 L
Hgb 7.8 L
Hct 22.6 L
Plt Count 74 L D
Sodium 136
Potassium 4.3
Chloride 104
Carbon Dioxide 29
BUN 13
Creatinine 0.7
Glucose 114 H
Calcium 7.8 L
Total Bilirubin 1.7 H
AST 79 H
ALT 59 H
Alkaline Phosphatase 213 H
Vital Signs:
Vital Signs
Temp Pulse Resp BP Pulse Ox
97.7 F 68 20 143/70 94
03/05/24 15:00 03/05/24 15:00 03/05/24 15:00 03/05/24 15:00 03/05/24 15:00
I&O
03/04/24 03/05/24 03/06/24
06:59 06:59 06:59
Output Total 450 / 450 300 / 300
Balance -450 / -450 -300 / -300
Review of Systems
-
Unable to obtain full review of systems at this time due to: Dementia
Physical Exam
-
General: Appears Chronically Ill
HEENT: Normocephalic and Atraumatic
Respiratory: Clear to Auscultation
Cardiac: Regular Rhythm
GI: Soft, Nontender and Other (Dobhoff in place)
Musculoskeletal: No Clubbing, No Cyanosis and No Edema
Skin: Warm and Dry
Neuro: Awake and Alert
Psych: Calm
Data Reviewed
-
Labs: Labs Reviewed by me
[2024-03-05] MEDS: DUPHALAC/CHRONULAC 20 GRAMS TUBE (20:01)
[2024-03-05 22:00] VITALS: BMI 20.1
[2024-03-05 23:20] VITALS: BP 104/50
[2024-03-06 07:30] VITALS: BP 104/57
[2024-03-06 08:31] LABS: Hematocrit 21.6 % (39.0-52.0); Hemoglobin 7.6 g/dL (13.0-18.0); Mean Corp Hgb Conc. 35.2 g/dL (33.0-37.0); Mean Corpuscular Hgb 35.5 pg (27.0-31.0); Mean Corpuscular Volume 100.9 fL (80.0-94.0); Mean Platelet Volume 10.3 fL (7.4-10.4); Platelet Count 70 10^3/uL (130-400); Red Blood Cell Count 2.14 10^6/uL (4.70-6.10); Red Cell Dist. Width 19.9 % (11.5-14.5); White Blood Cell Count 2.2 10^3/uL (4.8-10.8)
[2024-03-06 08:42] LABS: ALT (SGPT) 53 U/L (0-50); AST (SGOT) 64 U/L (17-59); Albumin 2.1 g/dl (3.5-5.0); Alkaline Phosphatase 207 U/L (38-126); Blood Urea Nitrogen 12 mg/dl (9-20); Calcium 7.6 mg/dl (8.4-10.2); Carbon Dioxide 28 mmol/L (22-30); Chloride 103 mmol/L (98-107); Estimated Creatinine Clearance 76 ml/min; Glucose 118 mg/dl (70-99); Potassium 4.1 mmol/L (3.5-5.1); Sodium 134 mmol/L (135-145); Total Bilirubin 1.5 mg/dl (0.2-1.3); Total Protein 5.3 g/dl (6.3-8.2); eGFR > 60.00
[2024-03-06] MEDS: TYLENOL ORAL SOLUTION 650 MG TUBE ×2 (09:02→20:57)
[2024-03-06] MEDS: PROTONIX IV 40 MG IV (09:03)
[2024-03-06] MEDS: DUPHALAC/CHRONULAC 20 GRAMS TUBE ×2 (09:03→20:59)
[2024-03-06] MEDS: PEPCID 20 MG TUBE ×2 (09:04→20:58)
[2024-03-06] MEDS: NSS (PRESERVATIVE FREE) 10 ML IV (09:05)
[2024-03-06] MEDS: LIDOCAINE 4% PATCH 1 PATCH TOPICAL ×2 (09:05→09:06)
[2024-03-06] MEDS: INDERAL TUBE ×2 (09:07→20:59)
[2024-03-06] MEDS: XIFAXAN 550 MG TUBE ×2 (09:07→20:58)
--- NOTE | 2024-03-06 14:55 | W.PN.HOSP.TC ---
Addendum entered and electronically signed by Rocío Pagan MD 03/06/24 15:31:
I saw and evaluated the patient independently. I reviewed the resident�s note and agree with findings and plan as documented by Dr. Snyder.
GENERAL: cachectic frail male in no apparent distress
HEENT: NC/AT
HEART: regular rate and rhythm, +S1, +S2
LUNGS : clear to auscultation bilaterally
ABDOM: soft, nontender, nondistended, + bowel sounds
EXT: no cyanosis, clubbing, or edema
NEUROLOGIC: most clear today
pt has failed at least 2 VSE and speech evals and remains NPO--had Dobhoff for tube feeds and pt pulled out the tube,tube replaced--will need GOC discussion with pt daughter and POA to discuss hospice--lakshmi if cannot give lactulose or other oral
meds, pt will revert back to his encephalopathy--would not recommend PEG tube in this situation and Dobhoff is temporary only
Acute metabolic (hepatic) encephalopathy--ammonia on admission 128 now down to <9 (resolved) --s/p lactulose enemas--now on oral lactulose and rifaximin--follows commands but impulsive--given diarrhea, will cut back lactulose to BID
Ventilator dependent respiratory failure--intubated for airway protection--extubated 02/26/24--now on room air
Pancytopenia--chronic likely from cirrhosis--counts now lower than admission although platelet count improving from 46K on 02/28/24--heme neg--cont thiamine and B12 supps--GOAL HGB >7 and PLT > 20K
Cirrhosis--unclear cause--no ascites--propranolol and lasix with parameters--apprec GI
Portal Venous Thrombosis -unclear if acute or chronic--not an ideal candidate for anticoagulation with thrombocytopenia and varices. Hold on anticoagulation.
shock (POA) likely due to sepsis--likely aspiration pneumonia as pt failed speech eval AND VSE--on Dobhoff for feeds, pulled it out, replaced--resp cultures positive for E. coli, Mica (doubt pathogenic) and Enterobacter--apprec ID--OFF
pressors--blood cultures negative--Neg COVID and influenza swab--finished ertapenem and on Xifaxin
hypernatremia--now on IVF since pulled out tube
Essential hypertension--cont meds with parameters
COPD--DuoNebs
Nutrition- follow speech eval--not cleared for oral intake--pulled out Dobhoff--ongoing speech eval-- VSE 03/04--failed again
Right shoulder pain--no evidence of fracture or dislocation. Postoperative changes within the glenoid/scapula noted. Severe DJD of the glenohumeral joint with findings of chronic rotator cuff pathology noted. Continue with symptomatic treatments
right hip pain--likely trochanteric bursitis (point tender over the bursa)--try lidoderm patch over right hip--no further c/o
PT/OT/speech
DVT proph--SCDs
code status -- FULL CODE
Dr. Snyder accompanied by CM (Mona Obrien) had discussion with pt daughter re: GOC, hospice, etc--family to discuss and get back to us
friend Emmy (listed on contact list) visiting him today--she stated that up to the day he went into the hospital (Thanksgiving time) that he was her caregiver!
Original Note:
Today's Communication/Plan
-
Awaiting call back from patients daughter regarding hospice.
Assessment / Plan
Assessment / Plan
1. Acute hepatic encephalopathy (resolved )
Ammonia on admission 128 now down to <9 on 03/02/24; s/p lactulose enemas; now on oral lactulose BID and rifaximin
2. Ventilator dependent respiratory failure (resolved)
- Extubated on 02/26/2024. Patient is now on room air.
3. Pancytopenia
- Chronic likely from cirrhosis
- Continue to monitor for changes
4. Cirrhosis
- Unclear cause; no ascites; abdomen nondistended
- Continue Propranolol and Lasix
5. Portal Venous Thrombosis
- unclear if acute or chronic
- not an ideal candidate for anticoagulation with thrombocytopenia and varices. Hold on anticoagulation.
6. Shock (POA) likely due to sepsis
- Likely silent aspiration pneumonia as pt failed speech eval AND VSE multiple times
- On Dobhoff for feeds, remains in place; repeat swallow eval reveals continued silent aspiration pattern; continue NPO; Dobhoff tube reinserted yesterday, appreciate GI
- José Miguel Mitts as needed
- Resp cultures positive for E. coli, Mica (doubt pathogenic) and Enterobacter earlier in admission
- blood cultures negative
- Neg COVID and influenza swab
- Completed Ertapenam course
7. Hypernatremia (resolved)
8. Essential hypertension
- cont meds with parameters
9. COPD
- PRN DuoNebs
10. Right Shoulder Pain
- no evidence of fx/dislocation; severe DJD; continue symptomatic treatments
11. Right Hip Pain (likley trochanteric bursitis)
- Lidoderm Patch
Nutrition-continue the tube feeds; follow speech eval--not cleared for oral intake--Dobhoff replaced; Repeat VSE tomorrow?
Had goals of care discussion with the patient's daughter Danna. Explained that although this episode of hepatic encephalopathy has resolved, patient continues to fail VSE, has remained NPO. Discussed that patient cannot go back to NH with
Dobhoff. PEG is not recommended due to patient's varying mental status, and potential for ripping tube out. Discussed potential for sending back to NH on hospice so that patient can eat as he pleases knowing the risks of aspiration that this
entails. Discussed the risks and benefits of these options and our medical opinion. Patient will discuss with other family members and call back. Was supposed to call back today, but unsure if she will given holiday. Will reach out to her tomorrow
if she does not call with decision today.
PT/OT/speech
DVT proph--SCDs
code status -- FULL CODE
Anticipated Discharge: 24 - 48 hours
Subjective/Interval History
-
Date of Service: March 06, 2024
Patient seen and examined while resting comfortably in bed. Clinical status unchanged from yesterday.
Objective Data
-
Labs:
Laboratory Results
03/06/24
07:52
WBC 2.2 L*
Hgb 7.6 L
Hct 21.6 L
Plt Count 70 L
Sodium 134 L
Potassium 4.1
Chloride 103
Carbon Dioxide 28
BUN 12
Creatinine 0.7
Glucose 118 H
Calcium 7.6 L
Total Bilirubin 1.5 H
AST 64 H
ALT 53 H
Alkaline Phosphatase 207 H
Vital Signs:
Vital Signs
Temp Pulse Resp BP Pulse Ox
98.3 F 63 16 104/57 96
03/06/24 07:30 03/06/24 09:07 03/06/24 07:30 03/06/24 09:07 03/06/24 08:06
I&O
03/05/24 03/06/24 03/07/24
06:59 06:59 06:59
Intake Total 0 / 0
Output Total 300 / 300 402 / 402
Balance -300 / -300 -402 / -402
Review of Systems
-
Unable to obtain full review of systems at this time due to: Dementia
Physical Exam
-
General: Appears Chronically Ill, Cachectic and Other (frail)
HEENT: Normocephalic and Atraumatic
Respiratory: Clear to Auscultation
Cardiac: Regular Rhythm and S1/S2
GI: Soft, Nontender, Nondistended and Normal Bowel Sounds
Musculoskeletal: No Clubbing, No Cyanosis and No Edema
Neuro: Awake
Data Reviewed
-
Labs: Labs Reviewed by me
[2024-03-06 15:00] VITALS: BP 100/55
[2024-03-06 23:25] VITALS: BP 89/45
[2024-03-07 05:43] LABS: Hematocrit 22.5 % (39.0-52.0); Hemoglobin 7.7 g/dL (13.0-18.0); Mean Corp Hgb Conc. 34.2 g/dL (33.0-37.0); Mean Corpuscular Hgb 34.7 pg (27.0-31.0); Mean Corpuscular Volume 101.4 fL (80.0-94.0); Mean Platelet Volume 9.3 fL (7.4-10.4); Platelet Count 70 10^3/uL (130-400); Red Blood Cell Count 2.22 10^6/uL (4.70-6.10); Red Cell Dist. Width 19.9 % (11.5-14.5); White Blood Cell Count 2.4 10^3/uL (4.8-10.8)
[2024-03-07 05:51] LABS: ALT (SGPT) 50 U/L (0-50); AST (SGOT) 60 U/L (17-59); Albumin 2.1 g/dl (3.5-5.0); Alkaline Phosphatase 191 U/L (38-126); Blood Urea Nitrogen 11 mg/dl (9-20); Calcium 7.7 mg/dl (8.4-10.2); Carbon Dioxide 30 mmol/L (22-30); Chloride 104 mmol/L (98-107); Estimated Creatinine Clearance 76 ml/min; Glucose 109 mg/dl (70-99); Potassium 4.5 mmol/L (3.5-5.1); Sodium 135 mmol/L (135-145); Total Bilirubin 1.4 mg/dl (0.2-1.3); Total Protein 5.3 g/dl (6.3-8.2); eGFR > 60.00
[2024-03-07 06:00] VITALS: BMI 20.7
--- NOTE | 2024-03-07 07:49 | W.PN.HOSP.TC ---
Addendum entered and electronically signed by Rocío Pagan MD 03/07/24 17:28:
I saw and evaluated the patient independently. I reviewed the resident�s note and agree with findings and plan as documented by Dr. Snyder.
GENERAL: cachectic frail male in no apparent distress
HEENT: NC/AT
HEART: regular rate and rhythm, +S1, +S2
LUNGS : clear to auscultation bilaterally
ABDOM: soft, nontender, nondistended, + bowel sounds
EXT: no cyanosis, clubbing, or edema
NEUROLOGIC: most clear today
pt has failed at least 2 VSE and speech evals and remains NPO--had Dobhoff for tube feeds and pt pulled out the tube,tube replaced--will need GOC discussion with pt daughter and POA to discuss hospice--lakshmi if cannot give lactulose or other oral
meds, pt will revert back to his encephalopathy--would not recommend PEG tube in this situation and Dobhoff is temporary only--will reach out again to family
Acute metabolic (hepatic) encephalopathy--ammonia on admission 128 now down to <9 (resolved) --s/p lactulose enemas--now on oral lactulose and rifaximin--follows commands but impulsive--given diarrhea, will cut back lactulose to BID--MRI brain with
mild to mod atrophy otherwise nothing acute
Ventilator dependent respiratory failure--intubated for airway protection--extubated 02/26/24--now on room air
Pancytopenia--chronic likely from cirrhosis--counts now lower than admission although platelet count improving from 46K on 02/28/24--heme neg--cont thiamine and B12 supps--GOAL HGB >7 and PLT > 20K
Cirrhosis--unclear cause--no ascites--propranolol and lasix with parameters--apprec GI
Portal Venous Thrombosis -unclear if acute or chronic--not an ideal candidate for anticoagulation with thrombocytopenia and varices. Hold on anticoagulation.
shock (POA) likely due to sepsis--likely aspiration pneumonia as pt failed speech eval AND VSE--on Dobhoff for feeds, pulled it out, replaced--resp cultures positive for E. coli, Mica (doubt pathogenic) and Enterobacter--apprec ID--OFF
pressors--blood cultures negative--Neg COVID and influenza swab--finished ertapenem and on Xifaxin
hypernatremia--resolved once tube feeds restarted after Dobhoff replaced
Essential hypertension--cont meds with parameters
COPD--DuoNebs
Nutrition- follow speech eval--not cleared for oral intake--pulled out Dobhoff, replaced--ongoing speech eval-- VSE 03/04--failed again
Right shoulder pain--no evidence of fracture or dislocation. Postoperative changes within the glenoid/scapula noted. Severe DJD of the glenohumeral joint with findings of chronic rotator cuff pathology noted. Continue with symptomatic treatments
right hip pain--likely trochanteric bursitis (point tender over the bursa)--try lidoderm patch over right hip--no further c/o
PT/OT/speech
DVT proph--SCDs
code status -- FULL CODE
Dr. Snyder accompanied by CM (Mona Obrien) had discussion with pt daughter re: GOC, hospice, etc--family to discuss and get back to us--will reach out again
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
Original Note:
Today's Communication/Plan
-
Awaiting call back from patient's family. Repeat VSE in AM.
Assessment / Plan
Assessment / Plan
1. Acute hepatic encephalopathy (resolved )
Ammonia on admission 128 now down to <9 on 03/02/24; s/p lactulose enemas; now on oral lactulose BID and rifaximin
2. Ventilator dependent respiratory failure (resolved)
- Extubated on 02/26/2024. Patient is now on room air.
3. Pancytopenia
- Chronic likely from cirrhosis
- Continue to monitor for changes
4. Cirrhosis
- Unclear cause; no ascites; abdomen nondistended
- Continue Propranolol and Lasix
5. Portal Venous Thrombosis
- unclear if acute or chronic
- not an ideal candidate for anticoagulation with thrombocytopenia and varices. Hold on anticoagulation.
6. Shock (POA) likely due to sepsis
- Likely silent aspiration pneumonia as pt failed speech eval AND VSE multiple times
- On Dobhoff for feeds, remains in place; repeat swallow eval reveals continued silent aspiration pattern; continue NPO; Dobhoff tube reinserted yesterday, appreciate GI
- Maries Mitts as needed
- Resp cultures positive for E. coli, Mica (doubt pathogenic) and Enterobacter earlier in admission
- blood cultures negative
- Neg COVID and influenza swab
- Completed Ertapenam course
7. Hypernatremia (resolved)
8. Essential hypertension
- cont meds with parameters
9. COPD
- PRN DuoNebs
10. Right Shoulder Pain
- no evidence of fx/dislocation; severe DJD; continue symptomatic treatments
11. Right Hip Pain (likley trochanteric bursitis)
- Lidoderm Patch
Nutrition-continue the tube feeds; follow speech eval--not cleared for oral intake--Dobhoff replaced; Repeat VSE tomorrow.
Had goals of care discussion with the patient's daughter Danna. Explained that although this episode of hepatic encephalopathy has resolved, patient continues to fail VSE, has remained NPO. Discussed that patient cannot go back to NH with
Dobhoff. PEG is not recommended due to patient's varying mental status, and potential for ripping tube out. Discussed potential for sending back to NH on hospice so that patient can eat as he pleases knowing the risks of aspiration that this
entails. Discussed the risks and benefits of these options and our medical opinion. Patient will discuss with other family members and call back. Was supposed to call back yesterday, but did not. Will reach out to her tomorrow if she does not call
with decision today.
PT/OT/speech
DVT proph--SCDs
code status -- FULL CODE
Anticipated Discharge: 24 - 48 hours
Subjective/Interval History
-
Date of Service: March 07, 2024
Patient seen and examined while resting comfortably in bed. This morning he awoke just from the sound of my normal speaking voice. Patient was pleasant and cooperative with the exam. Endorsed no acute complaints.
Objective Data
-
Labs:
Laboratory Results
03/07/24
04:57
WBC 2.4 L*
Hgb 7.7 L
Hct 22.5 L
Plt Count 70 L
Sodium 135
Potassium 4.5
Chloride 104
Carbon Dioxide 30
BUN 11
Creatinine 0.7
Glucose 109 H
Calcium 7.7 L
Total Bilirubin 1.4 H
AST 60 H
ALT 50
Alkaline Phosphatase 191 H
Vital Signs:
Vital Signs
Temp Pulse Resp BP Pulse Ox
97.8 F 62 18 89/45 98
03/06/24 23:25 03/06/24 23:25 03/06/24 23:25 03/06/24 23:25 03/06/24 23:25
I&O
03/06/24 03/07/24 03/08/24
06:59 06:59 06:59
Intake Total 0 / 0 0 / 0
Output Total 402 / 402 800 / 800
Balance -402 / -402 -800 / -800
Review of Systems
-
Unable to obtain full review of systems at this time due to: Dementia
Respiratory: Reports No Symptoms
Cardiac: Reports No Symptoms
Musculoskeletal: Reports Joint Pain (right ankle, chronic)
Physical Exam
-
General: No Apparent Distress, Cachectic and Other (frail)
HEENT: Normocephalic and Atraumatic
Respiratory: Clear to Auscultation
Cardiac: Regular Rhythm and S1/S2
GI: Soft and Nontender
Musculoskeletal: No Clubbing, No Cyanosis and No Edema
Neuro: Other (more clear today)
Data Reviewed
-
Labs: Labs Reviewed by me
[2024-03-07] MEDS: LIDOCAINE 4% PATCH 1 PATCH TOPICAL ×2 (09:56→09:57)
[2024-03-07] MEDS: NSS (PRESERVATIVE FREE) 10 ML IV (09:57)
[2024-03-07] MEDS: DUPHALAC/CHRONULAC 20 GRAMS TUBE ×2 (09:57→19:57)
[2024-03-07] MEDS: PEPCID 20 MG TUBE ×2 (09:57→19:57)
[2024-03-07] MEDS: XIFAXAN 550 MG TUBE ×2 (09:57→19:57)
[2024-03-07] MEDS: PROTONIX IV 40 MG IV (09:58)
[2024-03-07] MEDS: INDERAL 20 MG TUBE (10:01)
[2024-03-07 10:02] VITALS: BP 124/62
[2024-03-07 15:00] VITALS: BP 107/48
[2024-03-07] MEDS: INDERAL TUBE (22:21)
[2024-03-07] MEDS: TYLENOL ORAL SOLUTION 650 MG TUBE (22:22)
[2024-03-08 05:31] LABS: ALT (SGPT) 45 U/L (0-50); AST (SGOT) 48 U/L (17-59); Albumin 2.1 g/dl (3.5-5.0); Alkaline Phosphatase 192 U/L (38-126); Blood Urea Nitrogen 11 mg/dl (9-20); Calcium 7.7 mg/dl (8.4-10.2); Carbon Dioxide 30 mmol/L (22-30); Chloride 104 mmol/L (98-107); Estimated Creatinine Clearance 79 ml/min; Glucose 82 mg/dl (70-99); Potassium 4.1 mmol/L (3.5-5.1); Sodium 136 mmol/L (135-145); Total Bilirubin 1.8 mg/dl (0.2-1.3); Total Protein 5.4 g/dl (6.3-8.2); eGFR > 60.00
[2024-03-08 05:51] LABS: Hematocrit 23.7 % (39.0-52.0); Hemoglobin 8.3 g/dL (13.0-18.0); Mean Corpuscular Hgb 35.5 pg (27.0-31.0); Mean Corpuscular Volume 101.3 fL (80.0-94.0); Mean Platelet Volume 10.1 fL (7.4-10.4); Platelet Count 89 10^3/uL (130-400); Red Blood Cell Count 2.34 10^6/uL (4.70-6.10); Red Cell Dist. Width 19.9 % (11.5-14.5); White Blood Cell Count 2.7 10^3/uL (4.8-10.8)
[2024-03-08 05:55] VITALS: BMI 19.6
[2024-03-08 07:25] VITALS: BP 122/52
[2024-03-08] MEDS: DUPHALAC/CHRONULAC 20 GRAMS TUBE ×3 (08:03→23:19)
[2024-03-08] MEDS: PROTONIX IV 40 MG IV (08:04)
[2024-03-08] MEDS: INDERAL 20 MG TUBE (08:04)
[2024-03-08] MEDS: NSS (PRESERVATIVE FREE) 10 ML IV (08:04)
[2024-03-08] MEDS: PEPCID 20 MG TUBE ×2 (08:05→20:58)
[2024-03-08] MEDS: XIFAXAN 550 MG TUBE ×2 (08:06→20:58)
[2024-03-08] MEDS: LIDOCAINE 4% PATCH 1 PATCH TOPICAL ×2 (08:07→08:08)
[2024-03-08 11:35] VITALS: BP 111/45; O2SAT 99
--- NOTE | 2024-03-08 12:09 | PTOTSP ---
Video Swallow Examination
Summary: Patient with mild-moderate oral and moderate pharyngeal dysphagia. Improvement noted compared to last study in that no penetration/aspiration occurred with moderately thick liquids and cued cough/swallow could clear penetration/aspiration
when it occurred with other consistencies. See patient care note for full details of study.
Recommend:
1. L5 Minced and Moist Solids, L3 Moderately Thick Liquids
2. Medications: crushed in puree if medically cleared
3. Strategies: upright to 90 degrees, FULL supervision/assistance, single sips/bites, slow rate, multiple swallows
4. Oral care 3x daily
5. Aspiration Risk Hydration Protocol - unlimited ice chips after oral care with supervision
6. Dysphagia therapy at the acute care level and after D/C from acute care setting for education, instruction in compensations, and to determine timing of repeat swallow study.
--- NOTE | 2024-03-08 14:25 | W.PN.HOSP.TC ---
Addendum entered and electronically signed by Rocío Pagan MD 03/08/24 16:39:
I saw and evaluated the patient independently. I reviewed the resident�s note and agree with findings and plan as documented by Dr. Snyder.
GENERAL: cachectic frail male in no apparent distress
HEENT: NC/AT--Dobhoff tube in place
HEART: regular rate and rhythm, +S1, +S2
LUNGS : clear to auscultation bilaterally
ABDOM: soft, nontender, nondistended, + bowel sounds
EXT: no cyanosis, clubbing, or edema
NEUROLOGIC: most clear today
pt has failed at least 2 VSE and speech evals and remains NPO--had Dobhoff for tube feeds and pt pulled out the tube,tube replaced--will need GOC discussion with pt daughter and POA to discuss hospice--lakshmi if cannot give lactulose or other oral
meds, pt will revert back to his encephalopathy--would not recommend PEG tube in this situation and Dobhoff is temporary only--pt now has diet as per speech, keep Dobhoff in until we see how he does with the diet--will reach out again to
family--anticipate d/c to SNF Monday if tolerating diet
Acute metabolic (hepatic) encephalopathy--ammonia on admission 128 now down to <9 (resolved) --s/p lactulose enemas--now on oral lactulose and rifaximin--follows commands but impulsive--given diarrhea, will cut back lactulose to BID--MRI brain with
mild to mod atrophy otherwise nothing acute
Ventilator dependent respiratory failure--intubated for airway protection--extubated 02/26/24--now on room air
Pancytopenia--chronic likely from cirrhosis---heme neg--cont thiamine and B12 supps--GOAL HGB >7 and PLT > 20K
Cirrhosis--unclear cause--no ascites--propranolol and lasix with parameters--apprec GI
Portal Venous Thrombosis -unclear if acute or chronic--not an ideal candidate for anticoagulation with thrombocytopenia and varices. Hold on anticoagulation.
shock (POA) likely due to sepsis--likely aspiration pneumonia as pt failed speech eval AND VSE--on Dobhoff for feeds, pulled it out, replaced--resp cultures positive for E. coli, Mica (doubt pathogenic) and Enterobacter--apprec ID--OFF
pressors--blood cultures negative--Neg COVID and influenza swab--finished ertapenem and on Xifaxin
hypernatremia--resolved once tube feeds restarted after Dobhoff replaced
Essential hypertension--cont meds with parameters
COPD--DuoNebs
Nutrition- follow speech eval--now cleared for oral intake--keep Dobhoff until determined can tolerate diet--ongoing speech eval
Right shoulder pain--no evidence of fracture or dislocation. Postoperative changes within the glenoid/scapula noted. Severe DJD of the glenohumeral joint with findings of chronic rotator cuff pathology noted. Continue with symptomatic treatments
right hip pain--likely trochanteric bursitis (point tender over the bursa)--try lidoderm patch over right hip--no further c/o
PT/OT/speech
DVT proph--SCDs
code status -- FULL CODE
Dr. Snyder accompanied by CM (Mona Obrien) had discussion with pt daughter re: GOC, hospice, etc--family to discuss and get back to us--will reach out again
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
Original Note:
Today's Communication/Plan
-
Trial of minced and moist diet today. Liquids moderately thick via tsp/cup. Single sips, slow rate, multiple swallows, full supervision/assist. Meds crushed if able. Will reach out to daughter with updates.
Assessment / Plan
Assessment / Plan
1. Acute hepatic encephalopathy (resolved )
Ammonia on admission 128 now down to <9 on 03/02/24; s/p lactulose enemas; now on oral lactulose BID and rifaximin
2. Ventilator dependent respiratory failure (resolved)
- Extubated on 02/26/2024. Patient is now on room air.
3. Pancytopenia
- Chronic likely from cirrhosis
- Continue to monitor for changes
4. Cirrhosis
- Unclear cause; no ascites; abdomen nondistended
- Continue Propranolol and Lasix
5. Portal Venous Thrombosis
- unclear if acute or chronic
- not an ideal candidate for anticoagulation with thrombocytopenia and varices. Hold on anticoagulation.
6. Shock (POA) likely due to sepsis (resolved)
- Likely silent aspiration pneumonia as pt failed speech eval AND VSE multiple times
- On Dobhoff for feeds, remains in place; repeat swallow eval reveals continued silent aspiration pattern; continue NPO; Dobhoff tube reinserted, appreciate GI
- Foard Mitts as needed
- (03/08/2024: Repeat VSE silent aspiration with thin liquids via cup and mildly thick liquids. Retention with puree and solids but could reduce with spontaneous swallows)
- Recommended trial of L5 minced and moist, L3 moderatly thick liquids via tsp or cup. Single sips, slow rate, multiple swallows, with full supervision/assist. Meds crushed if able.
- Resp cultures positive for E. coli, Mica (doubt pathogenic) and Enterobacter earlier in admission
- blood cultures negative
- Neg COVID and influenza swab
- Completed Ertapenam course
7. Hypernatremia (resolved)
8. Essential hypertension
- cont meds with parameters
9. COPD
- PRN DuoNebs
10. Right Shoulder Pain
- no evidence of fx/dislocation; severe DJD; continue symptomatic treatments
11. Right Hip Pain (likley trochanteric bursitis)
- Lidoderm Patch
Nutrition-continue the tube feeds; follow speech eval--not cleared for oral intake--Dobhoff replaced; Repeat VSE tomorrow.
Had goals of care discussion with the patient's daughter Danna. Explained that although this episode of hepatic encephalopathy has resolved, patient continues to fail VSE, has remained NPO. Discussed that patient cannot go back to NH with
Dobhoff. PEG is not recommended due to patient's varying mental status, and potential for ripping tube out. Discussed potential for sending back to NH on hospice so that patient can eat as he pleases knowing the risks of aspiration that this
entails. Discussed the risks and benefits of these options and our medical opinion. Patient will discuss with other family members and call back. WILL CALL DAUGHTER TODAY WITH UPDATES.
PT/OT/speech
DVT proph--SCDs
code status -- FULL CODE
Anticipated Discharge: 24 - 48 hours
Subjective/Interval History
-
Date of Service: March 08, 2024
Patient seen while resting in bed comfortably and watching TV. Patient seems more clearer today. Denies any acute complaints.
Objective Data
-
Labs:
Laboratory Results
03/08/24 03/08/24
04:43 04:44
WBC 2.7 L
Hgb 8.3 L
Hct 23.7 L
Plt Count 89 L D
Sodium 136
Potassium 4.1
Chloride 104
Carbon Dioxide 30
BUN 11
Creatinine 0.7
Glucose 82
Calcium 7.7 L
Total Bilirubin 1.8 H
AST 48
ALT 45
Alkaline Phosphatase 192 H
Vital Signs:
Vital Signs
Temp Pulse Resp BP Pulse Ox
97.9 F 54 18 122/52 99
03/08/24 07:25 03/08/24 07:25 03/08/24 07:25 03/08/24 07:25 03/08/24 07:25
I&O
03/07/24 03/08/24 03/09/24
06:59 06:59 06:59
Intake Total 0 / 0 0 / 0
Output Total 800 / 800 1400 / 1400
Balance -800 / -800 -1400 / -1400
Review of Systems
-
History Source: Patient
All other systems: Reviewed and negative
Physical Exam
-
General: No Apparent Distress and Other (frail)
HEENT: Normocephalic and Atraumatic
Respiratory: Clear to Auscultation
Cardiac: Regular Rhythm and S1/S2
GI: Soft and Nontender
Musculoskeletal: No Clubbing, No Cyanosis and No Edema
Skin: Warm and Dry
Neuro: Awake, Alert and Other (continues to be clearer by day)
Psych: Calm
Data Reviewed
-
Labs: Labs Reviewed by me
--- NOTE | 2024-03-08 14:59 | CM ---
Addendum entered by Mona Obrien 03/08/24 16:22:
Physician plan to talk to daughter to update her and per prior conversation family coming to see patient in Mar possibly 03/19/24.
Addendum entered by Mona Obrien 03/08/24 16:20:
randy Reynoso called back to state that the earliest option for patient to return would be monday. She requested that she would ask CM to call to confirm ability to accept on monday to SNF; [facility] to call her; [phone].
Original Note:
Patient now with diet, CM called to [facility] and they do not have bed currently to accept patient back. CM sent updated clinical information and will update patient daughter and physician/nursing. CM will continue to follow for discharge planning needs.
Plan; return to SNF when medically appropriate.
[2024-03-08 15:20] VITALS: BP 102/53
[2024-03-08] MEDS: INDERAL 10 MG TUBE (20:58)
[2024-03-08] MEDS: INDERAL TUBE (22:30)
[2024-03-08 23:00] VITALS: BP 115/51
[2024-03-08] MEDS: TYLENOL ORAL SOLUTION 650 MG TUBE (23:20)
[2024-03-09 07:25] VITALS: BP 98/49
[2024-03-09] MEDS: LIDOCAINE 4% PATCH 1 PATCH TOPICAL ×2 (08:18→08:19)
[2024-03-09] MEDS: NSS (PRESERVATIVE FREE) 10 ML IV (08:20)
[2024-03-09] MEDS: PROTONIX IV 40 MG IV (08:21)
[2024-03-09] MEDS: PEPCID 20 MG TUBE ×2 (08:21→19:30)
[2024-03-09] MEDS: XIFAXAN 550 MG TUBE ×2 (08:21→19:30)
[2024-03-09] MEDS: INDERAL 20 MG TUBE (08:21)
--- NOTE | 2024-03-09 11:22 | W.PN.HOSP.TC ---
Addendum entered and electronically signed by Rocío Pagan MD 03/09/24 18:09:
I saw and evaluated the patient independently. I reviewed the resident�s note and agree with findings and plan as documented by Dr. Snyder.
GENERAL: cachectic frail male in no apparent distress
HEENT: NC/AT--Dobhoff tube in place
HEART: regular rate and rhythm, +S1, +S2
LUNGS : clear to auscultation bilaterally
ABDOM: soft, nontender, nondistended, + bowel sounds
EXT: no cyanosis, clubbing, or edema
NEUROLOGIC: more clear today--working the remote--Dobhoff tube out and tolerating diet
pt failed at least 2 VSE and speech evals--had Dobhoff for tube feeds and pt pulled out the tube,tube replaced--Dr. Snyder had GO discussion with pt daughter did not recommend PEG tube in this situation and Dobhoff is temporary only--pt now has
diet as per speech--anticipate d/c to SNF Monday if tolerating diet
Acute metabolic (hepatic) encephalopathy--ammonia on admission 128 now down to <9 (resolved) --s/p lactulose enemas--now on oral lactulose and rifaximin--lactulose BID--MRI brain with mild to mod atrophy otherwise nothing acute
Ventilator dependent respiratory failure--intubated for airway protection--extubated 02/26/24--now on room air
Pancytopenia--chronic likely from cirrhosis---heme neg--cont thiamine and B12 supps--GOAL HGB >7 and PLT > 20K
Cirrhosis--unclear cause--no ascites--propranolol and lasix with parameters--apprec GI
Portal Venous Thrombosis -unclear if acute or chronic--not an ideal candidate for anticoagulation with thrombocytopenia and varices. Hold on anticoagulation.
shock (POA) likely due to sepsis--likely aspiration pneumonia as pt failed speech eval AND VSE--on Dobhoff for feeds, pulled it out, replaced--resp cultures positive for E. coli, Mica (doubt pathogenic) and Enterobacter--apprec ID--OFF
pressors--blood cultures negative--Neg COVID and influenza swab--finished ertapenem and on Xifaxin
hypernatremia--resolved once tube feeds restarted after Dobhoff replaced
Essential hypertension--cont meds with parameters
COPD--DuoNebs
Nutrition- follow speech eval--now cleared for oral intake--keep Dobhoff until determined can tolerate diet--ongoing speech eval
Right shoulder pain--no evidence of fracture or dislocation. Postoperative changes within the glenoid/scapula noted. Severe DJD of the glenohumeral joint with findings of chronic rotator cuff pathology noted. Continue with symptomatic treatments
right hip pain--likely trochanteric bursitis (point tender over the bursa)--try lidoderm patch over right hip--no further c/o
PT/OT/speech
DVT proph--SCDs
code status -- FULL CODE
anticipate d/c tomorrow
Original Note:
Today's Communication/Plan
-
.
Assessment / Plan
Assessment / Plan
1. Acute hepatic encephalopathy (resolved )
Ammonia on admission 128 down to <9 on 03/02/24; s/p lactulose enemas; now on oral lactulose BID and rifaximin
2. Ventilator dependent respiratory failure (resolved)
- Extubated on 02/26/2024. Patient is now on room air.
3. Pancytopenia
- Chronic likely from cirrhosis
- Continue to monitor for changes
4. Cirrhosis
- Unclear cause; no ascites; abdomen nondistended
- Continue Propranolol and Lasix
5. Portal Venous Thrombosis
- unclear if acute or chronic
- not an ideal candidate for anticoagulation with thrombocytopenia and varices. Hold on anticoagulation.
6. Shock (POA) likely due to sepsis (resolved)
- Likely silent aspiration pneumonia as pt failed speech eval AND VSE multiple times
- On Dobhoff for feeds, remains in place; repeat swallow eval reveals continued silent aspiration pattern; Dobhoff remains in place, appreciate GI; diet restarted as below
- Mcintosh Mitts as needed
- (03/08/2024: Repeat VSE silent aspiration with thin liquids via cup and mildly thick liquids. Retention with puree and solids but could reduce with spontaneous swallows)
- Recommended trial of L5 minced and moist, L3 moderatly thick liquids via tsp or cup. Single sips, slow rate, multiple swallows, with full supervision/assist. Meds crushed if able.
- Patient tolerating above diet well. Possible discharge to NH on this diet tomorrow.
- Resp cultures positive for E. coli, Mica (doubt pathogenic) and Enterobacter earlier in admission
- blood cultures negative
- Neg COVID and influenza swab
- Completed Ertapenam course
7. Hypernatremia (resolved)
8. Essential hypertension
- cont meds with parameters
9. COPD
- PRN DuoNebs
10. Right Shoulder Pain
- no evidence of fx/dislocation; severe DJD; continue symptomatic treatments
11. Right Hip Pain (likley trochanteric bursitis)
- Lidoderm Patch
Nutrition-continue the tube feeds; follow speech eval--not cleared for oral intake--Dobhoff replaced; Repeat VSE tomorrow.
Had goals of care discussion with the patient's daughter Danna. Explained that although this episode of hepatic encephalopathy has resolved, patient continues to fail VSE, has remained NPO. Discussed that patient cannot go back to [place] with
Dobhoff. PEG is not recommended due to patient's varying mental status, and potential for ripping tube out. Discussed potential for sending back to [place] on hospice so that patient can eat as he pleases knowing the risks of aspiration that this
entails. Discussed the risks and benefits of these options and our medical opinion. Patient will discuss with other family members and call back. WILL CALL DAUGHTER TODAY WITH UPDATES.
03/08/24: Spoke with Daughter and updated her with the patient's clinical status and plan. Patient says she will call back again today to see if patient is indeed tolerating his new diet.
Possible discharge to [place] on above diet tomorrow.
PT/OT/speech
DVT proph--SCDs
code status -- FULL CODE
Anticipated Discharge: 24 - 48 hours
Subjective/Interval History
-
Date of Service: March 09, 2024
Patient seen and examined while resting comfortably in bed and watching TV. Patient appeared more clear this morning, and we had a conversation about the snow and about how he does not enjoy it because he is originally from [place]. Per nursing,
patient has been tolerating his diet without issue. Patient is happy to be able to have oral intake again. Dobhoff tube clogged this morning, meds crushed and delivered with thickened liquids.
Objective Data
-
Vital Signs:
Vital Signs
Temp Pulse Resp BP Pulse Ox
97.5 F 56 18 98/49 97
03/09/24 07:25 03/09/24 07:25 03/09/24 07:25 03/09/24 07:25 03/09/24 07:25
I&O
03/08/24 03/09/24 03/10/24
06:59 06:59 06:59
Intake Total 0 / 0
Output Total 1400 / 1400 900 / 900
Balance -1400 / -1400 -900 / -900
Review of Systems
-
History Source: Patient
Constitutional: Reports No Symptoms
Respiratory: Reports No Symptoms
Cardiac: Reports No Symptoms
Musculoskeletal: Reports No Symptoms
Physical Exam
-
General: No Apparent Distress and Other (frail)
HEENT: Normocephalic and Atraumatic
Respiratory: Clear to Auscultation and Non Labored Respirations
Cardiac: Regular Rhythm
GI: Soft, Nontender and Nondistended
Musculoskeletal: No Clubbing, No Cyanosis and No Edema
Skin: Warm
Neuro: Awake, Alert and Other (clearer today, continues to improve)
Psych: Calm
Data Reviewed
-
Labs: Labs Reviewed by me
[2024-03-09 15:37] VITALS: BP 97/57
[2024-03-09] MEDS: DUPHALAC/CHRONULAC 20 GRAMS TUBE (19:30)
[2024-03-09 23:55] VITALS: BP 109/59
[2024-03-10 07:25] VITALS: BP 100/45
[2024-03-10] MEDS: NSS (PRESERVATIVE FREE) 10 ML IV (08:45)
[2024-03-10] MEDS: PROTONIX IV 40 MG IV (08:45)
[2024-03-10] MEDS: XIFAXAN 550 MG TUBE (08:45)
[2024-03-10] MEDS: INDERAL 20 MG TUBE (08:45)
[2024-03-10] MEDS: PEPCID 20 MG TUBE (08:46)
[2024-03-10] MEDS: LIDOCAINE 4% PATCH 1 PATCH TOPICAL ×2 (08:46→08:47)
[2024-03-10] MEDS: DUPHALAC/CHRONULAC 20 GRAMS TUBE (08:47)
--- NOTE | 2024-03-10 11:34 | PTOTSP ---
Speech Pathology:
Dysphagia Follow Up
Tolerating current diet of minced and moist solids (IDDSI 5) and mod thick liquids (IDDSI 3). Requires MAX verbal cues and supervision to ensure use of all safe swallowing strategies. Will need [employer]ELOPER service at the next level of care to continue to
provide dysphagia tx, education on aspiration precautions, and to train compensations. Will need repeat of video swallow study via outpatient before advancing diet.
Recommendations remain (as per VSE 03/08):
1. L5 Minced and Moist Solids, L3 Moderately Thick Liquids
2. Medications: crushed in puree if medically cleared
3. Strategies: upright to 90 degrees, FULL supervision/assistance, single sips/bites, slow rate, multiple swallows
4. Oral care 3x daily
5. Aspiration Risk Hydration Protocol - unlimited ice chips after oral care with supervision
6. Dysphagia therapy at the acute care level and after D/C from acute care setting for education, instruction in compensations, and to determine timing of repeat swallow study.
--- NOTE | 2024-03-10 12:18 | CM ---
Pt is medically stable for d/c per hospitalist when discussed on floor.
[facility] can accept pt back today. Pt has rehab needs and will admit to SNF, pt is LTC resident at facility.
Spoke w/ pt's daughter, Monica, to inform of d/c today. Monica is agreeable but would like update from hospitalist.
CM made hospitalist aware of call to daughter as requested
Pt will need ambulance transport, forms on chart
IMM reviewed, copy on chart
[facility] SNF
Report: [phone]

Plan: Return to [facility] via ambulance
--- NOTE | 2024-03-10 12:23 | W.PN.HOSP.TC ---
Addendum entered and electronically signed by Rocío Pagan MD 03/10/24 15:52:
I saw and evaluated the patient independently. I reviewed the resident�s note and agree with findings and plan as documented by Dr. Snyder.
GENERAL: cachectic frail male in no apparent distress
HEENT: NC/AT
HEART: regular rate and rhythm, +S1, +S2
LUNGS : clear to auscultation bilaterally
ABDOM: soft, nontender, nondistended, + bowel sounds
EXT: no cyanosis, clubbing, or edema
NEUROLOGIC: Dobhoff tube out and tolerating diet
pt failed at least 2 VSE and speech evals--had Dobhoff for tube feeds and pt pulled out the tube,tube replaced--Dr. Snyder had [facility] discussion with pt daughter did not recommend PEG tube in this situation and Dobhoff is temporary only--pt now has
diet as per speech-- d/c to SNF
Acute metabolic (hepatic) encephalopathy--ammonia on admission 128 now down to <9 (resolved) --s/p lactulose enemas--now on oral lactulose and rifaximin--lactulose BID--MRI brain with mild to mod atrophy otherwise nothing acute
Ventilator dependent respiratory failure--intubated for airway protection--extubated 02/26/24--now on room air
Pancytopenia--chronic likely from cirrhosis---heme neg--cont thiamine and B12 supps--GOAL HGB >7 and PLT > 20K
Cirrhosis--unclear cause--no ascites--propranolol and lasix with parameters--apprec GI
Portal Venous Thrombosis -unclear if acute or chronic--not an ideal candidate for anticoagulation with thrombocytopenia and varices. Hold on anticoagulation.
shock (POA) likely due to sepsis--likely aspiration pneumonia as pt failed speech eval AND VSE--on Dobhoff for feeds, pulled it out, replaced--resp cultures positive for E. coli, Mica (doubt pathogenic) and Enterobacter--apprec ID--OFF
pressors--blood cultures negative--Neg COVID and influenza swab--finished ertapenem and on Xifaxin
hypernatremia--resolved once tube feeds restarted after Dobhoff replaced
Essential hypertension--cont meds with parameters
COPD--DuoNebs
Nutrition- follow speech eval--now cleared for oral intake--keep Dobhoff until determined can tolerate diet--ongoing speech eval
Right shoulder pain--no evidence of fracture or dislocation. Postoperative changes within the glenoid/scapula noted. Severe DJD of the glenohumeral joint with findings of chronic rotator cuff pathology noted. Continue with symptomatic treatments
right hip pain--likely trochanteric bursitis (point tender over the bursa)--try lidoderm patch over right hip--no further c/o
PT/OT/speech
DVT proph--SCDs
code status -- FULL CODE
Original Note:
Today's Communication/Plan
-
.
Assessment / Plan
Assessment / Plan
1. Acute hepatic encephalopathy (resolved )
Ammonia on admission 128 down to <9 on 03/02/24; s/p lactulose enemas; now on oral lactulose BID and rifaximin
2. Ventilator dependent respiratory failure (resolved)
- Extubated on 02/26/2024. Patient is now on room air.
3. Pancytopenia
- Chronic likely from cirrhosis
- Continue to monitor for changes
4. Cirrhosis
- Unclear cause; no ascites; abdomen nondistended
- Continue Propranolol (lasix held since no ascites)
- Outpatient follow up with Hepatology recommended by GI. Discussed this with daughter who is willing to facilitate.
5. Portal Venous Thrombosis
- unclear if acute or chronic
- not an ideal candidate for anticoagulation with thrombocytopenia and varices. Hold on anticoagulation.
6. Shock (POA) likely due to sepsis (resolved)
- Likely silent aspiration pneumonia as pt failed speech eval AND VSE multiple times
- On Dobhoff for feeds, remains in place; repeat swallow eval reveals continued silent aspiration pattern; Dobhoff remains in place, appreciate GI; diet restarted as below
- Hanson Mitts as needed
- (03/08/2024: Repeat VSE silent aspiration with thin liquids via cup and mildly thick liquids. Retention with puree and solids but could reduce with spontaneous swallows)
- Recommended trial of L5 minced and moist, L3 moderatly thick liquids via tsp or cup. Single sips, slow rate, multiple swallows, with full supervision/assist. Meds crushed if able.
- Patient tolerating above diet well. Discharge on this diet.
- Resp cultures positive for E. coli, Mica (doubt pathogenic) and Enterobacter earlier in admission
- blood cultures negative
- Neg COVID and influenza swab
- Completed Ertapenam course
7. Hypernatremia (resolved)
8. Essential hypertension
- cont meds with parameters
9. COPD
- PRN DuoNebs
10. Right Shoulder Pain
- no evidence of fx/dislocation; severe DJD; continue symptomatic treatments
11. Right Hip Pain (likley trochanteric bursitis)
- Lidoderm Patch
Initially had goals of care discussion with the patient's daughter Danna. Explained that although this episode of hepatic encephalopathy has resolved, patient continues to fail VSE, has remained NPO. Discussed that patient cannot go back to NH
with Dobhoff. PEG is not recommended due to patient's varying mental status, and potential for ripping tube out. Discussed potential for sending back to NH on hospice so that patient can eat as he pleases knowing the risks of aspiration that this
entails. Discussed the risks and benefits of these options and our medical opinion. Patient will discuss with other family members and call back.
03/08/24: Spoke with Daughter and updated her with the patient's clinical status and plan. Patient says she will call back again today to see if patient is indeed tolerating his new diet.
03/10/24: Spoke with other daughter Denice who requested updates: let her know her father is tolerating this specific diet and is medically stable for discharge back to SNF. I let her know that there is still a risk of aspiration, and that there is
future risk of further episodes of hepatic encephalopathy. Recommendation made by in house GI was to follow up with the rn chemical dependency at [facility] where the patient is already known. Also recommended that the patient adhere to
prophylactic medications lactulose and rifaximin for prevention of future episodes.
D/C today to SNF at [place].
PT/OT/speech
DVT proph--SCDs
code status -- FULL CODE
Anticipated Discharge: Today
Subjective/Interval History
-
Date of Service: March 10, 2024
Patient seen and examined while resting comfortably in bed, patient easily aroused from sleep and conversant/cooperative with examination. Patient states that he is feeling well, has no acute complaints. States that he has been tolerating his diet
over the past day well, and denies any issues with coughing during meals.
Objective Data
-
Labs:
Laboratory Results
03/10/24
11:37
WBC Pending
Hgb Pending
Hct Pending
Plt Count Pending
Sodium Pending
Potassium Pending
Chloride Pending
Carbon Dioxide Pending
BUN Pending
Creatinine Pending
Glucose Pending
Calcium Pending
Total Bilirubin Pending
AST Pending
ALT Pending
Alkaline Phosphatase Pending
Vital Signs:
Vital Signs
Temp Pulse Resp BP Pulse Ox
98 F 60 16 100/45 98
03/10/24 07:25 03/10/24 07:25 03/10/24 07:25 03/10/24 07:25 03/10/24 07:25
I&O
03/09/24 03/10/24 03/11/24
06:59 06:59 06:59
Intake Total 900 / 900
Output Total 900 / 900 570 / 570
Balance -900 / -900 330 / 330
Review of Systems
-
History Source: Patient
Constitutional: Reports No Symptoms
Respiratory: Reports No Symptoms
Cardiac: Reports No Symptoms
Abdomen/GI: Reports No Symptoms
Physical Exam
-
General: No Apparent Distress, Conversant and Other (Frail)
HEENT: Normocephalic and Atraumatic
Respiratory: Clear to Auscultation
Cardiac: Regular Rhythm and S1/S2
GI: Soft and Nontender
Musculoskeletal: No Clubbing, No Cyanosis and No Edema
Skin: Warm
Neuro: Awake and Alert
Psych: Calm
Data Reviewed
-
Labs: Labs Reviewed by me
[2024-03-10 12:34] LABS: ALT (SGPT) 39 U/L (0-50); AST (SGOT) 38 U/L (17-59); Albumin 2.3 g/dl (3.5-5.0); Alkaline Phosphatase 174 U/L (38-126); Blood Urea Nitrogen 16 mg/dl (9-20); Calcium 7.9 mg/dl (8.4-10.2); Carbon Dioxide 30 mmol/L (22-30); Chloride 105 mmol/L (98-107); Estimated Creatinine Clearance 74 ml/min; Glucose 112 mg/dl (70-99); Hematocrit 26.7 % (39.0-52.0); Mean Corp Hgb Conc. 33.7 g/dL (33.0-37.0); Mean Corpuscular Hgb 35.3 pg (27.0-31.0); Mean Corpuscular Volume 104.7 fL (80.0-94.0); Mean Platelet Volume 9.6 fL (7.4-10.4); Platelet Count 91 10^3/uL (130-400); Potassium 4.2 mmol/L (3.5-5.1); Red Blood Cell Count 2.55 10^6/uL (4.70-6.10); Red Cell Dist. Width 20.4 % (11.5-14.5); Sodium 139 mmol/L (135-145); Total Bilirubin 1.6 mg/dl (0.2-1.3); Total Protein 5.7 g/dl (6.3-8.2); eGFR > 60.00
[2024-03-10 15:25] VITALS: BP 96/50
--- NOTE | 2024-03-10 17:34 | W.DCSUMMARY ---
Addendum entered and electronically signed by Rocío Pagan MD 03/10/24 19:29:
Read, reviewed, and agree. See same day progress note for additional details. Time spent coordinating care, DC planning, review of DC plan of care with resident, transition of care, review of records in EMR, med rec, consults, notes, d/w
consultants, nursing, family, and CM = 32 minutes
Original Note:
Discharge Summary
Discharge Data
Date of Admission: 02/21/24
Date of Discharge: 03/10/24
Total time spent discharging patient (in min): 32
-
Pending Results: No
Hospital Course
Mr. Hernandez is a 74-year-old male with a past medical history of cirrhosis, portal hypertension, esophageal varices, gastrointestinal hemorrhage, metabolic encephalopathy, aphasia, chronic thrombocytopenia, essential hypertension, chronic
obstructive pulmonary disease, chronic anemia, idiopathic pulmonary fibrosis, and pulmonary hypertension who presented to the emergency department at [facility] on 02/21/2024 in an obtunded state. Importantly, the patient had recently been
admitted at [facility] for hepatic encephalopathy and discharged to [facility]. The patient had only been there for couple days when the patient had the following event. Reportedly the patient was agitated
overnight and did not go to bed until approximately 6 AM the morning of his admission. The patient was allowed to sleep in, and did not receive his morning medications or morning meals. At subsequent evaluation by nursing staff in the early
afternoon, the patient was noted to be unresponsive. Upon arrival to the emergency department, the patient's Lg Coma Scale was 3-5. Laboratory studies in the emergency department revealed pancytopenia, elevated prothrombin time, a total
bilirubin of 3.3, mild transaminitis, and an ammonia level of 128. The patient was subsequently intubated and admitted to the intensive care unit.
Upon admission to the ICU, the patient was started on rectal lactulose and IV Lasix. A CT of the head did not reveal any acute abnormalities. An OG tube was attempted to be placed but failed. Eventually a Dobbhoff tube was placed in its stead.
Since the patient's chest x-ray exhibited a possible pneumonia, the patient was also started on vancomycin, Flagyl, Azactam. Successful placement of the Dobbhoff, rectal lactulose was transitioned to oral lactulose. Rifaximin was also added. Over
time, the patient's mental status improved little by little. Despite the patient having normal ammonia levels after approximately 1 week, the patient continued to have decreased mentation. Brain MRI was performed which did not show any evidence of
acute intracranial abnormality. As the patient's mental status improved further, videofluoroscopic swallow examinations were performed to see if the patient could receive a diet. However the patient continued to fail these examinations with silent
aspirations. It was initially recommended that [facility] so that the patient may eat as he pleased knowing the risk of aspiration that he would incur. This was discussed at depth with the patient's
family via phone. While awaiting discharge, the patient had 1 last video swallow evaluation on 03/08/2024. The patient finally passed this evaluation and was able to tolerate a L5 minced and moist diet with L-3 moderately thick liquids via teaspoon
or cup. This was so long as he took single sips, eat at a slow rate, used multiple swallows, and did this under full supervision and assist. Medications were able to be crushed and swallowed. Over the next couple of days, the patient tolerated
his diet well. It was decided that he would be discharged back to [place] to its snf facility on this diet for further rehab. The patient was discharged on 03/10/2024. The patient's daughters were updated regarding the patient's
status as well as recommendations for his diet upon discharge to snf facility. They were also advised that the patient is at risk for aspiration in the future, as well as repeated episodes of hepatic encephalopathy. It was recommended
that the patient follow-up with a direct service professional that is known to him at [facility]. In addition it was recommended that the patient remain on outpatient maintenance therapy for hepatic encephalopathy with prophylactic rifaximin and
lactulose. The patient's daughter agreed that they would be able to help the patient out with logistics in the interim.
Discharge Plan
-
Patient Disposition: Residential/SNF
Discharge Diagnosis/Procedures: Acute Hepatic Encephalopathy
Ventilator Dependent Respiratory Failure
Cirrhosis
Portal Venous Thrombosis
Dysphagia
Condition: Fair
Diet: Other diet
Additional Diets: L5 Minced and Moist; L3 moderately thick liquids via teaspoon/cup. Single sips, slow rate, multiple swallows, full supervision/assistance. Medications crushed.
Activity: As tolerated
Referrals:
Carlos Castro MD [Family Provider] - in less than 1 week
Prescriptions:
New
rifaximin 550 mg tablet
550 mg PO BID Qty: 30 0RF
Continued
acetaminophen [Tylenol] 325 mg Tablet
650 mg PO Q6HPRN PRN (Reason: mild pain)
cyanocobalamin (vitamin B-12) 100 mcg Tablet
100 mcg PO HS
lidocaine 4 % Adhesive Patch,Medicated
1 patch TOPICAL DAILY
thiamine HCl (vitamin B1) 100 mg Tablet
100 mg PO DAILY
therapeutic multivitamin Tablet
1 tab PO DAILY
guaifenesin 200 mg Tablet
600 mg PO [id number] PRN (Reason: cough)
propranolol 10 mg Tablet
10 mg PO HS
magnesium hydroxide [Milk of Magnesia] 400 mg/5 mL Suspension
2,400 mg PO DAILYPRN PRN (Reason: if no bm by 3rd day)
ascorbic acid (vitamin C) [Vitamin C] 250 mg Tablet
250 mg PO DAILY
bisacodyl [Dulcolax (bisacodyl)] 10 mg Suppository
10 mg AK DAILYPRN PRN (Reason: if no bm aftr mom)
pantoprazole [Protonix] 40 mg Tablet,Delayed Release (Dr/Ec)
40 mg PO HS
Fleet Enema 19-7 gram/118 mL Enema
118 ml AK DAILYPRN PRN (Reason: if no bm aftr dulolcax)
propranolol 20 mg Tablet
20 mg PO DAILY
lactulose 10 gram/15 mL Solution
20 g PO TID
menthol-zinc oxide [Moisture Barrier Ointment] 0.44-20.6 % Ointment
1 applic TOPICAL TIDPRN PRN (Reason: palak areas)
zinc oxide 13 % Cream
1 applic TOPICAL TID
Trelegy Ellipta 100-62.5-25 mcg Blister With Device
1 inh INHALATION R DAILY
Held
furosemide [Lasix] 20 mg Tablet
20 mg PO DAILY
Hold Instructions: Restart if patient has fluid retention/swelling/ascites
Discharge Orders:
Discharge Patient (As Directed); Ordered 03/10/24
Ordered By: Michael Snyder
Discharge Date and Time
Print Language: PORTUGUESE
== END 2024-03-10 17:44 | DRG 207 ==
LOC: 4 WEST ACU 18:11
PROVIDERS: Internal Medicine; Internal Medicine Critical Care Medicine; Internal Medicine Gastroenterology; Nurse Practitioner Adult Health; Nurse Practitioner Family; ADMITTING PHYSICIAN Internal Medicine; CONSULT PHYSICIAN Internal Medicine Critical Care Medicine; CONSULT PHYSICIAN Internal Medicine Infectious Disease; CONSULT PHYSICIAN Psychiatry & Neurology Neurology; CONSULT PHYSICIAN Student in an Organized Health Care Education/Training Program; EMERGENCY PHYSICIAN Emergency Medicine; FAMILY PHYSICIAN Internal Medicine
PROC: 5A1955Z Respiratory Ventilation, Greater than 96 Consecutive Hours (ICD-10-PCS; 2024-02-21)
PROC: 0BH17EZ Insertion of Endotracheal Airway into Trachea, Via Natural or Artificial Opening (ICD-10-PCS; 2024-02-21)
PROC: 02HV33Z Insertion of Infusion Device into Superior Vena Cava, Percutaneous Approach (ICD-10-PCS; 2024-02-22)
DX: J69.0 Pneumonitis due to inhalation of food and vomit (principal); A41.9 Sepsis, unspecified organism; G93.41 Metabolic encephalopathy; I81 Portal vein thrombosis; J96.01 Acute respiratory failure with hypoxia; R57.8 Other shock; R65.21 Severe sepsis with septic shock; R64 Cachexia; Z68.1 Body mass index [BMI] 19.9 or less, adult; D61.818 Other pancytopenia; E46 Unspecified protein-calorie malnutrition; N39.0 Urinary tract infection, site not specified; E87.20 Acidosis, unspecified; K76.6 Portal hypertension; E87.0 Hyperosmolality and hypernatremia; I85.10 Secondary esophageal varices without bleeding; I10 Essential (primary) hypertension; J44.9 Chronic obstructive pulmonary disease, unspecified; I27.20 Pulmonary hypertension, unspecified; J84.112 Idiopathic pulmonary fibrosis; K76.82 Hepatic encephalopathy; E88.09 Other disorders of plasma-protein metabolism, not elsewhere classified; M25.511 Pain in right shoulder; K74.60 Unspecified cirrhosis of liver; M25.551 Pain in right hip; K21.9 Gastro-esophageal reflux disease without esophagitis; R13.10 Dysphagia, unspecified; Z11.52 Encounter for screening for COVID-19; Z79.899 Other long term (current) drug therapy; Z87.891 Personal history of nicotine dependence
CPT/HCPCS: 31500; 36600; 43752; 51702; 70450; 70551; 71045; 71250; 73030; 74018; 74176; 74177; 74230; 76705; 80048; 80053; 80306; 81003; 81015; 82105; 82140; 82248; 82805; 82962; 82977; 83036; 83605; 83615; 83735; 84100; 84145; 84443; 84478; 85018; 85025; 85027; 85379; 85384; 85610; 85730; 87040; 87070; 87077; 87086; 87186; 87205; 87324; 87449; 87502; 87811; 92526; 92610; 92611; 93005; 93975; 94002; 94003; 94640; 94660; 96365; 96366; 96375; 97163; 97167; 97530; 99291; J1335; Q9967